=== PATIENT | male | born 1945 | race Caucasian/White ===

== ENCOUNTER 2019-10-10 17:32 | Outpatient (CLI) | payer MEDICARE, SELFPAY ==
[2019-10-10 18:23] LABS: Basophils Absolute Auto 0.1 K/mm3 (0.0-0.1); Eosinophils Absolute Auto 0.3 K/mm3 (0-0.3); Eosinophils Percent Auto 3.2 % (0-4.4); Hematocrit 22.6 % (42.0-52.0); Immature Granulocyte Absolute 0.08 K/mm3 (0.00-0.031); Immature Granulocyte Percent A 0.9 % (0-0.5); Lymphocytes Absolute Auto 1.99 K/mm3 (0.9-3.2); Lymphocytes Percent Auto 22.3 % (18.3-44.2); Mean Corpuscular Hemoglobin 28.7 pg (26-34); Mean Corpuscular Volume 92.6 fl (80-100); Mean Platelet Volume 11.2 fl (7.4-10.4); Monocytes Absolute Auto 1.1 K/mm3 (0.1-0.6); Monocytes Percent Auto 12.7 % (2.6-8.5); Neutrophils Absolute Auto 5.4 K/mm3 (1.3-6.7); Neutrophils Percent Auto 59.9 % (45.5-73.1); Platelet Count Result 339 k/mm3 (150-375); Red Blood Count 2.44 M/mm3 (4.6-6.20); Red Cell Distribution Width 15.3 % (11.5-14.5); White Blood Count 8.9 K/mm3 (4.5-10.0)
[2019-10-10 18:25] LABS: Iron 24 ug/dL (49-181)
[2019-10-10 18:34] LABS: Percent Iron Saturation 8 % (20-50)
[2019-10-10 19:20] LABS: Folic Acid 16.1 ng/mL (2.76->20)
== END 2019-10-10 17:33 | disposition home or self-care (01) ==
PROVIDERS: PCP Family Medicine; Visit Provider Family Medicine
DX: R53.1 Weakness (principal); I10 Essential (primary) hypertension; D64.9 Anemia, unspecified
CPT/HCPCS: 36415; 82607; 82728; 82746; 83540; 83550; 85025

== ENCOUNTER 2019-10-11 11:29 | Observation (INO) | payer MEDICARE, SELFPAY ==
[2019-10-11] VITALS (10 sets, daily range): BP systolic 144–180; BP diastolic 63–86; PULSE 65–84; RESP 17–26; TEMP 36.1–36.7; O2SAT 94–100; BMI 31.4
--- NOTE | ~2019-10-11 | XR_ITS ---
EXAMINATION: XR chest 1V portable DATE: 10/11/2019 15:46 INDICATION: Shortness of breath. TECHNIQUE: A single frontal view of the chest was obtained. COMPARISON: None. FINDINGS: There is mild atelectasis in left lower lung zone. No pleural effusion or pneumothorax. The heart size is normal. There is a moderate-sized hiatal hernia. IMPRESSION: 1. Mild atelectasis in left lower lung zone. 2. Moderate-sized hiatal hernia. Reviewed, dictated and finalized at location A.
--- NOTE | ~2019-10-11 | US_ITS ---
EXAMINATION: US venous doppler LE EXAM DATE: 10/12/2019 09:01 INDICATION: Bilateral leg swelling. TECHNIQUE: Multiple grayscale, color flow and Doppler images of the lower extremity deep venous syste ms bilaterally were obtained and reviewed. There is no prior study for comparison. FINDINGS: Right side: The right common femoral, femoral and profunda veins demonstrate normal color flow, respi ratory variation, augmentation and compressibility. Compressibility, color flow confirmed within the right popliteal, posterior tibial, peroneal, and greater saphenous veins. Left side: The left common femoral, femoral and profunda veins demonstrate normal color flow, respira tory variation, augmentation and compressibility. Compressibility, color flow confirmed within the l eft popliteal, posterior tibial, peroneal, and greater saphenous veins. IMPRESSION: 1. No lower extremity deep venous thrombosis bilaterally. Reviewed, dictated and finalized at location A.
--- NOTE | 2019-10-11 11:30 | ECG_ITS ---
Measurements Intervals [place] Rate: 76 P: -28 ND: 196 QRS: -27 QRSD: 93 T: -29 QT: 382 QTc: 431 Interpretive Statements SINUS OR ECTOPIC ATRIAL RHYTHM DELAYED PRECORDIAL R/S TRANSITION NONSPECIFIC T-WAVE ABNORMALITY- INFERIOR LEADS BASELINE ARTIFACT- I, II, III, AVL BORDERLINE ECG Electronically Signed On 10-11-2019 11:57:47 CDT by John Estrada D.O.
[2019-10-11 12:07] LABS: Basophils Absolute Auto 0.1 K/mm3 (0.0-0.1); Eosinophils Absolute Auto 0.2 K/mm3 (0-0.3); Eosinophils Percent Auto 2.4 % (0-4.4); Hematocrit 23.1 % (42.0-52.0); Hemoglobin 7.3 g/dL (14.0-18.0); Immature Granulocyte Absolute 0.08 K/mm3 (0.00-0.031); Immature Granulocyte Percent A 0.9 % (0-0.5); Lymphocytes Absolute Auto 1.53 K/mm3 (0.9-3.2); Lymphocytes Percent Auto 17.7 % (18.3-44.2); Mean Corpuscular HGB Conc 31.6 g/dl (32-36); Mean Corpuscular Hemoglobin 28.9 pg (26-34); Mean Corpuscular Volume 91.3 fl (80-100); Monocytes Absolute Auto 0.9 K/mm3 (0.1-0.6); Neutrophils Absolute Auto 5.9 K/mm3 (1.3-6.7); Platelet Count Result 361 k/mm3 (150-375); Red Blood Count 2.53 M/mm3 (4.6-6.20); Red Cell Distribution Width 15.4 % (11.5-14.5); White Blood Count 8.6 K/mm3 (4.5-10.0)
--- NOTE | 2019-10-11 12:10 | ED.RECABL ---
HPI - Recheck/Abnormal Lab/Rx General Chief Complaint: Recheck/Abnormal Lab/Rx Stated Complaint: low hemoglobin Time Seen by Provider: 10/11/19 11:55 Source: RN notes reviewed History of Present Illness HPI narrative: Patient presents emergency department from home secondary to abnormal labs. The patient states he was following up with his primary care physician and had a hemoglobin drawn that was 7 and was referred to the emergency department for further evaluation. The patient was admitted to [facility] last week with discharge last , 10/04/2019 as he had been admitted for bleeding gastric ulcers that is been cauterized. The patient received 3 units of blood at that time. States since then he has been feeling weak when he gets up and ambulates he denies any vomiting denies any dark stools. Denies any fevers or chills chest pain shortness of breath abdominal pain or any other symptoms Related Data Home Medications Medication Instructions Recorded Confirmed pantoprazole 40 mg tablet,delayed 40 mg PO QAM 10/10/19 10/10/19 release Allergies Allergy/AdvReac Type Severity Reaction Status Date / Time No Known Allergies Allergy Verified 10/11/19 11:35 Review of Systems Review of Systems: Narrative: Gen.: Denies fevers or chills ENT: Denies congestion Respiratory: Denies shortness of breath or cough CV: Denies chest pain or palpitations GI: Denies abdominal pain nausea, emesis or diarrhea Musculoskeletal: Denies back pain or muscle pain Neuro: Denies numbness, tingling, weakness or focal weakness Skin: Denies rash Except as documented, all other systems reviewed and negative [facility] Past Medical History Medical History BPH w/o urinary obs/LUTS CAD in [place] artery CKD (chronic kidney disease) stage 3, GFR 30-59 ml/min Dyslipidemia Essential (primary) hypertension JILLIAN (obstructive sleep apnea) Unspecified osteoarthritis, unspecified site Social History Social History Smoking status: Former smoker Second hand tobacco smoke exposure: No Smoking end date: 03/14/73 Alcohol intake: current Drinks per week: 2 Substance use: never Substance use type: does not use Gender identity (if verbalized by the patient): Male Exam Narrative: Exam Narrative: APPEARANCE: No acute distress, nontoxic, resting in bed EYES: EOMI HEENT: Normocephalic, atraumatic, OMM RESPIRATORY: No respiratory distress Clear to auscultation bilaterally with no rhonchi wheezing or rales. CARDIOVASCULAR: Regular rate and rhythm without murmurs rubs or gallops. ABDOMINAL: Soft, nontender, nondistended, no rebound or guarding Rectal: No hemorrhoids or fissures no active bleeding, small amount of light brown stool is Hemoccult negative MUSCULOSKELETAl: Moves all extremities. No clubbing, cyanosis or edema. NEURO: Awake and alert. Following commands, speech normal, no focal deficits SKIN:: Warm, dry. No rashes lesions or abrasions PSYCHIATRIC: Normal affect/mood, Course Course Emergency Course: Called and discussed with [facility]. Patient discharged with a hemoglobin of 7.7 on 10/04/2019 Discussed with PSYCHOLOGICAL OPERATIONS SPECIALIST Elidia presentation work-up agrees with plan for admission with transfusion of 1 unit PRBCs Discussed with patient and family results of workup and diagnosis. Discussed need for admission. Patient and family understand and agree to current treatment plan. Discussed plan for transfusion in agreement at this time Vital Signs Vital signs: Vital Signs Temperature 97.6 F 10/11/19 11:33 Pulse Rate 81 10/11/19 11:33 Respiratory Rate 17 10/11/19 11:33 Blood Pressure 180/84 H 10/11/19 11:33 Pulse Oximetry 100 10/11/19 11:33 Temperature 97.6 F 10/11/19 11:33 Pulse Rate 71 10/11/19 14:06 Respiratory Rate 18 10/11/19 14:06 Blood Pressure 155/81 H 10/11/19 14:06 Pulse Oximetry 94
[2019-10-11 12:14] LABS: INR 1.1; Prothrombin Time 14.2 Seconds (11.1-14.7)
[2019-10-11 12:15] LABS: Partial Thromboplastin Time 32.3 SECONDS (22.3-36.8)
[2019-10-11 12:18] LABS: Alanine Aminotransferase 25 U/L (4-50); Albumin Level 3.5 g/dL (3.5-5.1); Alkaline Phosphatase 71 U/L (38-126); Anion Gap 10.5 mmol/L (7-16); Aspartate Amino Transferase 24 U/L (17-59); Bilirubin,Total 0.2 mg/dL (0.2-1.3); Blood Urea Nitrogen 15 mg/dL (9-20); Calcium 8.5 mg/dL (8.4-10.2); Carbon Dioxide 25 mmol/L (22-30); Chloride 108 mmol/L (98-107); Estimated CRCL calculation 50 ml/min; Estimated Glomerular Filt Rate 54; Glucose 118 mg/dL (75-110); Potassium 3.5 mmol/L (3.4-5.0); Sodium 140 mmol/L (137-145)
--- NOTE | 2019-10-11 15:04 | PC.NURSE ---
This patient, Alberto Rea, was admitted to Medical Room 258-. Patient/family oriented to hospital policies and general routines including ID bracelet, bed and alarms, visiting hours, pain management, procedures, bathroom and other care routines, personal items, smoking policy, room service/diet, and visiting hours. Valuables list has been completed. Information on how to activate the Rapid Response Team has been discussed. Patient/Family are encouraged to report perceived risks to care and to ask questions if they do not understand what they are told or what they should do.
[2019-10-11] MEDS: FUROSEMIDE INJ 40 MG/4 ML VIAL 20 MG IV PUSH (19:49)
--- NOTE | 2019-10-11 19:54 | PM.IMHP ---
H&P: HPI History of Present Illness Chief complaint: Symptomatic anemia Narrative: Alberto Rea is a 73 year old male who presented to his primary care office Dr. Perea yesterday after being admitted to [facility] for a peptic ulcer bleed. Is reported that his peptic ulcer was cauterized in that he was placed on a PPI. His hemoglobin got elevated down to 7.0 on was given 3 units of packed red blood cells according to the patient. He had been on Plavix and aspirin and that has since been stopped. The patient did not noticed any dark stools or been vomiting any blood. He stated that he has been taking the medications that he has been prescribed as far as he is aware. The patient stated that he still continued to feel short of breath and very weak. His told him that he looked pale and that is color did look very good at all. He has had no nausea vomiting or diarrhea. His stool was guaiac negative in the emergency room here. The patient had some labs drawn yesterday and was notified today that he needed to come to the hospital because his hemoglobin was 7.0. We had labs drawn here his hemoglobin was 7.3. 1 unit packed red blood cells was ordered for him. He now has some color in his face. Stated he feels somewhat better. Patient stated that he is lower extremities became more edematous since he has received all this blood. So I did give him some IV Lasix because he was not sure if he took his Lasix this morning. He is not sure if he has congestive heart failure either. His chest x-ray was read as mild atelectasis in the left lower lung zone and moderate size hiatal hernia. Heart size is normal. Patient is being admitted to medical-surgical for symptomatic anemia. I spent approximately 1 hour the patient the date of service is 10/11/2019. Review of Systems Review of Systems: All systems reviewed & are unremarkable except as noted in HPI and below Constitutional: Constitutional: Reports as per HPI and Reports no additional constitutional complaints Eyes: Eyes: Reports as per HPI and Reports no additional eye complaints ENT: Reports system reviewed and no additional complaints, except as documented and Reports Normal hearing present Cardiovascular: Cardiovascular: Reports no additional cardiovascular complaints Respiratory: Respiratory: Reports no additional respiratory complaints and Reports no additional respiratory complaints Gastrointestinal: Gastrointestinal: Reports as per HPI and Reports no additional gastrointestinal complaints Musculoskeletal: Musculoskeletal: Reports no additional musculoskeletal complaints Integumentary/Breasts: Skin/Breast: Reports system reviewed and no additional complaints, except as docu and Reports as per HPI Neurologic: Reports system reviewed and no additional complaints, except as documented, Reports as per HPI and Reports Normal hearing present Psychiatric: Psychiatric: Reports no additional psychiatric complaints and Reports as per HPI Endocrine: Endocrine: Reports no additional endocrine complaints Hematologic/Lymphatic: Hematologic/Lymphatic: Reports no additional hematologic/lymphatic complaints Allergic/Immunologic: Allergic/Immunologic: Reports no additional allergic/immunologic complaints [facility] Past Medical History Medical History (Updated 10/11/19 @ 20:01 by Elidia Martinez NP) Anemia of chronic disease BPH w/o urinary obs/LUTS CAD in [place] artery CKD (chronic kidney disease) stage 3, GFR 30-59 ml/min Dyslipidemia Essential (primary) hypertension JILLIAN (obstructive sleep apnea) uses a CPAP machine Unspecified osteoarthritis, unspecified site Surgical History Surgical History (Updated 10/11/19 @ 20:01 by Elidia Martinez NP) H/O bilateral cataract extraction H/O esophagogastroduodenoscopy this past week with cauterization of peptic ulcer disease History of coronary artery stent placement (~05/05/18) x3. Drug-eluting stent to the RCA in 2 stents the
[2019-10-11 20:38] LABS: Hematocrit 25.8 % (42.0-52.0); Hemoglobin 8.5 g/dL (14.0-18.0)
[2019-10-11] MEDS: cloNIDine HCL 0.1 MG TABLET PO (21:15)
[2019-10-11] MEDS: TAMSULOSIN HCL 0.4 MG CAPSULE PO (21:15)
[2019-10-12 02:44] VITALS: PULSE 62; RESP 17; O2SAT 95
[2019-10-12 05:36] LABS: Basophils Absolute Auto 0.1 K/mm3 (0.0-0.1); Eosinophils Absolute Auto 0.2 K/mm3 (0-0.3); Eosinophils Percent Auto 2.6 % (0-4.4); Hematocrit 26.8 % (42.0-52.0); Hemoglobin 8.5 g/dL (14.0-18.0); Immature Granulocyte Absolute 0.07 K/mm3 (0.00-0.031); Immature Granulocyte Percent A 0.9 % (0-0.5); Lymphocytes Absolute Auto 1.52 K/mm3 (0.9-3.2); Lymphocytes Percent Auto 18.9 % (18.3-44.2); Mean Corpuscular HGB Conc 31.7 g/dl (32-36); Mean Corpuscular Hemoglobin 29.2 pg (26-34); Mean Corpuscular Volume 92.1 fl (80-100); Mean Platelet Volume 10.9 fl (7.4-10.4); Monocytes Percent Auto 12.5 % (2.6-8.5); Neutrophils Absolute Auto 5.2 K/mm3 (1.3-6.7); Neutrophils Percent Auto 64.1 % (45.5-73.1); Platelet Count Result 356 k/mm3 (150-375); Red Blood Count 2.91 M/mm3 (4.6-6.20); Red Cell Distribution Width 14.9 % (11.5-14.5)
[2019-10-12 05:42] VITALS: BP 152/85; PULSE 72; RESP 22; TEMP 36.5; O2SAT 98
[2019-10-12 05:51] LABS: Alanine Aminotransferase 23 U/L (4-50); Albumin Level 3.5 g/dL (3.5-5.1); Alkaline Phosphatase 69 U/L (38-126); Anion Gap 10.7 mmol/L (7-16); Aspartate Amino Transferase 26 U/L (17-59); Bilirubin,Total 0.2 mg/dL (0.2-1.3); Blood Urea Nitrogen 18 mg/dL (9-20); Calcium 8.6 mg/dL (8.4-10.2); Carbon Dioxide 25 mmol/L (22-30); Chloride 107 mmol/L (98-107); Estimated CRCL calculation 44 ml/min; Estimated Glomerular Filt Rate 49; Glucose 109 mg/dL (75-110); Potassium 3.7 mmol/L (3.4-5.0); Sodium 139 mmol/L (137-145)
[2019-10-12] MEDS: cloNIDine HCL 0.1 MG TABLET PO ×2 (06:19→13:53)
[2019-10-12] MEDS: hydrALAZINE 12.5 MG TABLET 37.5 MG PO ×2 (09:35→11:50)
[2019-10-12] MEDS: ISOSORBIDE DINITRATE 20 MG TABLET PO ×2 (09:36→13:53)
[2019-10-12] MEDS: SIMVASTATIN 20 MG TABLET PO (09:36)
[2019-10-12] MEDS: lisinopriL 20 MG TABLET 40 MG PO (09:36)
[2019-10-12] MEDS: PANTOPRAZOLE 40 MG TABLET PO (09:36)
[2019-10-12] MEDS: amLODIPine BESYLATE 5 MG TABLET 10 MG PO (09:36)
[2019-10-12] MEDS: FUROSEMIDE 40 MG TABLET PO (09:36)
[2019-10-12 12:31] LABS: Hematocrit 26.4 % (42.0-52.0); Hemoglobin 8.4 g/dL (14.0-18.0)
--- NOTE | 2019-10-12 14:10 | PM.DS ---
DS: Admitting Diagnosis Admitting Diagnosis Admitting Diagnosis: Anemia in other chronic diseases classified elsewhere DS: Discharge Diagnosis Discharge Diagnosis (1) Anemia of chronic disease: Code(s): D63.8 - Anemia in other chronic diseases classified elsewhere Status: Chronic Assessment and Plan: not sure if this is related to his chronic kidney disease or if this is related to his recent peptic ulcer disease. He did have an admission to [facility] where he had an EGD and was found to have a bleeding ulcer. It was reported that this ulcer was cauterized. The patient was placed on a PPI will continue with the PPI. Will continue to check his stools for occult blood. I was told by the ED physician that his stool was guaiac test negative. The patient was given 1 more unit of packed red blood cells. Was reported that the patient received at 3 within the last week at [facility]. I am asking for records from [place]. (2) CKD (chronic kidney disease) stage 3, GFR 30-59 ml/min: Code(s): N18.3 - Chronic kidney disease, stage 3 (moderate) Status: Acute Assessment and Plan: continue to monitor patient BUN and creatinine. (3) BPH w/o urinary obs/LUTS: Code(s): N40.0 - Benign prostatic hyperplasia without lower urinary tract symptoms Status: Acute Assessment and Plan: Continue with his tamsulosin. (4) Essential (primary) hypertension: Code(s): I10 - Essential (primary) hypertension Status: Acute Assessment and Plan: Continue with patient's lisinopril, isosorbide clonidine, Lasix, and amlodipine. (5) Dyslipidemia: Code(s): E78.5 - Hyperlipidemia, unspecified Status: Acute Assessment and Plan: Continue with simvastatin. (6) JILLIAN (obstructive sleep apnea): Code(s): G47.33 - Obstructive sleep apnea (adult) (pediatric) Status: Chronic Assessment and Plan: I did order him a BiPAP machine. (7) CAD in [place] artery: Code(s): I25.10 - Atherosclerotic heart disease of [place] coronary artery without angina pectoris Status: Acute Assessment and Plan: His aspirin and Plavix have been on hold since he was diagnosed with peptic ulcer disease. Continue with isosorbide. (8) Symptomatic anemia: Code(s): D64.9 - Anemia, unspecified Status: Acute Assessment and Plan: Transfuse when appropriate. (9) Unspecified osteoarthritis, unspecified site: Code(s): M19.90 - Unspecified osteoarthritis, unspecified site Status: Acute Assessment and Plan: Hold all NSAIDs. (10) Peptic ulcer disease: Code(s): K27.9 - Peptic ulcer, site unspecified, unspecified as acute or chronic, without hemorrhage or perforation Status: Chronic Assessment and Plan: Aspirin and Plavix are on hold at this time. DS: Summary Hospital Course Reason for hospitalization: Chief complaint: Symptomatic anemia Narrative: Alberto Rea is a 73 year old male who presented to his primary care office Dr. Perea yesterday after being admitted to [facility] for a peptic ulcer bleed. Is reported that his peptic ulcer was cauterized in that he was placed on a PPI. His hemoglobin got elevated down to 7.0 on was given 3 units of packed red blood cells according to the patient. He had been on Plavix and aspirin and that has since been stopped. The patient did not noticed any dark stools or been vomiting any blood. He stated that he has been taking the medications that he has been prescribed as far as he is aware. The patient stated that he still continued to feel short of breath and very weak. His told him that he looked pale and that is color did look very good at all. He has had no nausea vomiting or diarrhea. His stool was guaiac negative in the emergency room here. The patient had some labs drawn yesterday and was notified today that he needed
== END 2019-10-12 15:38 | disposition home or self-care (01) ==
LOC: ANHED 14:17 → ANH2MED 10-12 09:47
PROVIDERS: Nurse Practitioner; Admitting Provider Family Medicine; Emergency Provider Emergency Medicine; PCP Family Medicine; Visit Provider Family Medicine
DX: I12.9 Hypertensive chronic kidney disease with stage 1 through stage 4 chronic kidney disease, or unspecified chronic kidney disease (principal); N18.3 Chronic kidney disease, stage 3 (moderate); K27.9 Peptic ulcer, site unspecified, unspecified as acute or chronic, without hemorrhage or perforation; D63.8 Anemia in other chronic diseases classified elsewhere; N40.0 Benign prostatic hyperplasia without lower urinary tract symptoms; E78.5 Hyperlipidemia, unspecified; G47.33 Obstructive sleep apnea (adult) (pediatric); I25.10 Atherosclerotic heart disease of native coronary artery without angina pectoris; M19.90 Unspecified osteoarthritis, unspecified site; M79.89 Other specified soft tissue disorders; Z87.891 Personal history of nicotine dependence; Z79.899 Other long term (current) drug therapy
CPT/HCPCS: 36415; 36430; 71045; 80053; 85014; 85018; 85025; 85610; 85730; 86850; 86900; 86901; 86923; 93005; 93970; 96374; 97161; 97165; 99285; A9270; G0378; J1940; P9016

== ENCOUNTER → 2023-02-16 15:27 | Outpatient (CLI) | payer MEDICARE, SELFPAY ==
--- NOTE | ~2023-02-16 | XR_ITS ---
AP and lateral views of the right tibia/fibula Clinical History: Pain Findings: No acute fracture or dislocation is seen. There is moderate degenerative change at the knee . Tibiotalar joint preserved. There is nonspecific subcutaneous soft tissue edema. Impression: Moderate degenerative change of the knee. Nonspecific subcutaneous soft tissue edema. Reviewed, dictated and finalized at [facility]. AL RECRUITER Impression: Moderate degenerative change of the knee. Nonspecific subcutaneous soft tissue edema.
== END ==
PROVIDERS: PCP Family Medicine; Visit Provider Family Medicine
DX: M17.11 Unilateral primary osteoarthritis, right knee (principal); R60.9 Edema, unspecified
CPT/HCPCS: 73590

== ENCOUNTER 2023-03-30 17:54 | Inpatient (IN) | payer MEDICARE, SELFPAY ==
[2023-03-30] VITALS (17 sets, daily range): BP systolic 141–165; BP diastolic 47–100; PULSE 90–117; RESP 14–23; TEMP 36.5–36.6; O2SAT 92–98; BMI 34.7
--- NOTE | ~2023-03-30 | CT_ITS ---
EXAMINATION: CTA chest DATE: 03/30/2023 19:05 INDICATION: Generalized chest discomfort. TECHNIQUE: Computed tomographic angiography (CTA) of the chest was performed with 100 mL Omnipaque-35 0 intravenous contrast. Automated exposure control and iterative reconstruction technique were employ ed. The dose-length product was 956.96 mGy-cm. Maximum intensity projection 3D-reconstructions of the aorta and other arteries were constructed by the technologist on a separate workstation. COMPARISON: None. FINDINGS: The lungs demonstrate mild atelectasis. No pleural effusion. Cardiomegaly is noted. No lily cardial effusion. There are coronary artery calcifications. There is a moderate-sized sliding hiatal hernia. There is a 10 mm cyst in left kidney. There are widespread arterial calcifications. Aortic at herosclerosis is noted. No aneurysm or dissection. The central pulmonary arteries are enlarged, consi stent with pulmonary arterial hypertension. There is moderate stenosis of celiac axis and severe sten osis of superior mesenteric artery. There is mild thoracic spondylosis. IMPRESSION: 1. Aortic atherosclerosis. No aneurysm or dissection. 2. Moderate-sized sliding hiatal hernia. 3. 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 Reviewed, dictated and finalized at location E. HEARTH LABORER
--- NOTE | ~2023-03-30 | US_ITS ---
EXAMINATION: US retroperitoneal duplex ltd DATE: 04/01/2023 14:47 INDICATION: hypertension TECHNIQUE: Multiple grayscale, color Doppler, and pulsed Doppler images of the kidneys and renal aristeo juanito were obtained. COMPARISON: None. FINDINGS: Brisk systolic upstrokes in the aorta. The right renal artery peak systolic velocity is 157 cm/s in t he proximal segment, 61 cm/s in the mid segment, and 16 cm/s in the distal segment. The left renal ar richar peak systolic velocity is 32 cm/s in the proximal segment, 99 cm/s in the mid segment, and 50 cm /s in the distal segment. There are brisk systolic upstrokes at the left and right renal arteries. IMPRESSION: 1. No Doppler evidence of renal artery stenosis. Reviewed, dictated and finalized at location A. STICS ASSOCIATE
--- NOTE | ~2023-03-30 | XR_ITS ---
EXAMINATION: XR chest 1V portable DATE: 03/30/2023 18:35 INDICATION: Chest discomfort. TECHNIQUE: A single frontal view of the chest was obtained. COMPARISON: Chest single view 10/11/2019 FINDINGS: There is mild atelectasis in left lower lung zone. No pleural effusion or pneumothorax. The heart size is normal. There is a moderate-sized hiatal hernia. IMPRESSION: 1. Mild atelectasis in left lower lung zone. 2. Moderate-sized hiatal hernia. Reviewed, dictated and finalized at location E. TORIAL ACCOUNT MANAGER
--- NOTE | 2023-03-30 17:57 | ECG_ITS ---
Measurements Intervals [place] Rate: 122 P: [place]: 0 QRS: -34 QRSD: 91 T: 120 QT: 231 QTc: 330 Interpretive Statements ATRIAL FIBRILLATION WITH RAPID VENTRICULAR RESPONSE VENTRICULAR PREMATURE COMPLEXES LEFT AXIS DEVIATION BORDERLINE R WAVE PROGRESSION, ANTERIOR LEADS ST-T WAVE ABNORMALITY IN ANTEROLAT/HIGH LAT LEADS- CONSIDER ISCHEMIA BASELINE ARTIFACT- I, II, AVR, AVL ABNORMAL ECG COMPARED TO ECG 10/11/2019 11:49:33 ATRIAL FIBRILLATION NOW PRESENT ST-T WAVE ABNORMALITY NOW PRESENT Electronically Signed On 03-30-2023 19:04:29 LAMINATOR by John Estrada D.O.
[2023-03-30] MEDS: SODIUM CHLORIDE 0.9% IV 500 ML 999 ML IV CONT (18:10)
[2023-03-30 18:16] LABS: Basophils Absolute Auto 0.1 K/mm3 (0.0-0.1); Eosinophils Absolute Auto 0.3 K/mm3 (0-0.3); Eosinophils Percent Auto 2.5 % (0-4.4); Hematocrit 38.3 % (42.0-52.0); Hemoglobin 12.3 g/dL (14.0-18.0); Immature Granulocyte Absolute 0.04 K/mm3 (0.00-0.031); Immature Granulocyte Percent A 0.4 % (0-0.5); Lymphocytes Absolute Auto 3.54 K/mm3 (0.9-3.2); Lymphocytes Percent Auto 33.1 % (18.3-44.2); Mean Corpuscular HGB Conc 32.1 g/dl (32-36); Mean Corpuscular Hemoglobin 29.2 pg (26-34); Monocytes Absolute Auto 1.2 K/mm3 (0.1-0.6); Neutrophils Absolute Auto 5.5 K/mm3 (1.3-6.7); Platelet Count Result 292 k/mm3 (150-375); Red Blood Count 4.21 M/mm3 (4.6-6.20); Red Cell Distribution Width 13.4 % (11.5-14.5); White Blood Count 10.7 K/mm3 (4.5-10.0)
--- NOTE | 2023-03-30 18:20 | ECG_ITS ---
Measurements Intervals [place] Rate: 106 P: [place]: 0 QRS: -33 QRSD: 94 T: 72 QT: 336 QTc: 447 Interpretive Statements ATRIAL FIBRILLATION WITH RAPID VENTRICULAR RESPONSE VENTRICULAR PREMATURE COMPLEX LEFT AXIS DEVIATION CANNOT RULE OUT SEPTAL INFARCT, AGE INDETERMINATE ST-T WAVE ABNORMALITY IN ANTEROLAT/HIGH LAT LEADS- CONSIDER ISCHEMIA BASELINE ARTIFACT- I, II, III, AVR, AVL ABNORMAL ECG COMPARED TO ECG 03/30/2023 17:59:51 NO SIGNIFICANT CHANGES Electronically Signed On 03-30-2023 19:06:25 MEDICAL COLLECTIONS REPRESENTATIVE by John Estrada D.O.
[2023-03-30 18:23] LABS: INR 1.1; Prothrombin Time 14.7 Seconds (11.1-14.7)
[2023-03-30 18:24] LABS: Partial Thromboplastin Time 35.5 SECONDS (22.3-36.8)
[2023-03-30 18:30] LABS: NT Pro B Type Natriuretic Pept 599 pg/mL (19.9-100)
[2023-03-30] MEDS: dilTIAZem HCl INJ 25 MG/5 ML VIAL 10 MG IV PUSH (18:35)
--- NOTE | 2023-03-30 18:42 | ECG_ITS ---
Measurements Intervals [place] Rate: 99 P: 91 DC: 213 QRS: -34 QRSD: 99 T: 68 QT: 337 QTc: 434 Interpretive Statements SINUS RHYTHM WITH FIRST DEGREE AV BLOCK ATRIAL COUPLET AND VENTRICULAR PREMATURE COMPLEX LEFT AXIS DEVIATION BORDERLINE R WAVE PROGRESSION, ANTERIOR LEADS ST-T WAVE ABNORMALITY IN ANTEROLAT/HIGH LAT LEADS- CONSIDER ISCHEMIA ABNORMAL ECG COMPARED TO ECG 03/30/2023 18:31:00 SINUS RHYTHM NOW PRESENT FIRST DEGREE AV BLOCK NOW PRESENT Electronically Signed On 03-30-2023 19:09:03 YARD CLEANER by John Estrada D.O.
[2023-03-30 18:56] LABS: Alanine Aminotransferase 22 U/L (6-50); Albumin Level 3.9 g/dL (3.5-5.1); Alkaline Phosphatase 94 U/L (38-126); Anion Gap 9 mmol/L (8-16); Aspartate Amino Transferase 40 U/L (17-59); Bilirubin,Total 0.6 mg/dL (0.2-1.3); Blood Urea Nitrogen 25 mg/dL (9-20); Calcium 9.2 mg/dL (8.4-10.2); Carbon Dioxide 25 mmol/L (22-30); Chloride 103 mmol/L (98-107); Estimated Glomerular Filt Rate 49; Glucose 157 mg/dL (65-110); Lipase 133 U/L (23-300); Potassium 3.4 mmol/L (3.4-5.0); Sodium 137 mmol/L (137-145)
[2023-03-30 18:58] LABS: Estimated Glomerular Filt Rate 39
[2023-03-30 19:08] LABS: Troponin I 0.013 ng/mL (0.000-0.034)
--- NOTE | 2023-03-30 19:18 | ED.CHESTPAIN ---
HPI - Chest Pain General Chief Complaint: Chest Pain <Yoselin Ibarra PA-C - Last Filed: 03/30/23 22:40> Stated Complaint: chest discomfort, b/l UE tingling <Yoselin Ibarra PA-C - Last Filed: 03/30/23 22:40> History of Present Illness HPI narrative: 77-year-old male with history of CKD, CAD, s/p stent placement in 2019, dyslipidemia, hypertension, JILLIAN, CVA in 1992 (unsure if hemorrhagic or ischemic) reports for evaluation for substernal chest pain and numbness and tingling in his hands it started at 4:30 a.m. this evening. Patient states symptoms started while he was sitting in a chair, his pain was a 4/5/10 when EMS arrived and is 7/10 upon arrival. He received 325 mg aspirin and 2 sprays of nitroglycerin EN route per EMS. Upon my evaluation, the patient states that the chest pain is substernal and nonradiating. He describes the pain as dull and aching. He does report intermittent paresthesias in his bilateral hands And associated weakness and dyspnea. He denies aggravating or alleviating factors, abdominal pain, fever, cough or congestion , urinary complaints. He was found to be in AFib upon arrival and denies known history. His tray packer is at [facility] and he has not seen him in many years. <Yoselin Ibarra PA-C - Last Filed: 03/30/23 22:40> Related Data Allergies/Adverse Reactions: Allergies Allergy/AdvReac Type Severity Reaction Status Date / Time No Known Allergies Allergy Verified 03/30/23 18:04 <Yoselin Ibarra PA-C - Last Filed: 03/30/23 22:40> Review of Systems Review of Systems: CONSTITUTIONAL: Denies fever, chills, or sweats. EYES: Denies visual changes, redness, or discharge. ENT: Denies rhinorrhea, congestion, sore throat, or otalgia. CARDIOVASCULAR:See HPI RESPIRATORY: see HPI GASTROINTESTINAL: Denies abdominal pain, nausea, vomiting, or diarrhea. GENITOURINARY: Denies dysuria or hematuria. SKIN: Denies rash or itching. MUSCULOSKELETAL: Denies back pain, joint pain, or myalgia. NEUROLOGIC: Denies headache, numbness, or weakness. PSYCHIATRIC: Denies anxiety or depression. <Yoselin Ibarra PA-C - Last Filed: 03/30/23 22:40> [facility] Past Medical History Medical History: Medical History (Updated 03/31/23 @ 16:52 by Sweta Pop MD) Anemia of chronic disease BPH w/o urinary obs/LUTS CAD in [place] artery Chronic venous insufficiency of lower extremity CKD (chronic kidney disease) stage 3, GFR 30-59 ml/min Dyslipidemia Essential (primary) hypertension GERD without esophagitis History of stroke (1991) Stroke was in 1991, [facility], unclear if hemorrhagic or not but pt does not recall any intravascular intervention. Hypertension Hypothyroidism (acquired) JILLIAN (obstructive sleep apnea) uses a CPAP machine Peptic ulcer disease 09/2019-cauterization and placed on PPI Unspecified osteoarthritis, unspecified site Vitamin D deficiency <Yoselin Ibrara PA-C - Last Filed: 03/30/23 22:40> Surgical History Surgical History: Surgical History H/O bilateral cataract extraction (~2017) H/O esophagogastroduodenoscopy this past week with cauterization of peptic ulcer disease History of coronary artery stent placement (~05/05/18) x3. Drug-eluting stent to the RCA in 2 stents the LAD. <Yoselin Ibarra PA-C - Last Filed: 03/30/23 22:40> Family History Family History: Family History Father Family history of cardiovascular disease, Onset Age: 55 Hypertension, Onset Age: 55 Mother Patient's mother is , Onset Age: 65 Bladder cancer <Yoselin Ibarra PA-C - Last Filed: 03/30/23 22:40> Social History Social History: Social History Social History: the patient is and lives with his . 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
[2023-03-30 19:41] LABS: Magnesium 2.2 mg/dL (1.6-2.3)
--- NOTE | 2023-03-30 20:03 | ECG_ITS ---
Measurements Intervals [place] Rate: 100 P: 74 [place]: 240 QRS: -29 QRSD: 99 T: 50 QT: 344 QTc: 444 Interpretive Statements SINUS TACHYCARDIA WITH FIRST DEGREE AV BLOCK ATRIAL PREMATURE COMPLEXES DELAYED PRECORDIAL R/S TRANSITION BORDERLINE ST-T WAVE ABNORMALITY- HIGH LATERAL LEADS BORDERLINE ECG COMPARED TO ECG 03/30/2023 18:38:02 SINUS TACHYCARDIA NOW PRESENT Electronically Signed On 03-31-2023 6:22:21 WIRE BRUSHER by John Estrada D.O.
[2023-03-30] MEDS: NITROGLYCERIN SL 0.4 MG TABLET SUBLINGUAL (20:09)
--- NOTE | 2023-03-30 20:10 | PC.NURSE ---
Patient received first nitro tablet at 2009. Patient states CP 5/10, BP: 145/78, HR: 99 At 2014 patient's chest pain was 4/10, BP 150/95, and HR 122. Second tablet given at 2014 At 2021 patient's chest pain was 2/10, BP 121/80 and, HR 107. No other tablet given.
--- NOTE | 2023-03-30 20:43 | ECG_ITS ---
Measurements Intervals [place] Rate: 109 P: [place]: 0 QRS: -34 QRSD: 93 T: 29 QT: 317 QTc: 429 Interpretive Statements SINUS TACHYCARDIA WITH FIRST DEGREE AV BLOCK LEFT AXIS DEVIATION DELAYED PRECORDIAL R/S TRANSITION BASELINE ARTIFACT- I, II, AVR, V1, V4-V6 ABNORMAL ECG COMPARED TO ECG 03/30/2023 20:06:55 LEFT-AXIS DEVIATION NOW PRESENT Electronically Signed On 03-31-2023 6:24:25 HYDRAULIC PRESS TENDER by John Estrada D.O.
--- NOTE | 2023-03-30 20:46 | PM.IMHP ---
H&P: HPI History of Present Illness Date/Time: 03/30/23 20:46 Chief Complaint: altered mental status Narrative: This is a 77-year-old male past medical history significant for hypertension, dyslipidemia, benign prostatic hyperplasia, obesity, anemia chronic disease, coronary artery disease, chronic kidney disease, chronic venous insufficiency, GERD, obstructive sleep apnea. patient comes to the emergency room after feeling very tired and fatigued had been in his usual state of health up until today when he was feeling tired fatigued somnolent took several naps throughout the day He also noted several episodes of shortness of breath. While sitting he felt retrosternal chest pressure and burning asked his to call 911. In emergency room preliminary workup was essentially nonrevealing however troponins were elevated EKG was significant for a feeble with rapid ventricular response Patient has been admitted for further evaluation management and treatment. EXAMINATION: XR chest 1V portable DATE: 03/30/2023 18:35 INDICATION: Chest discomfort. TECHNIQUE: A single frontal view of the chest was obtained. COMPARISON: Chest single view 10/11/2019 FINDINGS: There is mild atelectasis in left lower lung zone. No pleural effusion or pneumothorax. The heart size is normal. There is a moderate-sized hiatal hernia. IMPRESSION: 1. Mild atelectasis in left lower lung zone. 2. Moderate-sized hiatal hernia. EXAMINATION: CTA chest DATE: 03/30/2023 19:05 INDICATION: Generalized chest discomfort. TECHNIQUE: Computed tomographic angiography (CTA) of the chest was performed with 100 mL Omnipaque-350 intravenous contrast. Automated exposure control and iterative reconstruction technique were employed. The dose-length product was 956.96 mGy-cm. Maximum intensity projection 3D-reconstructions of the aorta and other arteries were constructed by the technologist on a separate workstation. COMPARISON: None. FINDINGS: The lungs demonstrate mild atelectasis. No pleural effusion. Cardiomegaly is noted. No pericardial effusion. There are coronary artery calcifications. There is a moderate-sized sliding hiatal hernia. There is a 10 mm cyst in left kidney. There are widespread arterial calcifications. Aortic atherosclerosis is noted. No aneurysm or dissection. The central pulmonary arteries are enlarged, consistent with pulmonary arterial hypertension. There is moderate stenosis of celiac axis and severe stenosis of superior mesenteric artery. There is mild thoracic spondylosis. IMPRESSION: 1. Aortic atherosclerosis. No aneurysm or dissection. 2. Moderate-sized sliding hiatal hernia. 3. 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 EKG Rate 83 FL 240 QRSd 97 QT 377 QTc 445 --[place]-- P 40 QRS -25 T 19 SINUS RHYTHM WITH FIRST DEGREE AV BLOCK BORDERLINE LEFT AXIS DEVIATION [QRS AXIS < -20] MINIMAL ST DEPRESSION [0.025+ mV ST DEPRESSION] COMPARED TO ECG 03/30/2023 20:47:34 SINUS RHYTHM NOW PRESENT FIRST DEGREE AV BLOCK NOW PRESENT Review of Systems Review of Systems: fatigue, tired, somnolent, chest pain Constitutional: Constitutional: Denies chills, Reports fatigue, Denies fever(s), Reports lethargy, Denies malaise, Denies night sweats and Reports weakness Eyes: Eyes: Denies change in vision ENT: Denies dysphagia and Denies odynophagia Cardiovascular: Cardiovascular: Reports chest pain and Reports dyspnea Respiratory: Respiratory: Denies chest congestion, Denies cough and Denies excessive phlegm production Gastrointestinal: Gastrointestinal: Denies abdominal pain, Reports heartburn, Denies nausea and Denies vomiting Genitourinary: Genitourinary: Denies dysuria Musculoskeletal: Musculoskeletal: Denies myalgias Integumentary/Breasts: Skin/Breast: Denies rash Neurologic: Denies focal weakness and Denies Sensory deficit (Neuro) Psychiatric: Psychiatric: Reports no additional psychiatric complai
[2023-03-30] MEDS: SODIUM CHLORIDE 0.9% IV 1,000 ML 500 ML IV CONT (20:54)
--- NOTE | 2023-03-30 20:55 | PC.NURSE ---
Per EDP PA Yoselin hold all heparin until 3 hour troponin comes back.
[2023-03-30 21:18] LABS: Troponin I 0.508 ng/mL (0.000-0.034)
[2023-03-30] MEDS: HEPARIN SODIUM 5,000 UNITS/ML VIAL 4000 UNITS IV PUSH (21:33)
[2023-03-30] MEDS: HEPARIN SOD/D5W 100 UNITS/ML 25,000 UNITS/250 ML BAG 10 UNITS IV CONT (21:33)
[2023-03-30 22:31] LABS: Appearance Urine Clear (Clear); Bilirubin Urine Negative (Negative); Blood Urine Negative (Negative); Color Urine Yellow (Yellow); Glucose Urine UA Negative (Negative); Ketones Urine Negative (Negative); Leukocyte Esterase Ur Negative LEU/UL (Negative); Nitrate Urine Negative (Negative); Protein Urine Negative (Negative); Specific Grav Ur 1.016 (1.001-1.035); pH Urine 7.5 (5.0-9.0)
[2023-03-30 22:46] LABS: Add Urine Microscopic? NO
--- NOTE | 2023-03-30 23:20 | ADMGEN ---
This patient, Alberto Rea, was admitted to Intensive Care Unit-7. Patient/family oriented to hospital policies and general routines including ID bracelet, bed and alarms, visiting hours, pain management, procedures, bathroom and other care routines, personal items, smoking policy, room service/diet, and visiting hours. Information on how to activate the Rapid Response Team has been discussed. Patient/Family are encouraged to report perceived risks to care and to ask questions if they do not understand what they are told or what they should do.
[2023-03-31] VITALS (16 sets, daily range): BP systolic 136–183; BP diastolic 71–115; PULSE 70–106; RESP 16–24; TEMP 36.6–36.9; O2SAT 92–99
--- NOTE | 2023-03-31 00:57 | ECG_ITS ---
Measurements Intervals [place] Rate: 83 P: 40 FL: 240 QRS: -25 QRSD: 97 T: 19 QT: 377 QTc: 445 Interpretive Statements SINUS RHYTHM WITH FIRST DEGREE AV BLOCK DELAYED PRECORDIAL R/S TRANSITION INFERIOR INFARCT, AGE INDETERMINATE ABNORMAL ECG COMPARED TO ECG 03/30/2023 20:47:34 SINUS RHYTHM NOW PRESENT INFERIOR INFARCT, AGE INDETERMINATE NOW PRESENT Electronically Signed On 03-31-2023 6:31:43 SENIOR DRAFTER by John Estrada D.O.
[2023-03-31] MEDS: hydrALAZINE HCL 20 MG/ML VIAL 10 MG IV PUSH (01:08)
[2023-03-31 05:06] LABS: Partial Thromboplastin Time 55.2 SECONDS (22.3-36.8)
[2023-03-31] MEDS: HEPARIN SODIUM 5,000 UNITS/ML VIAL 3500 UNITS IV PUSH (05:22)
[2023-03-31 06:43] LABS: Free T4 Free Thyroxine Reflex 2.22 ng/dL (0.78-2.19)
--- NOTE | 2023-03-31 10:25 | PM.IMPN ---
Progress Note: A&P Assessment and Plan (1) Non-ST elevation [place] (NSTEMI): Code(s): I21.4 - Non-ST elevation (NSTEMI) myocardial infarction Status: Acute (2) Atrial fibrillation with RVR: Code(s): I48.91 - Unspecified atrial fibrillation Status: Acute (3) Hypothyroidism (acquired): Code(s): E03.9 - Hypothyroidism, unspecified Status: Acute (4) CKD (chronic kidney disease) stage 3, GFR 30-59 ml/min: Qualifiers: Chronic kidney disease stage 3 subtype: stage 3a (GFR 45-59) Qualified Code(s): N18.31 - Chronic kidney disease, stage 3a Code(s): N18.3 - Chronic kidney disease, stage 3 (moderate) Status: Acute Plan This is a 77-year-old male past medical history significant for hypertension, dyslipidemia, benign prostatic hyperplasia, obesity, anemia chronic disease, coronary artery disease, chronic kidney disease, chronic venous insufficiency, GERD, obstructive sleep apnea. patient comes to the emergency room after feeling very tired and fatigued?. He also noted several episodes of shortness of breath. While sitting he felt retrosternal chest pressure and burning? asked his to call 911.? In emergency room preliminary workup was essentially nonrevealing however troponins were elevated EKG was significant for a feeble with rapid? ventricular response? Patient has been admitted for further evaluation management and treatment. Assessment and plan (1) Non-ST elevation MT (NSTEMI): ?Code(s): I21.4 - Non-ST elevation (NSTEMI) myocardial infarction versus demand ischemia ?Status:?Acute ?Assessment and Plan: Patient has history of CAD Admit to ICU ?currently on heparin drip ?NPO ?cardiology consult Upon arrival, EKG showed AFib RVR, heart rate 122, ST depression V4 to V6, lead 2 and AVF Continue Imdur 30 mg daily p.o. Zocor 20 mg daily p.o. Plavix 75 mg daily p.o., (2) Atrial fibrillation with RVR: ?Code(s): I48.91 - Unspecified atrial fibrillation ?Status:?Acute ?Assessment and Plan: Upon arrival, EKG showed AFib RVR, ST depression V4 to V6, lead 2 and avf Repeat EKG today shows sinus rhythm, no specific ST T-wave changes (3) Chronic venous insufficiency of lower extremity: ?Code(s): I87.2 - Venous insufficiency (chronic) (peripheral) ?Status:?Acute ?Assessment and Plan: ?compression stockings (4) GERD without esophagitis: ?Code(s): K21.9 - Gastro-esophageal reflux disease without esophagitis ?Status:?Acute ?Assessment and Plan: ?PPI (5) CKD (chronic kidney disease) stage 3, GFR 30-59 ml/min: ?Qualifiers: ?Chronic kidney disease stage 3 subtype:?stage 3a (GFR 45-59)? Qualified Code(s):?N18.31 - Chronic kidney disease, stage 3a ?Code(s): N18.3 - Chronic kidney disease, stage 3 (moderate) ?Status:?Acute ?Assessment and Plan: ?BUN and creatinine at patient's baseline (6) JILLIAN (obstructive sleep apnea): ?Code(s): G47.33 - Obstructive sleep apnea (adult) (pediatric) ?Status:?Chronic ?Assessment and Plan: ?CPAP at nighttime Uncontrolled hypertension Continue home medication lisinopril 40 mg daily p.o., clonidine 0.1 mg t.i.d. p.o., amlodipine 10 mg daily p.o., hydralazine 50 mg t.i.d. p.o. adjust medications per steel chipper BPH Continue tamsulosin 0.4 mg daily p.o. Acquired hypothyroidism Continue Synthroid 150 mcg daily p.o. Follow-up TSH Subjective Date/time seen: 03/31/23 10:25 Interval history: I saw exam patient today, patient feels better today, denies palpitation, chest pain. No patient has sinus rhythm, patient is afebrile, blood pressure is not controlled Exam Narrative: GENERAL: Pleasant, in no acute distress. Well-nourished. - EYES: EOMI. Anicteric. - HENT: Moist mucous membranes. - LUNGS: Clear to auscultation bilaterally, no wheezing, rhonchi, or rales. - CARDIOVASCULAR: Regular rate and rhythm. No murmur. No JVD. Tachycar
[2023-03-31 11:52] LABS: Partial Thromboplastin Time 75.2 SECONDS (22.3-36.8)
--- NOTE | 2023-03-31 14:09 | PM.CNCAR ---
Assessment and Plan Assessment and plan (1) Atrial fibrillation with RVR: Code(s): I48.91 - Unspecified atrial fibrillation Status: Acute Assessment and Plan: New onset of AFib RVR, maintaining sinus rhythm after admission. Risk factors are age, hypertension. Discussed extensively with patient and . --I recommend anticoagulation but likely we should stop the Plavix since he is a risk of GI bleeding. --Also recommend we start treatment with metoprolol, since AFib tends to recur --escalate therapy if he has increased episodes --Echo . (2) Non-ST elevation [place] (NSTEMI): Code(s): I21.4 - Non-ST elevation (NSTEMI) myocardial infarction Status: Acute Assessment and Plan: The patient shows significant ischemia on his EKG when in a fib, but those changes resolved and he has had no further CP. He had an elevation of troponins as well. The question is: Is this an ACS event or is this noncardiac myocardial injury related to AFib RVR? I suspect it is the latter, though it is likely pt does have some underlying residual CAD which is not very symptomatic. --DC heparin --start Eliquis --at this time I would like to forego any cardiac catheterization, due to his CKD and history of peptic ulcer disease with increased risk of bleeding (would be obligated to use dual anti-platelet therapy plus anticoagulation if a stent is needed. ). If the patient has significant recurrent angina not amenable to medical we will reconsider. --ambulate, see how patient does, perhaps home late Tuesday or early Tuesday. (3) CAD in [place] artery: Code(s): I25.10 - Atherosclerotic heart disease of [place] coronary artery without angina pectoris Status: Acute Assessment and Plan: History of CAD, stents in the RCA and Left anterior descending, stable for last few years. Did have an episode of angina walking in the cold weather 2 weeks ago and was admitted with ischemic symptoms when he had AFib RVR so likely does have recurrent disease. --Recommend medical treatment for now, with the addition of metoprolol and sublingual nitrates --use Eliquis instead of Plavix to reduce risk of GI bleeding --continue simvastatin . (4) CKD (chronic kidney disease) stage 3, GFR 30-59 ml/min: Qualifiers: Chronic kidney disease stage 3 subtype: stage 3a (GFR 45-59) Qualified Code(s): N18.31 - Chronic kidney disease, stage 3a Code(s): N18.3 - Chronic kidney disease, stage 3 (moderate) Status: Acute Assessment and Plan: CKD stage IIIB -- recheck BMP tomorrow since he received IV contrast with the CT scan yesterday (5) Peptic ulcer disease: Code(s): K27.9 - Peptic ulcer, site unspecified, unspecified as acute or chronic, without hemorrhage or perforation Status: Acute Assessment and Plan: History of peptic ulcer disease in 2019 while taking aspirin and Plavix requiring transfusions. No recent bleeding --continue taking pantoprazole. (6) Hypertension: Code(s): I10 - Essential (primary) hypertension Status: Acute Assessment and Plan: On multidrug therapy. --since we are adding metoprolol, perhaps we can discontinue 1 of the other medicines, perhaps clonidine. Plan Patient has a appointment to see Dr. Escobar and early May as a new patient. He can reassess at that time. History of Present Illness History of Present Illness Consult date/time: 03/31/23 14:09 Reason For Visit: NSTEMI, A Frib with RVR Narrative: Alberto Rea is a 77-year-old male whom we were asked to see at the request of JOSUÉ Ibarra for advice and opinion regarding his AFib RVR, elevated troponins, and NSTEMI, in consultation. He has a history of CAD but no atrial fibrillation. Per Dr. Bartlett's note, pt has a history of RCA stents, and Left anterior descending ([place] [facility] The most recent intervention was in August [address] Bartlett, when he had atherectomy balloon angioplasty and
[2023-03-31] MEDS: cloNIDine HCL 0.1 MG TABLET PO (17:23)
[2023-03-31] MEDS: ISOSORBIDE DINITRATE 20 MG TABLET PO (17:23)
[2023-03-31] MEDS: TAMSULOSIN HCL 0.4 MG CAPSULE PO (17:23)
[2023-03-31] MEDS: hydrALAZINE HCL 50 MG TABLET PO (17:23)
[2023-03-31] MEDS: ACETAMINOPHEN 500 MG TABLET 1000 MG PO (20:12)
[2023-03-31] MEDS: APIXABAN 5 MG TABLET PO (20:13)
[2023-03-31] MEDS: METOPROLOL TARTRATE 25 MG TABLET PO (20:13)
[2023-03-31] MEDS: SIMVASTATIN 20 MG TABLET PO (20:13)
[2023-04-01] VITALS (17 sets, daily range): BP systolic 100–163; BP diastolic 61–95; PULSE 63–94; RESP 16–25; TEMP 36.5–37; O2SAT 93–97
[2023-04-01 04:46] LABS: Anion Gap 5 mmol/L (8-16); Blood Urea Nitrogen 18 mg/dL (9-20); Calcium 8.8 mg/dL (8.4-10.2); Carbon Dioxide 26 mmol/L (22-30); Chloride 107 mmol/L (98-107); Estimated CRCL calculation 47 ml/min; Estimated Glomerular Filt Rate 53; Glucose 104 mg/dL (65-110); Potassium 3.6 mmol/L (3.4-5.0); Sodium 138 mmol/L (137-145)
[2023-04-01] MEDS: LEVOTHYROXINE SODIUM 150 MCG TABLET PO (06:15)
[2023-04-01] MEDS: amLODIPine BESYLATE 5 MG TABLET 10 MG PO (09:18)
[2023-04-01] MEDS: METOPROLOL TARTRATE 25 MG TABLET PO ×2 (09:18→20:27)
[2023-04-01] MEDS: ISOSORBIDE DINITRATE 20 MG TABLET PO ×3 (09:18→16:34)
[2023-04-01] MEDS: PANTOPRAZOLE 40 MG TABLET PO (09:19)
[2023-04-01] MEDS: lisinopriL 20 MG TABLET 40 MG PO (09:19)
[2023-04-01] MEDS: APIXABAN 5 MG TABLET PO ×2 (09:19→20:27)
[2023-04-01] MEDS: cloNIDine HCL 0.1 MG TABLET PO (09:19)
[2023-04-01] MEDS: hydrALAZINE HCL 50 MG TABLET PO (09:22)
[2023-04-01] MEDS: FERROUS SULFATE 325 MG TABLET DR PO (09:25)
--- NOTE | 2023-04-01 09:56 | PM.PNCARD ---
Progress Note: A&P Assessment and Plan (1) Atrial fibrillation with RVR: Code(s): I48.91 - Unspecified atrial fibrillation Status: Acute Assessment and Plan: New onset of AFib RVR, maintaining sinus rhythm after admission. Risk factors are age, hypertension. Discussed extensively with patient and . -- Continue anticoagulation with apixaban 5mg b.i.d. --Also recommend we start treatment with metoprolol, since AFib tends to recur --escalate therapy if he has increased episodes --Echo pending --If echo looks good, could d/c from a cardiac perspective (2) Non-ST elevation [place] (NSTEMI): Code(s): I21.4 - Non-ST elevation (NSTEMI) myocardial infarction Status: Acute Assessment and Plan: The patient shows significant ischemia on his EKG when in a fib, but those changes resolved and he has had no further CP. He had an elevation of troponins as well. The question is: Is this an ACS event or is this noncardiac myocardial injury related to AFib RVR? I suspect it is the latter, though it is likely pt does have some underlying residual CAD which is not very symptomatic. --Continue Eliquis --No recommendation for cardiac catheterization, due to his CKD and history of peptic ulcer disease with increased risk of bleeding (would be obligated to use dual anti-platelet therapy plus anticoagulation if a stent is needed. ). If the patient has significant recurrent angina not amenable to medical we will reconsider. --ambulate, see how patient does, perhaps home late today or early tomorrow. (3) CAD in [place] artery: Code(s): I25.10 - Atherosclerotic heart disease of [place] coronary artery without angina pectoris Status: Acute Assessment and Plan: History of CAD, stents in the RCA and Left anterior descending, stable for last few years. Did have an episode of angina walking in the cold weather 2 weeks ago and was admitted with ischemic symptoms when he had AFib RVR so likely does have recurrent disease. --Recommend medical treatment for now, with the addition of metoprolol and sublingual nitrates --use Eliquis instead of Plavix to reduce risk of GI bleeding --continue simvastatin . (4) CKD (chronic kidney disease) stage 3, GFR 30-59 ml/min: Qualifiers: Chronic kidney disease stage 3 subtype: stage 3a (GFR 45-59) Qualified Code(s): N18.31 - Chronic kidney disease, stage 3a Code(s): N18.3 - Chronic kidney disease, stage 3 (moderate) Status: Acute Assessment and Plan: CKD stage IIIB -- SCr stable today (5) Peptic ulcer disease: Code(s): K27.9 - Peptic ulcer, site unspecified, unspecified as acute or chronic, without hemorrhage or perforation Status: Acute Assessment and Plan: History of peptic ulcer disease in 2019 while taking aspirin and Plavix requiring transfusions. No recent bleeding --continue taking pantoprazole. (6) Hypertension: Code(s): I10 - Essential (primary) hypertension Status: Acute Assessment and Plan: On multidrug therapy. --since we are adding metoprolol, perhaps we can discontinue 1 of the other medicines, perhaps clonidine. Plan Patient has a appointment to see Dr. Escobar and early May as a new patient. He can reassess at that time. Subjective Date/time seen: 04/01/23 09:56 Interval history: Cardiology follow up for atrial fibrillation Remains in sinus rhythm today. No chest pain, shortness of breath. Review of Systems Constitutional: Constitutional: Denies fever(s) Eyes: Eyes: Reports no additional eye complaints ENT: Reports epistaxis Cardiovascular: Cardiovascular: Reports chest pain, Denies pedal edema, Denies lightheadedness, Denies palpitations and Denies dyspnea Respiratory: Respiratory: Denies chest congestion and Denies dyspnea Gastrointestinal: Gastrointestinal: Denies abdominal pain and Denies hematochezia Genitourinary: Genitourinary: Denies hematu
--- NOTE | 2023-04-01 10:41 | PM.IMPN ---
Progress Note: A&P Assessment and Plan (1) Non-ST elevation [place] (NSTEMI): Code(s): I21.4 - Non-ST elevation (NSTEMI) myocardial infarction Status: Acute (2) Atrial fibrillation with RVR: Code(s): I48.91 - Unspecified atrial fibrillation Status: Acute (3) Hypothyroidism (acquired): Code(s): E03.9 - Hypothyroidism, unspecified Status: Acute (4) CKD (chronic kidney disease) stage 3, GFR 30-59 ml/min: Qualifiers: Chronic kidney disease stage 3 subtype: stage 3a (GFR 45-59) Qualified Code(s): N18.31 - Chronic kidney disease, stage 3a Code(s): N18.3 - Chronic kidney disease, stage 3 (moderate) Status: Acute Plan This is a 77-year-old male past medical history significant for hypertension, dyslipidemia, benign prostatic hyperplasia, obesity, anemia chronic disease, coronary artery disease, chronic kidney disease, chronic venous insufficiency, GERD, obstructive sleep apnea. patient comes to the emergency room after feeling very tired and fatigued?. He also noted several episodes of shortness of breath. While sitting he felt retrosternal chest pressure and burning? asked his to call 911.? In emergency room preliminary workup was essentially nonrevealing however troponins were elevated EKG was significant for a feeble with rapid? ventricular response? Patient has been admitted for further evaluation management and treatment. Assessment and plan (1) Non-ST elevation [place] (NSTEMI): ?Code(s): I21.4 - Non-ST elevation (NSTEMI) myocardial infarction versus demand ischemia ?Status:?Acute ?Assessment and Plan: Patient has history of CAD Admit to ICU ?currently on heparin drip ?NPO ?cardiology consult Upon arrival, EKG showed AFib RVR, heart rate 122, ST depression V4 to V6, lead 2 and AVF Continue Imdur 30 mg daily p.o. Zocor 20 mg daily p.o. Plavix 75 mg daily p.o., Patient has no chest pain, no need of intervention diagnosis per practical nurse recommendation (2) Atrial fibrillation with RVR: ?Code(s): I48.91 - Unspecified atrial fibrillation ?Status:?Acute ?Assessment and Plan: Upon arrival, EKG showed AFib RVR, ST depression V4 to V6, lead 2 and avf Repeat EKG today shows sinus rhythm, no specific ST T-wave changes (3) Chronic venous insufficiency of lower extremity: ?Code(s): I87.2 - Venous insufficiency (chronic) (peripheral) ?Status:?Acute ?Assessment and Plan: ?compression stockings (4) GERD without esophagitis: ?Code(s): K21.9 - Gastro-esophageal reflux disease without esophagitis ?Status:?Acute ?Assessment and Plan: ?PPI GUTIERREZ on CKD Elevated BUN creatinine above baseline Creatinine 1.7, baseline 1.3 Possible due to uncontrolled hypertension now Cr 1.3 04/01 (6) JILLIAN (obstructive sleep apnea): ?Code(s): G47.33 - Obstructive sleep apnea (adult) (pediatric) ?Status:?Chronic ?Assessment and Plan: ?CPAP at nighttime Uncontrolled hypertension Continue home medication lisinopril 40 mg daily p.o., clonidine 0.1 mg t.i.d. p.o., amlodipine 10 mg daily p.o., hydralazine 50 mg t.i.d. p.o. adjust medications per practical nurse BPH Continue tamsulosin 0.4 mg daily p.o. Acquired hypothyroidism Continue Synthroid 150 mcg daily p.o. Follow-up TSH Subjective Date/time seen: 04/01/23 10:41 Interval history: I saw exam patient today, patient feels better today, denies chest pain, palpitation, or shortness breath. No patient has sinus rhythm, patient is afebrile, blood pressure is not controlled Exam Narrative: GENERAL: Pleasant, in no acute distress. Well-nourished. - EYES: EOMI. Anicteric. - HENT: Moist mucous membranes. - LUNGS: Clear to auscultation bilaterally, no wheezing, rhonchi, or rales. - CARDIOVASCULAR: Regular rate and rhythm. No murmur. No JVD. Tachycardia - ABDOMEN: Soft, non-tender and non-distended. No palpable masses. - EXTREMITIES: No edema. Izabel
[2023-04-01 11:11] LABS: Basophils Absolute Auto 0.1 K/mm3 (0.0-0.1); Eosinophils Absolute Auto 0.2 K/mm3 (0-0.3); Eosinophils Percent Auto 1.7 % (0-4.4); Hematocrit 39.2 % (42.0-52.0); Hemoglobin 12.1 g/dL (14.0-18.0); Immature Granulocyte Absolute 0.04 K/mm3 (0.00-0.031); Immature Granulocyte Percent A 0.4 % (0-0.5); Lymphocytes Absolute Auto 1.81 K/mm3 (0.9-3.2); Lymphocytes Percent Auto 18.2 % (18.3-44.2); Mean Corpuscular HGB Conc 30.9 g/dl (32-36); Mean Corpuscular Hemoglobin 29.2 pg (26-34); Mean Corpuscular Volume 94.7 fl (80-100); Mean Platelet Volume 11.3 fl (7.4-10.4); Monocytes Absolute Auto 1.3 K/mm3 (0.1-0.6); Monocytes Percent Auto 13.5 % (2.6-8.5); Neutrophils Absolute Auto 6.5 K/mm3 (1.3-6.7); Neutrophils Percent Auto 65.2 % (45.5-73.1); Platelet Count Result 275 k/mm3 (150-375); Red Blood Count 4.14 M/mm3 (4.6-6.20); Red Cell Distribution Width 13.8 % (11.5-14.5); White Blood Count 9.9 K/mm3 (4.5-10.0)
[2023-04-01 11:17] LABS: Magnesium 2.3 mg/dL (1.6-2.3)
[2023-04-01] MEDS: TAMSULOSIN HCL 0.4 MG CAPSULE PO (16:35)
--- NOTE | 2023-04-01 16:51 | PC.NURSE ---
pt transferred in to room 245 via wheelchair, oriented to new room and environment, reviewed plan of care, pt resting comfortably
--- NOTE | 2023-04-01 16:52 | ECHO_ITS ---
Patient Info Name: Alberto Rea Age: 77 years : 1945 Gender: Male Ht: 67 in Wt: 220 lbs BSA: 2.21 m2 HR: 69 bpm BP: 159 / 90 mmHg Heart Rhythm: Sinus Rhythm Technical Quality: Fair Exam Date: 04/01/2023 3:46 PM Exam Location: Echo Lab Exam Room: ICU7 Patient Status: Inpatient Admit Date: 03/31/2023 Staff Ordering Physician: Sweta Pop MD Drop Shipment Clerk: Sophia Coates RDCS Attending Provider: Cely Castellon MD Referring Physician: Kiesha MUÑOZ; Exam Type: CA echo doppler color flow Study Info Indications - new afib Complete two-dimensional, color flow and Doppler transthoracic echocardiogram is performed. Summary 1. Complete two-dimensional, color flow and Doppler transthoracic echocardiogram is performed. 2. Left ventricular hypertrophy with overall normal systolic function and grade 1 diastolic noncompliance. 3. Posterior hypokinesia. 4. Modest left atrial enlargement. 5. Aortic valve sclerosis with minimal regurgitation and no stenosis. Left Ventricle Left ventricular chamber dimension is normal. Left ventricular systolic function is normal, estimated at 50-55%. There is mild concentric increased left ventricular wall thickness. The left ventricular diastolic function is grade I diastolic dysfunction. Right Ventricle Right ventricular chamber dimension is normal. Left Atria Left atrial chamber dimension is mildly enlarged. Right Atria Right atrial chamber dimension is normal. Aortic Valve The aortic valve is trileaflet. There is mild aortic valve sclerosis. There is trace aortic valve regurgitation. Pulmonic Valve The pulmonic valve is not well visualized. Mitral Valve The mitral valve has normal leaflets. There is mild mitral valve regurgitation. The mitral valve annulus is mildly calcified. Tricuspid Valve The tricuspid valve leaflets are normal. Pericardium/Pleural The pericardium appears normal. Aorta The aortic root size at the sinus of Valsalva is normal. Left Ventricular Outflow Tract Name Value Normal LVOT 2D LVOT Diameter 2.1 cm LVOT Doppler LVOT Peak Gradient 5 mmHg LVOT Mean Gradient 3 mmHg LVOT VTI 22 cm LVOT VTI/AV VTI Ratio 0.7 LVOT Stroke Volume 74 ml LVOT CO 16.6 l/min LVOT CI 7.5 l/min/m2 Pulmonic Valve Name Value Normal PV Doppler PV Peak Gradient 5 mmHg Mitral Valve Name Value Normal MV Doppler MV Decel [place] 209 cm/s2 MV PHT 83 ms
--- NOTE | 2023-04-01 17:34 | PC.NURSE ---
This patient, Alberto Rea, was transferred to [facility] on 04/01/23 at 1635. Personal belongings sent with patient. Report given to accepting RN. Appropriate documentation sent with patient.
[2023-04-01] MEDS: SIMVASTATIN 20 MG TABLET PO (20:27)
[2023-04-02 04:10] VITALS: BP 159/85; PULSE 75; RESP 20; TEMP 36.9; O2SAT 94
--- NOTE | 2023-04-02 07:54 | PM.IMPN ---
Progress Note: A&P Assessment and Plan (1) Non-ST elevation GA (NSTEMI): Code(s): I21.4 - Non-ST elevation (NSTEMI) myocardial infarction Status: Acute (2) Atrial fibrillation with RVR: Code(s): I48.91 - Unspecified atrial fibrillation Status: Acute (3) Hypothyroidism (acquired): Code(s): E03.9 - Hypothyroidism, unspecified Status: Acute (4) CKD (chronic kidney disease) stage 3, GFR 30-59 ml/min: Qualifiers: Chronic kidney disease stage 3 subtype: stage 3a (GFR 45-59) Qualified Code(s): N18.31 - Chronic kidney disease, stage 3a Code(s): N18.3 - Chronic kidney disease, stage 3 (moderate) Status: Acute Plan This is a 77-year-old male past medical history significant for hypertension, dyslipidemia, benign prostatic hyperplasia, obesity, anemia chronic disease, coronary artery disease, chronic kidney disease, chronic venous insufficiency, GERD, obstructive sleep apnea. patient comes to the emergency room after feeling very tired and fatigued?. He also noted several episodes of shortness of breath. While sitting he felt retrosternal chest pressure and burning? asked his to call 911.? In emergency room preliminary workup was essentially nonrevealing however troponins were elevated EKG was significant for a feeble with rapid? ventricular response? Patient has been admitted for further evaluation management and treatment. Assessment and plan (1) Non-ST elevation GA (NSTEMI): ?Code(s): I21.4 - Non-ST elevation (NSTEMI) myocardial infarction versus demand ischemia ?Status:?Acute ?Assessment and Plan: Patient has history of CAD Admit to ICU ?currently on heparin drip ?NPO ?cardiology consult Upon arrival, EKG showed AFib RVR, heart rate 122, ST depression V4 to V6, lead 2 and AVF Continue Imdur 30 mg daily p.o. Zocor 20 mg daily p.o. Plavix 75 mg daily p.o., Patient has no chest pain, no need of intervention diagnosis per road freight conductor recommendation Start Eliquis 5 mg b.i.d. p.o. instead of Plavix to reduce risk of GI bleeding per road freight conductor recommendation (2) Atrial fibrillation with RVR: ?Code(s): I48.91 - Unspecified atrial fibrillation ?Status:?Acute ?Assessment and Plan: Upon arrival, EKG showed AFib RVR, ST depression V4 to V6, lead 2 and avf Repeat EKG today shows sinus rhythm, no specific ST T-wave changes Continue Eliquis 5 mg b.i.d. p.o., started metoprolol 25 mg b.i.d. p.o. per road freight conductor (3) Chronic venous insufficiency of lower extremity: ?Code(s): I87.2 - Venous insufficiency (chronic) (peripheral) ?Status:?Acute ?Assessment and Plan: ?compression stockings (4) GERD without esophagitis: ?Code(s): K21.9 - Gastro-esophageal reflux disease without esophagitis ?Status:?Acute ?Assessment and Plan: ?PPI GUTIERREZ on CKD Elevated BUN creatinine above baseline Creatinine 1.7, baseline 1.3 Possible due to uncontrolled hypertension and Lasix now Cr 1.3 04/01 Hold Lasix 40 mg daily p.o., may resume medication per primary care doctor and road freight conductor based on their evaluation in office (6) JILLIAN (obstructive sleep apnea): ?Code(s): G47.33 - Obstructive sleep apnea (adult) (pediatric) ?Status:?Chronic ?Assessment and Plan: ?CPAP at nighttime Uncontrolled hypertension Continue home medication lisinopril 40 mg daily p.o., clonidine 0.1 mg t.i.d. p.o., amlodipine 10 mg daily p.o., hydralazine 50 mg t.i.d. p.o. adjust medications per road freight conductor 04/02: Blood pressure on the lower side yesterday, hold clonidine and hydralazine yesterday, continue amlodipine 10 mg daily p.o., lisinopril 40 mg daily p.o., metoprolol 25 mg b.i.d. p.o., resume hydralazine p.o., blood pressure bumps up May resume clonidine per primary care or road freight conductor is under evaluation in the office BPH Continue tamsulosin 0.4 mg daily p.o. Acquired hypothyroidism Continue Synthroid 150 mcg daily p.o. Robertao
--- NOTE | 2023-04-02 08:11 | PM.DS ---
DS: Admitting Diagnosis Discharge Date 04/02/23 Admitting Diagnosis (1) Non-ST elevation MS (NSTEMI): ?Code(s): I21.4 - Non-ST elevation (NSTEMI) myocardial infarction ?Status:?Acute (2) Atrial fibrillation with RVR: ?Code(s): I48.91 - Unspecified atrial fibrillation ?Status:?Acute (3) Hypothyroidism (acquired): ?Code(s): E03.9 - Hypothyroidism, unspecified ?Status:?Acute (4) CKD (chronic kidney disease) stage 3, GFR 30-59 ml/min: ?Qualifiers: ?Chronic kidney disease stage 3 subtype:?stage 3a (GFR 45-59)? Qualified Code(s):?N18.31 - Chronic kidney disease, stage 3a ?Code(s): N18.3 - Chronic kidney disease, stage 3 (moderate) ?Status:?Acute DS: Discharge Diagnosis Discharge Diagnosis (1) Non-ST elevation MS (NSTEMI): Code(s): I21.4 - Non-ST elevation (NSTEMI) myocardial infarction Status: Acute (2) Atrial fibrillation with RVR: Code(s): I48.91 - Unspecified atrial fibrillation Status: Acute (3) Hypothyroidism (acquired): Code(s): E03.9 - Hypothyroidism, unspecified Status: Acute (4) CKD (chronic kidney disease) stage 3, GFR 30-59 ml/min: Qualifiers: Chronic kidney disease stage 3 subtype: stage 3a (GFR 45-59) Qualified Code(s): N18.31 - Chronic kidney disease, stage 3a Code(s): N18.3 - Chronic kidney disease, stage 3 (moderate) Status: Acute DS: Summary Hospital Course Hospital Course: This is a 77-year-old male past medical history significant for hypertension, dyslipidemia, benign prostatic hyperplasia, obesity, anemia chronic disease, coronary artery disease, chronic kidney disease, chronic venous insufficiency, GERD, obstructive sleep apnea. patient comes to the emergency room after feeling very tired and fatigued?. He also noted several episodes of shortness of breath. While sitting he felt retrosternal chest pressure and burning? asked his to call 911.? In emergency room preliminary workup was essentially nonrevealing however troponins were elevated EKG was significant for a feeble with rapid? ventricular response? Patient has been admitted for further evaluation management and treatment. The following medical issues have been addressed during hospitalization (1) Non-ST elevation MS (NSTEMI): ?Code(s): I21.4 - Non-ST elevation (NSTEMI) myocardial infarction versus demand ischemia ?Status:?Acute ?Assessment and Plan: Patient has history of CAD Admit to ICU ?currently on heparin drip ?NPO ?cardiology consult Upon arrival, EKG showed AFib RVR, heart rate 122, ST depression V4 to V6, lead 2 and AVF Continue Imdur 30 mg daily p.o. Zocor 20 mg daily p.o. Plavix 75 mg daily p.o., Patient has no chest pain, no need of? intervention diagnosis per cdl b driver recommendation Start Eliquis 5 mg b.i.d. p.o. instead of Plavix to reduce risk of GI bleeding per cdl b driver recommendation (2) Atrial fibrillation with RVR: ?Code(s): I48.91 - Unspecified atrial fibrillation ?Status:?Acute ?Assessment and Plan: Upon arrival, EKG showed AFib RVR, ST depression V4 to V6, lead 2 and avf Repeat EKG today shows sinus rhythm, no specific ST T-wave changes Continue Eliquis 5 mg b.i.d. p.o., started metoprolol 25 mg b.i.d. p.o. per cdl b driver (3) Chronic venous insufficiency of lower extremity: ?Code(s): I87.2 - Venous insufficiency (chronic) (peripheral) ?Status:?Acute ?Assessment and Plan: ?compression stockings (4) GERD without esophagitis: ?Code(s): K21.9 - Gastro-esophageal reflux disease without esophagitis ?Status:?Acute ?Assessment and Plan: ?PPI GUTIERREZ on CKD Elevated BUN creatinine above baseline Creatinine 1.7, baseline 1.3 Possible due to uncontrolled hypertension and Lasix now Cr 1.3 04/01 Hold Lasix 40 mg daily p.o., may resume medication per primary care doctor and cdl b driver based on their evaluation in office (6) JILLIAN (obstruc
[2023-04-02 09:39] VITALS: PULSE 69
[2023-04-02] MEDS: FERROUS SULFATE 325 MG TABLET DR PO (09:39)
[2023-04-02] MEDS: METOPROLOL TARTRATE 25 MG TABLET PO (09:39)
[2023-04-02] MEDS: amLODIPine BESYLATE 5 MG TABLET 10 MG PO (09:39)
[2023-04-02] MEDS: lisinopriL 20 MG TABLET 40 MG PO (09:40)
[2023-04-02] MEDS: PANTOPRAZOLE 40 MG TABLET PO (09:40)
[2023-04-02] MEDS: APIXABAN 5 MG TABLET PO (09:40)
--- NOTE | 2023-04-02 13:41 | PC.NURSE ---
iv's out, d/c papers signed. taken out by wheelchair, taking home in personal vehicle. all belongings with patient.
== END 2023-04-02 13:55 | disposition home or self-care (01) | DRG 282 ==
LOC: ANHED 21:35 → ANHICU 22:13 → ANH2MED 04-02 08:07 → ANHICU 04-04 15:51
PROVIDERS: Internal Medicine Cardiovascular Disease; Admitting Provider Internal Medicine; Emergency Provider Physician Assistant; PCP Family Medicine; Visit Provider Hospitalist
DX: I21.4 Non-ST elevation (NSTEMI) myocardial infarction (principal); I48.91 Unspecified atrial fibrillation; E03.9 Hypothyroidism, unspecified; I12.9 Hypertensive chronic kidney disease with stage 1 through stage 4 chronic kidney disease, or unspecified chronic kidney disease; N18.32 Chronic kidney disease, stage 3b; I25.10 Atherosclerotic heart disease of native coronary artery without angina pectoris; E78.5 Hyperlipidemia, unspecified; I87.2 Venous insufficiency (chronic) (peripheral); E66.9 Obesity, unspecified; K21.9 Gastro-esophageal reflux disease without esophagitis; M19.90 Unspecified osteoarthritis, unspecified site; D63.8 Anemia in other chronic diseases classified elsewhere; N40.0 Benign prostatic hyperplasia without lower urinary tract symptoms; G47.33 Obstructive sleep apnea (adult) (pediatric); Z68.34 Body mass index [BMI] 34.0-34.9, adult; Z95.5 Presence of coronary angioplasty implant and graft; Z86.73 Personal history of transient ischemic attack (TIA), and cerebral infarction without residual deficits; Z87.11 Personal history of peptic ulcer disease; Z98.42 Cataract extraction status, left eye; Z98.41 Cataract extraction status, right eye
CPT/HCPCS: 36415; 71045; 71275; 80048; 80053; 81003; 83690; 83735; 83880; 84439; 84443; 84484; 85025; 85610; 85730; 93005; 93306; 93976; 96361; 96365; 96366; 96375; 97161; 97165; 97530; 99285; A9270; G0378; J0360; J1644; J7030; J7040; Q9967

== ENCOUNTER 2023-04-20 14:53 | Inpatient (IN) | payer MEDICARE, SELFPAY ==
[2023-04-20] VITALS (34 sets, daily range): BP systolic 94–168; BP diastolic 47–98; PULSE 88–119; RESP 16–99; TEMP 36.6; O2SAT 95–100; BMI 31.7
--- NOTE | ~2023-04-20 | XR_ITS ---
EXAMINATION: XR chest 1V portable INDICATION: Chest pain and hematuria TECHNIQUE: Portable AP chest at 1604 hours COMPARISON: 03/30/2023, 10/11/2019 FINDINGS: There is persistent but decreased atelectasis in the left lower lung zone. No pleural effus ion or pneumothorax. The cardiomediastinal silhouette is normal. A moderate-sized hiatal hernia is ag ain noted. IMPRESSION: 1. Persistent but decreased atelectasis of the left lower lung zone. Reviewed, dictated and finalized at location B. RUMENT MAKER
--- NOTE | ~2023-04-20 | XR_ITS ---
EXAMINATION: XR chest 1V portable INDICATION: Shortness of breath TECHNIQUE: Portable AP chest at 0759 hours COMPARISON: 04/22/2023 FINDINGS: Bilateral perihilar interstitial opacities persist with slight improvement on the right. Di ffuse interstitial opacities also demonstrate mild improvement. No pleural effusion or pneumothorax. The cardiomediastinal silhouette is normal. IMPRESSION: 1. Pulmonary edema with mild improvement. Reviewed, dictated and finalized at location F. NTORY ASSOCIATE
--- NOTE | ~2023-04-20 | XR_ITS ---
EXAMINATION: XR chest 1V portable DATE: 04/20/2023 19:10 INDICATION: Dyspnea. TECHNIQUE: A single frontal view of the chest was obtained on 2 radiographs. COMPARISON: Chest single view 4:01 PM FINDINGS: There is a diffuse interstitial pattern, consistent with mild pulmonary edema. No pleural e ffusion. The heart size is normal. There is a moderate-sized hiatal hernia. IMPRESSION: 1. New mild pulmonary edema. 2. Moderate-sized hiatal hernia. Reviewed, dictated and finalized at location E. N ATTENDANT
--- NOTE | ~2023-04-20 | CT_ITS ---
EXAMINATION: CT abdomen pelvis wo con DATE: 04/20/2023 16:26 INDICATION: Gross hematuria. TECHNIQUE: Computed tomography (CT) of the abdomen and pelvis was performed without intravenous contr ast. Automated exposure control and iterative reconstruction technique were employed. The dose-length product was 1260.23 mGy-cm. COMPARISON: Chest CT 03/30/23 FINDINGS: The visualized portions of the lung bases demonstrate mild atelectasis. There is mild bronc hiectasis bilaterally. No pleural effusion. There is left atrial and left ventricular enlargement of the heart. There are coronary artery calcifications. No pericardial effusion. There is a moderate-siz ed sliding hiatal hernia. The liver, gallbladder, spleen, pancreas, and adrenal glands are normal. Th ere is cortical thinning of the kidneys. There is calcified atherosclerosis of the aorta and many of the other arteries. There is an umbilical hernia containing fat. There is a large volume of hematoma in the bladder. There is a Payne catheter in expected position. The prostate is severely enlarged. Th ere is diverticulosis of the colon without evidence of diverticulitis. The appendix is normal. There are no dilated loops of bowel. There are no pathologically enlarged lymph nodes. There is no free int raperitoneal fluid. There is lumbar dextrocurvature has its and severe spondylosis. IMPRESSION: 1. Large volume of hematoma in the bladder. 2. Moderate-sized sliding hiatal hernia. 3. Severely enlarged prostate. 4. Umbilical hernia containing fat. Reviewed, dictated and finalized at location E. RNAL GRINDING MACHINE OPERATOR
--- NOTE | ~2023-04-20 | CT_ITS ---
EXAMINATION: CTA chest PE protocol DATE: 04/20/2023 19:26 INDICATION: Dyspnea. TECHNIQUE: Computed tomography angiography (CTA) of the chest was performed with 100 mL Omnipaque-350 intravenous contrast timed to evaluate the pulmonary arteries. Coronal maximum intensity projection 3D-reconstructions were created by the technologist. Automated exposure control and iterative reconst ruction technique were employed. The dose-length product was 709.34 mGy-cm. COMPARISON: Chest CT 03/30/23 FINDINGS: There is diffuse smooth septal thickening in the lungs. There are airspace and groundglass opacities involving all lobes with a dependent predominance. There are small pleural effusions. There is a moderate-sized sliding hiatal hernia. The heart size is normal. There are coronary artery calci fications. No pericardial effusion. There is no pulmonary embolus. There is mild thoracic spondylosis . IMPRESSION: 1. No pulmonary embolus. 2. Diffuse lung disease, likely severe pulmonary edema. Pneumonia is less likely. 3. Small pleural effusions. 4. Moderate-sized sliding hiatal hernia. Reviewed, dictated and finalized at location E. D CROP FARMER IMPRESSION: 1. No pulmonary embolus. 2. Diffuse lung disease, likely severe pulmonary edema. Pneumonia is less likel y. 3. Small pleural effusions. 4. Moderate-sized sliding hiatal hernia.
--- NOTE | ~2023-04-20 | XR_ITS ---
EXAMINATION: XR chest 1V portable INDICATION: Congestive heart failure TECHNIQUE: Portable AP chest at 1012 hours COMPARISON: 04/20/2023 FINDINGS: There are bilateral perihilar interstitial opacities. Diffuse interstitial opacities demons trate mild improvement. No pleural effusion or pneumothorax. The cardiomediastinal silhouette is norm al. IMPRESSION: 1. Pulmonary edema with mild improvement. Reviewed, dictated and finalized at location B. TIN DYNAMITE PACKING OPERATOR
--- NOTE | 2023-04-20 15:33 | ECG_ITS ---
Measurements Intervals [place] Rate: 103 P: 60 DC: 207 QRS: -26 QRSD: 95 T: 200 QT: 363 QTc: 476 Interpretive Statements SINUS TACHYCARDIA WITH FREQUENT VENTRICULAR PREMATURE COMPLEXES BORDERLINE LEFT AXIS DEVIATION [QRS AXIS < -20] MARKED ST DEPRESSION, CONSIDER SUBENDOCARDIAL INJURY [0.2+ mV ST DEPRESSION] COMPARED TO ECG 04/20/2023 15:33:50 NO SIGNIFICANT CHANGES Electronically Signed On 04-20-2023 19:03:16 RUBBER BOOTS AND SHOES REPAIRER by Sweta Pop M.D.
--- NOTE | 2023-04-20 15:44 | ECG_ITS ---
Measurements Intervals [place] Rate: 107 P: 66 SD: 203 QRS: -27 QRSD: 95 T: 50 QT: 346 QTc: 462 Interpretive Statements SINUS TACHYCARDIA WITH FREQUENT VENTRICULAR PREMATURE COMPLEXES WITH OCCASIONAL SUPRAVENTRICULAR PREMATURE COMPLEXES BORDERLINE LEFT AXIS DEVIATION [QRS AXIS < -20] MARKED ST DEPRESSION, CONSIDER SUBENDOCARDIAL INJURY [0.2+ mV ST DEPRESSION] * COMPARED TO ECG 03/31/2023 01:13:35 SINUS TACHYCARDIA NOW PRESENT Electronically Signed On 04-20-2023 19:03:05 ROD AND TUBE STRAIGHTENER by Sweta Pop M.D.
--- NOTE | 2023-04-20 15:45 | PC.NURSE ---
pt c/o CP, ekg x2 done verbalized to Dr Garvey and Dr Jeison Garvey in room to assess the pt
[2023-04-20 15:49] LABS: Basophils Absolute Auto 0.1 K/mm3 (0.0-0.1); Basophils Percent Auto 0.7 % (0.2-1.2); Eosinophils Percent Auto 0.2 % (0-4.4); Hematocrit 31.7 % (42.0-52.0); Hemoglobin 10.1 g/dL (14.0-18.0); Immature Granulocyte Absolute 0.06 K/mm3 (0.00-0.031); Immature Granulocyte Percent A 0.4 % (0-0.5); Lymphocytes Absolute Auto 1.79 K/mm3 (0.9-3.2); Lymphocytes Percent Auto 11.4 % (18.3-44.2); Mean Corpuscular HGB Conc 31.9 g/dl (32-36); Mean Corpuscular Hemoglobin 28.6 pg (26-34); Mean Corpuscular Volume 89.8 fl (80-100); Mean Platelet Volume 10.2 fl (7.4-10.4); Monocytes Absolute Auto 1.7 K/mm3 (0.1-0.6); Monocytes Percent Auto 10.7 % (2.6-8.5); Neutrophils Absolute Auto 12.1 K/mm3 (1.3-6.7); Neutrophils Percent Auto 76.6 % (45.5-73.1); Platelet Count Result 378 k/mm3 (150-375); Red Blood Count 3.53 M/mm3 (4.6-6.20); Red Cell Distribution Width 14.2 % (11.5-14.5); White Blood Count 15.7 K/mm3 (4.5-10.0)
--- NOTE | 2023-04-20 15:52 | ED.MALEGU ---
HPI - Male Genitourinary General Chief complaint: Urogenital-Male Stated complaint: retention Time Seen by Provider: 04/20/23 15:07 Source: patient and family Limitations: no limitations History of Present Illness HPI Narrative: Patient is a 77-year-old male presents to the emergency department complaining of blood in his urine and difficulty urinating. Patient states he noticed blood in his urine on Tuesday, denies any clots, denies any history of this in the past, notes that it became difficult to urinate Tuesday night and Tuesday and has had no urine output since Tuesday. Patient denies any recent injuries or recent illness, cough, fever, new or change medications, abdominal pain, nausea, vomiting, diarrhea, melena, hematochezia, history kidney stones, urinary discomfort, numbness, weakness, shortness of breath. Patient states a couple weeks ago he came to the emergency department house diagnosed with AFib of it is on blood thinners in taking them as prescribed and also was told he had a mild heart attack at that time denies any coronary intervention, does admit to history of cardiac stents in the past. Patient states at approximately 3:30 p.m. while in the emergency department he developed chest pain that is a tightness in the middle of his chest, nonradiating, feels like his history of this in the past couple weeks ago and was told he enema heart attack, denies radiation of the discomfort, discomfort is constant, has not noticed anything making it better or worse, has not tried anything for it. Patient has a history of hypertension and early heart disease in his father. Related Data Allergies Allergy/AdvReac Type Severity Reaction Status Date / Time No Known Allergies Allergy Verified 04/20/23 15:48 Review of Systems Review of Systems: A 10 system review of systems was completed on the patient and is negative except for what is stated in the HPI. Nursing and ancillary documentation was reviewed. [facility] Past Medical History Medical History (Updated 04/20/23 @ 17:07 by Dandre Garvey DO) Anemia of chronic disease BPH w/o urinary obs/LUTS CAD in [place] artery Chronic venous insufficiency of lower extremity CKD (chronic kidney disease) stage 3, GFR 30-59 ml/min Dyslipidemia Essential (primary) hypertension GERD without esophagitis Hematuria History of stroke (1991) Stroke was in 1991, [facility], unclear if hemorrhagic or not but pt does not recall any intravascular intervention. Hypertension Hypothyroidism (acquired) JILLIAN (obstructive sleep apnea) uses a CPAP machine Peptic ulcer disease 09/2019-cauterization and placed on PPI Unspecified osteoarthritis, unspecified site Vitamin D deficiency Surgical History Surgical History H/O bilateral cataract extraction (~2017) H/O esophagogastroduodenoscopy this past week with cauterization of peptic ulcer disease History of coronary artery stent placement (~05/05/18) x3. Drug-eluting stent to the RCA in 2 stents the LAD. Family History Family History Father Family history of cardiovascular disease, Onset Age: 55 Hypertension, Onset Age: 55 Mother Patient's mother is , Onset Age: 65 Bladder cancer Social History Social History Social History: the patient is and lives with his . She is the durable power compliance attorney for healthcare. The patient is a full code. He has 1 adopted son. 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 He used to smoke until E adopted his son. He occasionally has a glass of wine maybe twice a week. Depending on what they eat that week. He stated he has lost about 40 lb by trying this past year. Smoking status: Former smoker Second hand tobacco smoke exposure: No Additional smoking assessment commen
[2023-04-20 15:53] LABS: Appearance Urine Turbid (Clear); Bilirubin Urine 1+ (Negative); Blood Urine 2+ (Negative); Color Urine Red (Yellow); Glucose Urine UA Negative (Negative); Ketones Urine Negative (Negative); Leukocyte Esterase Ur 2+ LEU/UL (Negative); Nitrate Urine Positive (Negative); Protein Urine 3+ mg/dL (Negative); pH Urine 6.5 (5.0-9.0)
[2023-04-20 16:02] LABS: Alanine Aminotransferase 19 U/L (6-50); Albumin Level 3.6 g/dL (3.5-5.1); Alkaline Phosphatase 98 U/L (38-126); Anion Gap 9 mmol/L (8-16); Aspartate Amino Transferase 34 U/L (17-59); Bilirubin,Total 0.5 mg/dL (0.2-1.3); Blood Urea Nitrogen 29 mg/dL (9-20); Calcium 9.4 mg/dL (8.4-10.2); Carbon Dioxide 24 mmol/L (22-30); Chloride 107 mmol/L (98-107); Estimated CRCL calculation 50 ml/min; Estimated Glomerular Filt Rate 58; Glucose 129 mg/dL (65-110); Potassium 3.4 mmol/L (3.4-5.0); Sodium 140 mmol/L (137-145)
[2023-04-20] MEDS: MORPHINE SULFATE (*CRX) 4 MG/ML INJ IV PUSH ×2 (16:05→18:20)
[2023-04-20] MEDS: SODIUM CHLORIDE 0.9% IV 1,000 ML 999 ML IV CONT (16:05)
[2023-04-20 16:07] LABS: RBC Urine >100 /hpf (0-2)
[2023-04-20 16:08] LABS: Squamous Epithelial Cell Urine Rare /hpf (Few)
[2023-04-20 16:09] LABS: Bacteria Urine 1+ /hpf
[2023-04-20 16:10] LABS: Add Urine Microscopic? YES
[2023-04-20] MEDS: ASPIRIN 81 MG CHEWABLE TABLET 324 MG PO (16:10)
--- NOTE | 2023-04-20 16:16 | ECG_ITS ---
Measurements Intervals [place] Rate: 106 P: OR: 0 QRS: -6 QRSD: 93 T: 66 QT: 333 QTc: 444 Interpretive Statements RHYTHM INDETERMINATE, pROBABLE SINUS TACHYCARDIA OR MULTIFOCAL ATRIAL TACHYCARDIA. MARKED ST DEPRESSION, CONSIDER SUBENDOCARDIAL INJURY [0.2+ mV ST DEPRESSION] COMPARED TO ECG 04/20/2023 15:37:03 ATRIAL FIBRILLATION NOW PRESENT Electronically Signed On 04-20-2023 19:05:26 CARBIDE TOOL MAKER by Sweta Pop M.D.
[2023-04-20 16:18] LABS: INR 1.6; Prothrombin Time 19.6 Seconds (11.1-14.7)
[2023-04-20] MEDS: NITROGLYCERIN SL 0.4 MG TABLET SUBLINGUAL (16:18)
[2023-04-20] MEDS: METOPROLOL TARTRATE INJ 5 MG/5 ML VIAL IV PUSH (16:18)
[2023-04-20 16:19] LABS: Partial Thromboplastin Time 44.5 SECONDS (22.3-36.8)
[2023-04-20 16:24] LABS: Lipase 111 U/L (23-300); Magnesium 2.3 mg/dL (1.6-2.3)
--- NOTE | 2023-04-20 16:37 | ECG_ITS ---
Measurements Intervals [place] Rate: 97 P: [place]: 0 QRS: -8 QRSD: 102 T: 0 QT: 324 QTc: 412 Interpretive Statements PROBABLE SINUS RHYTHM SEPTAL MYOCARDIAL INFARCTION , PROBABLY OLD [40+ ms Q WAVE IN V1/V2] MARKED ST DEPRESSION, CONSIDER SUBENDOCARDIAL INJURY [0.2+ mV ST DEPRESSION] COMPARED TO ECG 04/20/2023 15:44:31 SUPRAVENTRICULAR RHYTHM NOW PRESENT MYOCARDIAL INFARCT FINDING NOW PRESENT Electronically Signed On 04-20-2023 19:06:20 MECHANICAL INTEGRITY ENGINEER by Sweta Pop M.D.
[2023-04-20] MEDS: LORazepam INJ (*CRX) 2 MG/ML VIAL 1 MG IV PUSH (16:38)
[2023-04-20 16:58] LABS: Lactic Acid Reflex 3.3 mmol/L (0.7-2.0)
[2023-04-20 17:22] LABS: Influenza A QL RT-PCR Negative (Negative); Influenza B QL RT-PCR Negative (Negative); RSV RNA, RT-PCR Negative (Negative); SARS-CoV-2 RNA PCR Negative (Negative)
[2023-04-20 17:30] LABS: D Dimer 1.78 ug/mL (<0.48)
--- NOTE | 2023-04-20 17:35 | PC.NURSE ---
nitro x3, no change in pain pt did have gutierrez catheter placed, this was then changed to 3 way catheter for irrigation per orders from Dr Garvey.
[2023-04-20] MEDS: dilTIAZem 100 MG/100 ML 100 MG/100 ML BAG IV CONT (18:00)
[2023-04-20] MEDS: cefTRIAXone 2 GM/NS 100 ML 2 GM/100 ML BAG IVPB (18:00)
[2023-04-20 18:07] LABS: Free T4 Free Thyroxine Reflex 1.69 ng/dL (0.78-2.19)
--- NOTE | 2023-04-20 18:48 | PC.NURSE ---
manually irrigated 3 way catheter, clots broken up. catheter draining
[2023-04-20 19:06] LABS: Total Triiodothyronine (T3) 1.05 NG/ML (0.97-1.69)
--- NOTE | 2023-04-20 19:08 | PC.NURSE ---
when getting pt ready to go to IMU, pt found to have a saturation of 65 % on RA. pt placed on NRB, Dr Garvey called to assess the pt. pt able to answer assessment questions. called IMU and informed in delay of care. EKG completed. chest xray ordered abg ordered cta chest ordered
[2023-04-20 19:17] LABS: Alveolar/Arterial O2 Gradient 472.7 mmHg; Base Excess ABG -0.8 mEq/l (+/-2.0); Carboxyhemoglobin 0.3 % THb (0-2.0); Fractional Inspired Oxygen 80 %; HCO3 ABG 23.6 mEq/l (22.0-26.0); Methemoglobin ABG 0.2 %THb (0-1.5); Oxygen Content ABG 13.7 %vol (16.0-22.0); Oxygen Saturation ABG 90.3 % (95.0-100.0); Oxyhemoglobin 88.1 % THb (90.0-100.0); PCO2 ABG 38.2 mmHg (35.0-45.0); PO2 ABG 57.6 mmHg (80.0-100.0); PO2 FiO2 Ratio Arterial Blood 0.72 %; Reduced Hemoglobin 11.4 %THb (0-5.0); pH ABG 7.409 (7.350-7.450)
[2023-04-20 19:19] LABS: Device NON-REBREATHER MASK; Modified Allen's Test Pass; Site Drawn RIGHT RADIAL
[2023-04-20 19:21] LABS: Troponin I 0.493 ng/mL (0.000-0.034)
--- NOTE | 2023-04-20 19:29 | PM.IMHP ---
H&P: HPI History of Present Illness Date/Time: 04/20/23 19:29 Chief Complaint: Urinary Problem Narrative: 77 y/o M presents here with hematuria and no urine output with PMH of new Afib (dx on XYZ) on anticoagulation, Patient presented here with worsening hematuria and urinary retention. HPI obtained through due to patient condition. Per , patient began experiencing hematuria on Tuesday (04/17). On Tuesday (04/18) patient continued to experience hematuria but also developed difficulty with urination. On Tuesday (04/19) patient no longer had nay urine output. +Fatigue. Patient did not inform or seek care until today, Tue (04/20). Denied any abdominal pain, fever, chills, recent illness, numbness/weakness, or recent injury/fall. Patient was recently admitted here from 03/30-04/02 for chest pain, intermittent SOB, and fatigue. Found to be in new AFib RVR - d/c'd home on Imdur, Zocor, Plavix, Eliquis. No interventions during admission per Cardiology recommendation due to patient's CKD and history of PUD with increased risk of bleeding. Does have history of CAD with stents in the RCA and left anterior descending. 15:30 - While in the ED patient developed acute midsternal chest pain started around 3:30 pm. Described it as tightness, non-radiating, and per , it was accompanied by some facial flushing. Currently improved, but not resolved. 19:00 - Patient was being packaged to be transported to the IMU when it was noted that patient was hypoxic with an O2 sat in the 60's. Placed on NRB with subsequent improvement in O2 saturation to 90%. Per ED provider, patient had scant inspiratory wheeze and diffusely diminished breath sounds. Stat CXR and ABG. CXR showed pulmonary edema. ABG: pH 7.409, pCO2 38.2, pO2 57.6, HCO3 23.6, O2 sat 90.3% on NRB. CTA of chest completed and showed no PE, diffuse lung disease likely severe pulmonary edema, pneumonia less likely. Small pleural effusions. Moderate-sized sliding hiatal hernia. RT administered DuoNeb and patient was placed on BiPAP. Patient tolerating BiPAP and O2 sat 99%. Initial VS at presentation: 97.8 F, HR 95, RR 16, 147/72, 98% on room air. ED workup showed Moderate leukocytosis with WBC of 15.7, hemoglobin of 10.1 (12.1 on 04/01/23), PT 19.6, PTT 44.5, creatinine 1.2, troponin 0.58, TSH 4.8 with normal T4 and T3, and UA indicative of UTI. Viral PCR negative for COVID, flu, RSV. Initial CXR showed persistent but decreased atelectasis of the left lower lung zone. CT of the abdomen pelvis showed a large volume hematoma in the bladder, moderate size sliding hiatal hernia, severely enlarged prostate, and a umbilical hernia containing fat. Repeat CXR showed new mild pulmonary edema. Chest CTA showed no PE, diffuse lung disease, small pleural effusions, moderate sized sliding hiatal hernia. Review of Systems Review of Systems: ROS unobtainable: Yes unobtainable due to medical condition PMFSH Past Medical History Medical History Anemia of chronic disease BPH w/o urinary obs/LUTS CAD in [place] artery Chronic venous insufficiency of lower extremity CKD (chronic kidney disease) stage 3, GFR 30-59 ml/min Dyslipidemia Essential (primary) hypertension GERD without esophagitis Hematuria History of stroke (1991) Stroke was in 1991, [facility], unclear if hemorrhagic or not but pt does not recall any intravascular intervention. Hypertension Hypothyroidism (acquired) JILLIAN (obstructive sleep apnea) uses a CPAP machine Peptic ulcer disease 09/2019-cauterization and placed on PPI Unspecified osteoarthritis, unspecified site Vitamin D deficiency Surgical History Surgical History H/O bilateral cataract extraction (~2017) H/O esophagogastroduodenoscopy this past week with cauterization of peptic ulcer disease History of coronary artery stent placement (~05/05/18) x3. Drug-eluting stent to the RCA i
[2023-04-20] MEDS: IPRATROPIUM 0.5 MG/ALBUTEROL SULFATE 2.5 MG AMPUL.NEB 3 ML INHALATION (19:30)
[2023-04-20] MEDS: FUROSEMIDE INJ 40 MG/4 ML VIAL IV PUSH (19:40)
[2023-04-20 19:45] LABS: Reflex Lactic Acid Yes or No Add Lactic
--- NOTE | 2023-04-20 20:20 | PC.NURSE ---
Pt CBI stopped draining. IMU nurs eand manager data warehouse Yara made aware. Yara at bedside attempting to irrigate catheter.
--- NOTE | 2023-04-20 21:46 | ADMGEN ---
This patient, lAberto Rea, was admitted to IMU Room 204-01 at 2122. Patient/family oriented to hospital policies and general routines including ID bracelet, bed and alarms, visiting hours, pain management, procedures, bathroom and other care routines, personal items, smoking policy, room service/diet, and visiting hours. Information on how to activate the Rapid Response Team has been discussed. Patient/Family are encouraged to report perceived risks to care and to ask questions if they do not understand what they are told or what they should do.
[2023-04-20 21:51] LABS: Hematocrit 32.9 % (42.0-52.0); Hemoglobin 10.4 g/dL (14.0-18.0)
[2023-04-20 21:59] LABS: Lactic Acid Reflex 2.1 mmol/L (0.7-2.0)
[2023-04-20] MEDS: SODIUM CHLORIDE 0.9% IV 1,000 ML 125 ML IV CONT (22:17)
--- NOTE | 2023-04-20 22:28 | ECG_ITS ---
Measurements Intervals [place] Rate: 102 P: 24 ME: 217 QRS: -27 QRSD: 100 T: 47 QT: 325 QTc: 424 Interpretive Statements SINUS TACHYCARDIA WITH FIRST DEGREE AV BLOCK BORDERLINE LEFT AXIS DEVIATION [QRS AXIS < -20] NONSPECIFIC ST & T-WAVE ABNORMALITY COMPARED TO ECG 04/20/2023 17:06:46 SINUS TACHYCARDIA NOW PRESENT FIRST DEGREE AV BLOCK NOW PRESENT Electronically Signed On 04-21-2023 11:09:53 SPOT WELDER BODY ASSEMBLY by Marilyn Escobar M.D.
--- NOTE | 2023-04-20 22:38 | ECG_ITS ---
Measurements Intervals [place] Rate: 82 P: 57 DC: 235 QRS: -8 QRSD: 110 T: 30 QT: 400 QTc: 468 Interpretive Statements SINUS RHYTHM WITH FIRST DEGREE AV BLOCK WITH PVC MILD ST DEPRESSION [0.05+ mV ST DEPRESSION] COMPARED TO ECG 04/20/2023 18:50:50 SINUS RHYTHM NOW PRESENT Electronically Signed On 04-21-2023 11:21:57 PROPERTY FIELD ADJUSTER by Marilyn Escobar M.D.
[2023-04-21] VITALS (21 sets, daily range): BP systolic 95–138; BP diastolic 50–79; PULSE 80–111; RESP 20–32; TEMP 36.4–36.9; O2SAT 90–94; BMI 31.7
[2023-04-21 05:55] LABS: Hematocrit 31.4 % (42.0-52.0); Mean Corpuscular HGB Conc 31.8 g/dl (32-36); Mean Corpuscular Hemoglobin 29.1 pg (26-34); Mean Corpuscular Volume 91.3 fl (80-100); Mean Platelet Volume 11.1 fl (7.4-10.4); Platelet Count Result 323 k/mm3 (150-375); Red Blood Count 3.44 M/mm3 (4.6-6.20); Red Cell Distribution Width 14.5 % (11.5-14.5)
[2023-04-21 06:07] LABS: Lactic Acid Reflex 2.7 mmol/L (0.7-2.0)
[2023-04-21 06:09] LABS: Alanine Aminotransferase 28 U/L (6-50); Albumin Level 3.1 g/dL (3.5-5.1); Alkaline Phosphatase 86 U/L (38-126); Anion Gap 8 mmol/L (8-16); Aspartate Amino Transferase 177 U/L (17-59); Bilirubin,Total 0.6 mg/dL (0.2-1.3); Blood Urea Nitrogen 28 mg/dL (9-20); Calcium 8.6 mg/dL (8.4-10.2); Carbon Dioxide 25 mmol/L (22-30); Chloride 110 mmol/L (98-107); Estimated CRCL calculation 45 ml/min; Estimated Glomerular Filt Rate 53; Glucose 125 mg/dL (65-110); Magnesium 2.3 mg/dL (1.6-2.3); Phosphorus 4.8 mg/dL (2.5-4.5); Potassium 3.6 mmol/L (3.4-5.0); Sodium 143 mmol/L (137-145)
--- NOTE | 2023-04-21 07:53 | WPDURCON ---
Assessment and Plan Assessment and plan (1) Acute urinary retention: Code(s): R33.8 - Other retention of urine Status: Acute Assessment and Plan: Etiology unclear but may be a combination of significantly enlarged prostate and clot retention. Will recommend adding finasteride to his regimen. Payne catheter will remain until is more medically stable. (2) Hematuria: Qualifiers: Hematuria type: gross Qualified Code(s): R31.0 - Gross hematuria Code(s): R31.9 - Hematuria, unspecified Status: Acute Assessment and Plan: Significant amount of clot noted on CT scan. This most likely cannot be irrigated out manually. Although his urine appears fairly clear on CBI this will be an issue for him. Have recommended cystoscopy with clot evacuation unless he becomes medically unstable for this procedure. Will have our nurse practitioner manually irrigate the Payne to see much comes out. Urology Consult Note HPI Date Seen: 04/21/23 Time Seen: 07:54 Requesting Physician: Belén Sánchez MD Primary Care Provider: Andrea Perea MD Consult Narrative Reason for consult: Hematuria and clot retention Narrative: Alberto Rea is a 77 year old male with multiple medical comorbidities who has had difficulty voiding and hematuria. He was being evaluated the emergency room when he had a hypoxic event. Use currently in IMU but doing well. During evaluation with a CT scan was found to have a significant amount of clot in the bladder. Three Payne is present and draining at this time and surprisingly has cleared. Difficult to get any significant history at this point time[place] [address]. Hemoglobin 10 with hematocrit of 31 and creatinine a of 1.3. [facility] Past Medical History Medical History Anemia of chronic disease BPH w/o urinary obs/LUTS CAD in [place] artery Chronic venous insufficiency of lower extremity CKD (chronic kidney disease) stage 3, GFR 30-59 ml/min Dyslipidemia Essential (primary) hypertension GERD without esophagitis Hematuria History of stroke (1991) Stroke was in 1991, [facility], unclear if hemorrhagic or not but pt does not recall any intravascular intervention. Hypertension Hypothyroidism (acquired) JILLIAN (obstructive sleep apnea) uses a CPAP machine Peptic ulcer disease 09/2019-cauterization and placed on PPI Unspecified osteoarthritis, unspecified site Vitamin D deficiency Surgical History Surgical History H/O bilateral cataract extraction (~2018) H/O esophagogastroduodenoscopy this past week with cauterization of peptic ulcer disease History of coronary artery stent placement (~05/05/18) x3. Drug-eluting stent to the RCA in 2 stents the LAD. Family History Family History Father Family history of cardiovascular disease, Onset Age: 55 Hypertension, Onset Age: 55 Mother Patient's mother is , Onset Age: 65 Bladder cancer Social History Social History Social History: the patient is and lives with his . She is the durable power attorney lawyer for healthcare. The patient is a full code. He has 1 adopted son. 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 He used to smoke until E adopted his son. He occasionally has a glass of wine maybe twice a week. Depending on what they eat that week. He stated he has lost about 40 lb by trying this past year. Smoking status: Former smoker Second hand tobacco smoke exposure: No Additional smoking assessment comments: SMOKED FOR ONE YEAR DURING COLLEGE Alcohol intake: current Drinks per week: 2 Alcohol use details: consumes 2 glasses of wine weekly Substance use: never Substance use type: does not use Do You Feel
[2023-04-21 08:52] LABS: Reflex Lactic Acid Yes or No Add Lactic
--- NOTE | 2023-04-21 09:25 | PM.CNCAR ---
Assessment and Plan Assessment and plan (1) Type 2 CO (myocardial infarction): Code(s): I21.A1 - Myocardial infarction type 2 Status: Acute Assessment and Plan: After admission to the emergency room the patient became anxious and developed anginal pain. He has a troponin elevation consistent with a type 2 CO. --unable to heparinize --resume metoprolol at a higher dose, 25 mg Q8hr and titrate as possible --Resume statin --ASA currently on hold due to hematuria (2) Hematuria: Code(s): R31.9 - Hematuria, unspecified Status: Acute Assessment and Plan: Patient has urinary retention and hematuria while taking Eliquis and Plavix. Getting bladder irrigation. apparently has of large thrombus in the bladder now that might require cystoscopy for removal. However patient is not in good shape for any procedure today since he is still in heart failure, a recent type 2 CO and is on BiPAP. -- Continue bladder irrigation and treatment per Dr. Lamb --Daily CBC --cancel cystoscopy today, discussed with RN (3) Elevated lactic acid level: Code(s): R79.89 - Other specified abnormal findings of blood chemistry Status: Acute Assessment and Plan: Patient has elevated lactic acid level, elevated white count, and probable UTI. No blood cultures drawn. --Treatment per hospitalist. (4) Acute diastolic CHF (congestive heart failure): Code(s): I50.31 - Acute diastolic (congestive) heart failure Status: Acute Assessment and Plan: Patient developed acute diastolic heart failure in the emergency room and is being diuresed. On BiPAP overnight (uses CPAP at home). Feeling better. --continue diuretics but increase furosemide to 40 mg IV push b.i.d. for another day or 2 --daily electrolytes --DC BIPAP and resume diet? (5) CAD in [place] artery: Code(s): I25.10 - Atherosclerotic heart disease of [place] coronary artery without angina pectoris Status: Acute Assessment and Plan: History of CAD and stents. Likely has progression of CAD and typically I would proceed with heart catheterization but in view of the patient's hematuria the cannot as he is not a candidate for dual anti-platelet therapy at this time due to his hematuria. In addition he has a history of significant GI bleed in 2019 while taking aspirin and Plavix. --continue medical therapy for CAD with beta-ryan, statin, nitrates, and hopefully we can resume aspirin. --reconsider cardiac catheterization at a later date, when the patient's hematuria has resolved. --hopefully can resume aspirin soon (6) Nonsustained ventricular tachycardia: Code(s): I47.29 - Other ventricular tachycardia Status: Acute Assessment and Plan: Patient having runs of nonsustained V-tach up to 14-16 beats, probably due to cardiac ischemia. --continue beta-ryan --check electrolytes (7) PAF (paroxysmal atrial fibrillation): Code(s): I48.0 - Paroxysmal atrial fibrillation Status: Acute Assessment and Plan: History of PAF, minimal runs seen on this admission. --Eliquis on hold due to hematuria, hopefully can resume at a later date. --continue metoprolol (8) Essential (primary) hypertension: Code(s): I10 - Essential (primary) hypertension Status: Acute Assessment and Plan: Escobar blood pressure is controlled. --continue beta-ryan, possibly resume amlodipine at a later date (9) H/O: upper GI bleed: Code(s): Z87.19 - Personal history of other diseases of the digestive system Status: Acute Assessment and Plan: H/O UGI bleed 2nd PUD 2019, required transfusion --Cont pantoprazole History of Present Illness History of Present Illness Consult date/time: 04/21/23 09:25 Reason For Visit: Urinary Retention Narrative: Alberto Rea is a 77-year-old male whom we were asked to see at the request of Dr. Emre Garvey for advice and opinion
[2023-04-21 09:26] LABS: Lactic Acid 1.3 mmol/L (0.7-2.0)
[2023-04-21] MEDS: FUROSEMIDE INJ 40 MG/4 ML VIAL 20 MG IV PUSH (09:27)
[2023-04-21] MEDS: SODIUM CHLORIDE 0.9% IV 1,000 ML 75 ML IV CONT (11:23)
[2023-04-21] MEDS: ISOSORBIDE DINITRATE 20 MG TABLET PO ×2 (13:02→17:15)
[2023-04-21] MEDS: POTASSIUM CHLORIDE 20 MEQ ER TABLET PO ×2 (13:02→17:15)
[2023-04-21] MEDS: METOPROLOL TARTRATE 25 MG TABLET PO ×2 (13:02→21:16)
--- NOTE | 2023-04-21 16:27 | PM.IMPN ---
Progress Note: A&P Assessment and Plan (1) Acute urinary retention: Code(s): R33.8 - Other retention of urine Status: Acute Assessment and Plan: -acute urinary retention, onset on 04/19 with no UOP -UA: Red, turbid, 3+ protein, 2+ blood, positive nitrates, 1+ bilirubin, 2+ leuks, greater than 100 rbc's, 10-15 wbc's, rare epithelial cells, 1+ bacteria. -urine culture pending. -three way catheter placed, CBI in progress -CT abd/pelvis: 1. Large volume of hematoma in the bladder. 2. Moderate-sized sliding hiatal hernia. 3. Severely enlarged prostate. 4. Umbilical hernia containing fat. -urology consulted -patient on blood thinner, recent new onset of AFib on 03/30. -Hgb 10.1, previously 12.1 on 04/01 -monitor CBC and UOP (2) Hematuria: Qualifiers: Hematuria type: gross Qualified Code(s): R31.0 - Gross hematuria Code(s): R31.9 - Hematuria, unspecified Status: Acute Assessment and Plan: Urology: Significant amount of clot noted on CT scan.? This most likely cannot be irrigated out manually.? Although his urine appears fairly clear on CBI this will be an issue for him.? Have recommended cystoscopy with clot evacuation unless he becomes medically unstable for this procedure.? Will have our nurse practitioner manually irrigate the Payne to see much comes out. (3) Hypoxia: Code(s): R09.02 - Hypoxemia Status: Acute Assessment and Plan: - CXR, initial: persistent but decreased atelectasis of the left lower lung zone. - given 1L of NS and then placed on maintenance fluids at 125 mL/hr - CXR, repeat: New mild pulmonary edema. Moderate-sized hiatal hernia. - on BiPAP, tolerating well. - reassess physical exam in AM for deescalation of BiPAP - suspect hypoxia secondary to pulmonary edema. Given 40 IVP of Lasix. continue as 20 IVP of Lasix daily. monitor renal function. - monitor I&Os - recent echo (04/01/2023): LV hypertrophy with overall normal systolic function and grade 1 diastolic noncompliance, posterior hypokinesia, modest left atrial enlargement, aortic valve sclerosis with minimal regurgitation and no stenosis. 04/21/23: Pulmonology consulted, Steroids, DuoNebs (4) Non-ST elevation WA (NSTEMI): Code(s): I21.4 - Non-ST elevation (NSTEMI) myocardial infarction Status: Acute Assessment and Plan: - Troponin: 0.580 -> 0.493, third ordered - EKG, initial (15:33) -sinus tachycardia with frequent PVCs with occasional supraventricular premature complexes, borderline left axis deviation, marked ST depression consider subendocardial injury. When compared to previous on 03/31/2023, sinus tachycardia now present. - EKG, repeat (15:37) - sinus tachycardia with frequent PVCs, borderline left axis deviation, marked ST depression consider subendocardial injury, when compared to EKG on 04/20/2023 there are no significant changes. - EKG, repeat (15:44) -rhythm indeterminate, probable sinus tachycardia or multifocal atrial tachycardia, marked ST depression consider sub endocardial injury, when compared to EKG done earlier today AFib now present. - given 324 of ASA, SL nitro, and 5 mg IVP of metoprolol - EKG, repeat (17:06) - probable sinus rhythm, septal WA probably old, marked ST depression consider subendocardial injury, when compared to EKG done earlier today supraventricular rhythm now present, WA finding now present. - cardiology consulted, ED provider spoke on-call soybean specialties cook to discuss case. Attributing bumped troponins to demand ischemia. Patient not currently a candidate for heparin given gross hematuria. Will consult inpatient. - currently on Cardizem drip - 5 mg/hr - tele monitoring and IMU admission Cardiology: After admission to the emergency room the patient became anxious and developed anginal pain.? He has a troponin elevation consistent with a type 2 WA. --unable to heparinize --resume metoprolol at a higher dose, 25 mg Q8hr and titrate as possible
[2023-04-21] MEDS: FUROSEMIDE INJ 40 MG/4 ML VIAL IV PUSH (17:15)
[2023-04-21 17:31] LABS: NT Pro B Type Natriuretic Pept 28300 pg/mL (19.9-100)
[2023-04-21] MEDS: IPRATROPIUM 0.5 MG/ALBUTEROL SULFATE 2.5 MG AMPUL.NEB 3 ML INHALATION (20:23)
[2023-04-21] MEDS: methylPREDNISolone SOD SUCC 40 MG VIAL IV PUSH (21:16)
[2023-04-22] VITALS (24 sets, daily range): BP systolic 109–130; BP diastolic 66–79; PULSE 84–120; RESP 21–35; TEMP 36.3–36.6; O2SAT 93–98
[2023-04-22 05:33] LABS: Hematocrit 29.1 % (42.0-52.0); Mean Corpuscular HGB Conc 30.9 g/dl (32-36); Mean Corpuscular Hemoglobin 28.8 pg (26-34); Mean Platelet Volume 10.7 fl (7.4-10.4); Platelet Count Result 350 k/mm3 (150-375); Red Blood Count 3.13 M/mm3 (4.6-6.20); Red Cell Distribution Width 14.7 % (11.5-14.5); White Blood Count 18.9 K/mm3 (4.5-10.0)
[2023-04-22 05:43] LABS: Anion Gap 5 mmol/L (8-16); Blood Urea Nitrogen 30 mg/dL (9-20); Calcium 8.4 mg/dL (8.4-10.2); Carbon Dioxide 26 mmol/L (22-30); Chloride 110 mmol/L (98-107); Estimated CRCL calculation 40 ml/min; Estimated Glomerular Filt Rate 45; Glucose 150 mg/dL (65-110); Potassium 3.8 mmol/L (3.4-5.0); Sodium 141 mmol/L (137-145)
[2023-04-22] MEDS: METOPROLOL TARTRATE 25 MG TABLET PO ×3 (05:54→21:22)
[2023-04-22] MEDS: IPRATROPIUM 0.5 MG/ALBUTEROL SULFATE 2.5 MG AMPUL.NEB 3 ML INHALATION ×4 (07:42→21:42)
[2023-04-22] MEDS: FUROSEMIDE INJ 40 MG/4 ML VIAL IV PUSH ×2 (08:13→17:39)
[2023-04-22] MEDS: methylPREDNISolone SOD SUCC 40 MG VIAL IV PUSH (08:13)
[2023-04-22] MEDS: POTASSIUM CHLORIDE 20 MEQ ER TABLET PO ×2 (08:13→17:39)
[2023-04-22] MEDS: SIMVASTATIN 20 MG TABLET PO (08:13)
[2023-04-22] MEDS: PANTOPRAZOLE 40 MG TABLET PO (08:13)
[2023-04-22] MEDS: ISOSORBIDE DINITRATE 20 MG TABLET PO ×3 (08:13→17:39)
--- NOTE | 2023-04-22 09:36 | PM.CNPUL ---
Assessment and Plan Assessment and plan (1) Acute hypoxemic respiratory failure: Code(s): J96.01 - Acute respiratory failure with hypoxia Status: Acute Assessment and Plan: This 77-year-old male is experiencing acute hypoxemic respiratory failure due to pulmonary edema and an acute myocardial infarction. The management of his treatment is overseen by both Cardiology Services and Hospitalist Services. The patient does not have any lung disease and is currently receiving BiPAP support and supplemental oxygen - a fitting course of treatment considering the severe pulmonary edema. At present, he appears to be highly reliant on BiPAP support, as his examination still indicates the presence of fluid in his lungs. No wheezing was detected during his physical examination. The reason for the patient's steroid treatment remains unclear. Generally, the use of steroids during a myocardial infarction is not advised as it may elevate the risk of heart failure, arrhythmias, and other cardiovascular complications. We will continue to monitor the patient's respiratory condition and make changes to his noninvasive ventilatory support via BiPAP. For now patient he will remain on current settings of BiPAP support. (2) Pulmonary edema: Code(s): J81.1 - Chronic pulmonary edema Status: Acute (3) Type 2 FL (myocardial infarction): Code(s): I21.A1 - Myocardial infarction type 2 Status: Acute (4) Hematuria: Qualifiers: Hematuria type: gross Qualified Code(s): R31.0 - Gross hematuria Code(s): R31.9 - Hematuria, unspecified Status: Acute History of Present Illness History of Present Illness Consult date: 04/22/23 Chief complaint: Urinary Retention Narrative: TThis consultation pertains to a case of acute hypoxemic respiratory failure. The patient, a 77-year-old male, initially arrived at the emergency room reporting hematuria and dysuria. He first observed blood in his urine, followed by urination difficulty a day later. The patient did not exhibit any respiratory symptoms at the time. During his stay in the emergency room, he experienced non-radiating chest pain, described as a tightness in his chest's center. Subsequent tests revealed an acute myocardial infarction and pulmonary edema. Notably, his initial chest X-ray did not indicate any active lung disease. However, a repeated chest X-ray three hours later detected pulmonary edema. A subsequent CT pulmonary angiography ruled out pulmonary embolism but confirmed bilateral pulmonary infiltrates, consistent with pulmonary edema. Cardiology Services evaluated the patient, diagnosing him with an acute FL. The patient has no history of lung disease, quit smoking several years ago, and was not on any respiratory medications. He has been receiving BiPAP support for hypoxemia, with arterial blood gases revealing hypoxemia but no hypercapnic respiratory failure. His current BiPAP settings include a pressure of 12/6, a respiratory rate of 16, and FiO2 at 55%. The patient reported improved breathing with BiPAP support and treatment for his pulmonary edema under Cardiology Services. His minute ventilation remains high at 20 liters per minute. His medical history includes hypertension, coronary artery disease with a previous FL, and atrial fibrillation. Review of Systems Review of Systems: All systems reviewed & are unremarkable except as noted in HPI and below (HPI and below) [facility] Past Medical History Medical History (Updated 04/22/23 @ 09:47 by Alec Pizano MD) Anemia of chronic disease BPH w/o urinary obs/LUTS CAD in [place] artery History of RCA stents, and Left anterior descending ([place] [facility] The most recent intervention was in August [address] Bartlett, when he had atherectomy balloon angioplasty and stenting of the proximal and mid Left anterior descending (at [facility]). CAD in [place] artery Chronic venous insufficiency of lower extremity CKD (c
--- NOTE | 2023-04-22 09:42 | PM.PNCARD ---
Progress Note: A&P Assessment and Plan (1) Type 2 NE (myocardial infarction): Code(s): I21.A1 - Myocardial infarction type 2 Status: Acute Assessment and Plan: After admission to the emergency room the patient became anxious and developed anginal pain. He has a troponin elevation consistent with a type 2 NE. --unable to heparinize --resume metoprolol at a higher dose, 25 mg Q8hr and titrate as possible --Resume statin --ASA currently on hold due to hematuria (2) Hematuria: Code(s): R31.9 - Hematuria, unspecified Status: Acute Assessment and Plan: Patient has urinary retention and hematuria while taking Eliquis and Plavix. Getting bladder irrigation. apparently has of large thrombus in the bladder now that might require cystoscopy for removal. Cysto cancelled yesterday since he is still in heart failure, a recent type 2 NE and is on BiPAP. --Continue bladder irrigation and treatment per Dr. Lamb --Daily CBC (3) Elevated lactic acid level: Code(s): R79.89 - Other specified abnormal findings of blood chemistry Status: Acute Assessment and Plan: Patient has elevated lactic acid level, elevated white count, and probable UTI. No blood cultures drawn. --Treatment per hospitalist. (4) Acute diastolic CHF (congestive heart failure): Code(s): I50.31 - Acute diastolic (congestive) heart failure Status: Acute Assessment and Plan: Patient developed acute diastolic heart failure in the emergency room and is being diuresed. On BiPAP overnight (uses CPAP at home). Feeling better. --continue diuretics but increase furosemide to 40 mg IV push b.i.d. for another day or 2 --daily electrolytes --DC BIPAP and resume diet? (5) CAD in [place] artery: Code(s): I25.10 - Atherosclerotic heart disease of [place] coronary artery without angina pectoris Status: Acute Assessment and Plan: History of CAD and stents. Likely has progression of CAD and typically I would proceed with heart catheterization but in view of the patient's hematuria the cannot as he is not a candidate for dual anti-platelet therapy at this time due to his hematuria. In addition he has a history of significant GI bleed in 2019 while taking aspirin and Plavix. --continue medical therapy for CAD with beta-ryan, statin, nitrates, and hopefully we can resume aspirin. --reconsider cardiac catheterization at a later date, when the patient's hematuria has resolved. --hopefully can resume aspirin soon (6) Nonsustained ventricular tachycardia: Code(s): I47.29 - Other ventricular tachycardia Status: Acute Assessment and Plan: Patient having runs of nonsustained V-tach up to 14-16 beats, probably due to cardiac ischemia. --continue beta-ryan --check electrolytes (7) PAF (paroxysmal atrial fibrillation): Code(s): I48.0 - Paroxysmal atrial fibrillation Status: Acute Assessment and Plan: History of PAF, minimal runs seen on this admission. --Eliquis on hold due to hematuria, hopefully can resume at a later date. --continue metoprolol (8) Essential (primary) hypertension: Code(s): I10 - Essential (primary) hypertension Status: Acute Assessment and Plan: Escobar blood pressure is controlled. --continue beta-ryan, possibly resume amlodipine at a later date (9) H/O: upper GI bleed: Code(s): Z87.19 - Personal history of other diseases of the digestive system Status: Acute Assessment and Plan: H/O UGI bleed 2nd PUD 2019, required transfusion --Cont pantoprazole Subjective Date/time seen: 04/22/23 09:42 Interval history: Cardiology follow up for CAD, CHF, Afib Feels better today. Shortness of breath is improving. Denies any chest pain. Slept well last night. Review of Systems Constitutional: Constitutional: Denies fever(s) Eyes: Eyes: Reports no additional eye complaints ENT:
--- NOTE | 2023-04-22 10:49 | WPDUROPN2 ---
Progress Note: A&P Assessment and Plan (1) Acute urinary retention: Code(s): R33.8 - Other retention of urine Status: Acute Assessment and Plan: Patient will need to have his Payne remain until his bladder is evaluated given the CT findings. Can proceed with cystoscopy when medically cleared (2) Hematuria: Qualifiers: Hematuria type: gross Qualified Code(s): R31.0 - Gross hematuria Code(s): R31.9 - Hematuria, unspecified Status: Acute Assessment and Plan: Surprisingly his urine is clear with minimal CBI. Will most likely trying to wean that to off. Prefer to do a cystoscopy to evaluate this large hematoma described on CT. Case canceled for Cardiology due to medical instability. When he is stable can proceed. Subjective Subjective Date/Time Seen: 04/22/23 10:49 Principal diagnosis: Hematuria with retention Interval history: Surprisingly his urine is remaining clear with minimal CBI. His cysto with clot evacuation was canceled per Cardiology due to his cardiac status. Will continue to follow at this time since it is clear. When he is medically cleared can proceed with a cystoscopy. Review of Systems Review of Systems: All systems reviewed & are unremarkable except as noted in HPI and below Exam Const: General: cooperative and comfortable Urinary Catheter: Urinary Catheter: patent and draining and urine clear Objective Data Vital Signs Vital Signs: Vital Signs - 24 hr 04/21/23 12:00 04/21/23 12:00 04/21/23 14:00 Temperature 36.6 C Pulse Rate 99 103 H 86 Respiratory Rate 23 H Blood Pressure 138/79 Pulse Oximetry 94 Oxygen Delivery Fraction of Inspired Oxygen 04/21/23 12:00 04/21/23 15:42 04/21/23 17:41 Temperature 36.7 C Pulse Rate 97 111 H Respiratory Rate 29 H 30 H Blood Pressure 95/66 L Pulse Oximetry 94 90 93 Oxygen Delivery BiPAP BiPAP Fraction of Inspired Oxygen 65 04/21/23 17:43 04/21/23 16:00 04/21/23 16:00 Temperature Pulse Rate 111 H 91 Respiratory Rate 30 H Blood Pressure Pulse Oximetry 93 93 Oxygen Delivery BiPAP BiPAP Fraction of Inspired Oxygen 65 65 04/21/23 18:00 04/21/23 19:46 04/21/23 20:23 Temperature 36.6 C Pulse Rate 99 100 101 H Respiratory Rate 26 H 26 H Blood Pressure 113/72 Pulse Oximetry 90 Oxygen Delivery Fraction of Inspired Oxygen 04/21/23 20:27 04/21/23 20:31 04/21/23 21:16 Temperature Pulse Rate 102 H 102 H 101 H Respiratory Rate 32 H 27 H Blood Pressure Pulse Oximetry 92 Oxygen Delivery BiPAP Fraction of Inspired Oxygen 04/21/23 23:56 04/21/23 20:00 04/21/23 22:00 Temperature 36.4 C Pulse Rate 99 102 H 80 Respiratory Rate 23 H Blood Pressure 111/71 Pulse Oximetry 94 Oxygen Delivery Fraction of Inspired Oxygen 04/22/23 00:00 04/22/23 02:00 04/22/23 01:00 Temperature Pulse Rate 86 84 99 Respiratory Rate 27 H Blood Pressure Pulse Oximetry 96 Oxygen Delivery BiPAP Fraction of Inspired Oxygen 04/22/23 04:00 04/21/23 20:00 04/22/23 00:00 Temperature 36.4 C Pulse Rate 86 Respiratory Rate 22 H Blood Pressure 118/70 Pulse Oximetry 97 94 95 Oxygen Delivery BiPAP BiPAP Fraction of Inspired Oxygen 65 65 04/22/23 04:00 04/22/23 04:00 04/22/23 05:54 Temperature Pulse Rate 98 120 H Respiratory Rate Blood Pressure Pulse Oximetry 98 Oxygen Delivery BiPAP Fraction of Inspired Oxygen 65 04/22/23 06:00 04/22/23 07:43 04/22/23 07:43 Temperature Pulse Rate 116 H 96 96 Respiratory Rate 24 H 24 H Blood Pressure Pulse Oximetry 94 Oxygen Delivery BiPAP Fraction of Inspired Oxygen 04/22/23 08:08 Temperature 36.6 C Pulse Rate 98 Respiratory Rate 35 H Blood Pressure 122/75 Pulse Oximetry 95 Oxygen Delivery Fraction of Inspired Oxygen Intake/Output Intake/Output: Intake & Output 04/19/23 04/20/23 04/21/23 04/22/23 23:5
--- NOTE | 2023-04-22 17:16 | PM.IMPN ---
Progress Note: A&P Assessment and Plan (1) Acute urinary retention: Code(s): R33.8 - Other retention of urine Status: Acute Assessment and Plan: -acute urinary retention, onset on 04/19 with no UOP -UA: Red, turbid, 3+ protein, 2+ blood, positive nitrates, 1+ bilirubin, 2+ leuks, greater than 100 rbc's, 10-15 wbc's, rare epithelial cells, 1+ bacteria. -urine culture pending. -three way catheter placed, CBI in progress -CT abd/pelvis: 1. Large volume of hematoma in the bladder. 2. Moderate-sized sliding hiatal hernia. 3. Severely enlarged prostate. 4. Umbilical hernia containing fat. -urology consulted -patient on blood thinner, recent new onset of AFib on 03/30. -Hgb 10.1, previously 12.1 on 04/01 -monitor CBC and UOP (2) Hematuria: Qualifiers: Hematuria type: gross Qualified Code(s): R31.0 - Gross hematuria Code(s): R31.9 - Hematuria, unspecified Status: Acute Assessment and Plan: Urology: Significant amount of clot noted on CT scan.? This most likely cannot be irrigated out manually.? Although his urine appears fairly clear on CBI this will be an issue for him.? Have recommended cystoscopy with clot evacuation unless he becomes medically unstable for this procedure.? Will have our nurse practitioner manually irrigate the Payne to see much comes out. (3) Hypoxia: Code(s): R09.02 - Hypoxemia Status: Acute Assessment and Plan: - CXR, initial: persistent but decreased atelectasis of the left lower lung zone. - given 1L of NS and then placed on maintenance fluids at 125 mL/hr - CXR, repeat: New mild pulmonary edema. Moderate-sized hiatal hernia. - on BiPAP, tolerating well. - reassess physical exam in AM for deescalation of BiPAP - suspect hypoxia secondary to pulmonary edema. Given 40 IVP of Lasix. continue as 20 IVP of Lasix daily. monitor renal function. - monitor I&Os - recent echo (04/01/2023): LV hypertrophy with overall normal systolic function and grade 1 diastolic noncompliance, posterior hypokinesia, modest left atrial enlargement, aortic valve sclerosis with minimal regurgitation and no stenosis. 04/21/23: Pulmonology consulted, Steroids, Kerri 04/22/23: Pulmonology: At present, he appears to be highly reliant on BiPAP support, as his examination still indicates the presence of fluid in his lungs. No wheezing was detected during his physical examination. The reason for the patient's steroid treatment remains unclear. Generally, the use of steroids during a myocardial infarction is not advised as it may elevate the risk of heart failure, arrhythmias, and other cardiovascular complications. We will continue to monitor the patient's respiratory condition and make changes to his noninvasive ventilatory support via BiPAP.? For now patient he will remain on current settings of BiPAP support. (4) Non-ST elevation OR (NSTEMI): Code(s): I21.4 - Non-ST elevation (NSTEMI) myocardial infarction Status: Acute Assessment and Plan: - Troponin: 0.580 -> 0.493, third ordered - EKG, initial (15:33) -sinus tachycardia with frequent PVCs with occasional supraventricular premature complexes, borderline left axis deviation, marked ST depression consider subendocardial injury. When compared to previous on 03/31/2023, sinus tachycardia now present. - EKG, repeat (15:37) - sinus tachycardia with frequent PVCs, borderline left axis deviation, marked ST depression consider subendocardial injury, when compared to EKG on 04/20/2023 there are no significant changes. - EKG, repeat (15:44) -rhythm indeterminate, probable sinus tachycardia or multifocal atrial tachycardia, marked ST depression consider sub endocardial injury, when compared to EKG done earlier today AFib now present. - given 324 of ASA, SL nitro, and 5 mg IVP of metoprolol - EKG, repeat (17:06) - probable sinus rhythm, septal OR probably old, marked ST depression consider subendocardial injury, when compar
[2023-04-22] MEDS: SODIUM CHLORIDE 0.9% IV 1,000 ML 30 ML IV CONT (21:21)
[2023-04-22] MEDS: NITROGLYCERIN SL 0.4 MG TABLET SUBLINGUAL (21:29)
[2023-04-23] VITALS (27 sets, daily range): BP systolic 113–131; BP diastolic 63–84; PULSE 88–123; RESP 20–30; TEMP 36.1–37.2; O2SAT 91–100
--- NOTE | 2023-04-23 | ECHO_ITS ---
Patient Info Name: Alberto Rea Age: 77 years : 1945 Gender: Male Ht: 67 in Wt: 209 lbs BSA: 2.15 m2 HR: 104 bpm BP: 113 / 75 mmHg Heart Rhythm: Tachycardia Technical Quality: Fair Exam Date: 04/23/2023 9:07 AM Exam Location: Echo Lab Exam Room: [facility] Patient Status: Inpatient Admit Date: 04/20/2023 Staff Ordering Physician: Binh Dalton MD Clinical Specialist Vascular: Sophia Coates RDCS Attending Provider: Belén Sánchez MD Referring Physician: Sha WING; Exam Type: CA echo doppler color flow Study Info Indications - short of breath cad stents afib Complete two-dimensional, color flow and Doppler transthoracic echocardiogram is performed. Strain analysis performed. Summary 1. Complete two-dimensional, color flow and Doppler transthoracic echocardiogram is performed. 2. Left ventricular chamber dimension is mildly enlarged. 3. Left ventricular systolic function is severely reduced, estimated at 20-25%. 4. There is no increased left ventricular wall thickness. 5. The left ventricular diastolic function is abnormal. 6. Global longitudinal strain is abnormal at -5 %. 7. The apical septum, apical cap, mid anteroseptal, basal inferolateral wall, and mid inferolateral wall are akinetic. 8. The inferior wall, anterior wall, anterolateral wall, basal inferoseptal, mid inferoseptal, and basal anteroseptal are hypokinetic. 9. Left atrial chamber dimension is mildly enlarged. 10. There is moderate to severe mitral valve regurgitation. 11. There is mild aortic valve regurgitation. 12. There is mild tricuspid valve regurgitation. 13. Severe pulmonary hypertension, estimated pulmonary arterial systolic pressure is 62 mmHg. 14. Strain analysis performed. Left Ventricle Left ventricular chamber dimension is mildly enlarged. Left ventricular systolic function is severely reduced, estimated at 20-25%. There is no increased left ventricular wall thickness. The left ventricular diastolic function is abnormal. Global longitudinal strain is abnormal at -5 %. The apical septum, apical cap, mid anteroseptal, basal inferolateral wall, and mid inferolateral wall are akinetic. The inferior wall, anterior wall, anterolateral wall, basal inferoseptal, mid inferoseptal, and basal anteroseptal are hypokinetic. Right Ventricle Right ventricular chamber dimension is normal. Right ventricular systolic function is normal. Left Atria Left atrial chamber dimension is mildly enlarged. Atrial Septum Intact interatrial septum visualized by color flow imaging. Aortic Valve The aortic valve is trileaflet. There is mild aortic valve sclerosis. There is no aortic valve stenosis. There is mild aortic valve regurgitation. Pulmonic Valve The pulmonic valve is normal. There is no pulmonic valve stenosis. There is trace pulmonic regurgitation. Mitral Valve The mitral valve has calcified annulus. There is no mitral valve stenosis. There is moderate to severe mitral valve regurgitation. Tricuspid Valve The tricuspid valve leaflets are normal. There is no significant tricuspid valve stenosis. There is mild tricuspid valve regurgitation. Severe pulmonary hypertension, estimated pulmonary arterial systolic pressure is 62 mmHg. Pericardium/Pleural The pericardium appears normal. There is no pericardial effusion. Inferior Vena Cava Dilated inferior vena cava with <50% collapse upon inspiration consistent with elevated right atrial pressure, 15 mmHg. Aorta The aortic root size at the sinus of Valsalva is normal. Left Ventricular Outflow Tract
[2023-04-23] MEDS: LORazepam INJ (*CRX) 2 MG/ML VIAL 1 MG IV PUSH ×2 (01:12→08:39)
[2023-04-23] MEDS: MORPHINE SULFATE (*CRX) 2 MG/ML INJ 1 MG IV PUSH (01:13)
[2023-04-23] MEDS: METOPROLOL TARTRATE 25 MG TABLET PO ×2 (05:49→12:59)
[2023-04-23] MEDS: IPRATROPIUM 0.5 MG/ALBUTEROL SULFATE 2.5 MG AMPUL.NEB 3 ML INHALATION ×4 (08:05→19:41)
--- NOTE | 2023-04-23 08:11 | PM.PNPUL ---
Progress Note: A&P Assessment and Plan (1) Acute hypoxemic respiratory failure: Code(s): J96.01 - Acute respiratory failure with hypoxia Status: Acute (2) Pulmonary edema: Code(s): J81.1 - Chronic pulmonary edema Status: Acute Assessment and Plan: A 77-year-old male patient is suffering from severe hypoxemic respiratory failure, which is a result of pulmonary edema and a recent myocardial infarction. His treatment is being managed by both the Cardiology and Hospitalist Services. Despite not having any lung disease, the patient requires BiPAP support and additional oxygen due to the intensity of the pulmonary edema. His dependence on BiPAP support is significant, as any temporary discontinuation leads to substantial desaturation. His minute ventilation remains high in excess of 20 liters/minute. Recently, the patient has been displaying increasing anxiety, which has led to tachypnea, tachycardia, elevated blood pressure, and a rise in minute ventilation to over 30 liters per minute. He had a similar episode last night according to his RN. However, no significant changes were observed in his physical examination and recent chest x-ray. The patient may need to stay on a tranquilizer like Ativan to manage his anxiety, which is contributing to tachycardia, hypertension, and the worsening of his pulmonary edema. Ativan 1 mg IV ordered today for increasing anxiety. Also the beta agonist will be discontinued. The patient's situation was thoroughly discussed with his hospitalist. From a respiratory perspective, the patient must maintain his BiPAP support and current FiO2. If his respiratory condition does not show improvement in the coming hours, he may need to be transferred to the intensive care unit. The decision to enhance the treatment for pulmonary edema with vasodilators will be made by the Cardiology Service. His respiratory status will continue to be closely monitored. (3) Type 2 NV (myocardial infarction): Code(s): I21.A1 - Myocardial infarction type 2 Status: Acute (4) Acute diastolic CHF (congestive heart failure): Code(s): I50.31 - Acute diastolic (congestive) heart failure Status: Acute (5) Non-ST elevation NV (NSTEMI): Code(s): I21.4 - Non-ST elevation (NSTEMI) myocardial infarction Status: Acute (6) Acute urinary retention: Code(s): R33.8 - Other retention of urine Status: Acute (7) Hematuria: Qualifiers: Hematuria type: gross Qualified Code(s): R31.0 - Gross hematuria Code(s): R31.9 - Hematuria, unspecified Status: Acute Subjective Date/time seen: 04/23/23 08:11 Interval history: Patient reports no improvement. Reportedly he desaturates when BiPAP support is temporarily off. He has no other respiratory symptoms such as fever chills hemoptysis. He remains on same settings of BiPAP support as yesterday. Review of Systems Review of Systems: All systems reviewed & are unremarkable except as noted in HPI and below (HPI and below) Exam Narrative: GENERAL APPEARANCE: Well developed, well nourished, alert and cooperative, appears in mild respiratory distress while on BiPAP support and supplemental oxygen. SKIN: Inspection of the skin reveals no rashes, ulcerations or petechiae. HEENT: Sclerae anicteric and conjunctivae pink and moist. Extraocular movements were intact and pupils were equal, round. NECK: Supple. JVD present LUNGS: Crackles at bases, also usp up the posterior chest. No wheezing CARDIAC: There was a regular rate and rhythm without any murmurs. ABDOMEN: Soft and nontender with normal bowel sounds. There was no organomegaly. LYMPH NODES: No lymphadenopathy was appreciated in the neck. EXTREMITIES: No cyanosis, clubbing or edema. NEUROLOGIC: Alert and oriented x 3. Normal affect. Objective Data Vital Signs Vital Signs: Vital Signs - 24 hr 04/22/23 11:00 04/22/23 10:00 04/22/23 11:54
[2023-04-23] MEDS: NITROGLYCERIN SL 0.4 MG TABLET SUBLINGUAL ×2 (08:24→08:28)
[2023-04-23] MEDS: FUROSEMIDE INJ 40 MG/4 ML VIAL IV PUSH ×2 (08:39→17:36)
--- NOTE | 2023-04-23 09:12 | PM.PNCARD ---
Progress Note: A&P Assessment and Plan (1) Type 2 ND (myocardial infarction): Code(s): I21.A1 - Myocardial infarction type 2 Status: Acute Assessment and Plan: After admission to the emergency room the patient became anxious and developed anginal pain. He has a troponin elevation consistent with a type 2 ND. --unable to heparinize --resume metoprolol at a higher dose, 25 mg Q8hr and titrate as possible --Resume statin --will resume his aspirin today 81 mg daily given recurrent pain. Check a stat EKG as well as troponins. Echocardiogram is pending. (2) Hematuria: Code(s): R31.9 - Hematuria, unspecified Status: Acute Assessment and Plan: Patient has urinary retention and hematuria while taking Eliquis and Plavix. Getting bladder irrigation. apparently has of large thrombus in the bladder now that might require cystoscopy for removal. Cysto cancelled yesterday since he is still in heart failure, a recent type 2 ND and is on BiPAP. --Continue bladder irrigation and treatment per Dr. Lamb --Daily CBC (3) Elevated lactic acid level: Code(s): R79.89 - Other specified abnormal findings of blood chemistry Status: Acute Assessment and Plan: Patient has elevated lactic acid level, elevated white count, and probable UTI. No blood cultures drawn. --Treatment per hospitalist. (4) Acute diastolic CHF (congestive heart failure): Code(s): I50.31 - Acute diastolic (congestive) heart failure Status: Acute Assessment and Plan: Patient developed acute diastolic heart failure in the emergency room and is being diuresed. On BiPAP overnight (uses CPAP at home). Feeling better. --continue diuretics but continue IV furosemide --daily electrolytes --DC BIPAP and resume diet? (5) CAD in [place] artery: Code(s): I25.10 - Atherosclerotic heart disease of [place] coronary artery without angina pectoris Status: Acute Assessment and Plan: History of CAD and stents. Likely has progression of CAD and typically I would proceed with heart catheterization but in view of the patient's hematuria cannot as he is not a candidate for dual anti-platelet therapy at this time due to his hematuria. In addition he has a history of significant GI bleed in 2019 while taking aspirin and Plavix. --continue medical therapy for CAD with beta-ryan, statin, nitrates, and hopefully we can resume aspirin. --reconsider cardiac catheterization at a later date, when the patient's hematuria has resolved. --hopefully can resume aspirin soon (6) Nonsustained ventricular tachycardia: Code(s): I47.29 - Other ventricular tachycardia Status: Acute Assessment and Plan: Patient having runs of nonsustained V-tach up to 14-16 beats, probably due to cardiac ischemia. --continue beta-ryan --check electrolytes (7) PAF (paroxysmal atrial fibrillation): Code(s): I48.0 - Paroxysmal atrial fibrillation Status: Acute Assessment and Plan: History of PAF, minimal runs seen on this admission. --Eliquis on hold due to hematuria, hopefully can resume at a later date. --continue metoprolol (8) Essential (primary) hypertension: Code(s): I10 - Essential (primary) hypertension Status: Acute Assessment and Plan: [place] blood pressure is controlled. --continue beta-ryan, possibly resume amlodipine at a later date (9) H/O: upper GI bleed: Code(s): Z87.19 - Personal history of other diseases of the digestive system Status: Acute Assessment and Plan: H/O UGI bleed 2nd PUD 2019, required transfusion --Cont pantoprazole Subjective Date/time seen: 04/23/23 09:12 Interval history: Cardiology follow up for CAD, CHF, Afib Date of service 04/23/2023: Had some chest discomfort today which is improved with nitro. Feels anxious. Also feels short of breath. Review of Systems Constitutional: Constitution
--- NOTE | 2023-04-23 09:15 | ECG_ITS ---
Measurements Intervals [place] Rate: 116 P: 18 MO: 170 QRS: -29 QRSD: 122 T: 69 QT: 318 QTc: 443 Interpretive Statements SINUS TACHYCARDIA POSSIBLE ANTERIOR MYOCARDIAL INFARCTION , PROBABLY OLD [30 ms Q WAVE IN V3/V4, OR R < 0.2 mV IN V4] ST DEPRESSION, CONSIDER SUBENDOCARDIAL INJURY [0.1+ mV ST DEPRESSION] ABNORMAL ECG COMPARED TO ECG 04/20/2023 22:40:38 SINUS TACHYCARDIA NOW PRESENT ST SEGMENT DEPRESSIONS ARE MORE PROMINENT Electronically Signed On 04-23-2023 10:20:37 LEGAL ADMINISTRATOR by Dion Crater M.D.
--- NOTE | 2023-04-23 09:21 | WPDUROPN2 ---
Progress Note: A&P Assessment and Plan (1) Acute urinary retention: Code(s): R33.8 - Other retention of urine Status: Acute Assessment and Plan: Patient will need to have his Payne remain until his bladder is evaluated given the CT findings. Can proceed with cystoscopy when medically cleared- currently having worsening SOB and some chest pain. Will defer to cardiology and pulmonology regarding timing of cystoscopy once he is medically optimized. (2) Hematuria: Qualifiers: Hematuria type: gross Qualified Code(s): R31.0 - Gross hematuria Code(s): R31.9 - Hematuria, unspecified Status: Acute Assessment and Plan: Surprisingly his urine is clear with minimal CBI. Continue to wean Prefer to do a cystoscopy to evaluate this large hematoma described on CT. Case canceled for Cardiology due to medical instability. When he is stable can proceed. Subjective Subjective Date/Time Seen: 04/23/23 09:21 Interval history: Patient is still having issues with shortness of breath and had episode of chest pain this AM. No issues with catheter draining and is on minimal CBI Review of Systems Review of Systems: All systems reviewed & are unremarkable except as noted in HPI and below Exam Const: General: cooperative and in distress (mild respiratory distress) Urinary Catheter: Urinary Catheter: patent and draining and urine clear (Urine clear on minimal CBI) Objective Data Vital Signs Vital Signs: Vital Signs - 24 hr 04/22/23 11:00 04/22/23 10:00 04/22/23 11:54 Temperature 36.6 C Pulse Rate 90 95 Respiratory Rate 22 H Blood Pressure 118/79 Pulse Oximetry 94 Oxygen Delivery BiPAP Fraction of Inspired Oxygen 40 04/22/23 11:54 04/22/23 11:54 04/22/23 12:00 Temperature Pulse Rate 94 94 Respiratory Rate 25 H 25 H Blood Pressure Pulse Oximetry 93 93 Oxygen Delivery BiPAP BiPAP Fraction of Inspired Oxygen 40 04/22/23 12:00 04/22/23 14:00 04/22/23 15:45 Temperature 36.5 C Pulse Rate 94 105 H 96 Respiratory Rate 24 H Blood Pressure 109/66 Pulse Oximetry 97 Oxygen Delivery Fraction of Inspired Oxygen 04/22/23 17:03 04/22/23 17:08 04/22/23 16:00 Temperature Pulse Rate 95 Respiratory Rate 21 H 21 H Blood Pressure Pulse Oximetry 93 93 Oxygen Delivery BiPAP BiPAP Fraction of Inspired Oxygen 40 04/22/23 16:00 04/22/23 18:00 04/22/23 20:00 Temperature 36.3 C L Pulse Rate 102 H 102 H 107 H Respiratory Rate 27 H Blood Pressure 130/73 Pulse Oximetry 94 Oxygen Delivery Fraction of Inspired Oxygen 04/22/23 21:22 04/22/23 21:42 04/22/23 21:46 Temperature Pulse Rate 110 H 100 100 Respiratory Rate 28 H 25 H Blood Pressure Pulse Oximetry 94 Oxygen Delivery BiPAP Fraction of Inspired Oxygen 04/22/23 21:56 04/23/23 00:00 04/23/23 00:47 Temperature 36.2 C L Pulse Rate 98 101 H 101 H Respiratory Rate 25 H 26 H Blood Pressure 115/75 125/83 Pulse Oximetry 97 Oxygen Delivery Fraction of Inspired Oxygen 04/22/23 20:00 04/22/23 20:00 04/23/23 00:35 Temperature Pulse Rate 98 Respiratory Rate Blood Pressure Pulse Oximetry 95 93 Oxygen Delivery BiPAP BiPAP Fraction of Inspired Oxygen 40 60 04/23/23 00:00 04/23/23 03:13 04/23/23 04:00 Temperature Pulse Rate 96 88 91 Respiratory Rate Blood Pressure Pulse Oximetry Oxygen Delivery Fraction of Inspired Oxygen 04/22/23 22:00 04/23/23 02:00 04/23/23 04:00 Temperature 36.2 C L Pulse Rate 101 H 98 91 Respiratory Rate 20 Blood Pressure 113/75 Pulse Oximetry 94 Oxygen Delivery Fraction of Inspired Oxygen 04/23/23 01:45 04/23/23 05:49 04/23/23 07:19 Temperature 36.8 C Pulse Rate 96 103 H 98 Respiratory Rate 28 H 24 H Blood Pressure 131/84 Pulse Oximetry 96 93 Oxygen Delivery BiPAP Fraction of Inspired Oxygen 04/23/23 08:09 04/23/23
[2023-04-23 09:52] LABS: Hematocrit 30.3 % (42.0-52.0); Hemoglobin 9.3 g/dL (14.0-18.0); Mean Corpuscular HGB Conc 30.7 g/dl (32-36); Mean Corpuscular Hemoglobin 28.3 pg (26-34); Mean Corpuscular Volume 92.1 fl (80-100); Mean Platelet Volume 10.5 fl (7.4-10.4); Platelet Count Result 404 k/mm3 (150-375); Red Blood Count 3.29 M/mm3 (4.6-6.20); Red Cell Distribution Width 14.6 % (11.5-14.5); White Blood Count 21.7 K/mm3 (4.5-10.0)
[2023-04-23 10:04] LABS: Anion Gap 8 mmol/L (8-16); Blood Urea Nitrogen 49 mg/dL (9-20); Calcium 8.9 mg/dL (8.4-10.2); Carbon Dioxide 24 mmol/L (22-30); Chloride 110 mmol/L (98-107); Estimated CRCL calculation 37 ml/min; Estimated Glomerular Filt Rate 42; Glucose 141 mg/dL (65-110); Potassium 3.9 mmol/L (3.4-5.0); Sodium 142 mmol/L (137-145)
[2023-04-23] MEDS: ASPIRIN 81 MG ENTERIC TABLET PO (10:11)
[2023-04-23] MEDS: ISOSORBIDE DINITRATE 20 MG TABLET PO ×3 (10:11→17:36)
[2023-04-23] MEDS: POTASSIUM CHLORIDE 20 MEQ ER TABLET PO ×2 (10:11→17:37)
[2023-04-23] MEDS: PANTOPRAZOLE 40 MG TABLET PO (10:12)
[2023-04-23] MEDS: SIMVASTATIN 20 MG TABLET PO (10:12)
--- NOTE | 2023-04-23 16:38 | PM.DS ---
DS: Admitting Diagnosis Discharge Date 04/23/23 Admitting Diagnosis 1. Hematuria; Hematoma in bladder 2. CHFrEF, Diastolic 3. Acute hypoxic respiratory failure 4. CAD. NSTEMi; likley type 2 5. Acute urinary retention; BPH 6. A-fib with RVR 7. Obesity, BMI 32 8. Hypertension 9. MEL 10. Hypothyroidism 11. GERD 12. Dyslipidemia DS: Discharge Diagnosis Discharge Diagnosis (1) Acute urinary retention: Code(s): R33.8 - Other retention of urine Status: Acute Assessment and Plan: -acute urinary retention, onset on 04/19 with no UOP -UA: Red, turbid, 3+ protein, 2+ blood, positive nitrates, 1+ bilirubin, 2+ leuks, greater than 100 rbc's, 10-15 wbc's, rare epithelial cells, 1+ bacteria. -urine culture pending. -three way catheter placed, CBI in progress -CT abd/pelvis: 1. Large volume of hematoma in the bladder. 2. Moderate-sized sliding hiatal hernia. 3. Severely enlarged prostate. 4. Umbilical hernia containing fat. -urology consulted -patient on blood thinner, recent new onset of AFib on 03/30. -Hgb 10.1, previously 12.1 on 04/01 -monitor CBC and UOP (2) Hematuria: Qualifiers: Hematuria type: gross Qualified Code(s): R31.0 - Gross hematuria Code(s): R31.9 - Hematuria, unspecified Status: Acute Assessment and Plan: Urology: Significant amount of clot noted on CT scan.? This most likely cannot be irrigated out manually.? Although his urine appears fairly clear on CBI this will be an issue for him.? Have recommended cystoscopy with clot evacuation unless he becomes medically unstable for this procedure.? Will have our nurse practitioner manually irrigate the Payne to see much comes out. (3) Hypoxia: Code(s): R09.02 - Hypoxemia Status: Acute Assessment and Plan: - CXR, initial: persistent but decreased atelectasis of the left lower lung zone. - given 1L of NS and then placed on maintenance fluids at 125 mL/hr - CXR, repeat: New mild pulmonary edema. Moderate-sized hiatal hernia. - on BiPAP, tolerating well. - reassess physical exam in AM for deescalation of BiPAP - suspect hypoxia secondary to pulmonary edema. Given 40 IVP of Lasix. continue as 20 IVP of Lasix daily. monitor renal function. - monitor I&Os - recent echo (04/01/2023): LV hypertrophy with overall normal systolic function and grade 1 diastolic noncompliance, posterior hypokinesia, modest left atrial enlargement, aortic valve sclerosis with minimal regurgitation and no stenosis. 04/21/23: Pulmonology consulted, Steroids, DuoNebs 04/22/23: Pulmonology: At present, he appears to be highly reliant on BiPAP support, as his examination still indicates the presence of fluid in his lungs. No wheezing was detected during his physical examination. The reason for the patient's steroid treatment remains unclear. Generally, the use of steroids during a myocardial infarction is not advised as it may elevate the risk of heart failure, arrhythmias, and other cardiovascular complications. We will continue to monitor the patient's respiratory condition and make changes to his noninvasive ventilatory support via BiPAP.? For now patient he will remain on current settings of BiPAP support. 04/23/23: on BIPAP (4) Non-ST elevation IN (NSTEMI): Code(s): I21.4 - Non-ST elevation (NSTEMI) myocardial infarction Status: Acute Assessment and Plan: - Troponin: 0.580 -> 0.493, third ordered - EKG, initial (15:33) -sinus tachycardia with frequent PVCs with occasional supraventricular premature complexes, borderline left axis deviation, marked ST depression consider subendocardial injury. When compared to previous on 03/31/2023, sinus tachycardia now present. - EKG, repeat (15:37) - sinus tachycardia with frequent PVCs, borderline left axis deviation, marked ST depression consider subendocardial injury, when compared to EKG on 04/20/2023 there are no significant changes. - EKG, repeat (15:44) -rhythm indeterminate,
--- NOTE | 2023-04-23 20:12 | PC.NURSE ---
On 04/23/23, the student, SN Joshua, provided care and completed [facility] documentation on this patient.? I have reviewed the student's documentation and?agree?with the findings.
== END 2023-04-23 20:28 | disposition home or self-care (01) | DRG 698 ==
LOC: ANHED 17:07 → ANHIMU 18:40
PROVIDERS: Internal Medicine Cardiovascular Disease; Student in an Organized Health Care Education/Training Program; Urology; Admitting Provider Internal Medicine; Emergency Provider Student in an Organized Health Care Education/Training Program; PCP Family Medicine; Visit Provider Internal Medicine
DX: N32.89 Other specified disorders of bladder (principal); I21.A1 Myocardial infarction type 2; I50.31 Acute diastolic (congestive) heart failure; J96.01 Acute respiratory failure with hypoxia; I13.0 Hypertensive heart and chronic kidney disease with heart failure and stage 1 through stage 4 chronic kidney disease, or unspecified chronic kidney disease; N39.0 Urinary tract infection, site not specified; I47.29 Other ventricular tachycardia; N40.1 Benign prostatic hyperplasia with lower urinary tract symptoms; R33.8 Other retention of urine; D63.8 Anemia in other chronic diseases classified elsewhere; R31.0 Gross hematuria; I25.10 Atherosclerotic heart disease of native coronary artery without angina pectoris; K21.9 Gastro-esophageal reflux disease without esophagitis; E03.9 Hypothyroidism, unspecified; M19.90 Unspecified osteoarthritis, unspecified site; E78.5 Hyperlipidemia, unspecified; N18.30 Chronic kidney disease, stage 3 unspecified; I44.0 Atrioventricular block, first degree; G47.33 Obstructive sleep apnea (adult) (pediatric); I48.0 Paroxysmal atrial fibrillation; K42.9 Umbilical hernia without obstruction or gangrene; K44.9 Diaphragmatic hernia without obstruction or gangrene; Z20.822 Contact with and (suspected) exposure to COVID-19; E66.9 Obesity, unspecified; Z68.32 Body mass index [BMI] 32.0-32.9, adult; Z86.73 Personal history of transient ischemic attack (TIA), and cerebral infarction without residual deficits; Z87.11 Personal history of peptic ulcer disease; Z95.5 Presence of coronary angioplasty implant and graft; Z87.891 Personal history of nicotine dependence; Z98.42 Cataract extraction status, left eye; Z98.41 Cataract extraction status, right eye; Z79.01 Long term (current) use of anticoagulants
CPT/HCPCS: 36415; 36600; 71045; 71275; 74176; 80048; 80053; 81001; 82375; 82805; 83050; 83605; 83690; 83735; 83880; 84100; 84439; 84443; 84480; 84484; 85014; 85018; 85025; 85027; 85380; 85610; 85730; 87086; 87637; 93005; 93306; 94002; 94003; 94640; 94660; 96374; 96375; 99285; A9270; J0696; J1940; J2060; J2270; J2920; J7030; Q9967

== ENCOUNTER 2023-06-02 09:53 | Outpatient (CLI) | payer MEDICARE, SELFPAY ==
--- NOTE | ~2023-06-02 | US_ITS ---
EXAMINATION: US scrotum doppler DATE: 06/02/2023 10:53 INDICATION: Right epididymitis TECHNIQUE: Testicular sonogram utilizing grayscale and Doppler COMPARISON: None. FINDINGS: The right testis measures 3.8 x 2.5 x 2.8 cm. The left testis measures 3.6 x 2.8 x 2.8 cm. There is normal vascular flow to both testes. The right epididymis is normal with normal vascular mj w. The left epididymis is normal with normal vascular flow. There are small right and moderate to lar ge left hydroceles. IMPRESSION: 1. Bilateral hydroceles, small on the right and moderate to large on the left. Reviewed, dictated and finalized at location F.
== END 2023-06-02 09:54 | disposition home or self-care (01) ==
PROVIDERS: PCP Family Medicine; Visit Provider Urology
DX: N45.1 Epididymitis (principal); N43.3 Hydrocele, unspecified
CPT/HCPCS: 76870; 93976

== ENCOUNTER 2023-06-18 09:18 | Emergency (ER) | payer MEDICARE, SELFPAY ==
[2023-06-18 09:24] VITALS: BP 147/94; PULSE 104; RESP 18; TEMP 36.4; O2SAT 96
--- NOTE | 2023-06-18 09:37 | PC.NURSE ---
Pt & state gutierrez cath changed 06/06/[address] Lamb office. Pt has gutierrez cath drapped over underwear with gutierrez kinked off. Educated on proper placement of gutierrez, voices understanding. Bladder scanner performed with result of 24 ml
--- NOTE | 2023-06-18 09:49 | ED.GENADULT ---
HPI - General Adult General Chief complaint: Urogenital-Male Stated complaint: blocked catheter Time Seen by Provider: 06/18/23 09:20 History of Present Illness HPI narrative: 77-year-old male with history of urinary retention that followed up with Dr. Lamb presenting to the emergency department for evaluation of decreased output from his Payne catheter. Related Data Allergies Allergy/AdvReac Type Severity Reaction Status Date / Time No Known Allergies Allergy Verified 04/20/23 15:48 Review of Systems Review of Systems: All systems reviewed & are unremarkable except as noted in HPI and below [facility] Past Medical History Medical History (Updated 06/18/23 @ 11:27 by Devon Khan MD) Anemia of chronic disease BPH w/o urinary obs/LUTS CAD in [place] artery History of RCA stents, and Left anterior descending (at [place]?). The most recent intervention was in August [address] Bartlett, when he had atherectomy balloon angioplasty and stenting of the proximal and mid Left anterior descending (at [facility] [place]). CAD in [place] artery Chronic venous insufficiency of lower extremity CKD (chronic kidney disease) stage 3, GFR 30-59 ml/min Dyslipidemia Essential (primary) hypertension GERD without esophagitis H/O: upper GI bleed Hematuria History of stroke (1991) Stroke was in 1991, [facility], unclear if hemorrhagic or not but pt does not recall any intravascular intervention. Hypertension Hypothyroidism (acquired) Nonsustained ventricular tachycardia JILLIAN (obstructive sleep apnea) uses a CPAP machine PAF (paroxysmal atrial fibrillation) Peptic ulcer disease 09/2019-cauterization and placed on PPI Type 2 [place] (myocardial infarction) Unspecified osteoarthritis, unspecified site Vitamin D deficiency Surgical History Surgical History H/O bilateral cataract extraction (~2017) H/O esophagogastroduodenoscopy this past week with cauterization of peptic ulcer disease History of coronary artery stent placement (~05/05/18) x3. Drug-eluting stent to the RCA in 2 stents the LAD. Family History Family History Father Family history of cardiovascular disease, Onset Age: 55 Hypertension, Onset Age: 55 Mother Patient's mother is , Onset Age: 65 Bladder cancer Social History Social History Social History: the patient is and lives with his . She is the durable power disability attorney for healthcare. The patient is a full code. He has 1 adopted son. 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 He used to smoke until E adopted his son. He occasionally has a glass of wine maybe twice a week. Depending on what they eat that week. He stated he has lost about 40 lb by trying this past year. Smoking status: Former smoker Second hand tobacco smoke exposure: No Additional smoking assessment comments: SMOKED FOR ONE YEAR DURING COLLEGE Alcohol intake: current Drinks per week: 2 Alcohol use details: consumes 2 glasses of wine weekly Substance use: never Substance use type: does not use Do You Feel Safe in your Home?: Yes Lack of Transportation: No Lack of Food: Never True Current Housing: I Have Housing Concerned About Future Housing: No Difficulty Paying Gas/Electric Bills: No Difficulty Paying for Meds: No Currently Unemployed: No Education: Trade/Vocational Certificate Difficulty w/ Childcare or Family Care: No Gender identity (if verbalized by the patient): Male Sexual Orientation (if Verbalized by the Patient): Straight or Heterosexual Spiritual care concerns: No Exam Narrative: APPEARANCE: Well appearing, no pain, no distress, well-nourished. HEAD: normocephalic, atraumatic. EYES: PERRLA/EOMI, conjunctivae clear. NOSE: Normal no drainage EARS:TMS clear with good light r
[2023-06-18] MEDS: LIDOCAINE HCL 2% GEL UROJET 10 ML PKG MUCOUS MEM (10:00)
[2023-06-18 10:34] VITALS: BP 142/94; PULSE 90; RESP 18; TEMP 36.7; O2SAT 98
[2023-06-18 11:03] LABS: Appearance Urine Turbid (Clear); Bacteria Urine 1+ /hpf; Bilirubin Urine Negative (Negative); Blood Urine 3+ (Negative); Budding Yeast Urine Present /hpf; Color Urine Yellow (Yellow); Glucose Urine UA 1+ mg/dL (Negative); Ketones Urine Negative (Negative); Leukocyte Esterase Ur 3+ LEU/UL (Negative); Need Manual Microscopic Reviewed; Nitrate Urine Negative (Negative); Non Pathogenic Casts >20; Protein Urine Trace mg/dL (Negative); RBC Urine >100 /hpf (0-2); Specific Grav Ur 1.011 (1.001-1.035); Squamous Epithelial Cell Urine Moderate /hpf (Few); Urobilinogen Urine 0.2 mg/dL (<2.0); WBC Urine >100 /hpf (0-3); pH Urine 5.5 (5.0-9.0)
[2023-06-18 11:05] LABS: Add Urine Microscopic? YES
[2023-06-18] MEDS: CEPHALEXIN 500 MG CAPSULE PO (11:47)
[2023-06-18 12:02] VITALS: BP 122/87; PULSE 92; RESP 16; TEMP 36.8; O2SAT 97
--- NOTE | 2023-06-18 12:02 | PC.NURSE ---
Pt reports feeling much better. Small amount of blood noted at urinary meatus. Payne patent & draining cloudy kayla urine.
== END 2023-06-18 12:05 | disposition home or self-care (01) ==
PROVIDERS: Emergency Provider Emergency Medicine; PCP Family Medicine
DX: T83.098A Other mechanical complication of other urinary catheter, initial encounter (principal); N39.0 Urinary tract infection, site not specified; I25.10 Atherosclerotic heart disease of native coronary artery without angina pectoris; I12.9 Hypertensive chronic kidney disease with stage 1 through stage 4 chronic kidney disease, or unspecified chronic kidney disease; N18.30 Chronic kidney disease, stage 3 unspecified; I87.2 Venous insufficiency (chronic) (peripheral); I25.2 Old myocardial infarction; I48.0 Paroxysmal atrial fibrillation; D63.8 Anemia in other chronic diseases classified elsewhere; E78.5 Hyperlipidemia, unspecified; E03.9 Hypothyroidism, unspecified; E55.9 Vitamin D deficiency, unspecified; K21.9 Gastro-esophageal reflux disease without esophagitis; G47.33 Obstructive sleep apnea (adult) (pediatric); Z95.5 Presence of coronary angioplasty implant and graft; Z86.73 Personal history of transient ischemic attack (TIA), and cerebral infarction without residual deficits; Z87.11 Personal history of peptic ulcer disease; Z87.891 Personal history of nicotine dependence; Z98.42 Cataract extraction status, left eye; Z98.41 Cataract extraction status, right eye; Y84.6 Urinary catheterization as the cause of abnormal reaction of the patient, or of later complication, without mention of misadventure at the time of the procedure; Z79.01 Long term (current) use of anticoagulants
CPT/HCPCS: 51702; 81001; 87086; 99283; A9270

== ENCOUNTER 2023-06-25 20:55 | Emergency (ER) | payer MEDICARE, SELFPAY ==
[2023-06-25 20:57] VITALS: BP 150/107; PULSE 96; RESP 16; TEMP 36.5; O2SAT 98
--- NOTE | 2023-06-25 21:18 | ED.MALEGU ---
HPI - Male Genitourinary General Chief complaint: Urogenital-Male Stated complaint: catheter problem Time Seen by Provider: 06/25/23 21:03 Source: patient Mode of arrival: ambulatory History of Present Illness HPI Narrative: 77-year-old male with chronic Payne catheter presenting because he thinks his catheter is clogged. Has not put out much urine at all today. He did have a changed about a week ago. Denies any pain. No fevers. He is feeling well. Related Data Allergies Allergy/AdvReac Type Severity Reaction Status Date / Time No Known Allergies Allergy Verified 04/20/23 15:48 Review of Systems Review of Systems: All systems reviewed & are unremarkable except as noted in HPI and below PMFSH Past Medical History Medical History Anemia of chronic disease BPH w/o urinary obs/LUTS CAD in [place] artery History of RCA stents, and Left anterior descending (at [place] The most recent intervention was in August [address] Bartlett, when he had atherectomy balloon angioplasty and stenting of the proximal and mid Left anterior descending (at [facility]). CAD in [place] artery Chronic venous insufficiency of lower extremity CKD (chronic kidney disease) stage 3, GFR 30-59 ml/min Dyslipidemia Essential (primary) hypertension GERD without esophagitis H/O: upper GI bleed Hematuria History of stroke (1991) Stroke was in 1991, [facility], unclear if hemorrhagic or not but pt does not recall any intravascular intervention. Hypertension Hypothyroidism (acquired) Nonsustained ventricular tachycardia JILLIAN (obstructive sleep apnea) uses a CPAP machine PAF (paroxysmal atrial fibrillation) Peptic ulcer disease 09/2019-cauterization and placed on PPI Type 2 [place] (myocardial infarction) Unspecified osteoarthritis, unspecified site Vitamin D deficiency Surgical History Surgical History H/O bilateral cataract extraction (~2017) H/O esophagogastroduodenoscopy this past week with cauterization of peptic ulcer disease History of coronary artery stent placement (~05/05/18) x3. Drug-eluting stent to the RCA in 2 stents the LAD. Family History Family History Father Family history of cardiovascular disease, Onset Age: 55 Hypertension, Onset Age: 55 Mother Patient's mother is , Onset Age: 65 Bladder cancer Social History Social History Social History: the patient is and lives with his . She is the durable power real estate associate attorney for healthcare. The patient is a full code. He has 1 adopted son. 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 He used to smoke until E adopted his son. He occasionally has a glass of wine maybe twice a week. Depending on what they eat that week. He stated he has lost about 40 lb by trying this past year. Smoking status: Former smoker Second hand tobacco smoke exposure: No Additional smoking assessment comments: SMOKED FOR ONE YEAR DURING COLLEGE Alcohol intake: current Drinks per week: 2 Alcohol use details: consumes 2 glasses of wine weekly Substance use: never Substance use type: does not use Do You Feel Safe in your Home?: Yes Lack of Transportation: No Lack of Food: Never True Current Housing: I Have Housing Concerned About Future Housing: No Difficulty Paying Gas/Electric Bills: No Difficulty Paying for Meds: No Currently Unemployed: No Education: Trade/Vocational Certificate Difficulty w/ Childcare or Family Care: No Gender identity (if verbalized by the patient): Male Sexual Orientation (if Verbalized by the Patient): Straight or Heterosexual Spiritual care concerns: No Exam Narrative: Constitutional: Generally well appearing, no acute distress Head: Atraumatic, no deformities. Eye
--- NOTE | 2023-06-25 21:20 | PC.NURSE ---
gutierrez exchanged on arrival MD ohara notified of exchange and catheter now draining to gravity.
[2023-06-25 21:48] VITALS: BP 148/84; PULSE 88; RESP 15; O2SAT 100
== END 2023-06-25 21:48 | disposition home or self-care (01) ==
LOC: ANHED 21:27
PROVIDERS: Emergency Provider Emergency Medicine; PCP Family Medicine
DX: T83.091A Other mechanical complication of indwelling urethral catheter, initial encounter (principal); I12.9 Hypertensive chronic kidney disease with stage 1 through stage 4 chronic kidney disease, or unspecified chronic kidney disease; N18.30 Chronic kidney disease, stage 3 unspecified; I87.2 Venous insufficiency (chronic) (peripheral); I25.10 Atherosclerotic heart disease of native coronary artery without angina pectoris; I48.0 Paroxysmal atrial fibrillation; I25.2 Old myocardial infarction; N40.0 Benign prostatic hyperplasia without lower urinary tract symptoms; E78.5 Hyperlipidemia, unspecified; E03.9 Hypothyroidism, unspecified; E55.9 Vitamin D deficiency, unspecified; G47.33 Obstructive sleep apnea (adult) (pediatric); M19.90 Unspecified osteoarthritis, unspecified site; K21.9 Gastro-esophageal reflux disease without esophagitis; Z95.5 Presence of coronary angioplasty implant and graft; Z98.42 Cataract extraction status, left eye; Z86.73 Personal history of transient ischemic attack (TIA), and cerebral infarction without residual deficits; Z98.41 Cataract extraction status, right eye; Y84.6 Urinary catheterization as the cause of abnormal reaction of the patient, or of later complication, without mention of misadventure at the time of the procedure
CPT/HCPCS: 51702; 99283

== ENCOUNTER 2023-08-02 04:26 | Inpatient (IN) | payer MEDICARE, SELFPAY ==
[2023-08-02] VITALS (17 sets, daily range): BP systolic 93–131; BP diastolic 50–97; PULSE 89–109; RESP 16–22; TEMP 35.7–36.8; O2SAT 90–100; BMI 31.4
--- NOTE | ~2023-08-02 | CT_ITS ---
Non-contrast CT scan of the Abdomen and Pelvis Clinical indication: Flank pain Technique: 2.5 mm axial scans were obtained through the abdomen and pelvis without intravenous or or al contrast. Dose reduction technique was used on this scan by utilizing automated exposure control a nd iterative reconstruction technique. The dose-length product (DLP) was 1035.32 mGy-cm. COMPARISON: 04/20/2023 Findings: Images through the lung bases reveal no abnormalities. Extensive coronary artery calcifica tions are noted. Moderate hiatal hernia noted. There are probable renal vascular calcifications rather than renal stones. No hydronephrosis or hydro ureter. The liver, spleen, pancreas, gallbladder, and adrenals appear normal. There is no aortic aneurysm. There is no evidence of bowel obstruction. Moderate fat-containing umbilical hernia noted. Sigmoid di verticulosis noted. Images through the pelvis were performed. There is no evidence of ascites or lymphadenopathy. There i s a large hyperdense masslike lesion in the urinary bladder, most compatible large blood clot, measur ing 8.2 x 7.6 cm in size. Underlying mass is difficult to exclude. Prostate gland is also significant ly enlarged. There is advanced degenerative spondylosis of the lumbar spine. Impression: Large blood clot/hematoma within the urinary bladder, as detailed above. Underlying mass lesion is di fficult to completely excluded. Consider cystoscopy as indicated. Significantly enlarged prostate gland, unchanged. Moderate fat-containing umbilical hernia. Moderate hiatal hernia. Reviewed, dictated and finalized at [facility]. Impression: Large blood clot/hematoma within the urinary bladder, as detailed above. Underl barbara mass lesion is difficult to completely excluded. Consider cystoscopy as in dicated. Significantly enlarged prostate gland, unchanged. Moderate fat-containing umbilical hernia. Moderate hiatal hernia.
--- NOTE | ~2023-08-02 | XR_ITS ---
Portable chest x-ray Comparison: 04/23/2023 Clinical History: Weakness Findings: Lungs are clear, without focal consolidation or pleural effusion. Cardiomediastinal silho uette is stable. Bones and soft tissues are unremarkable. Impression: Clear lungs. Reviewed, dictated and finalized at location . Impression: Clear lungs.
--- NOTE | ~2023-08-02 | US_ITS ---
EXAMINATION: US renal BI DATE: 08/04/2023 08:31 INDICATION: Acute kidney injury. TECHNIQUE: Multiple ultrasound grayscale images of the kidneys were obtained. COMPARISON: CT abdomen and pelvis 08/02/2023 FINDINGS: The right kidney measures 12.3 x 6.2 x 5.4 cm. The left kidney measures 11.1 x 5.0 x 4.8 cm. The kidn eys demonstrate normal parenchymal echogenicity. There is no hydronephrosis. The bladder is decompres sed by a Payne catheter. IMPRESSION: 1. Normal kidney sizes. No hydronephrosis. Reviewed, dictated and finalized at location A.
--- NOTE | 2023-08-02 04:38 | ECG_ITS ---
SEE SCANNED COPY FOR CONFIRMED REPORT MTDD
[2023-08-02 04:58] LABS: Basophils Absolute Auto 0.1 K/mm3 (0.0-0.1); Basophils Percent Auto 1.3 % (0.2-1.2); Eosinophils Absolute Auto 0.3 K/mm3 (0-0.3); Eosinophils Percent Auto 3.1 % (0-4.4); Hematocrit 35.4 % (42.0-52.0); Hemoglobin 10.8 g/dL (14.0-18.0); Immature Granulocyte Absolute 0.12 K/mm3 (0.00-0.031); Immature Granulocyte Percent A 1.3 % (0-0.5); Lymphocytes Absolute Auto 2.57 K/mm3 (0.9-3.2); Lymphocytes Percent Auto 28.6 % (18.3-44.2); Mean Corpuscular HGB Conc 30.5 g/dl (32-36); Mean Corpuscular Hemoglobin 25.5 pg (26-34); Mean Corpuscular Volume 83.5 fl (80-100); Mean Platelet Volume 9.9 fl (7.4-10.4); Monocytes Percent Auto 10.6 % (2.6-8.5); Neutrophils Absolute Auto 4.9 K/mm3 (1.3-6.7); Neutrophils Percent Auto 55.1 % (45.5-73.1); Platelet Count Result 405 k/mm3 (150-375); Red Blood Count 4.24 M/mm3 (4.6-6.20); Red Cell Distribution Width 17.2 % (11.5-14.5)
[2023-08-02 05:08] LABS: Alanine Aminotransferase 29 U/L (6-50); Alkaline Phosphatase 80 U/L (38-126); Anion Gap 10 mmol/L (4-12); Aspartate Amino Transferase 26 U/L (17-59); Bilirubin,Total 0.7 mg/dL (0.2-1.3); Blood Urea Nitrogen 95 mg/dL (9-20); Calcium 9.3 mg/dL (8.4-10.2); Carbon Dioxide 20 mmol/L (22-30); Chloride 107 mmol/L (98-107); Estimated CRCL calculation 20 ml/min; Estimated Glomerular Filt Rate 20; Glucose 133 mg/dL (65-110); Potassium 5.2 mmol/L (3.4-5.0); Sodium 137 mmol/L (137-145)
[2023-08-02] MEDS: SODIUM CHLORIDE 0.9% IV 1,000 ML 999 ML IV CONT (05:14)
--- NOTE | 2023-08-02 05:33 | ED.GENADULT ---
HPI - General Adult General Chief complaint: Urogenital-Male Stated complaint: hematuria, weakness Time Seen by Provider: 08/02/23 04:37 History of Present Illness HPI narrative: Patient is a 77-year-old male who presents to the emergency department this morning complaining of hematuria. Patient states that a few days ago his urine was bustos in color and has progressively gotten darker until yesterday he passed a few clots and today this morning he noticed that his urine is completely bloody. Patient admits that this has happened before a few months ago and at that time he did have some urinary retention. Patient did have a Payne catheter placed for approximately 6 weeks. He follows up with Dr. Lamb. He denies any dysuria, complains of mild flank pain but states that he always has lower back pain and that this is not much worse than his baseline. Patient admits to generalized weakness and states that he recently returned from a trip to [place] and ever since he has been back is been generally weak and lightheaded. Denies any room spinning sensation. He denies any additional symptoms at this time including any abdominal pain, nausea or vomiting, fevers or chills. Related Data Allergies Allergy/AdvReac Type Severity Reaction Status Date / Time No Known Allergies Allergy Verified 04/20/23 15:48 Review of Systems Review of Systems: All systems are reviewed and are negative unless stated otherwise in the HPI. [facility] Past Medical History Medical History Anemia of chronic disease BPH w/o urinary obs/LUTS CAD in [place] artery History of RCA stents, and [place] anterior descending ([place] The most recent intervention was in August [address] Bartlett, when he had atherectomy balloon angioplasty and stenting of the proximal and mid Left anterior descending (at [facility]). CAD in [place] artery Chronic venous insufficiency of lower extremity CKD (chronic kidney disease) stage 3, GFR 30-59 ml/min Dyslipidemia Essential (primary) hypertension GERD without esophagitis H/O: upper GI bleed Hematuria History of stroke (1991) Stroke was in 1991, [facility], unclear if hemorrhagic or not but pt does not recall any intravascular intervention. Hypertension Hypothyroidism (acquired) Nonsustained ventricular tachycardia JILLIAN (obstructive sleep apnea) uses a CPAP machine PAF (paroxysmal atrial fibrillation) Peptic ulcer disease 09/2019-cauterization and placed on PPI Type 2 [place] (myocardial infarction) Unspecified osteoarthritis, unspecified site Vitamin D deficiency Surgical History Surgical History H/O bilateral cataract extraction (~2017) H/O esophagogastroduodenoscopy this past week with cauterization of peptic ulcer disease History of coronary artery stent placement (~05/05/18) x3. Drug-eluting stent to the RCA in 2 stents the LAD. Family History Family History Father Family history of cardiovascular disease, Onset Age: 55 Hypertension, Onset Age: 55 Mother Patient's mother is , Onset Age: 65 Bladder cancer Social History Social History Social History: the patient is and lives with his . She is the durable power rolls mill operator for healthcare. The patient is a full code. He has 1 adopted son. 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 He used to smoke until E adopted his son. He occasionally has a glass of wine maybe twice a week. Depending on what they eat that week. He stated he has lost about 40 lb by trying this past year. Smoking status: Former smoker Second hand tobacco smoke exposure: No Additional smoking assessment comments: SMOKED FOR ONE YEAR DURING COLLEGE Alcohol intake: current Drinks per week: 2 Alcohol use details: consumes
[2023-08-02 05:55] LABS: Appearance Urine Cloudy (Clear); Bacteria Urine 1+ /hpf; Bilirubin Urine Negative (Negative); Blood Urine 3+ (Negative); Color Urine Yellow (Yellow); Glucose Urine UA Trace mg/dL (Negative); Ketones Urine Negative (Negative); Leukocyte Esterase Ur Trace LEU/UL (Negative); Need Manual Microscopic Reviewed; Nitrate Urine Negative (Negative); Protein Urine 4+ mg/dL (Negative); Specific Grav Ur 1.026 (1.001-1.035); Urobilinogen Urine 0.2 mg/dL (<2.0); WBC Urine >100 /hpf (0-3)
[2023-08-02 05:59] LABS: RBC Urine >75 /hpf (0-2); Squamous Epithelial Cell Urine Few /hpf (Few)
[2023-08-02 06:00] LABS: Non Pathogenic Casts Present
[2023-08-02 06:13] LABS: Add Urine Microscopic? YES
--- NOTE | 2023-08-02 07:40 | ADMGEN ---
This patient, Alberto Rea, was admitted to [facility] Surg Room 315-02. Patient/family oriented to hospital policies and general routines including ID bracelet, bed and alarms, visiting hours, pain management, procedures, bathroom and other care routines, personal items, smoking policy, room service/diet, and visiting hours. Information on how to activate the Rapid Response Team has been discussed. Patient/Family are encouraged to report perceived risks to care and to ask questions if they do not understand what they are told or what they should do.
[2023-08-02] MEDS: WATER FOR IRRIGATION, STERILE 1,000 ML BOTTLE 1000 ML (09:15)
--- NOTE | 2023-08-02 09:47 | WPDURCON ---
Assessment and Plan Assessment and plan (1) Hematuria: Code(s): R31.9 - Hematuria, unspecified Status: Acute Assessment and Plan: Large amount of clot in bladder noted on CT. Catheter irrigated at bedside today with return of clots but persistent hematuria. Will plan for cystoscopy and clot evacuation in the OR this afternoon with Dr. Lamb. Continue NPO diet. Of note, patient on Eliquis and Plavix. Had recent CABG 04/2023 Hemoglobin and hematocrit stable. (2) BPH with urinary obstruction: Code(s): N40.1 - Benign prostatic hyperplasia with lower urinary tract symptoms; N13.8 - Other obstructive and reflux uropathy Status: Acute Assessment and Plan: Cysto 05/2023 with enlarged vascular prostate. CT on admission shows significantly enlarged prostate. Continue tamsulosin. Further recommendations pending cystoscopy. (3) Acute kidney injury: Code(s): N17.9 - Acute kidney failure, unspecified Status: Acute Assessment and Plan: Creatinine 3.1 on admission. Baseline around 1.5. Continue with gutierrez catheter for bladder decompression. Monitor creatinine levels. Urology Consult Note HPI Date Seen: 08/02/23 Requesting Physician: Binh Dalton MD Primary Care Provider: Andrea Perea MD Consult Narrative Narrative: Alberto Rea is a 77 year old male with history of BPH and gross hematuria. He was initially seen in April 2023 for this problem and a cystoscopy was recommended but unable to be completed as he was transferred to [facility] and underwent CABG. During this admission, he had some retention issues and was discharged with a gutierrez catheter. Following his rehab, he saw Dr. Lamb in 05/2023 and underwent cystoscopy which showed an enlarged vascular prostate. He had a successful void trial 06/22/2023 and states he has been voiding well up until about 3 days ago. He was on a trip in [place] when he noticed his urine became dark. He then noticed some small blood clots but urine was mostly clear. Yesterday, he developed suprapubic pressure and pelvic pain and his urine became very dark with more clots of blood. Early this morning, he became very dizzy and lightheaded, thus presented to the ER. On arrival, he was afebrile and his vital signs were stable, WBC 9.0, Hgb 10.8, creatinine 3.1, UA with trace leukocytes, >75 RBC, >100 WBC. Urine culture is pending. A CT of his abdomen/pelvis showed significantly enlarged prostate with large hematoma in urinary bladder. At the time of my evaluation, he is feeling improved. His urine is bright red on moderate CBI. I irrigated his catheter with about 500 cc sterile water at the bedside with return of moderate amount of clots. CBI was restarted and urine was light pink. Given clot burden noted on CT, will plan for cystoscopy and clot evacuation in the OR this afternoon. Review of Systems Review of Systems: All systems reviewed & are unremarkable except as noted in HPI and below PMFSH Past Medical History Medical History Anemia of chronic disease BPH w/o urinary obs/LUTS CAD in [place] artery History of RCA stents, and Left anterior descending ([place] The most recent intervention was in August [address] Bartlett, when he had atherectomy balloon angioplasty and stenting of the proximal and mid Left anterior descending (at [facility]). CAD in [place] artery Chronic venous insufficiency of lower extremity CKD (chronic kidney disease) stage 3, GFR 30-59 ml/min Dyslipidemia Essential (primary) hypertension GERD without esophagitis H/O: upper GI bleed Hematuria History of stroke (1991) Stroke was in 1991, [facility], unclear if hemorrhagic or not but pt does not recall any intravascular intervention. Hypertension Hypothyroidism (acquired) Nonsustained ventricular tachycardia JILLIAN (obstructive sleep apnea) uses a CPAP machine PAF (paroxysmal atrial fibrillation
--- NOTE | 2023-08-02 10:02 | WPDHPUPDATE1 ---
History and Physical Update Update Date/Time: 08/02/23 10:02 History and Physical has been reviewed, including an updated exam of the patient. There are NO changes in the patient's condition. Risks, benefits, and alternatives have been discussed and questions answered. Patient agrees to proceed with procedure. Proceed with cystoscopy with clot evacuation
[2023-08-02 12:07] LABS: Basophils Absolute Auto 0.1 K/mm3 (0.0-0.1); Basophils Percent Auto 1.3 % (0.2-1.2); Eosinophils Absolute Auto 0.2 K/mm3 (0-0.3); Eosinophils Percent Auto 2.4 % (0-4.4); Hematocrit 31.9 % (42.0-52.0); Hemoglobin 9.9 g/dL (14.0-18.0); Immature Granulocyte Percent A 1.1 % (0-0.5); Lymphocytes Percent Auto 26.2 % (18.3-44.2); Mean Corpuscular Hemoglobin 26.1 pg (26-34); Mean Corpuscular Volume 83.9 fl (80-100); Mean Platelet Volume 9.8 fl (7.4-10.4); Monocytes Absolute Auto 0.9 K/mm3 (0.1-0.6); Monocytes Percent Auto 10.4 % (2.6-8.5); Neutrophils Absolute Auto 5.2 K/mm3 (1.3-6.7); Neutrophils Percent Auto 58.6 % (45.5-73.1); Platelet Count Result 346 k/mm3 (150-375); Red Cell Distribution Width 17.2 % (11.5-14.5); White Blood Count 8.8 K/mm3 (4.5-10.0)
[2023-08-02 12:31] LABS: Anion Gap 8 mmol/L (4-12); Blood Urea Nitrogen 82 mg/dL (9-20); Calcium 8.9 mg/dL (8.4-10.2); Carbon Dioxide 22 mmol/L (22-30); Chloride 110 mmol/L (98-107); Estimated CRCL calculation 22 ml/min; Estimated Glomerular Filt Rate 22; Glucose 106 mg/dL (65-110); Magnesium 2.8 mg/dL (1.6-2.3); Potassium 4.9 mmol/L (3.4-5.0); Sodium 140 mmol/L (137-145)
--- NOTE | 2023-08-02 13:43 | WPDANESEPPF ---
Anes - Initial Pre Proc Eval Procedure: Operation Date: 08/02/23 14:00 Proposed Procedures p Cystoscopy, Clot Evacuation - Quoc Lamb MD Date/Time: 08/02/23 13:43 Surgeon: Binh Dalton MD Pre Op Diagnosis: Acute Kidney Injury, Hematuria Patient Data Age: 77 Gender: M Height: 1.7 m Weight: 91.2 kg Last Vital Signs Temp 97.0 F L 08/02/23 08:10 Pulse 104 H 08/02/23 08:10 Resp 16 08/02/23 08:10 BP 108/74 08/02/23 08:10 Pulse Ox 97 08/02/23 08:10 O2 Del Method Room Air 08/02/23 04:28 Allergies Allergy/AdvReac Type Severity Reaction Status Date / Time No Known Allergies Allergy Verified 04/20/23 15:48 Home Medications Medication Instructions Recorded Confirmed Type simvastatin 20 mg tablet 20 mg PO QHS #90 tabs 06/28/22 04/20/23 Rx ferrous sulfate 325 mg (65 mg 325 mg PO DAILY #90 tabs 02/14/23 04/20/23 Rx iron) tablet,delayed release apixaban 5 mg tablet (Eliquis) 5 mg PO Q12HR #60 tabs 04/02/23 04/20/23 Rx metoprolol tartrate 25 mg tablet 25 mg PO Q12HR #60 tabs 04/02/23 04/20/23 Rx levothyroxine 150 mcg tablet 150 mcg PO QAM #100 tabs 04/18/23 04/20/23 Rx ergocalciferol (vitamin D2) 1,250 1,250 mcg PO WEEKLY #15 caps 04/25/23 Rx mcg (50,000 unit) capsule clopidogrel 75 mg tablet 75 mg PO DAILY #90 tabs 05/03/23 Rx tamsulosin 0.4 mg capsule 0.4 mg PO QPM #90 caps 05/03/23 Rx pantoprazole 40 mg tablet,delayed 40 mg PO DAILY #100 tabs 05/05/23 Rx release lisinopril 40 mg tablet 40 mg PO DAILY #100 tabs 05/16/23 Rx cephalexin 500 mg capsule 500 mg PO Q8H 7 days #21 caps 06/18/23 Rx amlodipine 10 mg tablet 10 mg PO DAILY #100 tabs 06/20/23 Rx isosorbide dinitrate 20 mg tablet 20 mg PO TID #270 tabs 07/07/23 Rx hydralazine 50 mg tablet 50 mg PO TID #180 tabs 08/01/23 Rx Laboratory Tests 08/02/23 08/02/23 08/02/23 04:46 05:16 12:00 WBC 9.0 K/mm3 8.8 K/mm3 (4.5-10.0) (4.5-10.0) RBC 4.24 L M/mm3 3.80 L M/mm3 (4.6-6.20) (4.6-6.20) Hgb 10.8 L g/dL 9.9 L g/dL (14.0-18.0) (14.0-18.0) Hct 35.4 L % 31.9 L % (42.0-52.0) (42.0-52.0) MCV 83.5 fl 83.9 fl (80-100) (80-100) MCH 25.5 L pg 26.1 pg (26-34) (26-34) MCHC 30.5 L g/dl 31.0 L g/dl (32-36) (32-36) RDW 17.2 H % 17.2 H % (11.5-14.5) (11.5-14.5) Plt Count 405 H k/mm3 346 k/mm3 (150-375) (150-375) MPV 9.9 fl 9.8 fl (7.4-10.4) (7.4-10.4) Immature Gran % (Auto) 1.3 H % 1.1 H % (0-0.5) (0-0.5) Neut % (Auto) 55.1 % 58.6 % (45.5-73.1) (45.5-73.1) Lymph % (Auto) 28.6 % 26.2 % (18.3-44.2) (18.3-44.2) [place] % (Auto) 10.6 H % 10.4 H % (2.6-8.5) (2.6-8.5) Eos % (Auto) 3.1 % 2.4 % (0-4.4) (0-4.4) Baso % (Auto) 1.3 H % 1.3 H % (0.2-1.2) (0.2-1.2) Lymph # (Auto) 2.57 K/mm3 2.30 K/mm3 (0.9-3.2) (0.9-3.2) [place] # (Auto) 1.0 H K/mm3 0.9 H K/mm3 (0.1-0.6) (0.1-0.6) Eos # (Auto) 0.3 K/mm3 0.2 K/mm3 (0-0.3) (0-0.3) Baso # (Auto) 0.1 K/mm3 0.1 K/mm3 (0.0-0.1) (0.0-0.1) Abs Immat Gran (auto) 0.12 H K/mm3 0.10 H K/mm3 (0.00-0.031) (0.00-0.031) Absolute Neuts (auto) 4.9 K/mm3 5.2 K/mm3 (1.3-6.7) (1.3-6.7) Absolute Nucleated RBC 0.000 K/mm3 0.000 K/mm3 (0.0-0.012) (0.0-0.012) Nucleated RBC % 0.0 % 0.0 % (0.0-0.2) (0.0-0.2) Sodium 137 mmol/L 140 mmol/L (137-145) (137-145) Potassium 5.2 H mmol/L 4.9 mmol/L (3.4-5.0) (3.4-5.0) Chloride 107 mmol/L 110 H mmol/L (98-107) (98-107) Carbon Dioxide 20 L mmol/L 22 mmol/L (22-30) (22-30) Anion Gap 10 mmol/L 8 mmol/L (4-12) (4-12) BUN 95 H D mg/dL 82 H D mg/dL (9-20) (9-20) Creatinine 3.10 H mg/dL 2.80 H mg/dL (0.7-1.3) (0.7-1.3) Estim Creat Clear Calc 20 ml/min 22 ml/min Estimated GFR 20 L 22 L (59 - ) (59 - ) Glucose
--- NOTE | 2023-08-02 15:44 | P.OP_ITS ---
Procedure Note - Detailed Date of Procedure 08/02/23 Pre-op Diagnosis Hematuria with clots Post-op Diagnosis Same Procedure Performed Cystoscopy with clot evacuation and fulguration, complex Payne catheter placement Surgeon Quoc Lamb MD Anesthesia General Description of Procedure Patient was taken to the operative suite correctly identified. Once anesthesia was obtained was placed in dorsal lithotomy position and prepped and draped usual sterile fashion. Twenty-two Montserratian scope was inserted the bladder. Approximately to 300 cc of clot was evacuated. Reinspection revealed no bladder mass. He does have an enlarged obstructing prostate with a vascular bladder neck median lobe. I fulgurated the median lobe from the 5 to 7 o'clock position. There appeared to be good hemostasis. 2% viscous lidocaine was inserted into the urethra. Twenty [place] was placed and connected to CBI. 15 cc were placed in the balloon. Patient is taken recovery stable condition. This completes dictation. Please send a copy of op note to my office. Estimated Blood Loss 0 Drains Yes Packing No Pathology None sent Complications No immediate complications Condition Stable Disposition PACU
[2023-08-02] MEDS: LACTATED RINGERS 1,000 ML 30 ML IV CONT (15:53)
--- NOTE | 2023-08-02 17:57 | PM.IMHP ---
H&P: HPI History of Present Illness Date/Time: 08/02/23 17:57 Chief Complaint: Gross hematuria Narrative: Mr. Rea is a pleasant 77-year-old male with a history of BPH and gross hematuria, atrial fibrillation on Eliquis, hypothyroidism, hypertension, hyperlipidemia, ischemic cardiomyopathy, CAD status post stent to the RCA, NSTEMI s/p CABG x3 and left atrial cryomaze and left atrial appendage excision on 04/29/23 at [facility]. Patient had a Payne catheter for retention with successful removal and void trial on 06/22/2023. He was doing well until about 3 days prior to admission when he was on a trip in [place] and he noticed his urine to become dark. He then noticed small blood clots but the urine was clear otherwise. One day prior to admission he developed suprapubic pressure and pelvic pain in his urine became very dark with more clots of blood. Then today on 08/01 became lightheaded and dizzy. He presented to [place] [facility] and a CT of abdomen pelvis showed significantly enlarged prostate with large hematoma in the urinary bladder. CBI was initiated. Subsequently admitted. Review of Systems Review of Systems: All systems reviewed & are unremarkable except as noted in HPI and below (Subjective) [facility] Past Medical History Medical History Anemia of chronic disease BPH w/o urinary obs/LUTS CAD in grindstone artery History of RCA stents, and Left anterior descending ([place] The most recent intervention was in August [address] Bartlett, when he had atherectomy balloon angioplasty and stenting of the proximal and mid Left anterior descending (at [facility]). CAD in grindstone artery Chronic venous insufficiency of lower extremity CKD (chronic kidney disease) stage 3, GFR 30-59 ml/min Dyslipidemia Essential (primary) hypertension GERD without esophagitis H/O: upper GI bleed Hematuria History of stroke (1991) Stroke was in 1991, [facility], unclear if hemorrhagic or not but pt does not recall any intravascular intervention. Hypertension Hypothyroidism (acquired) Nonsustained ventricular tachycardia JILLIAN (obstructive sleep apnea) uses a CPAP machine PAF (paroxysmal atrial fibrillation) Peptic ulcer disease 09/2019-cauterization and placed on PPI Type 2 [place] (myocardial infarction) Unspecified osteoarthritis, unspecified site Vitamin D deficiency Surgical History Surgical History H/O bilateral cataract extraction (~2018) H/O esophagogastroduodenoscopy this past week with cauterization of peptic ulcer disease History of coronary artery stent placement (~05/05/18) x3. Drug-eluting stent to the RCA in 2 stents the LAD. Family History Family History Father Family history of cardiovascular disease, Onset Age: 55 Hypertension, Onset Age: 55 Mother Patient's mother is , Onset Age: 65 Bladder cancer Social History Social History Social History: the patient is and lives with his . She is the [employer] call [employer] recruiter for healthcare. The patient is a full code. He has 1 adopted son. 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 He used to smoke until E adopted his son. He occasionally has a glass of wine maybe twice a week. Depending on what they eat that week. He stated he has lost about 40 lb by trying this past year. Smoking status: Never smoker Second hand tobacco smoke exposure: No Additional smoking assessment comments: SMOKED FOR ONE YEAR DURING COLLEGE Alcohol intake: never Drinks per week: 2 Alcohol use details: consumes 2 glasses of wine weekly Substance use: never Substance use type: does not use Do You Feel Safe in your Home?: Yes Lack of Transportation: No Lack of Food: Never True Current Housing: I Have Housing Concerne
[2023-08-03] VITALS (10 sets, daily range): BP systolic 112–119; BP diastolic 62–75; PULSE 86–111; RESP 16–18; TEMP 35.6–36.7; O2SAT 93–100
[2023-08-03 06:04] LABS: Basophils Absolute Auto 0.1 K/mm3 (0.0-0.1); Basophils Percent Auto 0.9 % (0.2-1.2); Eosinophils Absolute Auto 0.3 K/mm3 (0-0.3); Eosinophils Percent Auto 3.3 % (0-4.4); Hemoglobin 8.6 g/dL (14.0-18.0); Immature Granulocyte Absolute 0.07 K/mm3 (0.00-0.031); Immature Granulocyte Percent A 0.7 % (0-0.5); Lymphocytes Absolute Auto 2.13 K/mm3 (0.9-3.2); Mean Corpuscular HGB Conc 29.7 g/dl (32-36); Mean Corpuscular Hemoglobin 25.3 pg (26-34); Mean Corpuscular Volume 85.3 fl (80-100); Mean Platelet Volume 9.9 fl (7.4-10.4); Monocytes Absolute Auto 1.1 K/mm3 (0.1-0.6); Monocytes Percent Auto 11.7 % (2.6-8.5); Neutrophils Percent Auto 61.4 % (45.5-73.1); Platelet Count Result 325 k/mm3 (150-375); Red Cell Distribution Width 17.3 % (11.5-14.5); White Blood Count 9.7 K/mm3 (4.5-10.0)
[2023-08-03] MEDS: LEVOTHYROXINE SODIUM 150 MCG TABLET PO (06:32)
[2023-08-03 06:35] LABS: Anion Gap 4 mmol/L (4-12); Blood Urea Nitrogen 67 mg/dL (9-20); Calcium 8.7 mg/dL (8.4-10.2); Carbon Dioxide 22 mmol/L (22-30); Chloride 112 mmol/L (98-107); Estimated CRCL calculation 25 ml/min; Estimated Glomerular Filt Rate 26; Glucose 110 mg/dL (65-110); Magnesium 2.8 mg/dL (1.6-2.3); Potassium 5.2 mmol/L (3.4-5.0); Sodium 138 mmol/L (137-145)
[2023-08-03 06:56] LABS: Procalcitonin 0.1 ng/mL
[2023-08-03] MEDS: PANTOPRAZOLE 40 MG TABLET PO (08:08)
--- NOTE | 2023-08-03 08:53 | WPDANESPN ---
Anes - Prog Note Post-Op Date/Time: 08/03/23 08:53 Vital Signs: Last Vital Signs Temp 35.8 C L 08/03/23 08:00 Pulse 93 08/03/23 08:00 Resp 16 08/03/23 08:00 BP 118/68 08/03/23 08:00 Pulse Ox 93 08/03/23 08:00 O2 Del Method Autopap 08/03/23 01:12 O2 Flow Rate 10 08/02/23 15:55 Pain Score (VAS): 0 I/O: Intake & Output 08/02/23 08/03/23 08/03/23 23:59 07:59 15:59 Intake Total 300 550 Output Total 1900 2000 Balance -1600 -1450 Laboratory Tests 08/03/23 05:52 08/03/23 05:52 08/02/23 08/03/23 12:00 05:52 WBC 8.8 9.7 RBC 3.80 L 3.40 L Hgb 9.9 L 8.6 L Hct 31.9 L 29.0 L MCV 83.9 85.3 MCH 26.1 25.3 L MCHC 31.0 L 29.7 L RDW 17.2 H 17.3 H Plt Count 346 325 MPV 9.8 9.9 Immature Gran % (Auto) 1.1 H 0.7 H Neut % (Auto) 58.6 61.4 Lymph % (Auto) 26.2 22.0 [place] % (Auto) 10.4 H 11.7 H Eos % (Auto) 2.4 3.3 Baso % (Auto) 1.3 H 0.9 Lymph # (Auto) 2.30 2.13 [place] # (Auto) 0.9 H 1.1 H Eos # (Auto) 0.2 0.3 Baso # (Auto) 0.1 0.1 Abs Immat Gran (auto) 0.10 H 0.07 H Absolute Neuts (auto) 5.2 6.0 Absolute Nucleated RBC 0.000 0.000 Nucleated RBC % 0.0 0.0 Sodium 140 138 Potassium 4.9 5.2 H Chloride 110 H 112 H Carbon Dioxide 22 22 Anion Gap 8 4 BUN 82 H D 67 H D Creatinine 2.80 H 2.40 H Estim Creat Clear Calc 22 25 Estimated GFR 22 L 26 L Glucose 106 110 Calcium 8.9 8.7 Magnesium 2.8 H 2.8 H Procalcitonin 0.1 Post-procedural complaints: none Patient Feedback: Patient satisfied with anesthetic care. pt sitting up in chair eating breakfast, comfortable, no complaints about anesthesia.
--- NOTE | 2023-08-03 09:18 | WPDUROPN2 ---
Progress Note: A&P Assessment and Plan (1) Hematuria: Code(s): R31.9 - Hematuria, unspecified Status: Acute Assessment and Plan: Underwent cystoscopy with clot evacuation and fulguration on 08/02/2023. Urine is now clear on moderate CBI and was decreased to slow drip. Titrate to keep urine clear. Monitor hemoglobin and hematocrit. Urine culture pending. (2) BPH with urinary obstruction: Code(s): N40.1 - Benign prostatic hyperplasia with lower urinary tract symptoms; N13.8 - Other obstructive and reflux uropathy Status: Acute Assessment and Plan: Cysto 05/2023 with enlarged vascular prostate. CT on admission shows significantly enlarged prostate. Had fulguration of median lobe as above. Continue tamsulosin. (3) Acute kidney injury: Code(s): N17.9 - Acute kidney failure, unspecified Status: Acute Assessment and Plan: Creatinine 3.1 on admission. Baseline around 1.5. Continue with gutierrez catheter for bladder decompression. Creatinine improved to 2.4 today Subjective Subjective Date/Time Seen: 08/03/23 09:18 Interval history: Alberto is doing well today. He tolerated procedure well yesterday. He denies abdominal pain, suprapubic pain, flank pain. No nausea, vomiting, fever, chills. Reports no issues with Gutierrez catheter which is draining clear urine on moderate CBI. Review of Systems Review of Systems: All systems reviewed & are unremarkable except as noted in HPI and below Exam Narrative: General: Awake, alert, comfortable, no acute distress HEENT: Normocephalic, atraumatic, sclerae anicteric Respiratory: Normal respiratory effort, no accessory muscle use Abdomen: Nondistended, soft, nontender : 3 way catheter draining clear urine on moderate CBI Skin: Normal coloration, warm and dry Neurologic: No focal neuro deficits noted Psychiatric: Appropriate mood and affect, judgment and insight intact Objective Data Vital Signs Vital Signs: Vital Signs - 24 hr 08/02/23 15:53 08/02/23 15:55 08/02/23 16:05 Temperature 98.3 F Pulse Rate 96 89 Respiratory Rate 16 17 Blood Pressure 93/65 L 101/62 Pulse Oximetry 96 96 100 Oxygen Delivery Simple Face Mask Simple Face Mask Room Air Oxygen Flow Rate 10 10 08/02/23 16:20 08/02/23 16:35 08/02/23 16:50 Temperature Pulse Rate 102 H 102 H 96 Respiratory Rate 19 17 20 Blood Pressure 107/54 L 119/73 117/73 Pulse Oximetry 98 98 99 Oxygen Delivery Room Air Room Air Room Air Oxygen Flow Rate 08/02/23 17:15 08/02/23 17:30 08/02/23 17:59 Temperature 97.0 F L 96.3 F L 96.6 F L Pulse Rate 106 H 105 H 107 H Respiratory Rate 18 16 18 Blood Pressure 112/71 116/69 109/68 Pulse Oximetry 100 97 98 Oxygen Delivery Oxygen Flow Rate 08/02/23 18:56 08/02/23 21:10 08/02/23 20:00 Temperature 96.2 F L 97.0 F L Pulse Rate 106 H 107 H Respiratory Rate 18 22 H Blood Pressure 102/50 L 96/61 L Pulse Oximetry 97 90 Oxygen Delivery Room Air Oxygen Flow Rate 08/02/23 23:51 08/02/23 22:00 08/03/23 01:12 Temperature 96.8 F L Pulse Rate 103 H Respiratory Rate 20 Blood Pressure 104/60 Pulse Oximetry 96 98 98 Oxygen Delivery Autopap Autopap Oxygen Flow Rate 08/02/23 20:00 08/03/23 00:00 08/03/23 04:00 Temperature Pulse Rate 106 H 100 86 Respiratory Rate Blood Pressure Pulse Oximetry Oxygen Delivery Oxygen Flow Rate 08/03/23 08:00 08/03/23 08:08 Temperature 96.5 F L Pulse Rate 93 90 Respiratory Rate 16 Blood Pressure 118/68 Pulse Oximetry 93 98 Oxygen Delivery Room Air Oxygen Flow Rate Intake/Output Intake/Output: Intake & Output 07/31/23 08/01/23 08/02/23 08/03/23 23:59 23:59 23:59 23:59 Intake Total 1300 550 Output Total 0586 2000 [facility] -[id number] Meds/Results Medications: Active Medications Generic Name Dose Route Start Last Admin Trade Name Freq PRN Reason Stop Dose Admin Fentanyl
[2023-08-03] MEDS: SODIUM ZIRCONIUM CYCLOSILICATE 10 GM POWD.PACK PO ×2 (10:03→18:16)
[2023-08-03 13:10] LABS: Potassium 5.4 mmol/L (3.4-5.0)
--- NOTE | 2023-08-03 14:05 | PM.IMPN ---
Progress Note: A&P Assessment and Plan (1) BPH with urinary obstruction: Code(s): N40.1 - Benign prostatic hyperplasia with lower urinary tract symptoms; N13.8 - Other obstructive and reflux uropathy Status: Acute (2) Hematuria: Code(s): R31.9 - Hematuria, unspecified Status: Acute (3) Acute kidney injury: Code(s): N17.9 - Acute kidney failure, unspecified Status: Acute (4) Essential (primary) hypertension: Code(s): I10 - Essential (primary) hypertension Status: Acute (5) Atrial fibrillation: Code(s): I48.91 - Unspecified atrial fibrillation Status: Acute (6) CAD (coronary artery disease): Code(s): I25.10 - Atherosclerotic heart disease of [place] coronary artery without angina pectoris Status: Acute Plan Mr. Rea is a pleasant 77-year-old male with a history of BPH and gross hematuria, atrial fibrillation on Eliquis, hypothyroidism, hypertension, hyperlipidemia, ischemic cardiomyopathy, CAD status post stent to the RCA, NSTEMI s/p CABG x3 and left atrial cryomaze and left atrial appendage excision on 04/29/23 at [facility]. Patient had a Payne catheter for retention with successful removal and void trial on 06/22/2023. He was doing well until about 3 days prior to admission when he was on a trip in [place] and he noticed his urine to become dark. He then noticed small blood clots but the urine was clear otherwise. One day prior to admission he developed suprapubic pressure and pelvic pain in his urine became very dark with more clots of blood. Then today on 08/01 became lightheaded and dizzy. He presented to [place] ER and a CT of abdomen pelvis showed significantly enlarged prostate with large hematoma in the urinary bladder. CBI was initiated. Subsequently admitted. Hematuria -currently on CBI. Urology was consulted and had cystoscopy 08/01 -Cysto: with clot evacuation, enlarged obstructing prostate with a vascular bladder neck s/p fulguration -hemoglobin continues to drop; 10.8 -> 9.9 -> 8.6. Continue to monitor. -Wean off CBI as tolerated Hyperkalemia - Potassium 5.2 felt related to GUTIERREZ - Start Lokelma. Add low potassium diet -Follow on tele Anemia -Hgb has dropped to 8.6 related to above. -Monitor. Resume iron BPH with urinary obstruction -per urology -Resume tamsulosin per urology input Acute kidney injury -presented with a serum creatinine 3.10 and 2.8 after CBI was initiated. Likely post renal obstruction. -Cr down to 2.4 now. UCx pending. Follow-up urine culture. Trend renal function. CAD status post CABG -this was recent in April 2023. Restart Plavix as soon as possible. AFib on Eliquis -EKG shpwing ectopic atrial tachycardia. -Holding antihypertensives due to lower blood pressure and hematuria. Restart as appropriate. -holding Eliquis. Of note, consult note reports he had a left atrial appendage excision on 04/29/2023 at [facility]. History of hypertension -holding antihypertensives. History of hypothyroidism -levothyroxine restarted Of note, the patient and do not know what medications he take and cannot verify his list. Nurse Grossman attempted to verify our med list with his filled prescriptions at pharmacy. Medication reconciliation has been completed with the following questionable discrepancies. 1. Ferrous sulfate does not show up on the pharmacy prescriptions 2. Vitamin D2 unsure what day of the week this is given 3. Hydralazine t.i.d. or b.i.d.? 4. Isosorbide t.i.d. or b.i.d.? FEN: Saline lock IV. Regular diet after cystoscopy GI prophylaxis: Not indicated if the patient eats DVT prophylaxis: SCDs only. He has hematuria Lines: Peripheral IV, 3 way Payne placed on 08/01 Code Status: Full code. Dispo: Stable on medical floor. Telemetry has been ordered. The reason telemetry has been ordered is because the patient has atrial fibrillation and we are holding his beta blockade. He a
[2023-08-03] MEDS: TAMSULOSIN HCL 0.4 MG CAPSULE PO (18:16)
[2023-08-03 22:10] LABS: Potassium 4.5 mmol/L (3.4-5.0)
[2023-08-04] VITALS (11 sets, daily range): BP systolic 103–123; BP diastolic 54–70; PULSE 80–111; RESP 11–20; TEMP 36.1–36.4; O2SAT 96–100
[2023-08-04] MEDS: LEVOTHYROXINE SODIUM 150 MCG TABLET PO (06:10)
[2023-08-04 06:17] LABS: Basophils Absolute Auto 0.1 K/mm3 (0.0-0.1); Basophils Percent Auto 1.2 % (0.2-1.2); Eosinophils Absolute Auto 0.5 K/mm3 (0-0.3); Eosinophils Percent Auto 5.5 % (0-4.4); Hematocrit 28.6 % (42.0-52.0); Hemoglobin 8.6 g/dL (14.0-18.0); Immature Granulocyte Absolute 0.11 K/mm3 (0.00-0.031); Immature Granulocyte Percent A 1.2 % (0-0.5); Lymphocytes Absolute Auto 2.22 K/mm3 (0.9-3.2); Lymphocytes Percent Auto 24.6 % (18.3-44.2); Mean Corpuscular HGB Conc 30.1 g/dl (32-36); Mean Corpuscular Hemoglobin 25.8 pg (26-34); Mean Corpuscular Volume 85.9 fl (80-100); Mean Platelet Volume 9.9 fl (7.4-10.4); Monocytes Absolute Auto 1.1 K/mm3 (0.1-0.6); Monocytes Percent Auto 12.4 % (2.6-8.5); Neutrophils Percent Auto 55.1 % (45.5-73.1); Platelet Count Result 309 k/mm3 (150-375); Red Blood Count 3.33 M/mm3 (4.6-6.20); Red Cell Distribution Width 17.4 % (11.5-14.5)
[2023-08-04 06:24] LABS: Albumin Level 3.1 g/dL (3.5-5.1); Anion Gap 3 mmol/L (4-12); Blood Urea Nitrogen 52 mg/dL (9-20); Calcium 8.9 mg/dL (8.4-10.2); Carbon Dioxide 26 mmol/L (22-30); Chloride 112 mmol/L (98-107); Estimated CRCL calculation 26 ml/min; Estimated Glomerular Filt Rate 28; Glucose 109 mg/dL (65-110); Magnesium 2.8 mg/dL (1.6-2.3); Phosphorus 4.5 mg/dL (2.5-4.5); Potassium 4.8 mmol/L (3.4-5.0); Sodium 141 mmol/L (137-145)
[2023-08-04] MEDS: PANTOPRAZOLE 40 MG TABLET PO (08:44)
[2023-08-04] MEDS: FERROUS SULFATE 325 MG TABLET DR PO (08:44)
--- NOTE | 2023-08-04 13:59 | PM.IMPN ---
Progress Note: A&P Assessment and Plan (1) BPH with urinary obstruction: Code(s): N40.1 - Benign prostatic hyperplasia with lower urinary tract symptoms; N13.8 - Other obstructive and reflux uropathy Status: Acute (2) Hematuria: Code(s): R31.9 - Hematuria, unspecified Status: Acute (3) Acute kidney injury: Code(s): N17.9 - Acute kidney failure, unspecified Status: Acute (4) Essential (primary) hypertension: Code(s): I10 - Essential (primary) hypertension Status: Acute (5) Atrial fibrillation: Code(s): I48.91 - Unspecified atrial fibrillation Status: Acute (6) CAD (coronary artery disease): Code(s): I25.10 - Atherosclerotic heart disease of [place] coronary artery without angina pectoris Status: Acute Plan Mr. Rea is a pleasant 77-year-old male with a history of BPH and gross hematuria, atrial fibrillation on Eliquis, hypothyroidism, hypertension, hyperlipidemia, ischemic cardiomyopathy, CAD status post stent to the RCA, NSTEMI s/p CABG x3 and left atrial cryomaze and left atrial appendage excision on 04/29/23 at [facility]. Patient had a Payne catheter for retention with successful removal and void trial on 06/22/2023. He was doing well until about 3 days prior to admission when he was on a trip in [place] and he noticed his urine to become dark. He then noticed small blood clots but the urine was clear otherwise. One day prior to admission he developed suprapubic pressure and pelvic pain in his urine became very dark with more clots of blood. Then today on 08/01 became lightheaded and dizzy. He presented to [facility] and a CT of abdomen pelvis showed significantly enlarged prostate with large hematoma in the urinary bladder. CBI was initiated. Subsequently admitted. Hematuria -currently on CBI. Urology was consulted and had cystoscopy 08/01 -Cysto: with clot evacuation, enlarged obstructing prostate with a vascular bladder neck s/p fulguration -hemoglobin continues to drop; 10.8 -> 8.6 but now stable. Continue to monitor. -Wean off CBI as tolerated Hyperkalemia - Potassium 5.2 felt related to GUTIERREZ - Started on Lokelma. Low potassium diet - Potassium normal now and Cr better. Stop Lokelma -Follow on tele Anemia -Hgb has dropped to 8.6 related to above but stable now -Monitor. Resume iron BPH with urinary obstruction -per urology -Resumed tamsulosin per urology input Acute kidney injury -presented with a serum creatinine 3.10 and 2.8 after CBI was initiated. Likely post renal obstruction. Baseline Cr 1.3-1.7 range -Cr down to 2.3 now. UCx negative Monitor UOP. Trend renal function. CAD status post CABG -this was recent in April 2023. Restart Plavix as soon as possible. AFib on Eliquis -EKG showing ectopic atrial tachycardia. -Holding antihypertensives due to lower blood pressure and hematuria. Restart as appropriate. -holding Eliquis. Of note, consult note reports he had a left atrial appendage excision on 04/29/2023 at [facility]. Minimal tachycardia noted. Resume low dose metoprolol History of hypertension -holding antihypertensives. Resume low dose metoprolol History of hypothyroidism -levothyroxine restarted DVT prophylaxis: SCDs only. He has hematuria Code Status: Full code. Subjective Date/time seen: 08/04/23 13:59 Interval history: 77yo male with AFib, CAD s/p CABG in April and BPH here for hematuria. Slept well. Was out of bed to the chair yesterday. Up to the side of the bed today. Tolerated CPAP last night. No CP or SOB. No headache or focal weakness. Exam Narrative: AF 97.5 105/56 107 12 97% ra Gen - NARD Chest - CTA bilaterally, nml RR CV - RRR S1/S2. Tele showing PVCs Abd - Soft, NT/ND, Positive BS - Payne secured and CBI running. Urine is clear yellow Ext - No pedal edema Psych - Nml mood and affect Skin - Warm and dry Objective Data Vital Signs Vital
--- NOTE | 2023-08-04 15:27 | WPDUROPN2 ---
Progress Note: A&P Assessment and Plan (1) Hematuria: Code(s): R31.9 - Hematuria, unspecified Status: Acute Assessment and Plan: Underwent cystoscopy with clot evacuation and fulguration on 08/02/2023. Urine is now clear off CBI. Monitor hemoglobin and hematocrit. Urine culture negative. (2) BPH with urinary obstruction: Code(s): N40.1 - Benign prostatic hyperplasia with lower urinary tract symptoms; N13.8 - Other obstructive and reflux uropathy Status: Acute Assessment and Plan: Cysto 05/2023 with enlarged vascular prostate. CT on admission shows significantly enlarged prostate. Had fulguration of median lobe as above. Continue tamsulosin. Will refer for outpatient prostate artery embolization. Plan for discharge with gutierrez catheter. (3) Acute kidney injury: Code(s): N17.9 - Acute kidney failure, unspecified Status: Acute Assessment and Plan: Creatinine 3.1 on admission. Baseline around 1.5. Continue with gutierrez catheter for bladder decompression. Creatinine improved to 2.3 today Subjective Subjective Date/Time Seen: 08/04/23 15:27 Interval history: Alberto is feeling much better today. His urine is clear with CBI off. He denies suprapubic pain or flank pain. No nausea, vomiting, fever, chills. Tolerating diet. Review of Systems Review of Systems: All systems reviewed & are unremarkable except as noted in HPI and below Exam Narrative: General: Awake, alert, comfortable, no acute distress HEENT: Normocephalic, atraumatic, sclerae anicteric Respiratory: Normal respiratory effort, no accessory muscle use Abdomen: Nondistended, soft, nontender : 3 way catheter draining clear urine off CBI Skin: Normal coloration, warm and dry Neurologic: No focal neuro deficits noted Psychiatric: Appropriate mood and affect, judgment and insight intact Objective Data Vital Signs Vital Signs: Vital Signs - 24 hr 08/03/23 16:00 08/03/23 16:00 08/03/23 20:00 Temperature 97.1 F L 97.7 F Pulse Rate 108 H 109 H 106 H Respiratory Rate 16 18 Blood Pressure 119/71 112/75 Pulse Oximetry 100 100 Oxygen Delivery Fraction of Inspired Oxygen 08/03/23 20:00 08/03/23 23:48 08/04/23 02:00 Temperature 98.0 F Pulse Rate 98 Respiratory Rate 18 11 L Blood Pressure 116/71 Pulse Oximetry 95 97 Oxygen Delivery Room Air Autopap Fraction of Inspired Oxygen 08/04/23 05:01 08/04/23 04:00 08/03/23 20:00 Temperature 97.5 F L Pulse Rate 105 H 110 H Respiratory Rate 12 20 Blood Pressure 105/56 L Pulse Oximetry 98 Oxygen Delivery Autopap Fraction of Inspired Oxygen 08/04/23 00:00 08/04/23 04:00 08/04/23 07:51 Temperature Pulse Rate 110 H 93 Respiratory Rate Blood Pressure Pulse Oximetry 97 Oxygen Delivery Room Air Fraction of Inspired Oxygen 21 08/04/23 08:00 08/04/23 08:00 Temperature Pulse Rate 107 H Respiratory Rate Blood Pressure Pulse Oximetry Oxygen Delivery Room Air Fraction of Inspired Oxygen Intake/Output Intake/Output: Intake & Output 08/01/23 08/02/23 08/03/23 08/04/23 23:59 23:59 23:59 23:59 Intake Total 1300 1770 877 Output Total 7233 6412 [id number] [facility] -[phone] Meds/Results Medications: Active Medications Generic Name Dose Route Start Last Admin Trade Name Freq PRN Reason Stop Dose Admin Fentanyl Citrate 25 mcg 08/02/23 13:44 Fentanyl Citrate Inj (*Crx) 100 Mcg/2 Ml Vial IV PUSH Q2M PRN Pain Ferrous Sulfate 325 mg 08/04/23 09:00 08/04/23 08:44 Ferrous Sulfate [address] PO 325 mg DAILY SIL Administration Levothyroxine Sodium 150 mcg 08/03/23 06:30 08/04/23 06:10 Levothyroxine Sodium 150 Mcg Tablet PO 150 mcg DAILY@0630 SIL Administration Ondansetron HCl 4 mg 08/02/23 13:44 Ondansetron Inj 4 Mg/2 Ml Vial IV PUSH ONCE PRN Nausea Pantoprazole Sodium 40 mg 08/03/23 09:00
[2023-08-04] MEDS: TAMSULOSIN HCL 0.4 MG CAPSULE PO (17:07)
[2023-08-04] MEDS: METOPROLOL TARTRATE 12.5 MG TABLET PO (20:44)
[2023-08-05 02:17] VITALS: RESP 13
[2023-08-05 06:00] VITALS: BP 107/80; PULSE 107; RESP 18; TEMP 36.2; O2SAT 98
[2023-08-05] MEDS: LEVOTHYROXINE SODIUM 150 MCG TABLET PO (06:16)
[2023-08-05 06:32] LABS: Hematocrit 27.7 % (42.0-52.0); Hemoglobin 8.3 g/dL (14.0-18.0); Mean Corpuscular Hemoglobin 25.9 pg (26-34); Mean Corpuscular Volume 86.3 fl (80-100); Mean Platelet Volume 10.2 fl (7.4-10.4); Platelet Count Result 268 k/mm3 (150-375); Red Blood Count 3.21 M/mm3 (4.6-6.20); Red Cell Distribution Width 17.7 % (11.5-14.5); White Blood Count 10.4 K/mm3 (4.5-10.0)
[2023-08-05 06:40] LABS: Anion Gap 4 mmol/L (4-12); Blood Urea Nitrogen 39 mg/dL (9-20); Calcium 8.6 mg/dL (8.4-10.2); Carbon Dioxide 23 mmol/L (22-30); Chloride 111 mmol/L (98-107); Estimated CRCL calculation 31 ml/min; Estimated Glomerular Filt Rate 34; Glucose 109 mg/dL (65-110); Phosphorus 3.1 mg/dL (2.5-4.5); Potassium 4.8 mmol/L (3.4-5.0); Sodium 138 mmol/L (137-145)
[2023-08-05 08:32] VITALS: PULSE 109
[2023-08-05] MEDS: METOPROLOL TARTRATE 12.5 MG TABLET PO (08:32)
[2023-08-05] MEDS: PANTOPRAZOLE 40 MG TABLET PO (08:32)
[2023-08-05] MEDS: FERROUS SULFATE 325 MG TABLET DR PO (08:32)
--- NOTE | 2023-08-05 09:53 | WPDUROPN2 ---
Progress Note: A&P Assessment and Plan (1) Hematuria: Code(s): R31.9 - Hematuria, unspecified Status: Acute Assessment and Plan: Underwent cystoscopy with clot evacuation and fulguration on 08/02/2023. Urine is now clear off CBI. Monitor hemoglobin and hematocrit. Urine culture negative. Monitor urine closely upon restarting anticoagulation/antiplatelets. (2) BPH with urinary obstruction: Code(s): N40.1 - Benign prostatic hyperplasia with lower urinary tract symptoms; N13.8 - Other obstructive and reflux uropathy Status: Acute Assessment and Plan: Cysto 05/2023 with enlarged vascular prostate. CT on admission shows significantly enlarged prostate. Continue tamsulosin. Has been referred for outpatient prostate artery embolization. Plan for discharge with gutierrez catheter. (3) Acute kidney injury: Code(s): N17.9 - Acute kidney failure, unspecified Status: Acute Assessment and Plan: Creatinine 3.1 on admission. Baseline around 1.5. Continue with gutierrez catheter for bladder decompression. Creatinine improved to 1.9 today Plan Okay for discharge from Urology standpoint with Gutierrez catheter as long as urine remains clear Subjective Subjective Date/Time Seen: 08/05/23 09:53 Interval history: Feeling well today. No acute events overnight. CBI off. Urine continues to be clear yellow. He denies suprapubic pain or discomfort. No nausea, vomiting, fever, chills. Review of Systems Review of Systems: All systems reviewed & are unremarkable except as noted in HPI and below Exam Narrative: General: Awake, alert, comfortable, no acute distress HEENT: Normocephalic, atraumatic, sclerae anicteric Respiratory: Normal respiratory effort, no accessory muscle use Abdomen: Nondistended, soft, nontender : 3 way catheter draining clear yellow urine off CBI Skin: Normal coloration, warm and dry Neurologic: No focal neuro deficits noted Psychiatric: Appropriate mood and affect, judgment and insight intact Objective Data Vital Signs Vital Signs: Vital Signs - 24 hr 08/04/23 16:00 08/04/23 12:00 08/04/23 16:00 Temperature 97 F L Pulse Rate 103 H 109 H 111 H Respiratory Rate 12 Blood Pressure 103/54 L Pulse Oximetry 96 Oxygen Delivery 08/04/23 20:44 08/04/23 22:00 08/04/23 20:00 Temperature 97.5 F L Pulse Rate 80 111 H 100 Respiratory Rate 16 Blood Pressure 123/70 Pulse Oximetry 100 Oxygen Delivery 08/04/23 22:00 08/05/23 02:17 08/05/23 06:00 Temperature 97.2 F L Pulse Rate 107 H Respiratory Rate 14 13 18 Blood Pressure 107/80 Pulse Oximetry 98 98 Oxygen Delivery Autopap Autopap 08/05/23 08:32 Temperature Pulse Rate 109 H Respiratory Rate Blood Pressure Pulse Oximetry Oxygen Delivery Intake/Output Intake/Output: Intake & Output 08/02/23 08/03/23 08/04/23 08/05/23 23:59 23:59 23:59 23:59 Intake Total 0009 8162 4028 716 Output Total 9423 [phone] [facility] -[phone] Meds/Results Medications: Active Medications Generic Name Dose Route Start Last Admin Trade Name Freq PRN Reason Stop Dose Admin Fentanyl Citrate 25 mcg 08/02/23 13:44 Fentanyl Citrate Inj (*Crx) 100 Mcg/2 Ml Vial IV PUSH Q2M PRN Pain Ferrous Sulfate 325 mg 08/04/23 09:00 08/05/23 08:32 Ferrous Sulfate [address] PO 325 mg DAILY SIL Administration Levothyroxine Sodium 150 mcg 08/03/23 06:30 08/05/23 06:16 Levothyroxine Sodium 150 Mcg Tablet PO 150 mcg DAILY@0630 SIL Administration Metoprolol Tartrate 12.5 mg 08/04/23 21:00 08/05/23 08:32 Metoprolol Tartrate 12.5 Mg Tablet PO 12.5 mg Q12HR SIL Administration Ondansetron HCl 4 mg 08/02/23 13:44 Ondansetron Inj 4 Mg/2 Ml Vial IV PUSH ONCE PRN Nausea Pantoprazole Sodium 40 mg 08/03/23 09:00 08/05/23 08:32 Pantoprazole 40 Mg Tablet PO 40 mg DAILY SIL Administration T
[2023-08-05 12:00] VITALS: PULSE 110
--- NOTE | 2023-08-05 12:39 | PM.DS ---
DS: Admitting Diagnosis Discharge Date 08/05/23 Admitting Diagnosis Gross hematuria DS: Discharge Diagnosis Discharge Diagnosis (1) Hematuria: Code(s): R31.9 - Hematuria, unspecified Status: Acute (2) Hyperkalemia: Code(s): E87.5 - Hyperkalemia Status: Acute (3) Anemia: Code(s): D64.9 - Anemia, unspecified Status: Acute (4) Acute kidney injury: Code(s): N17.9 - Acute kidney failure, unspecified Status: Acute (5) BPH with urinary obstruction: Code(s): N40.1 - Benign prostatic hyperplasia with lower urinary tract symptoms; N13.8 - Other obstructive and reflux uropathy Status: Acute (6) Essential (primary) hypertension: Code(s): I10 - Essential (primary) hypertension Status: Acute (7) Atrial fibrillation: Code(s): I48.91 - Unspecified atrial fibrillation Status: Acute (8) CAD (coronary artery disease): Code(s): I25.10 - Atherosclerotic heart disease of [place] coronary artery without angina pectoris Status: Acute (9) Hypothyroidism (acquired): Code(s): E03.9 - Hypothyroidism, unspecified Status: Acute DS: Summary Hospital Course Reason for hospitalization: 77yo male with AFib, CAD s/p CABG in April and BPH here for hematuria. Please see H&P for details Hospital Course: Mr. Rea is a pleasant 77-year-old male with a history of BPH and gross hematuria, atrial fibrillation on Eliquis, hypothyroidism, hypertension, hyperlipidemia, ischemic cardiomyopathy, CAD status post stent to the RCA, NSTEMI s/p CABG x3 and left atrial cryomaze and left atrial appendage excision on 04/29/23 at [facility]. Patient had a Payne catheter for retention with successful removal and void trial on 06/22/2023. He was doing well until about 3 days prior to admission when he was on a trip in [place] and he noticed his urine to become dark. He then noticed small blood clots but the urine was clear otherwise. One day prior to admission he developed suprapubic pressure and pelvic pain in his urine became very dark with more clots of blood. Then today on 08/01 became lightheaded and dizzy. He presented to [place] [facility] and a CT of abdomen pelvis showed significantly enlarged prostate with large hematoma in the urinary bladder. CBI was initiated. Subsequently admitted. Urology was consulted and had cystoscopy 08/01 with clot evacuation, enlarged obstructing prostate with a vascular bladder neck s/p fulguration. Hemoglobin dropped from 10.8 -> 8.6 but now stable. Urine cleared and able to wean off CBI. Potassium 5.2 felt related to GUTIERREZ. Started on Lokelma and low potassium diet. Potassium normal now and Lokelma stopped. he was monitored on tele. Patient with GUTIERREZ who presented with a serum creatinine 3.10 and 2.8 after CBI was initiated. Likely post renal obstruction. Baseline Cr 1.3-1.7 range. Cr improved to 1.9. UCx negative. EKG showing ectopic atrial tachycardia. We held his antihypertensives due to lower blood pressure and hematuria. Able to resume Lopressor. He overall did well and was able to be discharged on 08/05/23. I spoke with the Wastewater Treatment Operator (Dr Bartlett) by phone. He was familiar with the patient. He agreed to continue to hold the Eliquis since the patient had left atrial CryoMaze and left atrial appendage excision. It appears patient is on ASA at the last office visit and he recommended continuing ASA and stop Plavix. Also the patient's current medication list does not match the medication list from the Cardiologists note. We are holding a majority of his anti-HTN medications due to soft blood pressures. He is supposed to be on Coreg (not metoprolol) so will change this to Coreg 3.125mg Q12hr. Discussed with patient in detail. All questions answered. Status at Discharge Cognitive/behavioral status at discharge: stable Time Spent with Patient Time attestation: Total time spent providing and/or coordinating discharge servic
[2023-08-05 14:00] VITALS: BP 108/77; PULSE 100; RESP 20; TEMP 36.4; O2SAT 100
== END 2023-08-05 16:30 | disposition home health service (06) | DRG 669 ==
LOC: ANHED 06:47 → ANH3MEDSUR 07:05
PROVIDERS: General Practice; Urology; Admitting Provider Internal Medicine; Emergency Provider Emergency Medicine; PCP Family Medicine; Visit Provider Internal Medicine
PROC: 0TCB8ZZ Extirpation of Matter from Bladder, Via Natural or Artificial Opening Endoscopic (ICD-10-PCS; CPT 52001; principal; 2023-08-02 14:00)
DX: N13.8 Other obstructive and reflux uropathy (principal); N17.9 Acute kidney failure, unspecified; N40.1 Benign prostatic hyperplasia with lower urinary tract symptoms; R31.9 Hematuria, unspecified; R33.8 Other retention of urine; D63.1 Anemia in chronic kidney disease; E87.5 Hyperkalemia; E03.9 Hypothyroidism, unspecified; E78.5 Hyperlipidemia, unspecified; E55.9 Vitamin D deficiency, unspecified; G47.33 Obstructive sleep apnea (adult) (pediatric); I48.0 Paroxysmal atrial fibrillation; I25.5 Ischemic cardiomyopathy; I25.2 Old myocardial infarction; I25.10 Atherosclerotic heart disease of native coronary artery without angina pectoris; I12.9 Hypertensive chronic kidney disease with stage 1 through stage 4 chronic kidney disease, or unspecified chronic kidney disease; K21.9 Gastro-esophageal reflux disease without esophagitis; N18.30 Chronic kidney disease, stage 3 unspecified; Z95.1 Presence of aortocoronary bypass graft; Z79.01 Long term (current) use of anticoagulants; Z86.73 Personal history of transient ischemic attack (TIA), and cerebral infarction without residual deficits; Z98.41 Cataract extraction status, right eye; Z98.42 Cataract extraction status, left eye; Z87.891 Personal history of nicotine dependence
CPT/HCPCS: 36415; 71045; 74176; 76775; 80048; 80053; 80069; 81001; 83735; 84132; 84145; 85025; 85027; 87086; 93005; 96360; 99285; A9270; J0690; J2405; J2704; J3010; J7030; J7120

== ENCOUNTER 2024-02-21 10:19 | Outpatient (CLI) | payer MEDICARE, SELFPAY ==
[2024-02-21 15:46] LABS: Basophils Absolute Auto 0.1 K/mm3 (0.0-0.1); Basophils Percent Auto 1.1 % (0.2-1.2); Eosinophils Absolute Auto 0.5 K/mm3 (0-0.3); Eosinophils Percent Auto 5.5 % (0-4.4); Hematocrit 40.3 % (42.0-52.0); Hemoglobin 12.5 g/dL (14.0-18.0); Immature Granulocyte Absolute 0.07 K/mm3 (0.00-0.031); Immature Granulocyte Percent A 0.7 % (0-0.5); Lymphocytes Absolute Auto 2.09 K/mm3 (0.9-3.2); Lymphocytes Percent Auto 22.1 % (18.3-44.2); Mean Corpuscular Volume 96.9 fl (80-100); Mean Platelet Volume 11.8 fl (7.4-10.4); Monocytes Absolute Auto 0.9 K/mm3 (0.1-0.6); Monocytes Percent Auto 9.2 % (2.6-8.5); Neutrophils Absolute Auto 5.8 K/mm3 (1.3-6.7); Neutrophils Percent Auto 61.4 % (45.5-73.1); Platelet Count Result 186 k/mm3 (150-375); Red Blood Count 4.16 M/mm3 (4.6-6.20); Red Cell Distribution Width 15.6 % (11.5-14.5); White Blood Count 9.4 K/mm3 (4.5-10.0)
[2024-02-21 16:03] LABS: Alanine Aminotransferase 24 U/L (6-50); Alkaline Phosphatase 75 U/L (38-126); Anion Gap 11 mmol/L (4-12); Aspartate Amino Transferase 64 U/L (17-59); Bilirubin,Total 0.6 mg/dL (0.2-1.3); Blood Urea Nitrogen 77 mg/dL (9-20); Calcium 9.2 mg/dL (8.4-10.2); Carbon Dioxide 19 mmol/L (22-30); Chloride 111 mmol/L (98-107); Cholesterol 176 mg/dL (0-200); Estimated Glomerular Filt Rate 21; Glucose 75 mg/dL (65-110); HDL Direct 25 mg/dL; Potassium 5.5 mmol/L (3.4-5.0); Sodium 141 mmol/L (137-145); Triglycerides 164 mg/dL (<150)
[2024-02-21 16:14] LABS: LDL Cholesterol Direct 94 mg/dL
[2024-02-21 16:26] LABS: Free T4 Free Thyroxine 1.25 ng/dL (0.78-2.19); Vitamin D 25 Hydroxy 38.5 ng/mL
[2024-02-21 16:34] LABS: Prostate Specific Antigen 6.3 ng/mL (< OR = 4.0)
== END 2024-02-21 10:20 | disposition home or self-care (01) ==
LOC: ANHGOSHLAB 10:20
PROVIDERS: PCP Family Medicine; Visit Provider Nurse Practitioner Family
DX: E53.8 Deficiency of other specified B group vitamins (principal); I10 Essential (primary) hypertension; E03.9 Hypothyroidism, unspecified; E78.5 Hyperlipidemia, unspecified; E55.9 Vitamin D deficiency, unspecified; Z12.5 Encounter for screening for malignant neoplasm of prostate
CPT/HCPCS: 36415; 80053; 80061; 82306; 82607; 84153; 84439; 84443; 85025; G0103

== ENCOUNTER 2024-04-09 10:06 | Inpatient (IN) | payer MEDICARE, SELFPAY ==
[2024-04-09] VITALS (10 sets, daily range): BP systolic 113–158; BP diastolic 52–85; PULSE 74–123; RESP 16–20; TEMP 36.3–36.7; O2SAT 92–100; BMI 31.4
--- NOTE | ~2024-04-09 | CT_ITS ---
EXAMINATION: CT abdomen pelvis wo con DATE: 04/09/2024 13:36 INDICATION: Abdominal pain, nausea, vomiting and diarrhea. TECHNIQUE: Computed tomography (CT) of the abdomen and pelvis was performed without intravenous contr ast. Automated exposure control and iterative reconstruction technique were employed. The dose-length product was 914.17 mGy-cm. COMPARISON: 08/02/23 FINDINGS: Mild bronchiectasis in the bilateral lung bases. Heart size normal. Atherosclerotic coronary artery c alcifications. Aortic valve calcification. No pericardial or pleural effusion. Median sternotomy wire s which could be related to prior coronary artery bypass grafting. Moderate to large sliding-type hia cristine hernia. Couple tiny hepatic calcifications consistent with old granulomatous disease. Gallbladder , spleen and bilateral adrenal glands are normal. Multiple dystrophic calcifications in the pancreas consistent with sequela of chronic pancreatitis. There is calcified atherosclerosis of the aorta and many of the other arteries. This includes likely minimally significant stenosis at the origin of the celiac axis and superior mesenteric artery. Mild bilateral likely age-related renal atrophy calcifica tions at the bilateral renal jane which appear more likely atherosclerotic in nonobstructing nephroli thiasis. There is prominent descending and sigmoid colon predominant diverticulosis without adjacent inflammatory change to suggest diverticulitis. Small bowel and appendix are normal. Moderate-sized fa t-containing umbilical hernia. Payne catheter within the decompressed bladder. There is some bladder wall thickening likely due to the decompressed state. Prostatomegaly measuring 6.1 x 5.7 cm. No free intraperitoneal gas or fluid. No pathologically enlarged abdominal or pelvic lymphadenopathy. Mild omar mbar dextroscoliosis with severe spondylosis. L5 spondylolysis with bilateral pars interarticularis d efects and 5 mm anterolisthesis on S1. IMPRESSION: 1. Moderate to large sliding-type hiatal hernia. 2. Stenosis scattered atherosclerotic disease with likely minimally significant stenosis at the origi n of the celiac axis and superior mesenteric artery. 3. Stigmata of chronic pancreatitis. 4. Diverticulosis. 5. Diffuse bladder wall thickening which could be due to the partially decompressed state, chronic ou tlet obstruction from the prominently enlarged prostate or cystitis a Payne catheter in the bladder. Correlate with urinalysis. 6. Moderate-sized fat-containing umbilical hernia. Reviewed, dictated and finalized at location B. [facility] IMPRESSION: 1. Moderate to large sliding-type hiatal hernia. 2. Stenosis scattered atherosclerotic disease with likely minimally significant stenosis at the origin of the celiac axis and superior mesenteric artery. 3. Stigmata of chronic pancreatitis. 4. Diverticulosis. 5. Diffuse bladder wall thickening which could be due to the partially decompre ssed state, chronic outlet obstruction from the prominently enlarged prostate o r cystitis a Payne catheter in the bladder. Correlate with urinalysis. 6. Moderate-sized fat-containing umbilical hernia.
--- OUTSIDE RECORDS SUMMARY | 2024-04-09 10:59 | XMS_ITS | Data Portability ---
Author Organization [place] [facility] [place], Main Office Address [address] [place] [address] Assessment No assessment recorded. Plan of Treatment Reminders Order Date Submit Date Provider Last Modified By Organization Details Last Modified Time Details Appointments None record ed. Lab None record ed. Referral None record ed. Procedures None record ed. Surgeries None record ed. Imaging None record ed. Medication Orders None record ed. Patient TargetsNo targets recorded. Patient InstructionsNo instructions recorded. Reason for Referral None Reported. Results Created Date Observation Date Name Description Value Unit Range Abnormal Flag Note LastModifiedBy Organization Detail LastModifiedTime 07/10/1906/14/2021 CPAP compl iance * No observ ation record ed. [id number] [facility] [address], [place], [address], 05/12/2022 03:05:03 Result Notes None recorded. Problems Name Problem SNOMED Code Status Onset Date Resolution Date Notes Provider Name and Address Organization Details Recorded Time Daytime hypersomni a 6732829308262 2 Active 2018 Not Available [facility] 3 02:52:47 Hypertensi ve disorder 60765349 Active 2018 Not Available [facility] 3 02:52:47 Hypoxia 251423156 Active 2018 Not Available [facility] 3 02:52:47 Body mass index 40+ - severely obese 834781813 Active 2018 Not Available [facility] 3 02:52:47 Obesity 625408705 Active 2021 Not Available [facility] 3 02:52:47 Nasal congestion 87194224 Active 2021 Not Available [facility] 3 02:52:47 Obstructiv e sleep apnea syndrome 90275698 Active 2018 Not Available [facility] 3 02:52:47 Problem Notes None recorded. Procedures Surgical History None recorded. Imaging Results Imaging Date Name Status LastModified by Organiz ation Details LastModified Time 06/14/2021 CPAP compliance * completed [id number] [facility] [address], [place], [address], 05/12/2022 03:05:03 Procedure Notes None recorded. Medical Equipment None Reported. Allergies No known drug allergies Medications Name Sig Start Date Stop Date Status Note LastModified by Organization Details LastModified Time furosemide 40 mg tablet TAKE ONE TABLET DAILY active Not Available Not Available No t Available clonidine HCl 0.1 mg tablet active Not Available Not Available Not Available lisinopril 20 mg tablet 09/15 completed Not Available Not Available Not Available hydralazine 25 mg tablet TAKE 1 AND 1/2 TABLETS 3 TIMES DAILY active Not Available Not Available No t Available clopidogrel 75 mg tablet TAKE ONE TABLET DAILY active Not Available Not Available No t Available amlodipine 5 mg tablet 09/15 completed Not Available Not Available Not Available carvedilol 3.125 mg tablet 09/15 completed Not Available Not Available Not Available tamsulosin 0.4 mg capsule active Not Available Not Available Not Available amlodipine 10 mg tablet Take 1 tablet every day by oral route. active Not Available Not Available No t Available pantoprazol e 40 mg tablet,yuri yed release TK 1 T PO QD active Not Available Not Available No t Available simvastatin 20 mg tablet TAKE 1 TABLET DAILY active Not Available Not Available No t Available isosorbide dinitrate 20 mg tablet active Not Available Not Available Not Available irbesartan 300 mg-hydrochl orothiazide 12.5 mg tablet 09/15 completed Not Available Not Available Not Available lisinopril 40 mg tablet TAKE ONE TABLET DAILY active Not Available Not Available No t Available Aspir-81 1xday 11/22 completed Not Available Not Available Not Available Bystolic 20 mg tablet 05/23 completed Not Available Not Available Not Available Fluzone High-Dose 2019-20 (PF) 180 mcg/0.5 mL intramuscul ar syringe ADMINISTE R 0.5ML IN THE MUSCLE DIRECTED 05/23 completed Not Available Not Available Not Available Vitals Date Recorded Body height Body mass index (BMI) Body weight Body temperature Heart rate Oxygen saturation Oxygen saturation in Arterial blood by Pulse oximetry Systolic blood pressure Diastolic blood pressure Provider Name and Address Organization Details Last Updated DateTime 3 170.18 cm 35.2 kg/m2 831519. 28 g 97.2 [degF] 56 /min 97 % 97 % 134 mm[Hg] 80 mm[Hg] Erika Duarte [place] [email or web address] [facility] 3 10:34:35 Date Recorded Body mass index (BMI) Body height Oxygen saturation Oxygen saturation in Arterial blood by Pulse oximetry Heart rate Body temperature Body weight Systolic blood pressure Diastolic blood pressure Provider Name and Address Organization Details Last Updated DateTime 1 35.8 kg/m2 170.18 cm 94 % 94 % 51 /min 97.2 [degF] 319401. 93 g 120 mm[Hg] 80 mm[Hg] Not Available [facility] 3 02:51:07 Date Recorded Body mass index (BMI) Body height Oxygen saturation Oxygen saturation in Arterial blood by Pulse oximetry Heart rate Body temperature Body weight Systolic blood pressure Diastolic blood pressure Provider Name and Address Organization Details Last Updated DateTime 2 36.2 kg/m2 170.18 cm 95 % 95 % 75 /min 97.4 [degF] 843923. 27 g 150 mm[Hg] 72 mm[Hg] Not Available [facility] 3 02:51:08 Date Recorded Body mass index (BMI) Body height Oxygen saturation Oxygen saturation in Arterial blood by Pulse oximetry Heart rate Body temperature Body weight Systolic blood pressure Diastolic blood pressure Provider Name and Address Organization Details Last Updated DateTime 3 35.4 kg/m2 170.18 cm 96 % 96 % 78 /min 97.7 [degF] 169517. 88 g 130 mm[Hg] 80 mm[Hg] Not Available [facility] 3 02:51:08 Date Recorded Body height Oxygen saturation Oxygen saturation in Arterial blood by Pulse oximetry Heart rate Body temperature Systolic blood pressure Diastolic blood pressure Provider Name and Address Organization Details Last Updated DateTime 2 170.18 cm 97 % 97 % 76 /min 97.4 [degF] 142 mm[Hg] 90 mm[Hg] Not Available [facility] 02:51:08 Social History Question Answer Notes LastModified by Organizat ion Details LastModified Time Tobacco Smoking Status Former Smoker couple years in high school Not Available [facility] 05/12/2022 02:43:04 What Is Your Level Of Alcohol Consumption? Occasional Wine [id number] Information not available 05/12/2022 What Is Your Level Of Caffeine Consumption? Moderate Coffee Every Am [id number] Information not available 05/12/2022 How Much Tobacco Do You Chew? None [id number] Information not available 05/12/2022 In The 14 Days Before Symptom Onset, Have You Had Close Contact With A Laboratory-confir med COVID-19 While That Case Was Ill? No [id number] Information not available 05/12/2022 In The 14 Days Before Symptom Onset, Have You Had Close Contact With A Person Who Is Under Investigation For COVID-19 While That Person Was Ill? No [id number] Information not available 05/12/2022 Which Illicit Or Recreational Drugs Have You Used? None [id number] Information not available 05/12/2022 Do You Or Have You Ever Used E-cigarettes Or Vape? Never Used Electronic Cigarettes [id number] Information not available 05/12/2022 When Did You Quit Smoking? 16+yearssincel astcigarette 60 Years Or More [id number] Information not available 05/12/2022 What Was The Date Of Your Most Recent Tobacco Screening? 05/23/2020 [id number] Information not available 05/12/2022 Do You Have Any Pets? Yes [id number] Information not available 05/12/2022 At What Age Did You Start Smoking Tobacco? 13 [id number] Information not available 05/12/2022 Do You Use Any Illicit Or Recreational Drugs? No [id number] Information not available 05/12/2022 Sex: Unknown Functional Status None recorded. Mental Status None recorded. Family History Nothing Reported. Medical History No medical history recorded. Immunizations Vaccine Type Date Status Note Provider Nam e and Address Organization Details Recorded Time COVID-19, mRNA, LNP-S, PF, 100 mcg/0.5mL dose or 50 mcg/0.25mL dose 05/12/2020 completed Not Available [facility] 3 03:04:08 COVID-19, mRNA, LNP-S, PF, 100 mcg/0.5mL dose or 50 mcg/0.25mL dose 04/14/2020 completed Not Available [facility] 3 03:04:08 Past Encounters Encounter ID Performer Location Encounter Start Date Encounter Closed Date Diagnosis/Indication Diagnosis SNOMED-CT Code Diagnosis ICD10 Code Diagnosis Note [id number] [facility] [place] [address] [address] 05/23/2020 00:00:00 05/23/2020 10:42:13 [id number] [facility] [place] [address] [place] [address] 12/15/2020 00:00:00 12/15/2020 10:39:52 [id number] [facility] [place] [address] [place] [address] 06/15/2021 00:00:00 06/15/2021 10:39:49 [id number] [facility] [place] [address] [place] [address] 12/15/2021 00:00:00 12/15/2021 12:30:57 [id number] [facility] [place] [address] [place] [address] 03/17/2022 00:00:00 03/17/2022 10:16:28 [id number] Milli Markham, BLOOD BANK ATTENDANT-BC [facility] [place] [address] [place] [address] 09/20/2022 10:26:05 09/20/2022 11:16:22 Obstructive sleep apnea syndrome 75117009 G47.33 In lab study with AHI 50.4 and severe desaturati onsTitrati on done on 07/23/18.P LMS with arousal 0.7/hourMa chine set up 08/16/2018 Remains on APAP 14-20.Medi an pressure 15.3, max pressure 18.6Downlo ad with 97% total use, 67% greater than 4 hours.AHI 13.6He is reluctant to return to the lab for titrationC entral apneas per downloadWi ll switch to set pressure of 17 cm H2O today.Disc ussed the risks of uncorrecte d JILLIAN< including deathOSA is well correctedE ncouraged 100% compliance with all sleepFollo w with PCM for labsAdvise d good sleep habits and patterns:- Set a goal for at least 7 to 8 hours of sleep time per day.-Use the bed mainly for sleep and to go to bed only when tired. If unable to fall asleep after 30 minutes, patient should get out of bed but should not engage in any activity that requires sustained mental alertness. -Maintain a regular bedtime and wake-up time even on weekends-A void excessive naps during the daytime. If a nap is necessary, limit it to no more than 30 minutes.-M inimize environmen critsine noise, bright lights, and extremes in bedroom temperatur e.-Avoid alcohol, caffeinate d beverages, and nicotine products for at least 6 hours prior to bedtime.-A void strenuous exercise and large meals for at least 4 hours prior to bedtime.RT C in 6-8 weeks Daytime hypersomnia 3177 075869 0029 G47.19 Multifacto ralImprove d with PAP Health Concerns Section Related Observation LastModified by Organization Detai ls LastModified Time None Recorded Concern Status LastModified by Organization Details LastModified Time None Recorded Advance Directives Directive None Recorded Payers Encounter Date Sequence Insurance Name Policy Number Policy Jeffers Covered Member ID Jeffers Member ID Guarantor Name 09/20/2022 1 [facility] [id number] Alberto Rea [id number] Alberto Rea Notes Date Note Type Note Provider Name and Address Organization Details Recorded Time 09/20/2022 text/html Mr Rea present s to follow up on JILLIAN and new maskHe continues to feel like he has a significant leak around the bridge of his nose and wakes with his eyes feeling irritated.Sleep is mostly restfulHe is not falling asleep during the day, not falling asleep on car ridesFollows his AHI and can tell when it is less than 10 - he feels better during the dayContinues to have unchanged nocturiaBedtime is around 2200. Falls asleep easilyDenies morning headaches and sinus congestionGERD is diet dependent.Denies xerostomia and aerophagia.Nocturia is unchanged Milli Markham, BLOOD BANK ATTENDANT-BC [address] [facility] [address], [place], [address], [place] [facility] 09/20/2022 12:33:12
--- OUTSIDE RECORDS SUMMARY | 2024-04-09 10:59 | XMS_ITS | CONTINUITY OF CARE DOCUMENT ---
Author Name grace nicolesonia Address Unknown Organization [facility] Address [address] [place] [address] Phone [phone] Care Team Providers Care Polishing Pad Mounter Name Role Phone German Bartlett MD Unavailable [phone] Andrea Perea MD Unavailable Andrea Perea MD Unavailable PROBLEMS Condition Status Date Provider Notes Shortness of breath active German Bartlett MD Lightheadedness active German Bartlett MD Preoperative cardiovascular examination active German Bartlett MD CHF active German Bartlett MD Ischemic cardiomyopathy active Sammie Tobar NP Leg edema, bilateral active Sammie Tobar NP CAD, multiple vessel active Sammie Tobar NP CABG x3 Fibrillation, atrial active Sammie Tobar NP Abnormal kidney function study active German Bartlett MD Hyperlipidemia active German Bartlett MD HTN active German Bartlett MD Vertigo active German Bartlett MD CAD s/p stent RCA active German Bartlett MD ENCOUNTERS Date Type Provider Location Encounter Diag nosis - In-person encounter Office Visit German Bartlett MD [facility] - In-person encounter Office Visit German Bartlett MD [facility] Preoperative cardiovascular examination - In-person encounter Office Visit German Bartlett MD [facility] CHF - In-person encounter Office Visit German Bartlett MD [facility] - In-person encounter Office Visit German Bartlett MD [facility] Fibrillation, atrialCAD, multiple vesselLeg edema, bilateralIschemic cardiomyopathy - In-person encounter Office Visit German Bartlett MD [facility] - In-person encounter Office Visit Geramn Bartlett MD [facility] HTNHyperlipidemiaAbnormal kidney function study - In-person encounter Office Visit German Bartlett MD [facility] Shortness of breathCAD s/p stent RCALightheadednessVertigo VITAL SIGNS Date Observation Value Provider Body Mass Index (Ratio) 34.45 kg/m2 Naomi Bartlett MD blood pressure, diastolic 67 mm[Hg] Carina miller [facility] blood pressure, systolic 122 mm[Hg] [facility] oxygen saturation, oximetry 96 % [facility] respiratory rate E&M 16 /min [facility] pulse rate 68 /min [facility] weight E&M 220 [lb_av] [facility] blood pressure, cuff size regular Carina miller [facility] height E&M 67 [in_i] [facility] Body Mass Index (Ratio) 32.89 kg/m2 Naomi Bartlett MD blood pressure, cuff size regular Stewart Mondragon blood pressure, diastolic 86 mm[Hg] Stewart Mondragon blood pressure, systolic 142 mm[Hg] Tab ventura Mondragon oxygen saturation, oximetry 96 % Priyanka [place] pulse rate 64 /min Priyanka Mondragon respiratory rate E&M 12 /min Priyanka [place] weight E&M 210 [lb_av] Priyanka Mondragon height E&M 67 [in_i] Priyanka [place] Body Mass Index (Ratio) 33.20 kg/m2 Naomi Bartlett MD blood pressure, cuff size regular Stewart mota [place] blood pressure, diastolic 80 mm[Hg] Stewart mota [place] blood pressure, systolic 132 mm[Hg] Walt whitehead [place] pulse rate 74 /min Priyanka [place] oxygen saturation, oximetry 94 % Priyanka [place] weight E&M 212 [lb_av] Priyanka [place] respiratory rate E&M 12 /min Priyanka [place] height E&M 67 [in_i] Priyanka [place] Body Mass Index (Ratio) 32.42 kg/m2 Naomi Bartlett MD blood pressure, cuff size regular [facility] blood pressure, diastolic 77 mm[Hg] [facility] blood pressure, systolic 104 mm[Hg] Jar luc pulse rate 97 /min Manuelito [facility] oxygen saturation, oximetry 98 % Manuelito respiratory rate E&M 14 /min Manuelito weight E&M 207 [lb_av] [place] height E&M 67 [in_i] [facility] Body [facility] (Ratio) 34.77 kg/m2 Naomi Bartlett MD blood pressure, cuff size regular [facility] blood pressure, diastolic 69 mm[Hg] [facility] blood pressure, systolic 106 mm[Hg] Mark joseph [place] pulse rate 75 /min Charo [place] oxygen saturation, oximetry 96 % [facility] respiratory rate E&M 12 /min Charo [place] weight E&M 222 [lb_av] [facility] height E&M 67 [in_i] [facility] Body Mass Index (Ratio) 35.55 kg/m2 Naomi Bartlett MD blood pressure, diastolic 70 mm[Hg] Colton mohan Mehrdad blood pressure, systolic 170 mm[Hg] Laura patel Mehrdad oxygen saturation, oximetry 97 % Sweta Mehrdad pulse rate 74 /min Sweta David [place] weight E&M 227 [lb_av] Sweta David [place] height E&M 67 [in_i] Sweta David [place] Body Mass Index (Ratio) 38.06 kg/m2 Naomi Bartlett MD blood pressure, diastolic 100 mm[Hg] Chele Willett RN blood pressure, systolic 180 mm[Hg] Joseph Willett RN oxygen saturation, oximetry 97 % Joseph Willett RN respiratory rate E&M 20 /min Joseph johnson RN pulse rate 83 /min Joseph Willett RN weight E&M 243 [lb_av] Joseph Willett RN height E&M 67 [in_i] Joseph Willett RN Body Mass Index (Ratio) 39.46 kg/m2 Naomi Bartlett MD blood pressure, diastolic 70 mm[Hg] Della rsha [facility] blood pressure, systolic 140 mm[Hg] Aleshia wang [place] blood pressure, resting Yes Standish rhoades [facility] oxygen saturation, oximetry 98 % Radha [place] respiratory rate E&M 18 /min Radha Tobar pulse rate 81 /min Radha Tobar weight E&M 252 [lb_av] Radha Tobar height E&M 67 [in_i] Radha Tobar ALLERGIES Allergy Name Onset Date Reaction Criticality Status BEE STINGS Low Criticality active RESULTS Date Observation Value Provider Reference Range Interpretation Location 3 calcium, serum 9.2 mg/dL [facility] 8.6-10.2 3 carbon dioxide, venous blood 24 mmol/L [facility] - 3 chloride, serum 105 mmol/L [facility] 96-106 3 potassium, serum 3.4 mmol/L [facility] 3.5-5.2 Low 3 sodium, serum 147 mmol/L [facility] 134-144 High 3 urea nitrogen/creatinin e ratio, serum 19 [facility] 10-24 3 eGFR if 42 mL/min/{1. 73_m2} [facility] >59 Low 3 eGFR if not 37 mL/min/{1. 73_m2} [facility] >59 Low 3 creatinine, serum 1.79 mg/dL [facility] 0.76-1.27 High 3 urea nitrogen, blood 34 mg/dL [facility] 8-27 High 3 blood glucose, random 126 mg/dL [facility] 65-99 High 7 prothrombin time (patient) 11.5 s [facility] 9.1-12.0 7 international normalized ratio (INR) 1.1 [facility] 0.8-1.2 7 calcium, serum 9.5 mg/dL [facility] 8.6-10.2 7 carbon dioxide, venous blood 20 mmol/L [facility] - 7 chloride, serum 104 mmol/L [facility] 96-106 7 potassium, serum 4.1 mmol/L [facility] 3.5-5.2 7 sodium, serum 143 mmol/L [facility] 632-718 9415/06/0 7 urea nitrogen/creatinin e ratio, serum 25 [facility] 10-24 High 7 eGFR if 39 mL/min/{1. 73_m2} [facility] >59 Low 7 eGFR if not 34 mL/min/{1. 73_m2} [facility] >59 Low 7 creatinine, serum 1.90 mg/dL [facility] 0.76-1.27 High 7 urea nitrogen, blood 48 mg/dL [facility] 8-27 High 7 blood glucose, random 119 mg/dL [facility] 65-99 High 7 basophil count, absolute 0.1 x10E3/uL [facility] 0.0-0.2 7 Eosinophil Absolute Count 0.4 X10E3/UL [facility] 0.0-0.4 7 monocyte count, blood, automated 1.1 X10E3/UL [facility] 0.1-0.9 High 7 lymphocyte count, blood, automated 2.8 X10E3/UL [facility] 0.7-3.1 7 Absolute Neutrophils 5.5 X10E3/UL [facility] 1.4-7.0 7 basophils as percent of blood leukocytes 1 % [facility] Not Estab. 7 eosinophils as percent of blood leukocytes 4 % [facility] Not Estab. 7 monocytes as percent of blood leukocytes 11 % [facility] Not Estab. 7 lymphocytes as percent of blood leukocytes 28 % [facility] Not Estab. 7 neutrophils as percent of blood leukocytes 56 % [facility] Not Estab. 7 platelet count 290 X10E3/UL [facility] 798-103 3278/06/0 7 red blood cell distribution width 14.2 % [facility] 12.3-15.4 7 mean corpuscular hemoglobin concentration, RBC 33.0 G/DL [facility] 31.5-35.7 7 mean corpuscular hemoglobin, RBC 28.9 pg [facility] 26.6-33.0 7 mean corpuscular volume, RBC 88 fL [facility] 79-97 7 hematocrit, blood 37.0 % [facility] 37.5-51.0 Low 7 hemoglobin, blood 12.2 g/dL [facility] 13.0-17.7 Low 7 erythrocyte (RBC) count 4.22 X10E6/UL [facility] 4.14-5.80 7 leukocyte count, blood 9.9 X10E3/UL [facility] 3.4-10.8 3 prothrombin time (patient) 11.6 s [facility] 9.1-12.0 3 international normalized ratio (INR) 1.1 [facility] 0.8-1.2 3 lipoprotein, beta, serum, point, quantitative, calculated 58 mg/dL [facility] 0-99 3 very low density lipoproteins 30 mg/dL [facility] 5-40 3 HDL cholesterol, serum 37 mg/dL [facility] >39 Low 3 triglyceride, serum, random 149 mg/dL [facility] 0-149 3 cholesterol, serum 125 mg/dL [facility] 900-676 5181/04/1 3 calcium, serum 9.6 mg/dL [facility] 8.6-10.2 3 carbon dioxide, venous blood 22 mmol/L [facility] 20-29 3 chloride, serum 102 mmol/L [facility] 96-106 3 potassium, serum 3.9 mmol/L [facility] 3.5-5.2 3 sodium, serum 140 mmol/L [facility] 380-582 9807/04/1 3 urea nitrogen/creatinin e ratio, serum 23 [facility] 10-24 3 eGFR if 46 mL/min/{1. 73_m2} [facility] >59 Low 3 eGFR if not 40 mL/min/{1. 73_m2} [facility] >59 Low 3 creatinine, serum 1.66 mg/dL [facility] 0.76-1.27 High 3 urea nitrogen, blood 38 mg/dL [facility] 8-27 High 3 blood glucose, random 90 mg/dL [facility] 65-99 3 basophil count, absolute 0.1 x10E3/uL [facility] 0.0-0.2 3 Eosinophil Absolute Count 0.2 X10E3/UL [facility] 0.0-0.4 3 monocyte count, blood, automated 1.1 X10E3/UL [facility] 0.1-0.9 High 3 lymphocyte count, blood, automated 2.1 X10E3/UL [facility] 0.7-3.1 3 Absolute Neutrophils 4.9 X10E3/UL [facility] 1.4-7.0 3 basophils as percent of blood leukocytes 1 % [facility] Not Estab. 3 eosinophils as percent of blood leukocytes 2 % [facility] Not Estab. 3 monocytes as percent of blood leukocytes 13 % [facility] Not Estab. 3 lymphocytes as percent of blood leukocytes 25 % [facility] Not Estab. 3 neutrophils as percent of blood leukocytes 59 % [facility] Not Estab. 3 platelet count 245 X10E3/UL [facility] 918-907 7000/04/1 3 red blood cell distribution width 13.9 % [facility] 12.3-15.4 3 mean corpuscular hemoglobin concentration, RBC 32.9 G/DL [facility] 31.5-35.7 3 mean corpuscular hemoglobin, RBC 29.4 pg [facility] 26.6-33.0 3 mean corpuscular volume, RBC 89 fL [facility] 79-97 3 hematocrit, blood 38.9 % [facility] 37.5-51.0 3 hemoglobin, blood 12.8 g/dL [facility] 13.0-17.7 Low 3 erythrocyte (RBC) count 4.35 X10E6/UL [facility] 4.14-5.80 3 leukocyte count, blood 8.3 X10E3/UL [facility] 3.4-10.8 HISTORY OF MEDICATION USE Medication Status Instructions Dates Provider Indications Com ments Jardiance 10 mg tablet active TAKE 1 TABLET(10 MG) BY MOUTH DAILY [facility] 25 mg tablet active Take 1 tablet by mouth twice a day Germna Bartlett MD atorvastatin 40 mg tablet completed - Priyanka Mondragon levothyroxine 150 mcg tablet active TAKE 1 TABLET BY MOUTH DAILY [facility] spironolactone 25 mg tablet active Take 1 tablet by mouth once a day Sammie Tobar NP Eliquis 5 mg tablet active Take 1 tablet by mouth twice a day [facility] [place] Lipitor 40 mg tablet active Take 1 tablet by mouth Sammie Tobar NP Jardiance 10 mg tablet completed Take 1 tablet by mouth once a day - [place] ergocalciferol (vitamin D2) 1,250 mcg (50,000 unit) capsule active TAKE 1 CAPSULE BY MOUTH ONCE A WEEK Sammie Tobar NP ferrous sulfate 325 mg (65 mg iron) tablet active TAKE 1 TABLET BY MOUTH EVERY DAY Sammie Tobar NP levothyroxine 150 mcg tablet completed Take 1 tablet by mouth once a day - [place] omeprazole 20 mg capsule,delayed release(DR/EC) active TAKE 1 CAPSULE DAILY Sammie Tobar NP trazodone unspecified unspecified completed - Sammie Tobar NP trazodone 50 mg tablet completed Take 1/2 tablet by mouth once a day - Priyanka Mondragon carvedilol 12.5 mg tablet active TAKE ONE TABLET BY MOUTH TWICE A DAY German Bartlett MD torsemide 20 mg tablet active Take 1 tablet by mouth twice a day German Bartlett MD potassium chloride 10 mEq capsule, extended release completed Take 1 capsule by mouth once a day - Sammie Tobar NP amiodarone 200 mg tablet completed TAKE 1 TABLET BY MOUTH EVERY DAY - German Bartlett MD amlodipine 10 mg tablet completed 1 tablet by mouth once a day - Sammie Tobar [employer] aspirin 81 mg tablet,delayed release (DR/EC) active 1 tablet by mouth once a day Sammie Tobar [employer] simvastatin 20 mg tablet completed 1 tablet by mouth once a day - Sammie Tobar [employer] #90, 90 days supply, Filled 05/19/2018 tamsulosin 0.4 mg capsule active 1 tablet by mouth once a day Sammie Tobar [employer] #30, 30 days supply, Filled 06/12/2018 isosorbide dinitrate 20 mg tablet completed 1 tablet by mouth three times a day - Sammie Tobar [employer] #90, 30 days supply, Filled 06/12/2018 hydralazine 25 mg tablet completed 1 tablet by mouth three times a day - Sammie Tobar [employer] #135, 30 days supply, Filled 06/12/2018 furosemide 40 mg tablet completed 1 tablet by mouth once a day - Sammie Tobar [employer] #30, 30 days supply, Filled 06/12/2018 clopidogrel 75 mg tablet completed 1 tablet by mouth once a day - Sammie Tobar [employer] #30, 30 days supply, Filled 06/12/2018 lisinopril 40 mg tablet completed 1 tablet by mouth once a day - Sammie Tobar [employer] #30, 30 days supply, Filled 06/12/2018 clonidine HCl 0.1 mg tablet completed 1 tablet by mouth three times a day - Sammie Tobar [employer] #90, 30 days supply, Filled 06/12/2018 CARVEDILOL 3.125 MG ORAL TABLET completed one tab twice daily - Joseph Willett RN #60, 30 days supply, Filled 06/12/2018 SOCIAL HISTORY Date Observation Value Provider cigarette use yes German Taylor smoking status Former smoker German Bartlett MD cigarette use yes German Taylor smoking status Former smoker German Bartlett MD cigarette use yes German Taylor smoking status Former smoker German Bartlett MD cigarette use yes German Taylor smoking status Former smoker German Bartlett MD social history E&M S moking History: Carlos tucker is a former smoker. German Bartlett MD cigarette use yes Sweta Al smoking status Former smoker Sweta Haines social history reviewed E&M revi ewed - no changes required Sweta Cronin number of grandchildren German Bartlett MD social history E&M Smoking Histo ry: Carlos tucker is a former smoker. German Bartlett MD social history reviewed E&M revi ewed - no changes required German Bartlett MD social history E&M S moking History: Carlos tucker is a former smoker. German Bartlett MD social history reviewed E&M revi ewed - no changes required German Bartlett MD cigarette use yes Radha Tobar smoking status Former smoker Radha faith FUNCTIONAL STATUS Date Observation Value Provider HRA, CV Assess/Plan, Angina (inactive) Management Plan continue current therapy German Bartlett MD HRA, CV Assess/Plan, Angina (inactive) Management Plan continue current therapy German Bartlett MD HRA, CV Assess/Plan, Angina (inactive) Management Plan continue current therapy German Bartlett MD HRA, CV Assess/Plan, Angina (inactive) Management Plan continue current therapy Sammie Tobar NP FAMILY HISTORY Family Member Condition Father Family History of Co ronary Artery Disease: Mother Family History of Co nuria Cancer: INSURANCE PROVIDERS Payer name Policy type / Coverage type Ramo red green party ID [employer]AGE [address] 0 003 (HMO POS) Medicare [id number] ADVANCE DIRECTIVES Name Date POWER OF THIRD COOK TREATMENT PLAN Date Name Performer Cardiology:Schedule echo to assess LV systolic function German Bartlett MD Cardiology: S table. Continue medical therapy. c ontinue eliquis and statin German Bartlett MD Cardiology:Having co st related limitations to eliquis, will provide samples. D/w him starting warfarin, patient not interested at this time due to difficulty coming in for his PT/INR checks. He is in wheelchair and does not drive. N eeds to reduce eliquis dose to 2.5 mg BID c hronic T he patient is on OAC for CVA prophylaxis German Bartlett MD Cardiology:This visi t has been a part of the consistent, comprehensive, and ongoing management of the chronic medical condition(s) listed above for the patient. German Bartlett MD Cardiology:appears t o be compensated, he is on apporpriate medications with GDMT German Bartlett MD Cardiology German Bartlett MD Cardiology:This visi t has been a part of the consistent, comprehensive, and ongoing management of the chronic medical condition(s) listed above for the patient. German Bartlett MD Cardiology: H is updated medication list for this problem includes: Torsemide 20 Mg Tablet (Torsemide) ..... Take 1 tablet by mouth twice a day Losartan 25 Mg Tablet (Losartan) ..... Take 1 tablet by mouth twice a day Carvedilol 12.5 Mg Tablet (Carvedilol) ..... Take one tablet by mouth twice a day Spironolactone 25 Mg Tablet (Spironolactone) ..... Take 1 tablet by mouth once a day Aspirin 81 Mg Tablet,delayed Release (dr/ec) (Aspirin) ..... 1 tablet by mouth once a day BP today: 142/86 P rior BP: 132/80 (08/26/2023) Labs Reviewed: C reat: 1.79 (10/03/2018) C hol: 125 (06/24/2018) HDL: 37 (06/24/2018) LDL: 58 (06/24/2018) T (06/24/2018) German Bartlett MD Cardiology:Stable. C ontinue medical therapy. c ontinue eliquis and statin German Bartlett MD Cardiology:appears c linically compensated H is updated medication list for this problem includes: Torsemide 20 Mg Tablet (Torsemide) ..... Take 1 tablet by mouth twice a day Losartan 25 Mg Tablet (Losartan) ..... Take 1 tablet by mouth twice a day Carvedilol 12.5 Mg Tablet (Carvedilol) ..... Take one tablet by mouth twice a day Spironolactone 25 Mg Tablet (Spironolactone) ..... Take 1 tablet by mouth once a day Aspirin 81 Mg Tablet,delayed Release (dr/ec) (Aspirin) ..... 1 tablet by mouth once a day German Bartlett MD Cardiology:okay to h old eliquis and asa as indicated by urology and IR team German Bartlett MD Cardiology German Bartlett MD Cardiology:The patie nt is on a statin for pimary prevention and management of cardiovascular disease. H is updated medication list for this problem includes: Atorvastatin 40 Mg Tablet (Atorvastatin) German Bartlett MD Cardiology: H is updated medication list for this problem includes: Torsemide 20 Mg Tablet (Torsemide) ..... Take 1 tablet by mouth twice a day Losartan 25 Mg Tablet (Losartan) ..... Take 1 tablet by mouth twice a day Carvedilol 12.5 Mg Tablet (Carvedilol) ..... Take one tablet by mouth twice a day Spironolactone 25 Mg Tablet (Spironolactone) ..... Take 1 tablet by mouth once a day Aspirin 81 Mg Tablet,delayed Release (dr/ec) (Aspirin) ..... 1 tablet by mouth once a day BP today: 132/80 P rior BP: 104/77 (06/17/2023) Labs Reviewed: C reat: 1.79 (10/03/2018) C hol: 125 (06/24/2018) HDL: 37 (06/24/2018) LDL: 58 (06/24/2018) T (06/24/2018) German Bartlett MD Cardiology: S table. Continue medical therapy. c ontinue asa and statin German Bartlett MD Cardiology:LVEF 25-3 0% while inpatient in 04/2023 N STEMI 04/2023: CABG x 3 and left atrial CryoMaze, and left atrial appendage excision German Bartlett MD Cardiology:Appears t o have compensated A dd ARB His updated medication list for this problem includes: Losartan 25 Mg Tablet (Losartan) ..... Take 1 tablet by mouth twice a day Carvedilol 12.5 Mg Tablet (Carvedilol) ..... Take one tablet by mouth twice a day Spironolactone 25 Mg Tablet (Spironolactone) ..... Take 1 tablet by mouth once a day Aspirin 81 Mg Tablet,delayed Release (dr/ec) (Aspirin) ..... 1 tablet by mouth once a day Torsemide 20 Mg Tablet (Torsemide) ..... Take 1 tablet by mouth twice a day German Bartlett MD Cardiology:check LVE F in 2 months L VEF 25-30% while inpatient in 04/2023 N STEMI 04/2023: CABG x 3 and left atrial CryoMaze, and left atrial appendage excision German Bartlett MD Cardiology: H is updated medication list for this problem includes: Lipitor 40 Mg Tablet (Atorvastatin) ..... Take 1 tablet by mouth German Bartlett MD Cardiology: H is updated medication list for this problem includes: Spironolactone 25 Mg Tablet (Spironolactone) ..... Take 1 tablet by mouth once a day Aspirin 81 Mg Tablet,delayed Release (dr/ec) (Aspirin) ..... 1 tablet by mouth once a day Carvedilol 12.5 Mg Tablet (Carvedilol) ..... Take one tablet by mouth twice a day Torsemide 20 Mg Tablet (Torsemide) ..... Take 1 tablet by mouth twice a day BP today: 104/77 P rior BP: 106/69 (06/03/2023) Labs Reviewed: C reat: 1.79 (10/03/2018) C hol: 125 (06/24/2018) HDL: 37 (06/24/2018) LDL: 58 (06/24/2018) T (06/24/2018) German Bartlett MD Cardiology:2+ BLE German Taylor Cardiology:chronic T he patient is on OAC for CVA prophylaxis German Bartlett MD Cardiology:Stable. C ontinue medical therapy. c ontinue asa and statin T he patient is on OAC for CVA prophylaxis German Bartlett MD Cardiology: L VEF 25-30% while inpatient in 04/2023 N STEMI 04/2023: CABG x 3 and left atrial CryoMaze, and left atrial appendage excision Sammie Tobar NP Cardiology: : CABG x3 and left atrial CryoMaze, and left atrial appendage excision p revious RCA stent consider introduction of sara/arb once GUTIERREZ resolves completely C r peaked 2.24 while inpatient and his usual baseline was around 1.6. H e also just started Jardiance W ill add spironolactone Sammie Tobar NP Cardiology: A lso on apixaban 5 mg BID c urrently in atrial fibrillation on EK His updated medication list for this problem includes: Aspirin 81 Mg Tablet,delayed Release (dr/ec) (Aspirin) ..... 1 tablet by mouth once a day Carvedilol 12.5 Mg Tablet (Carvedilol) ..... Take one tablet by mouth twice a day Amiodarone 200 Mg Tablet (Amiodarone) ..... Take 1 tablet by mouth every day Sammie Tobar NP Cardiology: B P today: 106/69 P rior BP: 170/70 (02/02/2019) Labs Reviewed: C reat: 1.79 (10/03/2018) C hol: 125 (06/24/2018) HDL: 37 (06/24/2018) LDL: 58 (06/24/2018) T (06/24/2018) The following medications were removed from the medication list: Clonidine Hcl 0.1 Mg Tablet (Clonidine hcl) ..... 1 tablet by mouth three times a day Amlodipine 10 Mg Tablet (Amlodipine) ..... 1 tablet by mouth once a day Lisinopril 40 Mg Tablet (Lisinopril) ..... 1 tablet by mouth once a day Hydralazine 25 Mg Tablet (Hydralazine) ..... 1 tablet by mouth three times a day Furosemide 40 Mg Tablet (Furosemide) ..... 1 tablet by mouth once a day His updated medication list for this problem includes: Aspirin 81 Mg Tablet,delayed Release (dr/ec) (Aspirin) ..... 1 tablet by mouth once a day Carvedilol 12.5 Mg Tablet (Carvedilol) ..... Take one tablet by mouth twice a day Torsemide 20 Mg Tablet (Torsemide) ..... Take 1 tablet by mouth twice a day Sammie Tobar NP Cardiology:Will upda te labs CHOL: 125 (06/24/2018) LDL: 58 (06/24/2018) HDL: 37 (06/24/2018) T (06/24/2018) The following medications were removed from the medication list: Simvastatin 20 Mg Tablet (Simvastatin) ..... 1 tablet by mouth once a day His updated medication list for this problem includes: Lipitor 40 Mg Tablet (Atorvastatin) ..... Take 1 tablet by mouth Sammie Tobar NP Cardiology: p robnp on 05/05/23: 10,756 + 3 BLE I mproving since toresmide increased yesterday - pt denies dizziness w ill add spironolactone and stop KCl Sammie Tobar NP Cardiology: H is updated medication list for this problem includes: Simvastatin 20 Mg Oral Tablet (Simvastatin) ..... One tab once daily German Bartlett MD Cardiology:States th at his pressures are better at home. Keeps a log. BP today: 170/70 P rior BP: 180/100 (10/02/2018) Labs Reviewed: C reat: 1.79 (10/03/2018) C hol: 125 (06/24/2018) HDL: 37 (06/24/2018) German Bartlett MD Cardiology:Appears stable. Skip nue medical therapy. German Bartlett MD Cardiology:Will repe at [facility]. Will try to get in touch with Dr. Perea regarding a referral to nephrology, German Bartlett MD Cardiology:s/p stents to LAD. Do ing well. German Bartlett MD Cardiology: H is updated medication list for this problem includes: Simvastatin 20 Mg Oral Tablet (Simvastatin) ..... One tab once daily German Bartlett MD Cardiology:States th at blood pressure is normally better at home. B P today: 180/100 P rior BP: 140/70 (06/13/2018) Labs Reviewed: C reat: 1.90 (08/18/2018) C hol: 125 (06/24/2018) HDL: 37 (06/24/2018) German Bartlett MD Cardiology German Bartlett MD Cardiology:will stop his Amlodip ine German Bartlett MD Cardiology:Needs ass essment. Plan to proceed with cardiac catheterization at [facility]. German Bartlett MD Date Name Complete Echo BASIC METABOLIC PANE L W/EGFR Complete Echo PROBNP, N TERMINAL BASIC METABOLIC PANE L W/EGFR Lipoprotein (a) LIPID PANEL Complete Echo BASIC METABOLIC PANE L W/EGFR PROTHROMBIN TIME WIT H INR CBC (INCLUDES DIFF/P LT) BASIC METABOLIC PANE L W/EGFR PROTHROMBIN TIME WIT H INR LIPID PANEL CBC (INCLUDES DIFF/P LT) BASIC METABOLIC PANE L W/EGFR PROTHROMBIN TIME WIT H INR CBC (INCLUDES DIFF/P LT) LIPID PANEL BASIC METABOLIC PANE L W/EGFR Cardiac Cath - Left - CNE HISTORY OF PROCEDURES Procedure Date Procedure Name Provider Procedure Notes S tatus Complex e/m visit add on German Bartlett MD completed Complex e/m visit add on German Bartlett MD completed Holter, 24 or 48 Heri Jarrett MD co mpleted EKG German Bartlett MD completed
--- NOTE | 2024-04-09 12:22 | ECG_ITS ---
Test Date: 2024-04-09 12:47:23 Measurements Intervals [place] Rate: 78 P: 76 MS: 237 QRS: -11 QRSD: 97 T: 96 QT: 351 QTc: 401 Interpretive Statements SINUS RHYTHM WITH FIRST DEGREE AV BLOCK LOW QRS VOLTAGE IN EXTREMITY LEADS [QRS DEFLECTION < 0.5 mV IN LIMB LEADS] poor R-wave progression MINIMAL ST DEPRESSION [0.025+ mV ST DEPRESSION] ABNORMAL QRS-T ANGLE [QRS-T AXIS DIFFERENCE > 60] No previous ECG available for comparison Electronically Signed On 04-09-2024 13:38:09 CHIEF EXECUTIVE by Susanne Lazar M.D.
[2024-04-09] MEDS: SODIUM CHLORIDE 0.9% IV 2,000 ML 999 ML IV CONT (13:06)
[2024-04-09] MEDS: ONDANSETRON INJ 4 MG/2 ML VIAL IV PUSH (13:07)
[2024-04-09 13:20] LABS: Basophils Absolute Auto 0.1 K/mm3 (0.0-0.1); Basophils Percent Auto 0.6 % (0.2-1.2); Eosinophils Percent Auto 0.4 % (0-4.4); Hematocrit 41.3 % (42.0-52.0); Hemoglobin 13.3 g/dL (14.0-18.0); Immature Granulocyte Absolute 0.05 K/mm3 (0.00-0.031); Immature Granulocyte Percent A 0.5 % (0-0.5); Lymphocytes Absolute Auto 0.99 K/mm3 (0.9-3.2); Mean Corpuscular HGB Conc 32.2 g/dl (32-36); Mean Corpuscular Hemoglobin 30.6 pg (26-34); Mean Corpuscular Volume 95.2 fl (80-100); Mean Platelet Volume 12.2 fl (7.4-10.4); Monocytes Absolute Auto 0.6 K/mm3 (0.1-0.6); Monocytes Percent Auto 5.9 % (2.6-8.5); Neutrophils Absolute Auto 8.2 K/mm3 (1.3-6.7); Neutrophils Percent Auto 82.6 % (45.5-73.1); Platelet Count Result 165 k/mm3 (150-375); Red Blood Count 4.34 M/mm3 (4.6-6.20); Red Cell Distribution Width 13.1 % (11.5-14.5); White Blood Count 9.9 K/mm3 (4.5-10.0)
[2024-04-09 13:31] LABS: Estimated CRCL calculation 13 ml/min; Estimated Glomerular Filt Rate 12
[2024-04-09 13:34] LABS: Alanine Aminotransferase 22 U/L (6-50); Albumin Level 4.1 g/dL (3.5-5.1); Alkaline Phosphatase 83 U/L (38-126); Anion Gap 17 mmol/L (4-12); Aspartate Amino Transferase 24 U/L (17-59); Bilirubin,Total 0.7 mg/dL (0.2-1.3); Blood Urea Nitrogen 106 mg/dL (9-20); Calcium 9.4 mg/dL (8.4-10.2); Carbon Dioxide 13 mmol/L (22-30); Chloride 107 mmol/L (98-107); Estimated CRCL calculation 15 ml/min; Estimated Glomerular Filt Rate 15; Glucose 108 mg/dL (65-110); Lipase 262 U/L (23-300); Potassium 7.6 mmol/L (3.4-5.0); Sodium 137 mmol/L (137-145)
--- OUTSIDE RECORDS SUMMARY | 2024-04-09 13:42 | XMS_ITS | CONTINUITY OF CARE DOCUMENT ---
Author Name grace nicolesonia Address Unknown Organization [facility] Address [address] [place] [address] Phone [phone] Care Team Providers Care Emr Implementation Specialist Name Role Phone German Bartlett MD Unavailable [phone] Andrea Perea MD Unavailable Andrea Perea MD Unavailable PROBLEMS Condition Status Date Provider Notes Preoperative cardiovascular examination active German Bartlett MD CHF active German Bartlett MD Ischemic cardiomyopathy active Sammie Tobar NP Leg edema, bilateral active Sammie Tobar NP CAD, multiple vessel active Sammie Tobar NP CABG x3 Fibrillation, atrial active Sammie Tobar NP Abnormal kidney function study active German Bartlett MD Hyperlipidemia active German Bartlett MD HTN active German Bartlett MD Vertigo active German Bartlett MD Lightheadedness active German Bartlett MD CAD s/p stent RCA active German Bartlett MD Shortness of breath active German Bartlett MD ENCOUNTERS Date Type Provider Location Encounter Diag nosis - In-person encounter Office Visit German Bartlett MD [facility] - In-person encounter Office Visit German Bartlett MD [facility] Preoperative cardiovascular examination - In-person encounter Office Visit German Bartlett MD [facility] CHF - In-person encounter Office Visit German Bartlett MD [facility] - In-person encounter Office Visit German Bartlett MD [facility] Fibrillation, atrialCAD, multiple vesselLeg edema, bilateralIschemic cardiomyopathy - In-person encounter Office Visit German Bartlett MD [facility] - In-person encounter Office Visit German Bartlett MD [facility] HTNHyperlipidemiaAbnormal kidney function study - In-person encounter Office Visit German Bartlett MD [facility] Shortness of breathCAD s/p stent RCALightheadednessVertigo VITAL SIGNS Date Observation Value Provider Body Mass Index (Ratio) 34.45 kg/m2 Naomi Bartlett MD blood pressure, diastolic 67 mm[Hg] Carina miller [facility] blood pressure, systolic 122 mm[Hg] [facility] oxygen saturation, oximetry 96 % [facility] respiratory rate E&M 16 /min [facility] pulse rate 68 /min [facility] weight E&M 220 [lb_av] [facility] blood pressure, cuff size regular Carina miller [facility] height E&M 67 [in_i] [facility] Body Mass Index (Ratio) 32.89 kg/m2 Naomi Bartlett MD blood pressure, cuff size regular Stewart Mondragon blood pressure, diastolic 86 mm[Hg] Stewart Mondragon blood pressure, systolic 142 mm[Hg] Tab ventura Mondragon oxygen saturation, oximetry 96 % Priyanka [facility] pulse rate 64 /min Priyanka Mondragon respiratory rate E&M 12 /min Priyanka [place] weight E&M 210 [lb_av] Priyanka Mondragon height E&M 67 [in_i] Priyanka [place] Body Mass Index (Ratio) 33.20 kg/m2 Naomi Bartlett MD blood pressure, cuff size regular Stewart mota [facility] blood pressure, diastolic 80 mm[Hg] Stewart mota [place] blood pressure, systolic 132 mm[Hg] Walt whitehead [place] pulse rate 74 /min Priyanka [facility] oxygen saturation, oximetry 94 % Priyanka [place] weight E&M 212 [lb_av] Priyanka [place] respiratory rate E&M 12 /min Priyanka [place] height E&M 67 [in_i] Priyanka [place] Body Mass Index (Ratio) 32.42 kg/m2 Naomi Bartlett MD blood pressure, cuff size regular [facility] blood pressure, diastolic 77 mm[Hg] [facility] blood pressure, systolic 104 mm[Hg] Jar luc pulse rate 97 /min [facility] oxygen saturation, oximetry 98 % Manuelito respiratory rate E&M 14 /min Manuelito weight E&M 207 [lb_av] Manuelito height E&M 67 [in_i] [facility] Body Mass Index (Ratio) 34.77 kg/m2 Naomi Bartlett MD blood pressure, cuff size regular [facility] blood pressure, diastolic 69 mm[Hg] [facility] blood pressure, systolic 106 mm[Hg] Mark joseph [place] pulse rate 75 /min Charo [place] oxygen saturation, oximetry 96 % [facility] respiratory rate E&M 12 /min Charo [place] weight E&M 222 [lb_av] [facility] height E&M 67 [in_i] [facility] Body Mass Index (Ratio) 35.55 kg/m2 Naomi [...] Aleshia wang [facility] blood pressure, resting Yes Hernshaw rhoades [facility] oxygen saturation, oximetry 98 % [...] 3.5-5.2 7 sodium, serum 143 mmol/L [employer] 909-950 2862/06/0 7 urea nitrogen/creatinin e ratio, serum 25 [...] Estab. 7 platelet count 290 X10E3/UL [employer] 116-149 8609/06/0 7 red blood cell distribution width 14.2 [...] 0-149 3 cholesterol, serum 125 mg/dL [employer] 099-222 2910/04/1 3 calcium, serum 9.6 mg/dL [employer] 8.6-10.2 3 carbon dioxide, venous blood 22 mmol/L [employer] 20-29 3 chloride, serum 102 mmol/L [employer] 96-106 3 potassium, serum 3.9 mmol/L [employer] 3.5-5.2 3 sodium, serum 140 mmol/L [employer] 164-006 5042/04/1 3 urea nitrogen/creatinin e ratio, serum 23 [...] Estab. 3 platelet count 245 X10E3/UL [employer] 488-674 6770/04/1 3 red blood cell distribution width 13.9 [...] TAKE 1 TABLET(10 MG) BY MOUTH DAILY [facility] 25 mg tablet active Take 1 tablet by mouth twice a day German Bartlett MD atorvastatin 40 mg tablet completed - Priyanka Mondragon levothyroxine 150 mcg tablet active TAKE 1 TABLET BY MOUTH DAILY [facility] spironolactone 25 mg tablet active Take 1 tablet by mouth once a day Sammie Tobar NP Eliquis 5 mg tablet active Take 1 tablet by mouth twice a day [facility] [place] Lipitor 40 mg tablet active Take 1 tablet by mouth Sammie Tobar NP Jardiance 10 mg tablet completed Take 1 tablet by mouth once a day - [facility] ergocalciferol (vitamin D2) 1,250 mcg (50,000 unit) [...] mouth once a day - Sammie Tobar PREVENTION SPECIALIST aspirin 81 mg tablet,delayed release (DR/EC) active 1 tablet by mouth once a day Sammie Tobar PREVENTION SPECIALIST simvastatin 20 mg tablet completed 1 tablet by mouth once a day - Sammie Tobar PREVENTION SPECIALIST #90, 90 days supply, Filled 05/19/2018 tamsulosin 0.4 mg capsule active 1 tablet by mouth once a day Sammie Tobar PREVENTION SPECIALIST #30, 30 days supply, Filled 06/12/2018 isosorbide dinitrate 20 mg tablet completed 1 tablet by mouth three times a day - Sammie Tobar PREVENTION SPECIALIST #90, 30 days supply, Filled 06/12/2018 hydralazine 25 mg tablet completed 1 tablet by mouth three times a day - Sammie Tobar PREVENTION SPECIALIST #135, 30 days supply, Filled 06/12/2018 furosemide 40 mg tablet completed 1 tablet by mouth once a day - Sammie Tobar PREVENTION SPECIALIST #30, 30 days supply, Filled 06/12/2018 clopidogrel 75 mg tablet completed 1 tablet by mouth once a day - Sammie Tobar PREVENTION SPECIALIST #30, 30 days supply, Filled 06/12/2018 lisinopril 40 mg tablet completed 1 tablet by mouth once a day - Sammie Tobar PREVENTION SPECIALIST #30, 30 days supply, Filled 06/12/2018 clonidine HCl 0.1 mg tablet completed 1 tablet by mouth three times a day - Sammie Tobar PREVENTION SPECIALIST #90, 30 days supply, Filled 06/12/2018 CARVEDILOL [...] Policy type / Coverage type Ramo red alliance party ID [employer] MEDICARE ADVANTAGE ST 0 003 (HMO POS) Medicare [id number] ADVANCE DIRECTIVES Name Date POWER OF SUPERANNUATION FUNDS MANAGER TREATMENT PLAN Date Name Performer Cardiology:Schedule echo [...] therapy. German Bartlett MD Cardiology:Will repe at [facility]. Will try to get in touch with [...] Plan to proceed with cardiac catheterization at [facility]. German Bartlett MD Date Name Complete Echo [...]
[2024-04-09 13:57] LABS: Influenza A QL RT-PCR Negative (Negative); Influenza B QL RT-PCR Negative (Negative); RSV RNA, RT-PCR Negative (Negative); SARS-CoV-2 RNA PCR Negative (Negative)
--- NOTE | 2024-04-09 14:12 | ECG_ITS ---
Test Date: 2024-04-09 14:09:11 Measurements Intervals [place] Rate: 80 P: 65 [place]: 235 QRS: -26 QRSD: 106 T: 114 QT: 368 QTc: 424 Interpretive Statements SINUS RHYTHM WITH FIRST DEGREE AV BLOCK LOW QRS VOLTAGE IN EXTREMITY LEADS [QRS DEFLECTION < 0.5 mV IN LIMB LEADS] PATTERN CONSISTENT WITH PULMONARY DISEASE Poor R wave progression MINIMAL ST DEPRESSION [0.025+ mV ST DEPRESSION] ABNORMAL QRS-T ANGLE [QRS-T AXIS DIFFERENCE > 60] Compared to ECG 04/09/2024 12:47:23 ST (T wave) deviation still present Electronically Signed On 04-09-2024 21:13:13 FORESTRY AID by Susanne Lazar M.D.
[2024-04-09] MEDS: SODIUM BICARBONATE 8.4% 50 MEQ/50 ML SYRINGE IV PUSH (14:22)
[2024-04-09] MEDS: DEXTROSE 50% 25 GM/50 ML SYRINGE IV PUSH ×2 (14:23→21:49)
[2024-04-09] MEDS: CALCIUM GLUC 1,000 MG/NS 50 ML 1,000 MG/50 ML BAG 100 MG IVPB (14:24)
[2024-04-09] MEDS: INSULIN HUMAN REGULAR (*BKC) 100 UNITS/ML 10 UNITS IV PUSH ×2 (14:24→21:49)
[2024-04-09] MEDS: SODIUM ZIRCONIUM CYCLOSILICATE 10 GM POWD.PACK PO ×2 (14:24→21:48)
--- NOTE | 2024-04-09 14:26 | ED_ITS ---
HPI - General Adult General Chief complaint: Abdominal Pain Stated complaint: abd pain, Time Seen by Provider: 04/09/24 12:21 History of Present Illness HPI narrative: This is in 78-year-old male presenting ED with 5 days of nausea vomiting diarrhea. Associated symptoms include loss of taste, weakness and diffuse abdominal pain that comes and goes. No sick contacts at home. Denies fevers chills chest pain difficulty breathing. Related Data Home Medications ?Medication ?Instructions ?Recorded ?Confirmed ?Last Taken ?Type empagliflozin 10 mg tablet mg PO DAILY 08/26/23 02/21/24 Unknown History (Jardiance) torsemide 20 mg tablet mg PO BID 02/22/24 02/22/24 Unknown History Allergies Allergy/AdvReac Type Severity Reaction Status Date / Time No Known Allergies Allergy Verified 04/09/24 10:09 [facility] Past Medical History Medical History Nonsustained ventricular tachycardia H/O: upper GI bleed Type 2 CO (myocardial infarction) PAF (paroxysmal atrial fibrillation) CAD in [place] artery Non-ST elevation CO (NSTEMI) Hypothyroidism (acquired) Vitamin D deficiency Chronic venous insufficiency of lower extremity History of stroke (1991) Stroke was in 1991, [facility], unclear if hemorrhagic or not but pt does not recall any intravascular intervention. GERD without esophagitis Peptic ulcer disease 09/2019-cauterization and placed on PPI Anemia of chronic disease CKD (chronic kidney disease) stage 3, GFR 30-59 ml/min Unspecified osteoarthritis, unspecified site BPH w/o urinary obs/LUTS CAD in [place] artery History of RCA stents, and Left anterior descending ([place] The most recent intervention was in August [address] Bartlett, when he had atherectomy balloon angioplasty and stenting of the proximal and mid Left anterior descending (at [facility]). Dyslipidemia Essential (primary) hypertension JILLIAN (obstructive sleep apnea) uses a CPAP machine Surgical History Surgical History H/O esophagogastroduodenoscopy this past week with cauterization of peptic ulcer disease H/O bilateral cataract extraction (~2017) History of coronary artery stent placement (~05/05/18) x3. Drug-eluting stent to the RCA in 2 stents the LAD. Family History Family History Father Family history of cardiovascular disease, Onset Age: 55 Hypertension, Onset Age: 55 Mother Patient's mother is , Onset Age: 65 Bladder cancer Social History Social History Social History: the patient is and lives with his . She is the durable power corporate strategy intern for healthcare. The patient is a full code. He has 1 adopted son. 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 He used to smoke until E adopted his son. He occasionally has a glass of wine maybe twice a week. Depending on what they eat that week. He stated he has lost about 40 lb by trying this past year. Smoking status: Never smoker Second hand tobacco smoke exposure: No Additional smoking assessment comments: SMOKED FOR ONE YEAR DURING COLLEGE Alcohol intake: never Drinks per week: 2 Alcohol use details: consumes 2 glasses of wine weekly Substance use: never Substance use type: does not use Do You Feel Safe in your Home?: Yes Lack of Transportation: No Lack of Food: Never True Current Housing: I Have Housing Concerned About Future Housing: No Difficulty Paying Gas/Electric Bills: No Difficulty Paying for Meds: No Currently Unemployed: No Education: Decline to Answer Difficulty w/ Childcare or Family Care: No Gender identity (if verbalized by the patient): Male Sexual Orientation (if Verbalized by the Patient): Straight or Heterosexual Spiritual care concerns: No Exam 2 Narrative: APPEARANCE: No apparent distress. Head: atraumatic. EYES: EOMI, NOSE: Atraumatic NECK: Trachea midline RESPIRATORY: No increased rate of breathing clear to auscultation CARDIOVASCULAR: RRR, no peripheral edema ABDOMINAL: Non-distended soft nontender MUSCULOSKELETAl: No obvious deformities NEURO: Alert. Moving 4/4 extremities SKIN:: Warm, dry. Normal color PSYCHIATRIC: Normal affect Course Vital Signs Vital signs: Vital Signs Temperature 97.3 F L 04/09/24 10:43 Pulse Rate 78 04/09/24 10:43 Respiratory Rate 16 04/09/24 10:43 Blood Pressure 128/59 L 04/09/24 10:43 Pulse Oximetry 100 04/09/24 10:43 Oxygen Delivery Room Air 04/09/24 10:43 Temperature 97.3 F L 04/09/24 10:43 Pulse Rate 74 04/09/24 13:10 Respiratory Rate 19 04/09/24 13:10 Blood Pressure 113/60 04/09/24 13:10 Pulse Oximetry 99 04/09/24 13:10 Oxygen Delivery Room Air 04/09/24 10:43 Medical Decision Making MDM Narrative Medical decision making narrative: -Course: 78-year-old male presenting GI symptoms for 4-5 days. Workup significant for acute kidney failure with potassium of 7.6. No EKG changes of hyperkalemia. Patient treated for hyperkalemia. Given 2L fluid resuscitation. Patient has a history CKD with a baseline creatinine around 2-2.3. Today it is 4.6 with BUN of 106. Patient will be admitted the hospital management his kidney failure. Urinalysis is pending at time of admission. Patient has an indwelling Payne due to enlarged prostate. Evidently is was very difficult place so we will not remove it at this time. Cultures will be sent. Patient does not have a white count, fevers suprapubic pain or CVA pain. We can feel we can wait on antibiotics for culture results. -DDX includes but is not limited to: Gastroenteritis, viral syndrome, UTI sepsis -Independent interpretation of studies: Labs and imaging reviewed -Discussion of Management/Consultants: Erika, -Shared decision making / Disposition:Admitted. Vital Signs Vital Signs: Vital Signs Temperature 97.3 F L 04/09/24 10:43 Pulse Rate 78 04/09/24 10:43 Respiratory Rate 16 04/09/24 10:43 Blood Pressure 128/59 L 04/09/24 10:43 Pulse Oximetry 100 04/09/24 10:43 Oxygen Delivery Room Air 04/09/24 10:43 Temperature 97.3 F L 04/09/24 10:43 Pulse Rate 74 04/09/24 13:10 Respiratory Rate 19 04/09/24 13:10 Blood Pressure 113/60 04/09/24 13:10 Pulse Oximetry 99 04/09/24 13:10 Oxygen Delivery Room Air 04/09/24 10:43 Lab Data 04/09/24 13:02 04/09/24 13:29 Labs: Lab Results 04/09/24 04/09/24 04/09/24 Range/Units 13:02 13:03 13:29 WBC 9.9 (4.5-10.0) K/mm3 RBC 4.34 L (4.6-6.20) M/mm3 Hgb 13.3 L (14.0-18.0) g/dL Hct 41.3 L (42.0-52.0) % MCV 95.2 (80-100) fl MCH 30.6 (26-34) pg MCHC 32.2 (32-36) g/dl RDW 13.1 (11.5-14.5) % Plt Count 165 (150-375) k/mm3 MPV 12.2 H (7.4-10.4) fl Immature Gran % (Auto) 0.5 (0-0.5) % Neut % (Auto) 82.6 H (45.5-73.1) % Lymph % (Auto) 10.0 L (18.3-44.2) % Kimball % (Auto) 5.9 (2.6-8.5) % Eos % (Auto) 0.4 (0-4.4) % Baso % (Auto) 0.6 (0.2-1.2) % Lymph # (Auto) 0.99 (0.9-3.2) K/mm3 Kimball # (Auto) 0.6 (0.1-0.6) K/mm3 Eos # (Auto) 0.0 (0-0.3) K/mm3 Baso # (Auto) 0.1 (0.0-0.1) K/mm3 Abs Immat Gran (auto) 0.05 H (0.00-0.031) K/mm3 Absolute Neuts (auto) 8.2 H (1.3-6.7) K/mm3 Absolute Nucleated RBC 0.000 (0.0-0.012) K/mm3 Nucleated RBC % 0.0 (0.0-0.2) % Sodium 137 (137-145) mmol/L Potassium 7.6 H* (3.4-5.0) mmol/L Chloride 107 (98-107) mmol/L Carbon Dioxide 13 L (22-30) mmol/L Anion Gap 17 H (4-12) mmol/L BUN 106 H D (9-20) mg/dL Creatinine 3.99 H 4.70 H (0.7-1.3) mg/dL Estim Creat Clear Calc 15 13 ml/min Estimated GFR 15 L 12 L (59 - ) Glucose 108 (65-110) mg/dL Lactic Acid Pending Calcium 9.4 (8.4-10.2) mg/dL Total Bilirubin 0.7 (0.2-1.3) mg/dL AST 24 (17-59) U/L ALT 22 (6-50) U/L Alkaline Phosphatase 83 (38-126) U/L Total Protein 8.0 (6.3-8.2) g/dL Albumin 4.1 (3.5-5.1) g/dL Lipase 262 (23-300) U/L Influenza A (RT-PCR) Negative (Negative) Influenza B (RT-PCR) Negative (Negative) RSV (RT-PCR) Negative (Negative) SARS-CoV-2 RNA (RT-PCR) Negative (Negative) Critical Care Time Critical Care Time Critical Care Time: Yes Total Critical Care Time: 35 Discharge Plan Discharge Clinical Impression: Gastroenteritis, Acute kidney injury, Acute hyperkalemia Patient Disposition: Still a Patient Condition: Guarded Prognosis Patient Language: Syrian Prescriptions: No Action spironolactone 25 mg tablet 25 mg PO DAILY Qty: 90 0RF Eliquis 5 mg tablet 5 mg PO BID Qty: 60 3RF carvedilol 12.5 mg tablet 12.5 mg PO Q12H Qty: 180 1RF Rx Instructions: must administer with a meal/food torsemide 20 mg tablet PO BID Jardiance 10 mg tablet PO DAILY aspirin 81 mg capsule 81 mg PO DAILY Qty: 30 0RF atorvastatin [Lipitor] 40 mg tablet 40 mg PO DAILY Qty: 30 0RF ferrous sulfate 325 mg (65 mg iron) tablet,delayed release (DR/EC) 325 mg PO DAILY Qty: 90 1RF tamsulosin 0.4 mg capsule 0.4 mg PO QPM Qty: 100 1RF levothyroxine 150 mcg tablet 150 mcg PO QAM Qty: 100 1RF cholecalciferol (vitamin D3) 50 mcg (2,000 unit) tablet 50 mcg PO DAILY Qty: 90 2RF tramadol 50 mg tablet 50 mg PO DAILY PRN (Reason: pain) Qty: 30 0RF Follow-up/Referrals: Yi Perea MD [Primary Care Provider] -
[2024-04-09 14:37] LABS: Glucose Point of Care 84 mg/dl (65-105)
--- NOTE | 2024-04-09 14:39 | P.HP_ITS ---
H&P: HPI History of Present Illness Date/Time: 04/09/24 14:39 Chief Complaint: Nausea vomiting diarrhea Narrative: 78-year-old male CKD, BPH with chronic Payne, NSTEMI, hypothyroidism, hypertension, and atrial fibrillation presents the hospital with nausea vomiting and diarrhea. Patient states that he has had nausea vomiting diarrhea for about 5 days he complains of a weird taste in his mouth for the last week. Patient is a chronic Payne due to prostate issues. Patient denies fever or chills. Potassium of 7.6, BUN of 106, creatinine of 4.7, GFR 12, influenza A/B, RSV, COVID negative. CT abdomen pelvis with chronic findings. EKG was sinus rhythm first-degree AV block. In the ED the patient was given a L bolus, Linda is IV insulin, dextrose, calcium gluconate, sodium bicarb, and Lokelma. Patient does take spironolactone and torsemide. Patient has a difficult to place chronic Payne due to his prostate, UA from this Payne will wait for cultures before starting antibiotics. Med list is incomplete because and patient are not sure of his blood pressure, med will bring in list tomorrow Review of Systems Review of Systems: 12 systems were reviewed and are negativ e except for as per HPI. [facility] Past Medical History Medical History Nonsustained ventricular tachycardia H/O: upper GI bleed Type 2 MS (myocardial infarction) PAF (paroxysmal atrial fibrillation) CAD in [place] artery Non-ST elevation MS (NSTEMI) Hypothyroidism (acquired) Vitamin D deficiency Chronic venous insufficiency of lower extremity History of stroke (1991) Stroke was in 1991, [facility], unclear if hemorrhagic or not but pt does not recall any intravascular intervention. GERD without esophagitis Peptic ulcer disease 09/2019-cauterization and placed on PPI Anemia of chronic disease CKD (chronic kidney disease) stage 3, GFR 30-59 ml/min Unspecified osteoarthritis, unspecified site BPH w/o urinary obs/LUTS CAD in [place] artery History of RCA stents, and Left anterior descending (at [facility] The most recent intervention was in August [address] Bartlett, when he had atherectomy balloon angioplasty and stenting of the proximal and mid Left anterior descending (at [facility]). Dyslipidemia Essential (primary) hypertension JILLIAN (obstructive sleep apnea) uses a CPAP machine Surgical History Surgical History H/O esophagogastroduodenoscopy this past week with cauterization of peptic ulcer disease H/O bilateral cataract extraction (~2018) History of coronary artery stent placement (~05/05/18) x3. Drug-eluting stent to the RCA in 2 stents the LAD. Family History Family History Father Family history of cardiovascular disease, Onset Age: 55 Hypertension, Onset Age: 55 Mother Patient's mother is , Onset Age: 65 Bladder cancer Social History Social History Social History: the patient is and lives with his . She is the durable power disability attorney for healthcare. The patient is a full code. He has 1 adopted son. 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 He used to smoke until E adopted his son. He occasionally has a glass of wine maybe twice a week. Depending on what they eat that week. He stated he has lost about 40 lb by trying this past year. Smoking status: Never smoker Second hand tobacco smoke exposure: No Additional smoking assessment comments: SMOKED FOR ONE YEAR DURING COLLEGE Alcohol intake: current Drinks per week: 3 Alcohol use details: consumes 2 glasses of wine weekly Substance use: never Substance use type: does not use Do You Feel Safe in your Home?: Yes Lack of Transportation: No Lack of Food: Never True Current Housing: I Have Housing Concerned About Future Housing: No Difficulty Paying Gas/Electric Bills: No Difficulty Paying for Meds: No Currently Unemployed: No Education: Decline to Answer Difficulty w/ Childcare or Family Care: No Gender identity (if verbalized by the patient): Male Sexual Orientation (if Verbalized by the Patient): Straight or Heterosexual Spiritual care concerns: No Meds Home Medications and Allergies Home Medications ?Medication ?Instructions ?Recorded ?Confirmed ?Type ferrous sulfate 325 mg (65 mg 325 mg PO DAILY #90 tabs 02/14/23 04/09/24 Rx iron) tablet,delayed release aspirin 81 mg capsule 81 mg PO DAILY #30 caps 05/24/24 01/27/25 Rx atorvastatin 40 mg tablet (Lipitor) 40 mg PO DAILY #30 tabs 08/05/23 04/09/24 Rx empagliflozin 10 mg tablet 10 mg PO DAILY 08/26/23 04/09/24 History (Jardiance) tamsulosin 0.4 mg capsule 0.4 mg PO QPM #100 caps 10/21/23 04/09/24 Rx cholecalciferol (vitamin D3) 50 50 mcg PO DAILY #90 tabs 02/02/24 04/09/24 Rx mcg (2,000 unit) tablet levothyroxine 150 mcg tablet 150 mcg PO QAM #100 tabs 02/02/24 04/09/24 Rx apixaban 5 mg tablet (Eliquis) 5 mg PO BID #60 tabs 02/22/24 04/09/24 Rx carvedilol 12.5 mg tablet 12.5 mg PO Q12H #180 tabs 02/22/24 04/09/24 Rx spironolactone 25 mg tablet 25 mg PO DAILY #90 tabs 02/22/24 04/09/24 Rx torsemide 20 mg tablet 20 mg PO BID 02/22/24 04/09/24 History tramadol 50 mg tablet 50 mg PO DAILY PRN pain #30 tabs 02/22/24 04/09/24 Rx clopidogrel 75 mg tablet 75 mg PO DAILY 04/09/24 04/09/24 History isosorbide mononitrate 20 mg tablet 20 mg PO ONCE 04/09/24 04/09/24 History pantoprazole 40 mg tablet,delayed 40 mg PO QAM 04/09/24 04/09/24 History release Allergies Allergy/AdvReac Type Severity Reaction Status Date / Time No Known Allergies Allergy Verified 04/09/24 10:09 Vital Signs Vital Signs - 24 hr 04/09/24 10:43 04/09/24 13:10 04/09/24 14:29 Temperature 97.3 F L Pulse Rate 78 74 90 Respiratory Rate 16 19 20 Blood Pressure 128/59 L 113/60 136/85 Pulse Oximetry 100 99 97 Oxygen Delivery Room Air Exam Narrative: General: well appearing, appears stated age. HEENT: normocephalic, atraumatic. Mucous membranes moist. EOMI, PERRLA, bilateral sclera anicteric, no conjunctival injection. Neck supple without JVD, lymphadenopathy, or bruit. Respiratory: clear to ascultation bilaterally. No rales/rhonic/wheezes. Cardiovascular: Regular rate and rhythm, normal S1-S2 upon ascultation. No murmurs, rubs, or clicks. PMI is nondisplaced, capillary refill less than 3 second. Abdomen: Soft, round, no pulsatile masses, nondistended and nontender. No rebound, no guarding. No CVA tenderness, no hepatosplenomegaly. Bowel sounds present to all four quadrants. No high pitch or tinkling sounds, resonant to percussion. Extremities: No cyanosis, clubbing, or edema present. Pulses are palpable 2/2. Active ROM to all four extremities. Neuro: Alert and orientated x 4. PERRLA. Cranial nerves 2-12 intact without focal deficit. Skin: Warm, dry, and intact, without rash, erythema, or lesion. Psych: pleasant, cooperative, normal speech, normal affect, no hallucinations, no dysarthia Chronic Payne with leg bag H&P: Results Labs Labs: Short CBC 04/09/24 Range/Units 13:02 WBC 9.9 (4.5-10.0) K/mm3 Hgb 13.3 L (14.0-18.0) g/dL Hct 41.3 L (42.0-52.0) % Plt Count 165 (150-375) k/mm3 BMP 04/09/24 04/09/24 13:02 13:29 Sodium 137 Potassium 7.6 H* Chloride 107 Carbon Dioxide 13 L BUN 106 H D Creatinine 3.99 H 4.70 H Glucose 108 Calcium 9.4 Liver Function 04/09/24 Range/Units 13:02 Total Bilirubin 0.7 (0.2-1.3) mg/dL AST 24 (17-59) U/L ALT 22 (6-50) U/L Alkaline Phosphatase 83 (38-126) U/L Albumin 4.1 (3.5-5.1) g/dL Assessment and Plan Assessment and plan (1) Hyperkalemia: Code(s): E87.5 - Hyperkalemia Status: Acute Assessment and Plan: Unsure of cause could be medication related Potassium q.4 hours Treat per protocol for potassium higher than 5.5 Renal diet Lasix not given per protocol due to severe GUTIERREZ (2) Acute renal failure: Code(s): N17.9 - Acute kidney failure, unspecified Status: Acute Assessment and Plan: Nephrology consult A.m. labs Hold nephro toxic medications (3) Nausea vomiting and diarrhea: Code(s): R11.2 - Nausea with vomiting, unspecified; R19.7 - Diarrhea, unspecified Status: Acute Assessment and Plan: IV hydration Zofran Stool sample C diff (4) CAD (coronary artery disease): Code(s): I25.10 - Atherosclerotic heart disease of [place] coronary artery without angina pectoris Status: Acute Assessment and Plan: History of CABG and stents Continue Elimanuelito, Vidhya, Jardiance and Plavix (5) Hypothyroidism (acquired): Code(s): E03.9 - Hypothyroidism, unspecified Status: Acute Assessment and Plan: Continue home medication (6) BPH w/o urinary obs/LUTS: Code(s): N40.0 - Benign prostatic hyperplasia without lower urinary tract symptoms Status: Acute Assessment and Plan: Payne not replaced due to history of difficulty placement Will wait for urine cultures and sensitivities to return before starting antibiotics Quality VTE Prophylaxis VTE prophylaxis: mechanical ordered and pharmacologic ordered Hospitalist MIPS Advance Care Plan I have confirmed that the patient's Advanced Care Plan is present, code status is documented, or surrogate decision maker is listed in patient medical record.: Yes Medication Reconciliation I have utilized all available resources to obtain, update and review the patients current medications (includes all prescriptions, OTC, herbals, cannabis, and nutritional supplements).: Yes
[2024-04-09 14:51] LABS: Lactic Acid Reflex 1.2 mmol/L (0.7-2.0)
[2024-04-09 14:57] LABS: Add Urine Microscopic? YES; Appearance Urine Cloudy (Clear); Bacteria Urine 4+ /hpf; Bilirubin Urine Negative (Negative); Blood Urine Negative (Negative); Color Urine Yellow (Yellow); Glucose Urine UA Trace mg/dL (Negative); Ketones Urine Negative (Negative); Leukocyte Esterase Ur 3+ LEU/UL (Negative); Need Manual Microscopic Reviewed; Nitrate Urine Negative (Negative); Protein Urine Trace mg/dL (Negative); RBC Urine 0-2 /hpf (0-2); Specific Grav Ur 1.012 (1.001-1.035); Squamous Epithelial Cell Urine Moderate /hpf (Few); Urobilinogen Urine 0.2 mg/dL (<2.0); WBC Urine 51-100 /hpf (0-3); pH Urine 7.5 (5.0-9.0)
--- NOTE | 2024-04-09 14:59 | PC.NURSE ---
Pt requesting something to eat/drink. made aware. EDP Dr. Marcus gave permission for pt to eat/drink. Pt provided with turkey sandwich and water.
--- NOTE | 2024-04-09 17:38 | PC.NURSE ---
Dinner tray ordered
--- NOTE | 2024-04-09 19:06 | ADMGEN ---
This patient, Alberto Rea, was admitted to IMU Room 213-01 at 1858. Patient/family oriented to hospital policies and general routines including ID bracelet, bed and alarms, visiting hours, pain management, procedures, bathroom and other care routines, personal items, smoking policy, room service/diet, and visiting hours. Information on how to activate the Rapid Response Team has been discussed. Patient/Family are encouraged to report perceived risks to care and to ask questions if they do not understand what they are told or what they should do.
[2024-04-09] MEDS: SODIUM CHLORIDE 0.9% IV 1,000 ML 125 ML IV CONT (20:06)
[2024-04-09 20:07] LABS: Potassium 6.3 mmol/L (3.4-5.0)
--- NOTE | 2024-04-09 21:23 | PC.NURSE ---
Spoke with pt's . Medication list updated per home list. Pt's to bring in medication bottles tomorrow, as most medications did not have a dose and pt and spouse unsure if list is accurate.
[2024-04-09] MEDS: ALBUTEROL SULFATE NEB 2.5 MG/3 ML INH 10 MG INHALATION (21:40)
[2024-04-09] MEDS: APIXABAN 5 MG TABLET PO (21:49)
[2024-04-09] MEDS: carvediloL 12.5 MG TABLET PO (22:32)
[2024-04-10] VITALS (21 sets, daily range): BP systolic 100–147; BP diastolic 49–78; PULSE 58–90; RESP 20; TEMP 36.5–37.1; O2SAT 96–100
[2024-04-10 00:35] LABS: Potassium 4.9 mmol/L (3.4-5.0)
[2024-04-10 04:41] LABS: Basophils Absolute Auto 0.1 K/mm3 (0.0-0.1); Basophils Percent Auto 1.1 % (0.2-1.2); Eosinophils Absolute Auto 0.2 K/mm3 (0-0.3); Eosinophils Percent Auto 2.5 % (0-4.4); Hematocrit 33.4 % (42.0-52.0); Hemoglobin 10.5 g/dL (14.0-18.0); Immature Granulocyte Absolute 0.04 K/mm3 (0.00-0.031); Immature Granulocyte Percent A 0.5 % (0-0.5); Lymphocytes Absolute Auto 1.25 K/mm3 (0.9-3.2); Lymphocytes Percent Auto 16.6 % (18.3-44.2); Mean Corpuscular HGB Conc 31.4 g/dl (32-36); Mean Corpuscular Hemoglobin 30.2 pg (26-34); Mean Platelet Volume 11.7 fl (7.4-10.4); Monocytes Absolute Auto 0.8 K/mm3 (0.1-0.6); Monocytes Percent Auto 10.6 % (2.6-8.5); Neutrophils Absolute Auto 5.2 K/mm3 (1.3-6.7); Neutrophils Percent Auto 68.7 % (45.5-73.1); Platelet Count Result 200 k/mm3 (150-375); Red Blood Count 3.48 M/mm3 (4.6-6.20); Red Cell Distribution Width 13.1 % (11.5-14.5); White Blood Count 7.5 K/mm3 (4.5-10.0)
[2024-04-10 04:43] LABS: Alanine Aminotransferase 16 U/L (6-50); Albumin Level 2.9 g/dL (3.5-5.1); Alkaline Phosphatase 59 U/L (38-126); Anion Gap 9 mmol/L (4-12); Aspartate Amino Transferase 18 U/L (17-59); Bilirubin,Total 0.4 mg/dL (0.2-1.3); Blood Urea Nitrogen 88 mg/dL (9-20); Calcium 8.4 mg/dL (8.4-10.2); Carbon Dioxide 16 mmol/L (22-30); Chloride 115 mmol/L (98-107); Estimated CRCL calculation 17 ml/min; Estimated Glomerular Filt Rate 16; Glucose 116 mg/dL (65-110); Magnesium 1.9 mg/dL (1.6-2.3); Potassium 5.8 mmol/L (3.4-5.0); Sodium 140 mmol/L (137-145)
[2024-04-10] MEDS: SODIUM CHLORIDE 0.9% IV 1,000 ML 125 ML IV CONT ×3 (05:51→17:40)
[2024-04-10] MEDS: LEVOTHYROXINE SODIUM 150 MCG TABLET PO (05:56)
--- NOTE | 2024-04-10 07:47 | P.PNIM_ITS ---
Progress Note: A&P Assessment and Plan (1) Metabolic acidosis: Code(s): E87.20 - Acidosis, unspecified Status: Acute Assessment and Plan: CMP with Bicarb 13 on admission. - Bicarb 16 on am labs - VBG: pH 7.267, pCO2 34, pO2 39.1, HCO3 15.2 - Continue Sodium bicarb 650 mg BID - Nephrology following (2) Hyperkalemia: Code(s): E87.5 - Hyperkalemia Status: Acute Assessment and Plan: K 7.6 on admission, given 10 units insulin x2, lokelma 10 mg x2. Potassium 5.8 on am labs, repeat 5.3. Lokelma 10 gm BID Potassium q.8 hours Renal diet Lasix not given per protocol due to severe GUTIERREZ Nephrology consulted, appreciate recommendations (3) Acute renal failure: Code(s): N17.9 - Acute kidney failure, unspecified Status: Acute Assessment and Plan: BUN/Cr 106/4.7 with GFR 12 on admission. History of CKD stage 3 BUN/Cr 88/3.62 with GFR 16 Given 1L bolus in the ED, now on IV NS 75 ml/hr CT abdomen/pelvis Mild bilateral likely age-related renal atrophy calcifications at the bilateral renal jane which appear more likely atherosclerotic in nonobstructing nephrolithiasis Diffuse bladder wall thickening which could be due to the partially decompressed state, chronic outlet obstruction from the prominently enlarged prostate or cystitis a Gutierrez catheter in the bladder. Correlate with urinalysis. Nephrology consult (4) Abnormal urinalysis: Code(s): R82.90 - Unspecified abnormal findings in urine Status: Acute Assessment and Plan: Chronic gutierrez catheter since October. Per patient he has a lot of difficulties with catheter placement in the past, always requiring urology to place it. Spoke with Urologist and if RN is unable to exchange catheter they could attempt replacement tomorrow. - UA: cloudy appearance with trace glucose, negative nitrates, 3+ leukocytes, 51-100 WBC, 4+ bacteria, mod squamous. Possible contamination. - UC obtained on 04/10 - previous micro reviewed 06/18/23: allyn albicans 04/20/23: Aerococcus urinae - started on Rocephin on 04/10 (5) Essential (primary) hypertension: Code(s): I10 - Essential (primary) hypertension Status: Acute Assessment and Plan: Chronic - Continue carvedilol 12.5 mg BID - Holding losartan 25 mg BID and lisinopril 40 mg daily due to ongoing ARF, resume as appropriate - Blood pressures remain stable, continue to monitor (6) CAD (coronary artery disease): Code(s): I25.10 - Atherosclerotic heart disease of [place] coronary artery without angina pectoris Status: Acute Assessment and Plan: History of CABG and stents Continue Eliquis, Coreg, Jardiance and Plavix (7) Hypothyroidism (acquired): Code(s): E03.9 - Hypothyroidism, unspecified Status: Acute Assessment and Plan: Continue home medication, synthroid 150 mcg daily (8) BPH w/o urinary obs/LUTS: Code(s): N40.0 - Benign prostatic hyperplasia without lower urinary tract symptoms Status: Acute Assessment and Plan: Chronic gutierrez catheter since October. Per patient he has a lot of difficulties with catheter placement in the past, always requiring urology to place it. Spoke with Urologist and if RN is unable to exchange catheter they could attempt replacement tomorrow. (9) Nausea vomiting and diarrhea: Code(s): R11.2 - Nausea with vomiting, unspecified; R19.7 - Diarrhea, unspecified Status: Acute Assessment and Plan: IV hydration Zofran Stool sample C diff Resolved. Time Spent With Patient Time with patient: 25 - 35 minutes Subjective Date/time seen: 04/10/24 07:47 Interval history: 78 year old male with history of atrial fibrillation, hypertension, dyslipidemia, coronary artery disease, chronic venous insufficiency in legs, CKD 3, BPH, elevated PSA (2022), sleep apnea, hypothyroid, and hx of NSTEMI s/p CABG x 3 (04/2023) presents to the hospital with nausea vomiting and diarrhea. Patient is pleasant sitting on the side of the bed. He has no complaints at this time denying chest pain, shortness a breath, palpitations, nausea / vomiting, and abdominal pain. Patient has a chronic gutierrez catheter since October. Per patient he has a lot of difficulties with catheter placement in the past, always requiring urology to place it. Spoke with Urologist and if RN is unable to exchange catheter they could attempt replacement tomorrow. Patient is extremely nervous about having his catheter exchanged given the difficulties in prior cases. Discussed with him that given the length of time the catheter has been present and the concern for infection replacement is beneficial. Review of Systems Review of Systems: All systems reviewed & are unremarkable except as noted in HPI and below Exam Narrative: AF HR 58 RR 20 SPO2 99 BP 103/60 General: male in no acute respiratory distress who is nontoxic appearing,sitting on the side of bed. HEENT: Normocephalic. Atraumatic. Extraocular movement intact. Sclera clear and anicteric. No facial asymmetry. Chest: Lungs are clear to auscultation bilaterally. No wheezes or crackles. CV: Heart was regular rate and rhythm. S1/S2. No murmurs, gallops, or rubs. Abd: Abdomen was soft. Nontender. Nondistended. Positive bowel sounds. No organomegaly or masses. Ext: No clubbing, cyanosis, or edema. 2+ DP pulses bilaterally. Neuro: Patient is alert and oriented x4. Speech is clear. Objective Data Vital Signs Vital Signs: Vital Signs - 24 hr 04/09/24 10:43 04/09/24 13:10 04/09/24 14:29 Temperature 97.3 F L Pulse Rate 78 74 90 Respiratory Rate 16 19 20 Blood Pressure 128/59 L 113/60 136/85 Pulse Oximetry 100 99 97 Oxygen Delivery Room Air 04/09/24 19:27 04/09/24 20:00 04/09/24 20:00 Temperature 97.7 F Pulse Rate 92 81 Respiratory Rate 20 Blood Pressure 158/85 H Pulse Oximetry 92 Oxygen Delivery Room Air 04/09/24 20:15 04/09/24 21:44 04/09/24 22:00 Temperature 98.1 F Pulse Rate 79 76 123 H Respiratory Rate 20 18 Blood Pressure 131/52 L Pulse Oximetry 97 Oxygen Delivery 04/09/24 22:32 04/09/24 23:30 04/10/24 00:00 Temperature Pulse Rate 103 H 74 Respiratory Rate Blood Pressure Pulse Oximetry 97 Oxygen Delivery CPAP Room Air 04/10/24 00:00 04/10/24 00:27 04/10/24 02:00 Temperature 98.0 F Pulse Rate 86 90 80 Respiratory Rate 20 Blood Pressure 100/61 Pulse Oximetry 98 Oxygen Delivery 04/10/24 03:32 04/10/24 04:00 04/10/24 04:00 Temperature 98.8 F Pulse Rate 67 65 Respiratory Rate 20 Blood Pressure 110/54 L Pulse Oximetry 97 Oxygen Delivery Room Air 04/10/24 06:00 Temperature Pulse Rate 71 Respiratory Rate Blood Pressure Pulse Oximetry Oxygen Delivery Intake/Output Intake/Output: Intake & Output 04/07/24 04/08/24 04/09/24 04/10/24 23:59 23:59 23:59 23:59 Intake Total 2290 1550 Output Total 750 Balance 2290 800 Meds/Results Medications: Active Medications Generic Name Dose Route Start Last Admin Trade Name Freq PRN Reason Stop Dose Admin Apixaban 5 mg 04/09/24 21:00 04/09/24 21:49 Apixaban 5 Mg Tablet PO 5 mg Q12HR SIL Administration Aspirin 81 mg 04/10/24 09:00 Aspirin 81 Mg Chewable Tablet PO DAILY [facility] Atorvastatin Calcium 40 mg 04/10/24 09:00 Atorvastatin 40 Mg Tablet PO DAILY [facility] Carvedilol 12.5 mg 04/09/24 21:50 04/09/24 22:32 Carvedilol 12.5 Mg Tablet PO 12.5 mg Q12HR SIL Administration Clopidogrel Bisulfate 75 mg 04/10/24 09:00 Clopidogrel Bisulfate 75 Mg Tablet PO DAILY SIL Dextrose 12.5 gm 04/09/24 20:31 Dextrose 50% 25 Gm/50 Ml Syringe IV PUSH PRN PRN Hypoglycemia Protocol Empagliflozin 10 mg 04/10/24 09:00 Empagliflozin 10 Mg Tablet PO DAILY SIL Glucagon 1 mg 04/09/24 20:31 Glucagon For Inj 1 Mg Vial IM PRN PRN Hypoglycemia Protocol Glucose 15 gm 04/09/24 20:31 Glucose Oral Gel 15 Gm Of Glucse In 37.5 Gm Tube PO PRN PRN Hypoglycemia Protocol Sodium Chloride 1,000 mls @ 125 mls/hr 04/09/24 14:45 04/10/24 05:51 Normal Saline Iv IV CONT 125 mls/hr .Q8H SIL Administration Dextrose 1,000 mls @ 100 mls/hr 04/09/24 20:31 Dextrose 5% 1,000 Ml IVPB PRN PRN Hypoglycemia Protocol Levothyroxine Sodium 150 mcg 04/10/24 06:30 04/10/24 05:56 Levothyroxine Sodium 150 Mcg Tablet PO 150 mcg DAILY@0630 SIL Administration Pantoprazole Sodium 40 mg 04/10/24 09:00 Pantoprazole 40 Mg Tablet PO QAM [facility] Sodium Bicarbonate 650 mg 04/10/24 09:00 Sodium Bicarbonate Tab 650 Mg Tablet PO BID [facility] Sodium Zirconium Cyclosilicate 10 gm 04/10/24 10:00 Sodium Zirconium Cyclosilicate 10 Gm Powd.Pack PO BID@1000,1800 [facility] Tamsulosin HCl 0.4 mg 04/10/24 18:00 Tamsulosin Hcl 0.4 Mg Capsule PO QPM [facility] Radiology Results: ITS Impressions Abdomen/Pelvis CT 04/09/24 13:38 IMPRESSION: 1. Moderate to large sliding-type hiatal hernia. 2. Stenosis scattered atherosclerotic disease with likely minimally significant stenosis at the origin of the celiac axis and superior mesenteric artery. 3. Stigmata of chronic pancreatitis. 4. Diverticulosis. 5. Diffuse bladder wall thickening which could be due to the partially d ecompressed state, chronic outlet obstruction from the prominently enlarged prostate or cystitis a Gutierrez catheter in the bladder. Correlate with urinalysis. 6. Moderate-sized fat-containing umbilical hernia. Labs Labs: Laboratory Results - last 24 hr 04/09/24 04/09/24 04/09/24 13:02 13:29 14:22 WBC 9.9 RBC 4.34 L Hgb 13.3 L Hct 41.3 L MCV 95.2 MCH 30.6 MCHC 32.2 RDW 13.1 Plt Count 165 MPV 12.2 H Immature Gran % (Auto) 0.5 Neut % (Auto) 82.6 H Lymph % (Auto) 10.0 L [place] % (Auto) 5.9 Eos % (Auto) 0.4 Baso % (Auto) 0.6 Lymph # (Auto) 0.99 [place] # (Auto) 0.6 Eos # (Auto) 0.0 Baso # (Auto) 0.1 Abs Immat Gran (auto) 0.05 H Absolute Neuts (auto) 8.2 H Absolute Nucleated RBC 0.000 Nucleated RBC % 0.0 Sodium 137 Potassium 7.6 H* Chloride 107 Carbon Dioxide 13 L Anion Gap 17 H BUN 106 H D Creatinine 3.99 H 4.70 H Estim Creat Clear Calc 15 13 Estimated GFR 15 L 12 L Glucose 108 POC Capillary Glucose 84 Lactic Acid Calcium 9.4 Phosphorus Magnesium Total Bilirubin 0.7 AST 24 ALT 22 Alkaline Phosphatase 83 Total Protein 8.0 Albumin 4.1 Lipase 262 Urine Color Urine Appearance Urine pH Ur Specific [place] Urine Protein Urine Glucose (UA) Urine Ketones Ur Blood (Man) Urine Nitrate Urine Bilirubin Urine Urobilinogen Add Ur Microanalysis Leukocyte Esterase Rfl Urine RBC Urine WBC Ur Squamous Epith Cells Urine Bacteria Urine Casts Influenza A (RT-PCR) Negative Influenza B (RT-PCR) Negative RSV (RT-PCR) Negative SARS-CoV-2 RNA (RT-PCR) Negative 04/09/24 04/09/24 04/09/24 14:30 14:41 19:46 WBC RBC Hgb Hct MCV MCH MCHC RDW Plt Count MPV Immature Gran % (Auto) Neut % (Auto) Lymph % (Auto) [place] % (Auto) Eos % (Auto) Baso % (Auto) Lymph # (Auto) [place] # (Auto) Eos # (Auto) Baso # (Auto) Abs Immat Gran (auto) Absolute Neuts (auto) Absolute Nucleated RBC Nucleated RBC % Sodium Potassium 6.3 H* Chloride Carbon Dioxide Anion Gap BUN Creatinine Estim Creat Clear Calc Estimated GFR Glucose POC Capillary Glucose Lactic Acid 1.2 Calcium Phosphorus Magnesium Total Bilirubin AST ALT Alkaline Phosphatase Total Protein Albumin Lipase Urine Color Yellow Urine Appearance Cloudy H Urine pH 7.5 Ur Specific [place] 1.012 Urine Protein Trace Urine Glucose (UA) Trace H Urine Ketones Negative Ur Blood (Man) Negative Urine Nitrate Negative Urine Bilirubin Negative Urine Urobilinogen 0.2 Add Ur Microanalysis Reviewed Leukocyte Esterase Rfl 3+ H Urine RBC 0-2 Urine WBC 51-100 H Ur Squamous Epith Cells Moderate Urine Bacteria 4+ H Urine Casts 11-20 Influenza A (RT-PCR) Influenza B (RT-PCR) RSV (RT-PCR) SARS-CoV-2 RNA (RT-PCR) 04/10/24 04/10/24 00:25 04:10 WBC 7.5 RBC 3.48 L Hgb 10.5 L Hct 33.4 L MCV 96.0 MCH 30.2 MCHC 31.4 L RDW 13.1 Plt Count 200 MPV 11.7 H Immature Gran % (Auto) 0.5 Neut % (Auto) 68.7 Lymph % (Auto) 16.6 L [place] % (Auto) 10.6 H Eos % (Auto) 2.5 Baso % (Auto) 1.1 Lymph # (Auto) 1.25 [place] # (Auto) 0.8 H Eos # (Auto) 0.2 Baso # (Auto) 0.1 Abs Immat Gran (auto) 0.04 H Absolute Neuts (auto) 5.2 Absolute Nucleated RBC 0.000 Nucleated RBC % 0.0 Sodium 140 Potassium 4.9 5.8 H Chloride 115 H Carbon Dioxide 16 L Anion Gap 9 BUN 88 H D Creatinine 3.62 H Estim Creat Clear Calc 17 Estimated GFR 16 L Glucose 116 H POC Capillary Glucose Lactic Acid Calcium 8.4 Phosphorus 4.0 Magnesium 1.9 Total Bilirubin 0.4 AST 18 ALT 16 Alkaline Phosphatase 59 Total Protein 6.0 L Albumin 2.9 L Lipase Urine Color Urine Appearance Urine pH Ur Specific [place] Urine Protein Urine Glucose (UA) Urine Ketones Ur Blood (Man) Urine Nitrate Urine Bilirubin Urine Urobilinogen Add Ur Microanalysis Leukocyte Esterase Rfl Urine RBC Urine WBC Ur Squamous Epith Cells Urine Bacteria Urine Casts Influenza A (RT-PCR) Influenza B (RT-PCR) RSV (RT-PCR) SARS-CoV-2 RNA (RT-PCR) Quality VTE Prophylaxis VTE prophylaxis: mechanical ordered and pharmacologic ordered
[2024-04-10 08:43] LABS: Fractional Inspired Oxygen 21 %; HCO3 VBG 15.2 mEq/l (24.0-30.0); PO2 VBG 39.1 mmHg (35.0-45.0); pH VBG 7.267 (7.300-7.400)
[2024-04-10] MEDS: SODIUM ZIRCONIUM CYCLOSILICATE 10 GM POWD.PACK PO ×2 (08:56→17:40)
[2024-04-10] MEDS: CLOPIDOGREL BISULFATE 75 MG TABLET PO (08:56)
[2024-04-10] MEDS: SODIUM BICARBONATE TAB 650 MG TABLET PO ×2 (08:57→17:39)
[2024-04-10] MEDS: APIXABAN 5 MG TABLET PO ×2 (08:57→20:13)
[2024-04-10] MEDS: ASPIRIN 81 MG CHEWABLE TABLET PO (08:57)
[2024-04-10] MEDS: EMPAGLIFLOZIN 10 MG TABLET PO (08:57)
[2024-04-10] MEDS: ATORVASTATIN 40 MG TABLET PO (08:58)
[2024-04-10] MEDS: PANTOPRAZOLE 40 MG TABLET PO (08:58)
[2024-04-10] MEDS: carvediloL 12.5 MG TABLET PO ×2 (08:58→20:13)
--- NOTE | 2024-04-10 10:16 | PM.CNNEP ---
Assessment and Plan Assessment and plan (1) Acute kidney injury: Code(s): N17.9 - Acute kidney failure, unspecified Status: Acute (2) Stage 3b chronic kidney disease: Code(s): N18.32 - Chronic kidney disease, stage 3b Status: Chronic Assessment and Plan: baseline creatinine runs ~ 1.4 - 1.9mg/dl however, it was as high as 2.9mg/dl in February 2024 presumably due to hypertension, vascular disease (CAD, CHF, CVA, hyperlipidemia), JILLIAN, BPH (with need for chronic gutierrez catheter) and age-related change History of Present Illness Reason for Consult Consult date: 04/13/24 Reason for consult: acute renal failure (on chronic kidney disease) Chief Complaint Chief complaint: arf [facility] Past Medical History Medical History Nonsustained ventricular tachycardia H/O: upper GI bleed Type 2 IN (myocardial infarction) PAF (paroxysmal atrial fibrillation) CAD in [place] artery Non-ST elevation IN (NSTEMI) Hypothyroidism (acquired) Vitamin D deficiency Chronic venous insufficiency of lower extremity History of stroke (1991) Stroke was in 1991, [facility], unclear if hemorrhagic or not but pt does not recall any intravascular intervention. GERD without esophagitis Peptic ulcer disease 09/2019-cauterization and placed on PPI Anemia of chronic disease CKD (chronic kidney disease) stage 3, GFR 30-59 ml/min Unspecified osteoarthritis, unspecified site BPH w/o urinary obs/LUTS CAD in [place] artery History of RCA stents, and Left anterior descending (at [place] The most recent intervention was in August [address] Bartlett, when he had atherectomy balloon angioplasty and stenting of the proximal and mid Left anterior descending (at [facility], [place]). Dyslipidemia Essential (primary) hypertension JILLIAN (obstructive sleep apnea) uses a CPAP machine Surgical History Surgical History H/O esophagogastroduodenoscopy this past week with cauterization of peptic ulcer disease H/O bilateral cataract extraction (~2017) History of coronary artery stent placement (~05/05/18) x3. Drug-eluting stent to the RCA in 2 stents the LAD. Family History Family History Father Family history of cardiovascular disease, Onset Age: 55 Hypertension, Onset Age: 55 Mother Patient's mother is , Onset Age: 65 Bladder cancer Social History Social History Social History: the patient is and lives with his . She is the durable power research attorney for healthcare. The patient is a full code. He has 1 adopted son. 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 He used to smoke until E adopted his son. He occasionally has a glass of wine maybe twice a week. Depending on what they eat that week. He stated he has lost about 40 lb by trying this past year. Smoking status: Never smoker Second hand tobacco smoke exposure: No Additional smoking assessment comments: SMOKED FOR ONE YEAR DURING COLLEGE Alcohol intake: current Drinks per week: 3 Alcohol use details: consumes 2 glasses of wine weekly Substance use: never Substance use type: does not use Do You Feel Safe in your Home?: Yes Lack of Transportation: No Lack of Food: Never True Current Housing: I Have Housing Concerned About Future Housing: No Difficulty Paying Gas/Electric Bills: No Difficulty Paying for Meds: No Currently Unemployed: No Education: Decline to Answer Difficulty w/ Childcare or Family Care: No Gender identity (if verbalized by the patient): Male Sexual Orientation (if Verbalized by the Patient): Straight or Heterosexual Spiritual care concerns: No Meds Home Medications and Allergies Home Medications ?Medication ?Instructions ?Recorded ?Confirmed ?Type ferrous sulfate 325 mg (65 mg 325 mg PO DAILY #90 tabs 02/14/23 04/10/24 Rx iron) tablet,delayed release empagliflozin 10 mg tablet 10 mg PO DAILY 08/26/23 04/09/24 History (Jardiance) tamsulosin 0.4 mg capsule 0.4 mg PO QPM #100 caps 10/21/23 04/09/24 Rx cholecalciferol (vitamin D3) 50 50 mcg PO DAILY #90 tabs 02/02/24 04/10/24 Rx mcg (2,000 unit) tablet carvedilol 12.5 mg tablet 12.5 mg PO Q12H #180 tabs 02/22/24 04/09/24 Rx tramadol 50 mg tablet 50 mg PO DAILY PRN pain #30 tabs 02/22/24 04/09/24 Rx pantoprazole 40 mg tablet,delayed 40 mg PO QAM 04/09/24 04/10/24 History release aspirin 81 mg capsule 81 mg PO DAILY 04/10/24 04/10/24 History apixaban 2.5 mg tablet (Eliquis) 2.5 mg BYMOUTH Q12HR #60 tabs 04/13/24 Rx atorvastatin 40 mg tablet 40 mg PO HS #30 tabs 04/13/24 Rx cefdinir 300 mg capsule 300 mg PO DAILY #3 caps 04/13/24 Rx levothyroxine 150 mcg tablet 150 mcg PO DAILY@0630 #30 tabs 04/13/24 Rx (Synthroid) torsemide 20 mg tablet 20 mg PO DAILY #30 tabs 04/13/24 04/09/24 Rx Allergies Allergy/AdvReac Type Severity Reaction Status Date / Time No Known Allergies Allergy Verified 04/09/24 10:09 Vital Signs Vital Signs Temp Pulse Resp BP Pulse Ox O2 Del Method 04/10/24 08:58 73 04/10/24 08:11 98.1 F 80 20 147/78 H 98 04/10/24 06:00 71 04/10/24 04:00 65 04/10/24 04:00 Room Air 04/10/24 03:32 98.8 F 67 20 110/54 L 97 04/10/24 02:00 80 04/10/24 00:27 98.0 F 90 20 100/61 98 04/10/24 00:00 86 04/10/24 00:00 Room Air 04/09/24 23:30 74 97 CPAP 04/09/24 22:32 103 H 04/09/24 22:00 123 H 04/09/24 21:44 76 18 04/09/24 20:15 98.1 F 79 20 131/52 L 97 04/09/24 20:00 Room Air 04/09/24 20:00 81 04/09/24 19:27 97.7 F 92 20 158/85 H 92 04/09/24 14:29 90 20 136/85 97 04/09/24 13:10 74 19 113/60 99 Results Lab Results 04/13/24 05:46 04/13/24 05:46 Lab results: Most recent lab results Calcium 8.4 mg/dL (8.4-10.2) 04/10/24 04:10 Phosphorus 4.0 mg/dL (2.5-4.5) 04/10/24 04:10 Magnesium 1.9 mg/dL (1.6-2.3) 04/10/24 04:10
[2024-04-10 16:30] LABS: Potassium 5.3 mmol/L (3.4-5.0)
[2024-04-10] MEDS: TAMSULOSIN HCL 0.4 MG CAPSULE PO (17:39)
[2024-04-11] VITALS (21 sets, daily range): BP systolic 96–151; BP diastolic 57–73; PULSE 55–76; RESP 14–22; TEMP 36.4–36.8; O2SAT 94–98
[2024-04-11] MEDS: SODIUM CHLORIDE 0.9% IV 1,000 ML 75 ML IV CONT ×2 (00:45→15:06)
[2024-04-11 05:14] LABS: Basophils Absolute Auto 0.1 K/mm3 (0.0-0.1); Basophils Percent Auto 0.9 % (0.2-1.2); Eosinophils Absolute Auto 0.4 K/mm3 (0-0.3); Eosinophils Percent Auto 5.1 % (0-4.4); Hematocrit 32.9 % (42.0-52.0); Hemoglobin 10.3 g/dL (14.0-18.0); Immature Granulocyte Absolute 0.03 K/mm3 (0.00-0.031); Immature Granulocyte Percent A 0.4 % (0-0.5); Lymphocytes Absolute Auto 1.86 K/mm3 (0.9-3.2); Lymphocytes Percent Auto 24.8 % (18.3-44.2); Mean Corpuscular HGB Conc 31.3 g/dl (32-36); Mean Corpuscular Hemoglobin 30.2 pg (26-34); Mean Corpuscular Volume 96.5 fl (80-100); Mean Platelet Volume 11.4 fl (7.4-10.4); Monocytes Absolute Auto 0.8 K/mm3 (0.1-0.6); Monocytes Percent Auto 10.5 % (2.6-8.5); Neutrophils Absolute Auto 4.4 K/mm3 (1.3-6.7); Neutrophils Percent Auto 58.3 % (45.5-73.1); Platelet Count Result 176 k/mm3 (150-375); Red Blood Count 3.41 M/mm3 (4.6-6.20); Red Cell Distribution Width 13.3 % (11.5-14.5); White Blood Count 7.5 K/mm3 (4.5-10.0)
[2024-04-11 05:25] LABS: Alanine Aminotransferase 16 U/L (6-50); Albumin Level 2.7 g/dL (3.5-5.1); Alkaline Phosphatase 57 U/L (38-126); Anion Gap 7 mmol/L (4-12); Aspartate Amino Transferase 19 U/L (17-59); Bilirubin,Total 0.4 mg/dL (0.2-1.3); Blood Urea Nitrogen 68 mg/dL (9-20); Carbon Dioxide 15 mmol/L (22-30); Chloride 120 mmol/L (98-107); Estimated CRCL calculation 21 ml/min; Estimated Glomerular Filt Rate 21; Glucose 83 mg/dL (65-110); Potassium 5.3 mmol/L (3.4-5.0); Sodium 142 mmol/L (137-145)
[2024-04-11] MEDS: LEVOTHYROXINE SODIUM 150 MCG TABLET PO (05:42)
[2024-04-11] MEDS: PANTOPRAZOLE 40 MG TABLET PO (09:11)
[2024-04-11] MEDS: SODIUM ZIRCONIUM CYCLOSILICATE 10 GM POWD.PACK PO ×2 (09:11→18:16)
[2024-04-11] MEDS: ATORVASTATIN 40 MG TABLET PO (09:11)
[2024-04-11] MEDS: SODIUM BICARBONATE TAB 650 MG TABLET 1300 MG PO ×2 (09:11→18:16)
[2024-04-11] MEDS: CLOPIDOGREL BISULFATE 75 MG TABLET PO (09:11)
[2024-04-11] MEDS: ASPIRIN 81 MG CHEWABLE TABLET PO (09:11)
[2024-04-11] MEDS: APIXABAN 5 MG TABLET PO ×2 (09:11→20:25)
[2024-04-11] MEDS: carvediloL 12.5 MG TABLET PO ×2 (09:11→20:25)
[2024-04-11] MEDS: EMPAGLIFLOZIN 10 MG TABLET PO (09:11)
--- NOTE | 2024-04-11 09:43 | P.PNIM_ITS ---
Progress Note: A&P Assessment and Plan (1) Metabolic acidosis: Code(s): E87.20 - Acidosis, unspecified Status: Acute Assessment and Plan: CMP with Bicarb 13 on admission. - Bicarb 16 on am labs - VBG: pH 7.267, pCO2 34, pO2 39.1, HCO3 15.2 - Continue Sodium bicarb 650 mg BID - Nephrology following 04/11 * bicarb level 15 today * nephrology following * currently on sodium bicarb tablets b.i.d., consider bicarb drip-- will leave decision up to nephrology (2) Hyperkalemia: Code(s): E87.5 - Hyperkalemia Status: Acute Assessment and Plan: K 7.6 on admission, given 10 units insulin x2, lokelma 10 mg x2. Potassium 5.8 on am labs, repeat 5.3. Lokelma 10 gm BID Potassium q.8 hours Renal diet Lasix not given per protocol due to severe GUTIERREZ Nephrology consulted, appreciate recommendations 04/11 * potassium 5.3 * continue Lokelma 10 mg b.i.d. * continue renal diet * continue to hold Lasix due to severe GUTIERREZ * nephrology following * will transfer out of IMU today to [facility] floor * continue cardiac monitoring for the hyperkalemia (3) Acute renal failure: Code(s): N17.9 - Acute kidney failure, unspecified Status: Acute Assessment and Plan: BUN/Cr 106/4.7 with GFR 12 on admission. History of CKD stage 3 BUN/Cr 88/3.62 with GFR 16 Given 1L bolus in the ED, now on IV NS 75 ml/hr CT abdomen/pelvis Mild bilateral likely age-related renal atrophy calcifications at the bilateral renal jane which appear more likely atherosclerotic in nonobstructing nephrolithiasis Diffuse bladder wall thickening which could be due to the partially decompressed state, chronic outlet obstruction from the prominently enlarged prostate or cystitis a Gutierrez catheter in the bladder. Correlate with urinalysis. Nephrology consult 04/11 * creatinine 2.90, improving * nephrology following (4) Abnormal urinalysis: Code(s): R82.90 - Unspecified abnormal findings in urine Status: Acute Assessment and Plan: Chronic gutierrez catheter since October. Per patient he has a lot of difficulties with catheter placement in the past, always requiring urology to place it. Spoke with Urologist and if RN is unable to exchange catheter they could attempt replacement tomorrow. - UA: cloudy appearance with trace glucose, negative nitrates, 3+ leukocytes, 51-100 WBC, 4+ bacteria, mod squamous. Possible contamination. - UC obtained on 04/10 - previous micro reviewed 06/18/23: allyn albicans 04/20/23: Aerococcus urinae - started on Rocephin on 04/10 04/11 * continue Rocephin * urine culture still pending * will consult urology to replace Gutierrez catheter today considering the issues he had in the past. (5) Essential (primary) hypertension: Code(s): I10 - Essential (primary) hypertension Status: Acute Assessment and Plan: Chronic - Continue carvedilol 12.5 mg BID - Holding losartan 25 mg BID and lisinopril 40 mg daily due to ongoing ARF, resume as appropriate - Blood pressures remain stable, continue to monitor 04/11 * continue to hold losartan and lisinopril due to severe GUTIERREZ * blood pressures remained stable (6) CAD (coronary artery disease): Code(s): I25.10 - Atherosclerotic heart disease of [place] coronary artery without angina pectoris Status: Acute Assessment and Plan: History of CABG and stents Continue Eliquis, Coreg, Jardiance and Plavix 04/11 * no change to current treatment plan (7) Hypothyroidism (acquired): Code(s): E03.9 - Hypothyroidism, unspecified Status: Acute Assessment and Plan: Continue home medication, synthroid 150 mcg daily 04/11 * no change to current treatment plan (8) BPH w/o urinary obs/LUTS: Code(s): N40.0 - Benign prostatic hyperplasia without lower urinary tract symptoms Status: Acute Assessment and Plan: Chronic gutierrez catheter since October. Per patient he has a lot of difficulties with catheter placement in the past, always requiring urology to place it. Spoke with Urologist and if RN is unable to exchange catheter they could attempt replacement tomorrow. 04/11 * will consult urology today to replace his Gutierrez catheter considering the issues he has had in the past (9) Nausea vomiting and diarrhea: Code(s): R11.2 - Nausea with vomiting, unspecified; R19.7 - Diarrhea, unspecified Status: Acute Assessment and Plan: IV hydration Zofran Stool sample C diff Resolved. Time Spent With Patient Time with patient: 25 - 35 minutes Subjective Date/time seen: 04/11/24 09:43 Interval history: interval history: 78 year old male with history of atrial fibrillation, hypertension, dyslipidemia, coronary artery disease, chronic venous insufficiency in legs, CKD 3, BPH with chronic Gutierrez catheter, elevated PSA (2022), sleep apnea, hypothyroid, and hx of NSTEMI s/p CABG x 3 (04/2023) presents to the hospital with nausea vomiting and diarrhea. Work up in the hospital included an abdomen/pelvis CT which shown Moderate to large sliding type hiatal hernia, stating matter of chronic pancreatitis, diverticulosis, diffuse bladder wall thickening which could be due to partially decompensated state or enlarged prostate, moderate size fat containing umbilical hernia, mild stenosis at the origin the celiac axis and superior mesenteric artery. initial labs showed a normal white blood cell count of 9.9, hemoglobin 13.3 potassium 7.6, bicarb 13, anion gap 17, creatinine 4.70, EGFR 12, lactic acid was normal at 1.2, lipase was normal at 262. A UA was obtained which showed cloudy urine appearance, trace glucose, 3+ leukocyte, 51-100 urine WBC, 4+ urine bacteria. Respiratory panel was negative. Patient was given Lokelma, sodium bicarb for the hypokalemia and potassium level decreased to 4.9 on 04/10/2024. Nephrology was consulted. subjective: Patient denies any new complaints today. Labs and imaging reviewed. Review of Systems Review of Systems: 12 systems were reviewed and are negativ e except for as per HPI. All systems reviewed & are unremarkable except as noted in HPI and below Exam Narrative: General: In no acute distress, well nourished Cardiac: Normal S1 and S2. No murmur, gallops or friction rubs, peripheral pulses intact. Respiratory: Lungs clear to auscultation, no adventitious lung sounds, currently on room air Gastrointestinal: soft, obese, non-tender, normoactive bowel sounds. : Gutierrez catheter draining clear yellow urine Neuro: Alert and oriented x4 Objective Data Vital Signs Vital Signs: Vital Signs - 24 hr 04/10/24 10:00 04/10/24 11:50 04/10/24 12:00 Temperature 97.7 F Pulse Rate 63 58 L 59 L Respiratory Rate 20 Blood Pressure 103/60 Pulse Oximetry 99 Oxygen Delivery 04/10/24 14:00 04/10/24 15:20 04/10/24 16:00 Temperature 97.7 F Pulse Rate 67 58 L 62 Respiratory Rate 20 Blood Pressure 115/62 Pulse Oximetry 99 Oxygen Delivery 04/10/24 17:56 04/10/24 20:00 04/10/24 20:00 Temperature Pulse Rate 67 62 62 Respiratory Rate 20 Blood Pressure Pulse Oximetry 96 Oxygen Delivery CPAP 04/10/24 20:01 04/10/24 20:13 04/10/24 21:00 Temperature 97.9 F Pulse Rate 62 72 64 Respiratory Rate 20 Blood Pressure 108/49 L Pulse Oximetry 100 96 Oxygen Delivery CPAP 04/10/24 22:00 04/11/24 00:00 04/11/24 00:00 Temperature Pulse Rate 62 60 60 Respiratory Rate 20 Blood Pressure Pulse Oximetry 95 Oxygen Delivery CPAP 04/11/24 00:34 04/11/24 01:27 04/11/24 02:10 Temperature 98.2 F Pulse Rate 61 61 67 Respiratory Rate 20 Blood Pressure 110/59 L Pulse Oximetry 95 96 Oxygen Delivery CPAP 04/11/24 04:00 04/11/24 04:00 04/11/24 04:55 Temperature 98.3 F Pulse Rate 66 66 55 L Respiratory Rate 20 20 Blood Pressure 96/72 L Pulse Oximetry 96 97 Oxygen Delivery CPAP 04/11/24 06:00 04/11/24 07:38 Temperature 97.8 F Pulse Rate 66 63 Respiratory Rate 16 Blood Pressure 151/70 H Pulse Oximetry 98 Oxygen Delivery Intake/Output Intake/Output: Intake & Output 04/08/24 04/09/24 04/10/24 04/11/24 23:59 23:59 23:59 23:59 Intake Total 2290 3963.8 2105.4 Output Total 1600 1000 Balance 2290 2363.8 1105.4 Meds/Results Medications: Active Medications Generic Name Dose Route Start Last Admin Trade Name Freq PRN Reason Stop Dose Admin Apixaban 5 mg 04/09/24 21:00 04/11/24 09:11 Apixaban 5 Mg Tablet PO 5 mg Q12HR SIL Administration Aspirin 81 mg 04/10/24 09:00 04/11/24 09:11 Aspirin 81 Mg Chewable Tablet PO 81 mg DAILY SIL Administration Atorvastatin Calcium 40 mg 04/10/24 09:00 04/11/24 09:11 Atorvastatin 40 Mg Tablet PO 40 mg DAILY SIL Administration Carvedilol 12.5 mg 04/09/24 21:50 04/11/24 09:11 Carvedilol 12.5 Mg Tablet PO 12.5 mg Q12HR SIL Administration Clopidogrel Bisulfate 75 mg 04/10/24 09:00 04/11/24 09:11 Clopidogrel Bisulfate 75 Mg Tablet PO 75 mg DAILY SIL Administration Dextrose 12.5 gm 04/09/24 20:31 Dextrose 50% 25 Gm/50 Ml Syringe IV PUSH PRN PRN Hypoglycemia Protocol Empagliflozin 10 mg 04/10/24 09:00 04/11/24 09:11 Empagliflozin 10 Mg Tablet PO 10 mg DAILY SIL Administration Glucagon 1 mg 04/09/24 20:31 Glucagon For Inj 1 Mg Vial IM PRN PRN Hypoglycemia Protocol Glucose 15 gm 04/09/24 20:31 Glucose Oral Gel 15 Gm Of Glucse In 37.5 Gm Tube PO PRN PRN Hypoglycemia Protocol Sodium Chloride 1,000 mls @ 75 mls/hr 04/09/24 14:45 04/11/24 00:45 Normal Saline Iv IV CONT 75 mls/hr .[id number] SIL Administration Dextrose 1,000 mls @ 100 mls/hr 04/09/24 20:31 Dextrose 5% 1,000 Ml IVPB PRN PRN Hypoglycemia Protocol Ceftriaxone Sodium 1 gm in 50 mls @ 100 mls/hr 04/10/24 09:40 04/11/24 09:11 Rocephin 1 Gm/Ns 50 Ml IVPB 100 mls/hr DAILY SIL Administration Levothyroxine Sodium 150 mcg 04/10/24 06:30 04/11/24 05:42 Levothyroxine Sodium 150 Mcg Tablet PO 150 mcg DAILY@0630 SIL Administration Pantoprazole Sodium 40 mg 04/10/24 09:00 04/11/24 09:11 Pantoprazole 40 Mg Tablet PO 40 mg QAM SIL Administration Sodium Bicarbonate 1,300 mg 04/11/24 09:00 04/11/24 09:11 Sodium Bicarbonate Tab 650 Mg Tablet PO 1,300 mg BID SIL Administration Sodium Zirconium Cyclosilicate 10 gm 04/10/24 10:00 04/11/24 09:11 Sodium Zirconium Cyclosilicate 10 Gm Powd.Pack PO 10 gm BID@1000,1800 SIL Administration Tamsulosin HCl 0.4 mg 04/10/24 18:00 04/10/24 17:39 Tamsulosin Hcl 0.4 Mg Capsule PO 0.4 mg QPM SIL Administration Radiology Results: ITS Impressions Abdomen/Pelvis CT 04/09/24 13:38 IMPRESSION: 1. Moderate to large sliding-type hiatal hernia. 2. Stenosis scattered atherosclerotic disease with likely minimally significant stenosis at the origin of the celiac axis and superior mesenteric artery. 3. Stigmata of chronic pancreatitis. 4. Diverticulosis. 5. Diffuse bladder wall thickening which could be due to the partially decompressed state, chronic outlet obstruction from the prominently enlarged prostate or cystitis a Gutierrez catheter in the bladder. Correlate with urinalysis. 6. Moderate-sized fat-containing umbilical hernia. Labs Labs: Laboratory Results - last 24 hr 04/10/24 04/11/24 16:03 04:51 WBC 7.5 RBC 3.41 L Hgb 10.3 L Hct 32.9 L MCV 96.5 MCH 30.2 MCHC 31.3 L RDW 13.3 Plt Count 176 MPV 11.4 H Immature Gran % (Auto) 0.4 Neut % (Auto) 58.3 Lymph % (Auto) 24.8 [place] % (Auto) 10.5 H Eos % (Auto) 5.1 H Baso % (Auto) 0.9 Lymph # (Auto) 1.86 [place] # (Auto) 0.8 H Eos # (Auto) 0.4 H Baso # (Auto) 0.1 Abs Immat Gran (auto) 0.03 Absolute Neuts (auto) 4.4 Absolute Nucleated RBC 0.000 Nucleated RBC % 0.0 Sodium 142 Potassium 5.3 H 5.3 H Chloride 120 H Carbon Dioxide 15 L Anion Gap 7 BUN 68 H D Creatinine 2.90 H Estim Creat Clear Calc 21 Estimated GFR 21 L Glucose 83 Calcium 8.0 L Total Bilirubin 0.4 AST 19 ALT 16 Alkaline Phosphatase 57 Total Protein 6.0 L Albumin 2.7 L Quality VTE Prophylaxis VTE prophylaxis: mechanical ordered and pharmacologic ordered
[2024-04-11 12:36] LABS: Potassium 5.1 mmol/L (3.4-5.0)
--- NOTE | 2024-04-11 13:02 | PM.PNNEP ---
Subjective Date/time seen: 04/11/24 13:02 Interval history: Follow-up for acute kidney injury/acute renal failure on chronic kidney disease. Renal function/creatinine continue to improve with current therapy; potassium remains on the slightly higher side of normal by AM labs; Objective Data Vital Signs Vital Signs: Vital Signs Temp Pulse Resp BP Pulse Ox O2 Del Method 04/11/24 11:43 98.1 F 61 22 H 137/66 98 04/11/24 10:00 63 04/11/24 08:00 64 04/11/24 08:00 98 Room Air 04/11/24 07:38 97.8 F 63 16 151/70 H 98 04/11/24 06:00 66 04/11/24 04:55 98.3 F 55 L 20 96/72 L 97 04/11/24 04:00 66 04/11/24 04:00 66 20 96 CPAP 04/11/24 02:10 67 96 CPAP 04/11/24 01:27 61 04/11/24 00:34 98.2 F 61 20 110/59 L 95 04/11/24 00:00 60 04/11/24 00:00 60 20 95 CPAP 04/10/24 22:00 62 04/10/24 21:00 64 96 CPAP 04/10/24 20:13 72 04/10/24 20:01 97.9 F 62 20 108/49 L 100 04/10/24 20:00 62 04/10/24 20:00 62 20 96 CPAP 04/10/24 17:56 67 Intake/Output Intake/Output: Intake & Output 04/08/24 04/09/24 04/10/24 04/11/24 23:59 23:59 23:59 23:59 Intake Total 2290 3963.8 4732.4 Output Total 1600 1000 Balance 2290 2363.8 3732.4 Meds/Results Medications: Active Medications Generic Name Dose Route Start Last Admin Trade Name Freq PRN Reason Stop Dose Admin Apixaban 5 mg 04/09/24 21:00 04/11/24 09:11 Apixaban 5 Mg Tablet PO 5 mg Q12HR SIL Administration Aspirin 81 mg 04/10/24 09:00 04/11/24 09:11 Aspirin 81 Mg Chewable Tablet PO 81 mg DAILY SIL Administration Atorvastatin Calcium 40 mg 04/10/24 09:00 04/11/24 09:11 Atorvastatin 40 Mg Tablet PO 40 mg DAILY SIL Administration Carvedilol 12.5 mg 04/09/24 21:50 04/11/24 09:11 Carvedilol 12.5 Mg Tablet PO 12.5 mg Q12HR SIL Administration Clopidogrel Bisulfate 75 mg 04/10/24 09:00 04/11/24 09:11 Clopidogrel Bisulfate 75 Mg Tablet PO 75 mg DAILY SIL Administration Dextrose 12.5 gm 04/09/24 20:31 Dextrose 50% 25 Gm/50 Ml Syringe IV PUSH PRN PRN Hypoglycemia Protocol Empagliflozin 10 mg 04/10/24 09:00 04/11/24 09:11 Empagliflozin 10 Mg Tablet PO 10 mg DAILY SIL Administration Ferrous Sulfate 325 mg 04/12/24 09:00 Ferrous Sulfate [address] PO DAILY SIL Glucagon 1 mg 04/09/24 20:31 Glucagon For Inj 1 Mg Vial IM PRN PRN Hypoglycemia Protocol Glucose 15 gm 04/09/24 20:31 Glucose Oral Gel 15 Gm Of Glucse In 37.5 Gm Tube PO PRN PRN Hypoglycemia Protocol Sodium Chloride 1,000 mls @ 75 mls/hr 04/09/24 14:45 04/11/24 15:06 Normal Saline Iv IV CONT 75 mls/hr .[id number] SIL Administration Dextrose 1,000 mls @ 100 mls/hr 04/09/24 20:31 Dextrose 5% 1,000 Ml IVPB PRN PRN Hypoglycemia Protocol Ceftriaxone Sodium 1 gm in 50 mls @ 100 mls/hr 04/10/24 09:40 04/11/24 09:11 Rocephin 1 Gm/Ns 50 Ml IVPB 100 mls/hr DAILY SIL Administration Levothyroxine Sodium 150 mcg 04/10/24 06:30 04/11/24 05:42 Levothyroxine Sodium 150 Mcg Tablet PO 150 mcg DAILY@0630 SIL Administration Pantoprazole Sodium 40 mg 04/10/24 09:00 04/11/24 09:11 Pantoprazole 40 Mg Tablet PO 40 mg QAM SIL Administration Sodium Bicarbonate 1,300 mg 04/11/24 09:00 04/11/24 09:11 Sodium Bicarbonate Tab 650 Mg Tablet PO 1,300 mg BID SIL Administration Sodium Zirconium Cyclosilicate 10 gm 04/10/24 10:00 04/11/24 09:11 Sodium Zirconium Cyclosilicate 10 Gm Powd.Pack PO 10 gm BID@1000,1800 SIL Administration Tamsulosin HCl 0.4 mg 04/10/24 18:00 04/10/24 17:39 Tamsulosin Hcl 0.4 Mg Capsule PO 0.4 mg QPM SIL Administration Radiology Results: ITS Impressions Abdomen/Pelvis CT 04/09/24 13:38 IMPRESSION: 1. Moderate to large sliding-type hiatal hernia. 2. Stenosis scattered atherosclerotic disease with likely minimally significant stenosis at the origin of the celiac axis and superior mesenteric artery. 3. Stigmata of chronic pancreatitis. 4. Diverticulosis. 5. Diffuse bladder wall thickening which could be due to the partially decompressed state, chronic outlet obstruction from the prominently enlarged prostate or cystitis a Payne catheter in the bladder. Correlate with urinalysis. 6. Moderate-sized fat-containing umbilical hernia. Labs Labs: Laboratory Tests 04/11/24 04:51 04/11/24 12:12 04/11/24 04:51 Sodium 142 Potassium 5.3 H Chloride 120 H Carbon Dioxide 15 L Anion Gap 7 BUN 68 H D Creatinine 2.90 H Estim Creat Clear Calc 21 Estimated GFR 21 L Glucose 83 Calcium 8.0 L Total Bilirubin 0.4 AST 19 ALT 16 Alkaline Phosphatase 57 Total Protein 6.0 L Albumin 2.7 L
--- NOTE | 2024-04-11 13:21 | P.CONUR_ITS ---
Assessment and Plan Assessment and plan (1) BPH with urinary obstruction: Code(s): N40.1 - Benign prostatic hyperplasia with lower urinary tract symptoms; N13.8 - Other obstructive and reflux uropathy Status: Acute Assessment and Plan: - Currently managed with chronic indwelling Payne - 3-way 20Fr indwelling catheter placed 07/2023 removed without difficulty on 04/11/2024 - Payne easily exchanged at bedside using sterile technique, 18Fr coude with Urojet (2) Abnormal urinalysis: Code(s): R82.90 - Unspecified abnormal findings in urine Status: Acute Assessment and Plan: - Asymptomatic bacteruria - Repeat UA / Culture following indwelling Payne catheter exchange (3) CKD (chronic kidney disease) stage 3, GFR 30-59 ml/min: Qualifiers: Chronic kidney disease stage 3 subtype: stage 3a (GFR 45-59) Qualified Code(s): N18.31 - Chronic kidney disease, stage 3a Code(s): N18.3 - Chronic kidney disease, stage 3 (moderate) Status: Acute Assessment and Plan: - Nephrology following Plan - Payne exchanged today (18Fr Coude, 10mL balloon) - Discussed importance of Payne catheter exchange every 3-4 weeks in office or by home health nurses - Continue home tamsulosin - Patient interested in pursuing and following through with outpatient PAE - No plan for inpatient urologic surgical intervention. Signing off. Please call with questions. - Follow-up with Dr. Lamb in clinic 3-4 weeks Urology Consult Note HPI Date Seen: 04/11/24 Requesting Physician: Luna Schultz APRN Primary Care Provider: Andrea Perea MD Consult Narrative Reason for consult: Payne catheter exchange, BPH Narrative: Alberto Rea is a pleasant 78 year old male admitted 04/09/24 with nausea, vomiting, diarrhea, GUTIERREZ on CKD, severe hyperkalemia. Medical history significant for obstructive BPH managed with chronic indwelling Payne catheter on daily tamsulosin, AFIB on Eliquis, CAD s/p CABG on DAPT, CKD, diabetes. He required cystoscopy with clot evacuation 07/2023 for gross hematuria. Urology consulted today for Payne catheter evaluation. Per patient, current catheter was placed 07/2023. UA suspicious for UTI, though sample was collected on old indwelling Payne. Urine culture is pending on IV ceftriaxone. Nephrology is following for GUTIERREZ on CKD. Patient was scheduled for prostate artery embolization 10/[address] Camilo. This procedure was canceled as patient did not complete pre-op imaging -- lost to follow-up. Last office visit 06/2023 for a void trial which he failed. On exam, patient is alert and oriented to person, place, time, situation. He is ambulatory with cane. Indwelling Payne draining yellow urine. He states he has not followed up with urology due to 'appointments falling through the cracks' and 'anxiety about this whole situation'. He is agreeable to Payne catheter exchange today. PERTINENT IMAGIN04/09/24 CT AP WO CON - Mild bilateral likely age-related renal atrophy calcifications at the bilateral renal jane which appear more likely atherosclerotic in nonobstructing nephrolithiasis. Payne catheter within the decompressed bladder. There is some bladder wall thickening likely due to the decompressed state. Prostatomegaly measuring 6.1 x 5.7 cm. PERTINENT LABS: 04/11/24 - WBC 7.5, HGB 10.3, PLT 176, Cr 2.9, GFR 21 04/09/24 - Urinalysis 3+ LE, 50-100 WBC, 4+ bacteria. Urine culture pending. Review of Systems 2 Constitutional: Constitutional: Reports lethargy Eyes: Eyes: Reports no additional eye complaints ENT: Reports Normal hearing present Cardiovascular: Cardiovascular: Denies chest pain Respiratory: Respiratory: Reports no additional respiratory complaints Gastrointestinal: Gastrointestinal: Denies abdominal pain, Denies nausea and Denies vomiting Genitourinary: Genitourinary: Denies hematuria and Denies dysuria Musculoskeletal: Musculoskeletal: Reports no additional musculoskeletal complaints Neurologic: Reports system reviewed and no additional complaints, except as documented Psychiatric: Psychiatric: Reports no additional psychiatric complaints [facility] Past Medical History Medical History Nonsustained ventricular tachycardia H/O: upper GI bleed Type 2 ME (myocardial infarction) PAF (paroxysmal atrial fibrillation) CAD in [place] artery Non-ST elevation ME (NSTEMI) Hypothyroidism (acquired) Vitamin D deficiency Chronic venous insufficiency of lower extremity History of stroke (1991) Stroke was in 1991, [facility], unclear if hemorrhagic or not but pt does not recall any intravascular intervention. GERD without esophagitis Peptic ulcer disease 09/2019-cauterization and placed on PPI Anemia of chronic disease CKD (chronic kidney disease) stage 3, GFR 30-59 ml/min Unspecified osteoarthritis, unspecified site BPH w/o urinary obs/LUTS CAD in [place] artery History of RCA stents, and Left anterior descending (at [facility] The most recent intervention was in August [address] Bartlett, when he had atherectomy balloon angioplasty and stenting of the proximal and mid Left anterior descending (at [facility]). Dyslipidemia Essential (primary) hypertension JILLIAN (obstructive sleep apnea) uses a CPAP machine Surgical History Surgical History H/O esophagogastroduodenoscopy this past week with cauterization of peptic ulcer disease H/O bilateral cataract extraction (~2017) History of coronary artery stent placement (~05/05/18) x3. Drug-eluting stent to the RCA in 2 stents the LAD. Family History Family History Father Family history of cardiovascular disease, Onset Age: 55 Hypertension, Onset Age: 55 Mother Patient's mother is , Onset Age: 65 Bladder cancer Social History Social History Social History: the patient is and lives with his . She is the durable power health care attorney for healthcare. The patient is a full code. He has 1 adopted son. 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 He used to smoke until E adopted his son. He occasionally has a glass of wine maybe twice a week. Depending on what they eat that week. He stated he has lost about 40 lb by trying this past year. Smoking status: Never smoker Second hand tobacco smoke exposure: No Additional smoking assessment comments: SMOKED FOR ONE YEAR DURING COLLEGE Alcohol intake: current Drinks per week: 3 Alcohol use details: consumes 2 glasses of wine weekly Substance use: never Substance use type: does not use Do You Feel Safe in your Home?: Yes Lack of Transportation: No Lack of Food: Never True Current Housing: I Have Housing Concerned About Future Housing: No Difficulty Paying Gas/Electric Bills: No Difficulty Paying for Meds: No Currently Unemployed: No Education: Decline to Answer Difficulty w/ Childcare or Family Care: No Gender identity (if verbalized by the patient): Male Sexual Orientation (if Verbalized by the Patient): Straight or Heterosexual Spiritual care concerns: No Meds Home Medications and Allergies Home Medications ?Medication ?Instructions ?Recorded ?Confirmed ?Type ferrous sulfate 325 mg (65 mg 325 mg PO DAILY #90 tabs 02/14/23 04/10/24 Rx iron) tablet,delayed release empagliflozin 10 mg tablet 10 mg PO DAILY 08/26/23 04/09/24 History (Jardiance) tamsulosin 0.4 mg capsule 0.4 mg PO QPM #100 caps 10/21/23 04/09/24 Rx cholecalciferol (vitamin D3) 50 50 mcg PO DAILY #90 tabs 02/02/24 04/10/24 Rx mcg (2,000 unit) tablet carvedilol 12.5 mg tablet 12.5 mg PO Q12H #180 tabs 02/22/24 04/09/24 Rx spironolactone 25 mg tablet 25 mg PO DAILY #90 tabs 02/22/24 04/09/24 Rx torsemide 20 mg tablet 20 mg PO BID 02/22/24 04/09/24 History tramadol 50 mg tablet 50 mg PO DAILY PRN pain #30 tabs 02/22/24 04/09/24 Rx pantoprazole 40 mg tablet,delayed 40 mg PO QAM 04/09/24 04/10/24 History release apixaban 5 mg tablet (Eliquis) 5 mg PO Q12H 04/10/24 04/10/24 History aspirin 81 mg capsule 81 mg PO DAILY 04/10/24 04/10/24 History lisinopril 40 mg tablet 40 mg PO DAILY htn 04/10/24 04/10/24 History losartan 25 mg tablet 25 mg PO BID 04/10/24 04/10/24 History Allergies Allergy/AdvReac Type Severity Reaction Status Date / Time No Known Allergies Allergy Verified 04/09/24 10:09 Vital Signs Vital Signs - 24 hr 04/10/24 14:00 04/10/24 15:20 04/10/24 16:00 Temperature 97.7 F Pulse Rate 67 58 L 62 Respiratory Rate 20 Blood Pressure 115/62 Pulse Oximetry 99 Oxygen Delivery 04/10/24 17:56 04/10/24 20:00 04/10/24 20:00 Temperature Pulse Rate 67 62 62 Respiratory Rate 20 Blood Pressure Pulse Oximetry 96 Oxygen Delivery CPAP 04/10/24 20:01 04/10/24 20:13 04/10/24 21:00 Temperature 97.9 F Pulse Rate 62 72 64 Respiratory Rate 20 Blood Pressure 108/49 L Pulse Oximetry 100 96 Oxygen Delivery CPAP 04/10/24 22:00 04/11/24 00:00 04/11/24 00:00 Temperature Pulse Rate 62 60 60 Respiratory Rate 20 Blood Pressure Pulse Oximetry 95 Oxygen Delivery CPAP 04/11/24 00:34 04/11/24 01:27 04/11/24 02:10 Temperature 98.2 F Pulse Rate 61 61 67 Respiratory Rate 20 Blood Pressure 110/59 L Pulse Oximetry 95 96 Oxygen Delivery CPAP 04/11/24 04:00 04/11/24 04:00 04/11/24 04:55 Temperature 98.3 F Pulse Rate 66 66 55 L Respiratory Rate 20 20 Blood Pressure 96/72 L Pulse Oximetry 96 97 Oxygen Delivery CPAP 04/11/24 06:00 04/11/24 07:38 04/11/24 08:00 Temperature 97.8 F Pulse Rate 66 63 Respiratory Rate 16 Blood Pressure 151/70 H Pulse Oximetry 98 98 Oxygen Delivery Room Air 04/11/24 08:00 04/11/24 10:00 04/11/24 11:43 Temperature 98.1 F Pulse Rate 64 63 61 Respiratory Rate 22 H Blood Pressure 137/66 Pulse Oximetry 98 Oxygen Delivery Exam 2 Const: General: comfortable and no acute distress HENMT: Face/Nose/Sinus: Normal nares present Eyes: General: appearance normal, both eyes and all related structures Resp: Effort & Inspection: normal respiratory effort : Male General Exam: Yes normal external exam Urinary Catheter: Urinary Catheter: patent and draining Skin: General skin exam: normal color Neuro: Speech: normal speech Psych: Speech and movement: Normal speech and movement present Affect: n ormal affect Results Labs 04/11/24 04:51 04/11/24 12:12 Labs: Short CBC 04/11/24 Range/Units 04:51 WBC 7.5 (4.5-10.0) K/mm3 Hgb 10.3 L (14.0-18.0) g/dL Hct 32.9 L (42.0-52.0) % Plt Count 176 (150-375) k/mm3 BMP 04/10/24 04/11/24 04/11/24 16:03 04:51 12:12 Sodium 142 Potassium 5.3 H 5.3 H 5.1 H Chloride 120 H Carbon Dioxide 15 L BUN 68 H D Creatinine 2.90 H Glucose 83 Calcium 8.0 L Liver Function 04/11/24 Range/Units 04:51 Total Bilirubin 0.4 (0.2-1.3) mg/dL AST 19 (17-59) U/L ALT 16 (6-50) U/L Alkaline Phosphatase 57 (38-126) U/L Albumin 2.7 L (3.5-5.1) g/dL
[2024-04-11] MEDS: LIDOCAINE 2% GEL UROJET 10 ML PKG MUCOUS MEM (15:05)
[2024-04-11] MEDS: TAMSULOSIN HCL 0.4 MG CAPSULE PO (18:16)
[2024-04-11 18:58] LABS: Add Urine Microscopic? YES; Appearance Urine Clear (Clear); Bilirubin Urine Negative (Negative); Blood Urine 3+ (Negative); Color Urine Yellow (Yellow); Glucose Urine UA 2+ mg/dL (Negative); Ketones Urine Negative (Negative); Leukocyte Esterase Ur 2+ LEU/UL (Negative); Need Manual Microscopic Reviewed; Nitrate Urine Negative (Negative); Protein Urine 1+ mg/dL (Negative); RBC Urine >100 /hpf (0-2); Specific Grav Ur 1.016 (1.001-1.035); Squamous Epithelial Cell Urine Occasional /hpf (Few); Urobilinogen Urine 0.2 mg/dL (<2.0); WBC Urine 21-50 /hpf (0-3)
[2024-04-11 19:18] LABS: Bacteria Urine Trace /hpf
[2024-04-11 21:51] LABS: Potassium 4.3 mmol/L (3.4-5.0)
[2024-04-12] VITALS (14 sets, daily range): BP systolic 115–144; BP diastolic 58–90; PULSE 51–72; RESP 20–22; TEMP 36.4–37.2; O2SAT 93–99
[2024-04-12 05:26] LABS: Basophils Absolute Auto 0.1 K/mm3 (0.0-0.1); Basophils Percent Auto 0.6 % (0.2-1.2); Eosinophils Absolute Auto 0.4 K/mm3 (0-0.3); Eosinophils Percent Auto 5.7 % (0-4.4); Hematocrit 32.4 % (42.0-52.0); Hemoglobin 10.1 g/dL (14.0-18.0); Immature Granulocyte Absolute 0.04 K/mm3 (0.00-0.031); Immature Granulocyte Percent A 0.5 % (0-0.5); Lymphocytes Absolute Auto 2.04 K/mm3 (0.9-3.2); Lymphocytes Percent Auto 26.4 % (18.3-44.2); Mean Corpuscular HGB Conc 31.2 g/dl (32-36); Mean Corpuscular Hemoglobin 30.2 pg (26-34); Monocytes Absolute Auto 0.8 K/mm3 (0.1-0.6); Monocytes Percent Auto 10.8 % (2.6-8.5); Neutrophils Absolute Auto 4.3 K/mm3 (1.3-6.7); Platelet Count Result 163 k/mm3 (150-375); Red Blood Count 3.34 M/mm3 (4.6-6.20); Red Cell Distribution Width 13.2 % (11.5-14.5); White Blood Count 7.7 K/mm3 (4.5-10.0)
[2024-04-12] MEDS: LEVOTHYROXINE SODIUM 150 MCG TABLET PO (05:37)
[2024-04-12 05:40] LABS: Alanine Aminotransferase 17 U/L (6-50); Albumin Level 2.7 g/dL (3.5-5.1); Alkaline Phosphatase 60 U/L (38-126); Anion Gap 9 mmol/L (4-12); Aspartate Amino Transferase 19 U/L (17-59); Bilirubin,Total 0.4 mg/dL (0.2-1.3); Blood Urea Nitrogen 47 mg/dL (9-20); Calcium 8.3 mg/dL (8.4-10.2); Carbon Dioxide 16 mmol/L (22-30); Chloride 117 mmol/L (98-107); Estimated CRCL calculation 27 ml/min; Estimated Glomerular Filt Rate 29; Glucose 88 mg/dL (65-110); Potassium 4.2 mmol/L (3.4-5.0); Sodium 142 mmol/L (137-145)
[2024-04-12] MEDS: SODIUM CHLORIDE 0.9% IV 1,000 ML 75 ML IV CONT (05:43)
[2024-04-12] MEDS: FERROUS SULFATE 325 MG TABLET DR PO (09:31)
[2024-04-12] MEDS: APIXABAN 5 MG TABLET PO (09:31)
[2024-04-12] MEDS: ATORVASTATIN 40 MG TABLET PO (09:31)
[2024-04-12] MEDS: SODIUM BICARBONATE TAB 650 MG TABLET 1300 MG PO ×2 (09:31→17:17)
[2024-04-12] MEDS: PANTOPRAZOLE 40 MG TABLET PO (09:32)
[2024-04-12] MEDS: EMPAGLIFLOZIN 10 MG TABLET PO (09:32)
[2024-04-12] MEDS: carvediloL 12.5 MG TABLET PO ×2 (09:32→21:11)
[2024-04-12] MEDS: CLOPIDOGREL BISULFATE 75 MG TABLET PO (09:32)
[2024-04-12] MEDS: ASPIRIN 81 MG CHEWABLE TABLET PO (09:32)
--- NOTE | 2024-04-12 12:03 | P.PNIM_ITS ---
Progress Note: A&P Assessment and Plan (1) Essential (primary) hypertension: Code(s): I10 - Essential (primary) hypertension Status: Acute (2) Acute diastolic CHF (congestive heart failure): Code(s): I50.31 - Acute diastolic (congestive) heart failure Status: Acute (3) Type 2 UT (myocardial infarction): Code(s): I21.A1 - Myocardial infarction type 2 Status: Acute (4) CAD in [place] artery: Code(s): I25.10 - Atherosclerotic heart disease of [place] coronary artery without angina pectoris Status: Acute (5) Atrial fibrillation: Qualifiers: Atrial fibrillation type: paroxysmal Qualified Code(s): I48.0 - Paroxysmal atrial fibrillation Code(s): I48.91 - Unspecified atrial fibrillation Status: Acute (6) CKD (chronic kidney disease) stage 3, GFR 30-59 ml/min: Qualifiers: Chronic kidney disease stage 3 subtype: stage 3a (GFR 45-59) Qualified Code(s): N18.31 - Chronic kidney disease, stage 3a Code(s): N18.3 - Chronic kidney disease, stage 3 (moderate) Status: Acute (7) Acute renal failure: Code(s): N17.9 - Acute kidney failure, unspecified Status: Acute (8) Acute hyperkalemia: Code(s): E87.5 - Hyperkalemia Status: Acute (9) BPH w/o urinary obs/LUTS: Code(s): N40.0 - Benign prostatic hyperplasia without lower urinary tract symptoms Status: Acute Plan 78-year-old male CKD, BPH with chronic Pyane, NSTEMI, hypothyroidism, hypertension, and atrial fibrillation presents the hospital with nausea vomiting and diarrhea. was found to have a potassium of 7.6.CT abdomen pelvis with chronic findings. EKG was sinus rhythm first-degree AV block. In the ED the patient was given a L bolus, IV insulin, dextrose, calcium gluconate, sodium bicarb, and Lokelma.Patient does take spironolactone and torsemide. 1. Christophe with pre-existing CKD+ hyperkalemia Hyperkalemia has resolved We will discontinue Lokelma Nephrology following Kidney function back to baseline Will stop IV fluids Avoid any further nephrotoxins Recheck BMP in a.m. Nutrition consult to help with information with low-potassium diet Losartan, lisinopril 2. History of BPH with urinary obstruction: Patient has chronic Payne 3-way 20Fr indwelling catheter placed 07/2023 removed without difficulty on 04/11/2024 Payne easily exchanged at bedside using sterile technique, 18Fr coude with Urojet on 04/11/2024 Urine culture from previous Payne was negative for infection Urine culture after Payne exchange is still pending Will continue with ceftriaxone until we have the urine culture report Continue with [employer] health needed to help change Payne at least every 3-4 weeks Follow-up with Dr. Lamb in clinic 3-4 weeks 3. History of coronary artery disease/CABG: Continue with aspirin, Plavix, statin Dose of Eliquis has been decreased based on renal function ? Patient is on triple therapy with aspirin Plavix and Eliquis Need for all 3 ?(does have off and on microscopic hematuria) Will defer to Cardiology as an outpatient Continue with Clement Kee 4. History of hypothyroidism: Continue with levothyroxine 5. PT/OT 6. Code status: Full 7. DVT prophylaxis: On Eliquis 8. Disposition: Anticipate discharge within next 24 hours if urine culture is back. Can be moved out of IMU Time Spent With Patient Time: Complexity: Moderate Time spent 41 minutes Subjective Date/time seen: 04/12/24 12:03 Interval history: No acute events overnight Review of Systems Review of Systems: All systems reviewed & are unremarkable except as noted in HPI and below Exam Narrative: General: In no acute distress, well nourished Cardiac: Normal S1 and S2. No murmur, gallops or friction rubs, peripheral pulses intact. Respiratory: Lungs clear to auscultation, no adventitious lung sounds, currently on room air Gastrointestinal: soft, obese, non-tender, normoactive bowel sounds. : Payne catheter draining clear yellow urine Neuro: Alert and oriented x4 Objective Data Vital Signs Vital Signs: Vital Signs - 24 hr 04/11/24 14:00 04/11/24 16:00 04/11/24 16:32 Temperature 97.5 F L Pulse Rate 62 67 71 Respiratory Rate 14 Blood Pressure 124/73 Pulse Oximetry 97 Oxygen Delivery 04/11/24 18:00 04/11/24 20:00 04/11/24 20:00 Temperature Pulse Rate 65 76 76 Respiratory Rate 20 Blood Pressure Pulse Oximetry 94 Oxygen Delivery Room Air 04/11/24 20:25 04/11/24 20:40 04/11/24 21:45 Temperature 97.8 F Pulse Rate 68 66 74 Respiratory Rate 20 Blood Pressure 134/57 L Pulse Oximetry 94 Oxygen Delivery 04/11/24 22:09 04/12/24 00:00 04/12/24 00:00 Temperature 98.9 F Pulse Rate 61 57 L 60 Respiratory Rate 20 Blood Pressure 117/90 Pulse Oximetry 96 97 Oxygen Delivery CPAP 04/12/24 02:00 04/12/24 02:01 04/12/24 04:00 Temperature Pulse Rate 63 63 51 L Respiratory Rate Blood Pressure Pulse Oximetry 97 Oxygen Delivery CPAP 04/12/24 05:37 04/12/24 05:55 04/12/24 07:26 Temperature 98.7 F 97.9 F Pulse Rate 58 L 71 66 Respiratory Rate 20 20 Blood Pressure 115/58 L 141/75 H Pulse Oximetry 97 99 Oxygen Delivery 04/12/24 08:00 04/12/24 08:00 04/12/24 10:00 Temperature Pulse Rate 72 59 L Respiratory Rate Blood Pressure Pulse Oximetry Oxygen Delivery Room Air 04/12/24 11:32 Temperature 97.6 F Pulse Rate 61 Respiratory Rate 20 Blood Pressure 130/70 Pulse Oximetry 98 Oxygen Delivery Intake/Output Intake/Output: Intake & Output 04/09/24 04/10/24 04/11/24 04/12/24 23:59 23:59 23:59 23:59 Intake Total 2290 3963.8 4782.4 2277 Output Total 1600 1000 1300 Balance 2290 2363.8 3782.4 977 Meds/Results Medications: Active Medications Generic Name Dose Route Start Last Admin Trade Name Freq PRN Reason Stop Dose Admin Apixaban 5 mg 04/09/24 21:00 04/12/24 09:31 Apixaban 5 Mg Tablet PO 5 mg Q12HR SIL Administration Aspirin 81 mg 04/10/24 09:00 04/12/24 09:32 Aspirin 81 Mg Chewable Tablet PO 81 mg DAILY SIL Administration Atorvastatin Calcium 40 mg 04/10/24 09:00 04/12/24 09:31 Atorvastatin 40 Mg Tablet PO 40 mg DAILY SIL Administration Carvedilol 12.5 mg 04/09/24 21:50 04/12/24 09:32 Carvedilol 12.5 Mg Tablet PO 12.5 mg Q12HR SIL Administration Clopidogrel Bisulfate 75 mg 04/10/24 09:00 04/12/24 09:32 Clopidogrel Bisulfate 75 Mg Tablet PO 75 mg DAILY SIL Administration Dextrose 12.5 gm 04/09/24 20:31 Dextrose 50% 25 Gm/50 Ml Syringe IV PUSH PRN PRN Hypoglycemia Protocol Empagliflozin 10 mg 04/10/24 09:00 04/12/24 09:32 Empagliflozin 10 Mg Tablet PO 10 mg DAILY SIL Administration Ferrous Sulfate 325 mg 04/12/24 09:00 04/12/24 09:31 Ferrous Sulfate [address] PO 325 mg DAILY SIL Administration Glucagon 1 mg 04/09/24 20:31 Glucagon For Inj 1 Mg Vial IM PRN PRN Hypoglycemia Protocol Glucose 15 gm 04/09/24 20:31 Glucose Oral Gel 15 Gm Of Glucse In 37.5 Gm Tube PO PRN PRN Hypoglycemia Protocol Dextrose 1,000 mls @ 100 mls/hr 04/09/24 20:31 Dextrose 5% 1,000 Ml IVPB PRN PRN Hypoglycemia Protocol Ceftriaxone Sodium 1 gm in 50 mls @ 100 mls/hr 04/13/24 09:00 Rocephin 1 Gm/Ns 50 Ml IVPB Q24H SIL Levothyroxine Sodium 150 mcg 04/10/24 06:30 04/12/24 05:37 Levothyroxine Sodium 150 Mcg Tablet PO 150 mcg DAILY@0630 SIL Administration Pantoprazole Sodium 40 mg 04/10/24 09:00 04/12/24 09:32 Pantoprazole 40 Mg Tablet PO 40 mg QAM SIL Administration Sodium Bicarbonate 1,300 mg 04/11/24 09:00 04/12/24 09:31 Sodium Bicarbonate Tab 650 Mg Tablet PO 1,300 mg BID SIL Administration Tamsulosin HCl 0.4 mg 04/10/24 18:00 04/11/24 18:16 Tamsulosin Hcl 0.4 Mg Capsule PO 0.4 mg QPM SIL Administration Radiology Results: ITS Impressions Abdomen/Pelvis CT 04/09/24 13:38 IMPRESSION: 1. Moderate to large sliding-type hiatal hernia. 2. Stenosis scattered atherosclerotic disease with likely minimally significant stenosis at the origin of the celiac axis and superior mesenteric artery. 3. Stigmata of chronic pancreatitis. 4. Diverticulosis. 5. Diffuse bladder wall thickening which could be due to the partially decompressed state, chronic outlet obstruction from the prominently enlarged prostate or cystitis a Payne catheter in the bladder. Correlate with urinalysis. 6. Moderate-sized fat-containing umbilical hernia. Labs Labs: Laboratory Results - last 24 hr 04/11/24 04/11/24 04/11/24 12:12 18:21 21:40 WBC RBC Hgb Hct MCV MCH MCHC RDW Plt Count MPV Immature Gran % (Auto) Neut % (Auto) Lymph % (Auto) [place] % (Auto) Eos % (Auto) Baso % (Auto) Lymph # (Auto) [place] # (Auto) Eos # (Auto) Baso # (Auto) Abs Immat Gran (auto) Absolute Neuts (auto) Absolute Nucleated RBC Nucleated RBC % Sodium Potassium 5.1 H 4.3 Chloride Carbon Dioxide Anion Gap BUN Creatinine Estim Creat Clear Calc Estimated GFR Glucose Calcium Total Bilirubin AST ALT Alkaline Phosphatase Total Protein Albumin Urine Color Yellow Urine Appearance Clear Urine pH 5.0 Ur Specific [place] 1.016 Urine Protein 1+ H Urine Glucose (UA) 2+ H Urine Ketones Negative Ur Blood (Man) 3+ H Urine Nitrate Negative Urine Bilirubin Negative Urine Urobilinogen 0.2 Ur Leukocyte Esterase 2+ H Add Ur Microanalysis Reviewed Urine RBC >100 H Urine WBC 21-50 H Ur Squamous Epith Cells Occasional Urine Bacteria Trace Urine Casts 3-5 04/12/24 05:04 WBC 7.7 RBC 3.34 L Hgb 10.1 L Hct 32.4 L MCV 97.0 MCH 30.2 MCHC 31.2 L RDW 13.2 Plt Count 163 MPV 11.0 H Immature Gran % (Auto) 0.5 Neut % (Auto) 56.0 Lymph % (Auto) 26.4 [place] % (Auto) 10.8 H Eos % (Auto) 5.7 H Baso % (Auto) 0.6 Lymph # (Auto) 2.04 [place] # (Auto) 0.8 H Eos # (Auto) 0.4 H Baso # (Auto) 0.1 Abs Immat Gran (auto) 0.04 H Absolute Neuts (auto) 4.3 Absolute Nucleated RBC 0.000 Nucleated RBC % 0.0 Sodium 142 Potassium 4.2 Chloride 117 H Carbon Dioxide 16 L Anion Gap 9 BUN 47 H D Creatinine 2.21 H Estim Creat Clear Calc 27 Estimated GFR 29 L Glucose 88 Calcium 8.3 L Total Bilirubin 0.4 AST 19 ALT 17 Alkaline Phosphatase 60 Total Protein 6.0 L Albumin 2.7 L Urine Color Urine Appearance Urine pH Ur Specific [place] Urine Protein Urine Glucose (UA) Urine Ketones Ur Blood (Man) Urine Nitrate Urine Bilirubin Urine Urobilinogen Ur Leukocyte Esterase Add Ur Microanalysis Urine RBC Urine WBC Ur Squamous Epith Cells Urine Bacteria Urine Casts
--- NOTE | 2024-04-12 12:52 | P.PNNP_ITS ---
Subjective Date/time seen: 04/12/24 12:52 Interval history: Follow-up for acute kidney injury/acute renal failure on chronic kidney disease. Renal function/creatinine as well as potassium level appears to be slowly improving/stabilizing; Objective Data Vital Signs Vital Signs: Vital Signs Temp Pulse Resp BP Pulse Ox O2 Del Method 04/12/24 11:32 97.6 F 61 20 130/70 98 04/12/24 10:00 59 L 04/12/24 08:00 72 04/12/24 08:00 Room Air 04/12/24 07:26 97.9 F 66 20 141/75 H 99 04/12/24 05:55 71 04/12/24 05:37 98.7 F 58 L 20 115/58 L 97 04/12/24 04:00 51 L 04/12/24 02:01 63 97 CPAP 04/12/24 02:00 63 04/12/24 00:00 60 04/12/24 00:00 98.9 F 57 L 20 117/90 97 04/11/24 22:09 61 96 CPAP 04/11/24 21:45 74 04/11/24 20:40 97.8 F 66 20 134/57 L 94 04/11/24 20:25 68 04/11/24 20:00 76 04/11/24 20:00 76 20 94 Room Air 04/11/24 18:00 65 04/11/24 16:32 97.5 F L 71 14 124/73 97 Intake/Output Intake/Output: Intake & Output 04/09/24 04/10/24 04/11/24 04/12/24 23:59 23:59 23:59 23:59 Intake Total 2290 3963.8 4782.4 2333 Output Total 1600 1000 2200 Balance 2290 2363.8 3782.4 133 Meds/Results Medications: Active Medications Generic Name Dose Route Start Last Admin Trade Name Freq PRN Reason Stop Dose Admin Apixaban 2.5 mg 04/12/24 21:00 Apixaban 2.5 Mg Tablet BY MOUTH Q12HR SIL Aspirin 81 mg 04/10/24 09:00 04/12/24 09:32 Aspirin 81 Mg Chewable Tablet PO 81 mg DAILY SIL Administration Atorvastatin Calcium 40 mg 04/10/24 09:00 04/12/24 09:31 Atorvastatin 40 Mg Tablet PO 40 mg DAILY SIL Administration Carvedilol 12.5 mg 04/09/24 21:50 04/12/24 09:32 Carvedilol 12.5 Mg Tablet PO 12.5 mg Q12HR SIL Administration Clopidogrel Bisulfate 75 mg 04/10/24 09:00 04/12/24 09:32 Clopidogrel Bisulfate 75 Mg Tablet PO 75 mg DAILY SIL Administration Dextrose 12.5 gm 04/09/24 20:31 Dextrose 50% 25 Gm/50 Ml Syringe IV PUSH PRN PRN Hypoglycemia Protocol Empagliflozin 10 mg 04/10/24 09:00 04/12/24 09:32 Empagliflozin 10 Mg Tablet PO 10 mg DAILY SIL Administration Ferrous Sulfate 325 mg 04/12/24 09:00 04/12/24 09:31 Ferrous Sulfate [address] PO 325 mg DAILY SIL Administration Glucagon 1 mg 04/09/24 20:31 Glucagon For Inj 1 Mg Vial IM PRN PRN Hypoglycemia Protocol Glucose 15 gm 04/09/24 20:31 Glucose Oral Gel 15 Gm Of Glucse In 37.5 Gm Tube PO PRN PRN Hypoglycemia Protocol Dextrose 1,000 mls @ 100 mls/hr 04/09/24 20:31 Dextrose 5% 1,000 Ml IVPB PRN PRN Hypoglycemia Protocol Ceftriaxone Sodium 1 gm in 50 mls @ 100 mls/hr 04/13/24 09:00 Rocephin 1 Gm/Ns 50 Ml IVPB Q24H [facility] Levothyroxine Sodium 150 mcg 04/10/24 06:30 04/12/24 05:37 Levothyroxine Sodium 150 Mcg Tablet PO 150 mcg DAILY@0630 SIL Administration Pantoprazole Sodium 40 mg 04/10/24 09:00 04/12/24 09:32 Pantoprazole 40 Mg Tablet PO 40 mg QAM SIL Administration Sodium Bicarbonate 1,300 mg 04/11/24 09:00 04/12/24 09:31 Sodium Bicarbonate Tab 650 Mg Tablet PO 1,300 mg BID SIL Administration Tamsulosin HCl 0.4 mg 04/10/24 18:00 04/11/24 18:16 Tamsulosin Hcl 0.4 Mg Capsule PO 0.4 mg QPM SIL Administration Radiology Results: ITS Impressions Abdomen/Pelvis CT 04/09/24 13:38 IMPRESSION: 1. Moderate to large sliding-type hiatal hernia. 2. Stenosis scattered atherosclerotic disease with likely minimally significant stenosis at the origin of the celiac axis and superior mesenteric artery. 3. Stigmata of chronic pancreatitis. 4. Diverticulosis. 5. Diffuse bladder wall thickening which could be due to the partially decompressed state, chronic outlet obstruction from the prominently enlarged prostate or cystitis a Gutierrez catheter in the bladder. Correlate with urinalysis. 6. Moderate-sized fat-containing umbilical hernia. Labs Labs: Laboratory Tests 04/12/24 05:04 04/12/24 05:04 Calcium 8.3 L Total Bilirubin 0.4 AST 19 ALT 17 Alkaline Phosphatase 60 Total Protein 6.0 L Albumin 2.7 L Microbiology 04/10/24 13:14 Urine - Urine gutierrez port Urine Culture - Final
[2024-04-12] MEDS: TAMSULOSIN HCL 0.4 MG CAPSULE PO (17:17)
--- NOTE | 2024-04-12 20:07 | PC.NURSE ---
This patient, Alberto Rea, was transferred to [[id number] ] on 04/12/24 at 2006. Personal belongings sent with patient. Report given to [ Fior carlos]. Appropriate documentation sent with patient.
[2024-04-12] MEDS: APIXABAN 2.5 MG TABLET BY MOUTH (21:11)
--- NOTE | 2024-04-12 21:51 | PC.NURSE ---
This patient, Alberto Rea, was received from [[id number] ] on 04/12/24 at 2030. Patient/family oriented to unit policies and routines
[2024-04-13] VITALS (7 sets, daily range): BP systolic 102–153; BP diastolic 66–82; PULSE 58–68; RESP 16–18; TEMP 36.1–36.8; O2SAT 96–99
[2024-04-13] MEDS: LEVOTHYROXINE SODIUM 150 MCG TABLET PO (05:47)
[2024-04-13 06:30] LABS: Basophils Absolute Auto 0.1 K/mm3 (0.0-0.1); Basophils Percent Auto 0.9 % (0.2-1.2); Eosinophils Absolute Auto 0.4 K/mm3 (0-0.3); Eosinophils Percent Auto 4.9 % (0-4.4); Hematocrit 34.7 % (42.0-52.0); Hemoglobin 10.7 g/dL (14.0-18.0); Immature Granulocyte Absolute 0.06 K/mm3 (0.00-0.031); Immature Granulocyte Percent A 0.8 % (0-0.5); Lymphocytes Absolute Auto 1.85 K/mm3 (0.9-3.2); Lymphocytes Percent Auto 23.7 % (18.3-44.2); Mean Corpuscular HGB Conc 30.8 g/dl (32-36); Mean Corpuscular Hemoglobin 29.8 pg (26-34); Mean Corpuscular Volume 96.7 fl (80-100); Mean Platelet Volume 11.6 fl (7.4-10.4); Monocytes Absolute Auto 0.7 K/mm3 (0.1-0.6); Monocytes Percent Auto 9.4 % (2.6-8.5); Neutrophils Absolute Auto 4.7 K/mm3 (1.3-6.7); Neutrophils Percent Auto 60.3 % (45.5-73.1); Platelet Count Result 195 k/mm3 (150-375); Red Blood Count 3.59 M/mm3 (4.6-6.20); White Blood Count 7.8 K/mm3 (4.5-10.0)
[2024-04-13 06:59] LABS: Alanine Aminotransferase 17 U/L (6-50); Albumin Level 2.9 g/dL (3.5-5.1); Alkaline Phosphatase 70 U/L (38-126); Anion Gap 9 mmol/L (4-12); Aspartate Amino Transferase 19 U/L (17-59); Bilirubin,Total 0.6 mg/dL (0.2-1.3); Blood Urea Nitrogen 35 mg/dL (9-20); Calcium 8.7 mg/dL (8.4-10.2); Carbon Dioxide 18 mmol/L (22-30); Chloride 116 mmol/L (98-107); Estimated CRCL calculation 29 ml/min; Estimated Glomerular Filt Rate 31; Glucose 100 mg/dL (65-110); Potassium 3.9 mmol/L (3.4-5.0); Sodium 143 mmol/L (137-145)
[2024-04-13] MEDS: ASPIRIN 81 MG CHEWABLE TABLET PO (08:38)
[2024-04-13] MEDS: PANTOPRAZOLE 40 MG TABLET PO (08:38)
[2024-04-13] MEDS: APIXABAN 2.5 MG TABLET BY MOUTH (08:38)
[2024-04-13] MEDS: ATORVASTATIN 40 MG TABLET PO (08:38)
[2024-04-13] MEDS: FERROUS SULFATE 325 MG TABLET DR PO (08:39)
[2024-04-13] MEDS: CLOPIDOGREL BISULFATE 75 MG TABLET PO (08:39)
[2024-04-13] MEDS: SODIUM BICARBONATE TAB 650 MG TABLET 1300 MG PO (08:39)
[2024-04-13] MEDS: EMPAGLIFLOZIN 10 MG TABLET PO (08:39)
[2024-04-13] MEDS: carvediloL 12.5 MG TABLET PO (08:40)
--- NOTE | 2024-04-13 11:41 | PM.IMPN ---
Progress Note: A&P Assessment and Plan (1) Essential (primary) hypertension: Code(s): I10 - Essential (primary) hypertension Status: Acute (2) Acute diastolic CHF (congestive heart failure): Code(s): I50.31 - Acute diastolic (congestive) heart failure Status: Acute (3) Type 2 NV (myocardial infarction): Code(s): I21.A1 - Myocardial infarction type 2 Status: Acute (4) CAD in [place] artery: Code(s): I25.10 - Atherosclerotic heart disease of [place] coronary artery without angina pectoris Status: Acute (5) Atrial fibrillation: Qualifiers: Atrial fibrillation type: paroxysmal Qualified Code(s): I48.0 - Paroxysmal atrial fibrillation Code(s): I48.91 - Unspecified atrial fibrillation Status: Acute (6) CKD (chronic kidney disease) stage 3, GFR 30-59 ml/min: Qualifiers: Chronic kidney disease stage 3 subtype: stage 3a (GFR 45-59) Qualified Code(s): N18.31 - Chronic kidney disease, stage 3a Code(s): N18.3 - Chronic kidney disease, stage 3 (moderate) Status: Acute (7) Acute renal failure: Code(s): N17.9 - Acute kidney failure, unspecified Status: Acute (8) Acute hyperkalemia: Code(s): E87.5 - Hyperkalemia Status: Acute (9) BPH w/o urinary obs/LUTS: Code(s): N40.0 - Benign prostatic hyperplasia without lower urinary tract symptoms Status: Acute Plan 78-year-old male CKD, BPH with chronic Payne, NSTEMI, hypothyroidism, hypertension, and atrial fibrillation presents the hospital with nausea vomiting and diarrhea. was found to have a potassium of 7.6.CT abdomen pelvis with chronic findings. EKG was sinus rhythm first-degree AV block. In the ED the patient was given a L bolus, IV insulin, dextrose, calcium gluconate, sodium bicarb, and Lokelma.Patient does take spironolactone and torsemide. # Christophe with pre-existing CKD+ hyperkalemia Hyperkalemia has resolved We will discontinue Lokelma Nephrology following Kidney function back to baseline IV fluids stopped Avoid any further nephrotoxins Nutrition consult to help with information with low-potassium diet Discontinued Losartan, lisinopril # History of BPH with urinary obstruction: Patient has chronic Payne 3-way 20Fr indwelling catheter placed 07/2023 removed without difficulty on 04/11/2024 Payne easily exchanged at bedside using sterile technique, 18Fr coude with Urojet on 04/11/2024 Urine culture from previous Payne was negative for infection Urine culture after Payne exchange is pending Patient on ceftriaxone until we have the urine culture report Continue with [employer] Home health needed to help change Payne at least every 3-4 weeks Follow-up with Dr. Lamb in clinic 3-4 weeks Home health has been arranged # History of coronary artery disease/CABG: Continue with aspirin, Plavix, statin Dose of Eliquis has been decreased based on renal function ? Patient is on triple therapy with aspirin Plavix and Eliquis Need for all 3 ?(does have off and on microscopic hematuria) Will defer to Cardiology as an outpatient Continue with Clement Kee # History of hypothyroidism: Continue with levothyroxine # PT/OT # Code status: Full # DVT prophylaxis: On Eliquis # Disposition: PT OT to see is stable DC home with home health Subjective Date/time seen: 04/13/24 11:41 Interval history: Chart reviewed. Wants to go home. Weakness persist. Labs reviewed. Review of Systems Review of Systems: All systems reviewed & are unremarkable except as noted in HPI and below Exam Narrative: General: In no acute distress, well nourished Cardiac: Normal S1 and S2. No murmur, gallops or friction rubs, peripheral pulses intact. Respiratory: Lungs clear to auscultation, no adventitious lung sounds, currently on room air Gastrointestinal: soft, obese, non-tender, normoactive bowel sounds. : Payne catheter draining clear yellow urine Neuro: Alert and oriented x4 Objective Data Vital Signs Vital Signs: Vital Signs - 24 hr 04/12/24 15:55 04/12/24 20:00 04/12/24 20:06 Temperature 98.0 F 97.6 F Pulse Rate 62 52 L Respiratory Rate 22 H 20 Blood Pressure 144/70 H 143/66 H Pulse Oximetry 98 93 Oxygen Delivery Room Air 04/12/24 21:11 04/12/24 23:10 04/13/24 00:00 Temperature 97.1 F L Pulse Rate 70 66 58 L Respiratory Rate 18 Blood Pressure 102/72 Pulse Oximetry 96 99 Oxygen Delivery CPAP 01/31/25 04:00 04/13/24 08:00 04/13/24 08:40 Temperature 97.3 F L Pulse Rate 68 67 67 Respiratory Rate 18 18 Blood Pressure 153/75 H Pulse Oximetry 96 96 Oxygen Delivery Room Air 04/13/24 08:42 Temperature 98.2 F Pulse Rate 64 Respiratory Rate 18 Blood Pressure 143/77 H Pulse Oximetry 99 Oxygen Delivery Intake/Output Intake/Output: Intake & Output 04/10/24 04/11/24 04/12/24 04/13/24 23:59 23:59 23:59 23:59 Intake Total 3963.8 4782.4 2920 490 Output Total 1600 1000 2200 550 Balance 2363.8 3782.4 720 -60 Meds/Results Medications: Active Medications Generic Name Dose Route Start Last Admin Trade Name Freq PRN Reason Stop Dose Admin Apixaban 2.5 mg 04/12/24 21:00 04/13/24 08:38 Apixaban 2.5 Mg Tablet BY MOUTH 2.5 mg Q12HR SIL Administration Aspirin 81 mg 04/10/24 09:00 04/13/24 08:38 Aspirin 81 Mg Chewable Tablet PO 81 mg DAILY SIL Administration Atorvastatin Calcium 40 mg 04/10/24 09:00 04/13/24 08:38 Atorvastatin 40 Mg Tablet PO 40 mg DAILY SIL Administration Carvedilol 12.5 mg 04/09/24 21:50 04/13/24 08:40 Carvedilol 12.5 Mg Tablet PO 12.5 mg Q12HR SIL Administration Clopidogrel Bisulfate 75 mg 04/10/24 09:00 04/13/24 08:39 Clopidogrel Bisulfate 75 Mg Tablet PO 75 mg DAILY SIL Administration Dextrose 12.5 gm 04/09/24 20:31 Dextrose 50% 25 Gm/50 Ml Syringe IV PUSH PRN PRN Hypoglycemia Protocol Empagliflozin 10 mg 04/10/24 09:00 04/13/24 08:39 Empagliflozin 10 Mg Tablet PO 10 mg DAILY SIL Administration Ferrous Sulfate 325 mg 04/12/24 09:00 04/13/24 08:39 Ferrous Sulfate [address] PO 325 mg DAILY SIL Administration Glucagon 1 mg 04/09/24 20:31 Glucagon For Inj 1 Mg Vial IM PRN PRN Hypoglycemia Protocol Glucose 15 gm 04/09/24 20:31 Glucose Oral Gel 15 Gm Of Glucse In 37.5 Gm Tube PO PRN PRN Hypoglycemia Protocol Dextrose 1,000 mls @ 100 mls/hr 04/09/24 20:31 Dextrose 5% 1,000 Ml IVPB PRN PRN Hypoglycemia Protocol Ceftriaxone Sodium 1 gm in 50 mls @ 100 mls/hr 04/13/24 09:00 04/13/24 08:39 Rocephin 1 Gm/Ns 50 Ml IVPB 100 mls/hr Q24H SIL Administration Levothyroxine Sodium 150 mcg 04/10/24 06:30 04/13/24 05:47 Levothyroxine Sodium 150 Mcg Tablet PO 150 mcg DAILY@0630 SIL Administration Pantoprazole Sodium 40 mg 04/10/24 09:00 04/13/24 08:38 Pantoprazole 40 Mg Tablet PO 40 mg QAM SIL Administration Sodium Bicarbonate 1,300 mg 04/11/24 09:00 04/13/24 08:39 Sodium Bicarbonate Tab 650 Mg Tablet PO 1,300 mg BID SIL Administration Tamsulosin HCl 0.4 mg 04/10/24 18:00 04/12/24 17:17 Tamsulosin Hcl 0.4 Mg Capsule PO 0.4 mg QPM SIL Administration Radiology Results: ITS Impressions Abdomen/Pelvis CT 04/09/24 13:38 IMPRESSION: 1. Moderate to large sliding-type hiatal hernia. 2. Stenosis scattered atherosclerotic disease with likely minimally significant stenosis at the origin of the celiac axis and superior mesenteric artery. 3. Stigmata of chronic pancreatitis. 4. Diverticulosis. 5. Diffuse bladder wall thickening which could be due to the partially decompressed state, chronic outlet obstruction from the prominently enlarged prostate or cystitis a Payne catheter in the bladder. Correlate with urinalysis. 6. Moderate-sized fat-containing umbilical hernia. Labs Labs: Laboratory Results - last 24 hr 04/13/24 05:46 WBC 7.8 RBC 3.59 L Hgb 10.7 L Hct 34.7 L MCV 96.7 MCH 29.8 MCHC 30.8 L RDW 13.0 Plt Count 195 MPV 11.6 H Immature Gran % (Auto) 0.8 H Neut % (Auto) 60.3 Lymph % (Auto) 23.7 [place] % (Auto) 9.4 H Eos % (Auto) 4.9 H Baso % (Auto) 0.9 Lymph # (Auto) 1.85 [place] # (Auto) 0.7 H Eos # (Auto) 0.4 H Baso # (Auto) 0.1 Abs Immat Gran (auto) 0.06 H Absolute Neuts (auto) 4.7 Absolute Nucleated RBC 0.000 Nucleated RBC % 0.0 Sodium 143 Potassium 3.9 Chloride 116 H Carbon Dioxide 18 L Anion Gap 9 BUN 35 H D Creatinine 2.08 H Estim Creat Clear Calc 29 Estimated GFR 31 L Glucose 100 Calcium 8.7 Total Bilirubin 0.6 AST 19 ALT 17 Alkaline Phosphatase 70 Total Protein 6.0 L Albumin 2.9 L
--- NOTE | 2024-04-13 13:32 | P.DS_ITS ---
DS: Admitting Diagnosis Discharge Date 04/13/2024 Admitting Diagnosis Nausea vomiting diarrhea DS: Discharge Diagnosis Discharge Diagnosis (1) Essential (primary) hypertension: Code(s): I10 - Essential (primary) hypertension Status: Acute (2) Acute diastolic CHF (congestive heart failure): Code(s): I50.31 - Acute diastolic (congestive) heart failure Status: Acute (3) Type 2 OK (myocardial infarction): Code(s): I21.A1 - Myocardial infarction type 2 Status: Acute (4) CAD in [place] artery: Code(s): I25.10 - Atherosclerotic heart disease of [place] coronary artery without angina pectoris Status: Acute (5) Atrial fibrillation: Qualifiers: Atrial fibrillation type: paroxysmal Qualified Code(s): I48.0 - Paroxysmal atrial fibrillation Code(s): I48.91 - Unspecified atrial fibrillation Status: Acute (6) CKD (chronic kidney disease) stage 3, GFR 30-59 ml/min: Qualifiers: Chronic kidney disease stage 3 subtype: stage 3a (GFR 45-59) Qualified Code(s): N18.31 - Chronic kidney disease, stage 3a Code(s): N18.3 - Chronic kidney disease, stage 3 (moderate) Status: Acute (7) Acute renal failure: Code(s): N17.9 - Acute kidney failure, unspecified Status: Acute (8) Acute hyperkalemia: Code(s): E87.5 - Hyperkalemia Status: Acute (9) BPH w/o urinary obs/LUTS: Code(s): N40.0 - Benign prostatic hyperplasia without lower urinary tract symptoms Status: Acute DS: Summary Hospital Course Hospital Course: 78-year-old male CKD, BPH with chronic Gutierrez, NSTEMI, hypothyroidism, hypertension, and atrial fibrillation presents the hospital with nausea vomiting and diarrhea. was found to have a potassium of 7.6.CT abdomen pelvis with chronic findings. EKG was sinus rhythm first-degree AV block. In the ED the patient was given a L bolus, IV insulin, dextrose, calcium gluconate, sodium bicarb, and Lokelma.Patient does take spironolactone and torsemide. # Gutierrez with pre-existing CKD+ hyperkalemia Hyperkalemia has resolved We will discontinue Lokelma Nephrology following Kidney function back to baseline IV fluids stopped Avoid any further nephrotoxins Nutrition consult to help with information with low-potassium diet Discontinued Losartan, lisinopril and spironolactone Restart as an outpatient basis monitoring labs # History of BPH with urinary obstruction: Patient has chronic Gutierrez 3-way 20Fr indwelling catheter placed 07/2023 removed without difficulty on 04/11/2024 Gutierrez easily exchanged at bedside using sterile technique, 18Fr coude with Urojet on 04/11/2024 Urine culture from previous Gutierrez was negative for infection Urine culture after Gutierrez exchange is pending Patient on ceftriaxone until we have the urine culture report. Will change to cefdinir at discharge. Continue with [employer] Home health needed to help change Gutierrez at least every 3-4 weeks Follow-up with Dr. Lamb in clinic 3-4 weeks Home health has been arranged # History of coronary artery disease/CABG: Continue with aspirin, Plavix, statin Dose of Eliquis has been decreased based on renal function ? Patient is on triple therapy with aspirin Plavix and Eliquis Need for all 3 ?(does have off and on microscopic hematuria) Will defer to Cardiology as an outpatient Continue with Clement Kee cardiac to outpatient record he is not on triple therapy. On the on aspirin Eliquis. Plan to lower the Eliquis already noted as outpatient basis. Will give 2.5 mg Eliquis script at discharge. Losartan/lisinopril on hold currently due to GUTIERREZ and hyperkalemia Restart as an outpatient basis for his congestive heart failure for cardiology # Congestive heart failure chronic systolic/diastolic EF 30% December 2023 Restart torsemide at a lower dose starting from next week # History of hypothyroidism: Continue with levothyroxine # PT/OT evaluated and did well # Code status: Full # DVT prophylaxis: On Eliquis # Disposition: DC home with home health Time Spent with Patient Time attestation: Total time spent providing and/or coordinating discharge services: 45 minutes Exam Narrative: General: In no acute distress, well nourished Cardiac: Normal S1 and S2. No murmur, gallops or friction rubs, peripheral pulses intact. Respiratory: Lungs clear to auscultation, no adventitious lung sounds, currently on room air Gastrointestinal: soft, obese, non-tender, normoactive bowel sounds. : Gutierrez catheter draining clear yellow urine Neuro: Alert and oriented x4 DS: Data Data Completed and Pending Labs on day of discharge: Labs from last 24 hours 04/13/24 05:46 WBC 7.8 RBC 3.59 L Hgb 10.7 L Hct 34.7 L MCV 96.7 MCH 29.8 MCHC 30.8 L RDW 13.0 Plt Count 195 MPV 11.6 H Immature Gran % (Auto) 0.8 H Neut % (Auto) 60.3 Lymph % (Auto) 23.7 [place] % (Auto) 9.4 H Eos % (Auto) 4.9 H Baso % (Auto) 0.9 Lymph # (Auto) 1.85 [place] # (Auto) 0.7 H Eos # (Auto) 0.4 H Baso # (Auto) 0.1 Abs Immat Gran (auto) 0.06 H Absolute Neuts (auto) 4.7 Absolute Nucleated RBC 0.000 Nucleated RBC % 0.0 Sodium 143 Potassium 3.9 Chloride 116 H Carbon Dioxide 18 L Anion Gap 9 BUN 35 H D Creatinine 2.08 H Estim Creat Clear Calc 29 Estimated GFR 31 L Glucose 100 Calcium 8.7 Total Bilirubin 0.6 AST 19 ALT 17 Alkaline Phosphatase 70 Total Protein 6.0 L Albumin 2.9 L Imaging Radiologist's impression: ITS Impressions Abdomen/Pelvis CT 04/09/24 13:38 IMPRESSION: 1. Moderate to large sliding-type hiatal hernia. 2. Stenosis scattered atherosclerotic disease with likely minimally significant stenosis at the origin of the celiac axis and superior mesenteric artery. 3. Stigmata of chronic pancreatitis. 4. Diverticulosis. 5. Diffuse bladder wall thickening which could be due to the partially decompressed state, chronic outlet obstruction from the prominently enlarged prostate or cystitis a Gutierrez catheter in the bladder. Correlate with urinalysis. 6. Moderate-sized fat-containing umbilical hernia. Discharge Plan Discharge Attending physician on discharge: Abdullahi Medrano Consulting providers: Rubio Welsh; Carolyn Stratton Discharging Clinician: Abdullahi Medrano Anticipated Discharge Date/Time: 04/13/24 11:45 Patient Disposition: Home Health Service Activity: as tolerated Diet: heart healthy, diabetic and renal Discharge Instructions: Per Care Coordination Patient has been accepted to have [facility] for RN visits for gutierrez cathater changes [phone]. [facility] staff will call you to arrange a time to see you in your home gutierrez exchange every 3-4 weeks Patient Instructions: Antibiotic Form, Apixaban (By mouth) Patient Language: Kyr[place]z Stand Alone Forms: General Discharge Information Follow-up/Referrals: Rubio Welsh MD [Physician] - 1 Week Quoc Lamb MD [Physician] - (3-4 weeks for Gutierrez exchange and to discuss PAE ) Yi Perea MD [Primary Care Provider] - 1 Week Discharge Medications: New atorvastatin 40 mg Tablet 40 mg PO HS Qty: 30 0RF levothyroxine [Synthroid] 150 mcg Tablet 150 mcg PO DAILY@0630 Qty: 30 0RF Eliquis 2.5 mg Tablet 2.5 mg BYMOUTH Q12HR Qty: 60 0RF cefdinir 300 mg capsule 300 mg PO DAILY Qty: 3 0RF Continued carvedilol 12.5 mg tablet 12.5 mg PO Q12H Qty: 180 1RF Rx Instructions: must administer with a meal/food Jardiance 10 mg tablet 10 mg PO DAILY pantoprazole 40 mg tablet,delayed release (DR/EC) 40 mg PO QAM aspirin 81 mg capsule 81 mg PO DAILY ferrous sulfate 325 mg (65 mg iron) tablet,delayed release (DR/EC) 325 mg PO DAILY Qty: 90 1RF tamsulosin 0.4 mg capsule 0.4 mg PO QPM Qty: 100 1RF cholecalciferol (vitamin D3) 50 mcg (2,000 unit) tablet 50 mcg PO DAILY Qty: 90 2RF tramadol 50 mg tablet 50 mg PO DAILY PRN (Reason: pain) Qty: 30 0RF Changed torsemide 20 mg tablet 20 mg PO DAILY Qty: 30 0RF Rx Instructions: start on tuesday04/16/2024 Discontinued spironolactone 25 mg tablet 25 mg PO DAILY Qty: 90 0RF losartan 25 mg tablet 25 mg PO BID lisinopril 40 mg tablet 40 mg PO DAILY Eliquis 5 mg tablet 5 mg PO Q12H Other Ambulatory Orders: Complete Blood Count with Diff (Routine) Timeframe: 1 Week Location: Determined by Patient Ordered By: Abdullahi Medrano Comprehensive Metabolic Panel (Routine) Timeframe: 1 Week Location: Determined by Patient Ordered By: Abdullahi Medrano Date of admission: 04/09/24 14:42 Primary Care Provider: Yi Perea Admitting Provider: Belén Sánchez Attending physician on admission: Luna Schultz Condition: Improved
--- NOTE | 2024-04-13 15:13 | PM.PNNEP ---
Subjective Date/time seen: 04/13/24 10:51 Objective Data Vital Signs Vital Signs: Vital Signs Temp Pulse Resp BP Pulse Ox O2 Del Method 04/13/24 10:23 97.0 F L 62 18 142/82 H 99 04/13/24 08:42 98.2 F 64 18 143/77 H 99 04/13/24 08:40 67 04/13/24 08:00 67 18 96 Room Air 04/13/24 04:00 97.3 F L 68 18 153/75 H 96 04/13/24 00:00 97.1 F L 58 L 18 102/72 99 04/12/24 23:10 66 96 CPAP 04/12/24 21:11 70 04/12/24 20:06 97.6 F 52 L 20 143/66 H 93 04/12/24 20:00 Room Air 04/12/24 15:55 98.0 F 62 22 H 144/70 H 98 Intake/Output Intake/Output: Intake & Output 04/10/24 04/11/24 04/12/24 04/13/24 23:59 23:59 23:59 23:59 Intake Total 3963.8 4782.4 2920 730 Output Total 1600 1000 2200 550 Balance 2363.8 3782.4 720 180 Meds/Results Medications: Active Medications Generic Name Dose Route Start Last Admin Trade Name Freq PRN Reason Stop Dose Admin Apixaban 2.5 mg 04/12/24 21:00 04/13/24 08:38 Apixaban 2.5 Mg Tablet BY MOUTH 2.5 mg Q12HR SIL Administration Aspirin 81 mg 04/10/24 09:00 04/13/24 08:38 Aspirin 81 Mg Chewable Tablet PO 81 mg DAILY SIL Administration Atorvastatin Calcium 40 mg 04/10/24 09:00 04/13/24 08:38 Atorvastatin 40 Mg Tablet PO 40 mg DAILY SIL Administration Carvedilol 12.5 mg 04/09/24 21:50 04/13/24 08:40 Carvedilol 12.5 Mg Tablet PO 12.5 mg Q12HR SIL Administration Clopidogrel Bisulfate 75 mg 04/10/24 09:00 04/13/24 08:39 Clopidogrel Bisulfate 75 Mg Tablet PO 75 mg DAILY SIL Administration Dextrose 12.5 gm 04/09/24 20:31 Dextrose 50% 25 Gm/50 Ml Syringe IV PUSH PRN PRN Hypoglycemia Protocol Empagliflozin 10 mg 04/10/24 09:00 04/13/24 08:39 Empagliflozin 10 Mg Tablet PO 10 mg DAILY SIL Administration Ferrous Sulfate 325 mg 04/12/24 09:00 04/13/24 08:39 Ferrous Sulfate [address] PO 325 mg DAILY SIL Administration Glucagon 1 mg 04/09/24 20:31 Glucagon For Inj 1 Mg Vial IM PRN PRN Hypoglycemia Protocol Glucose 15 gm 04/09/24 20:31 Glucose Oral Gel 15 Gm Of Glucse In 37.5 Gm Tube PO PRN PRN Hypoglycemia Protocol Dextrose 1,000 mls @ 100 mls/hr 04/09/24 20:31 Dextrose 5% 1,000 Ml IVPB PRN PRN Hypoglycemia Protocol Ceftriaxone Sodium 1 gm in 50 mls @ 100 mls/hr 04/13/24 09:00 04/13/24 08:39 Rocephin 1 Gm/Ns 50 Ml IVPB 100 mls/hr Q24H SIL Administration Levothyroxine Sodium 150 mcg 04/10/24 06:30 04/13/24 05:47 Levothyroxine Sodium 150 Mcg Tablet PO 150 mcg DAILY@0630 SIL Administration Pantoprazole Sodium 40 mg 04/10/24 09:00 04/13/24 08:38 Pantoprazole 40 Mg Tablet PO 40 mg QAM SIL Administration Sodium Bicarbonate 1,300 mg 04/11/24 09:00 04/13/24 08:39 Sodium Bicarbonate Tab 650 Mg Tablet PO 1,300 mg BID SIL Administration Tamsulosin HCl 0.4 mg 04/10/24 18:00 04/12/24 17:17 Tamsulosin Hcl 0.4 Mg Capsule PO 0.4 mg QPM SIL Administration Radiology Results: ITS Impressions Abdomen/Pelvis CT 04/09/24 13:38 IMPRESSION: 1. Moderate to large sliding-type hiatal hernia. 2. Stenosis scattered atherosclerotic disease with likely minimally significant stenosis at the origin of the celiac axis and superior mesenteric artery. 3. Stigmata of chronic pancreatitis. 4. Diverticulosis. 5. Diffuse bladder wall thickening which could be due to the partially decompressed state, chronic outlet obstruction from the prominently enlarged prostate or cystitis a Payne catheter in the bladder. Correlate with urinalysis. 6. Moderate-sized fat-containing umbilical hernia. Labs Labs: Laboratory Tests 04/13/24 05:46 04/13/24 05:46 Calcium 8.7 Total Bilirubin 0.6 AST 19 ALT 17 Alkaline Phosphatase 70 Total Protein 6.0 L Albumin 2.9 L
== END 2024-04-13 15:00 | disposition home health service (06) | DRG 683 ==
LOC: ANHED 14:42 → ANHIMU 17:35 → ANH3MED 04-12 20:07
PROVIDERS: Nurse Practitioner Acute Care; Nurse Practitioner Gerontology; Student in an Organized Health Care Education/Training Program; Admitting Provider Internal Medicine; Emergency Provider Emergency Medicine; PCP Family Medicine; Visit Provider Internal Medicine
DX: N17.9 Acute kidney failure, unspecified (principal); E87.20 Acidosis, unspecified; I50.42 Chronic combined systolic (congestive) and diastolic (congestive) heart failure; N13.8 Other obstructive and reflux uropathy; E87.5 Hyperkalemia; I87.2 Venous insufficiency (chronic) (peripheral); I48.0 Paroxysmal atrial fibrillation; I25.10 Atherosclerotic heart disease of native coronary artery without angina pectoris; I12.9 Hypertensive chronic kidney disease with stage 1 through stage 4 chronic kidney disease, or unspecified chronic kidney disease; N18.31 Chronic kidney disease, stage 3a; E03.9 Hypothyroidism, unspecified; E55.9 Vitamin D deficiency, unspecified; E78.5 Hyperlipidemia, unspecified; K21.9 Gastro-esophageal reflux disease without esophagitis; K44.9 Diaphragmatic hernia without obstruction or gangrene; N40.1 Benign prostatic hyperplasia with lower urinary tract symptoms; M19.90 Unspecified osteoarthritis, unspecified site; G47.33 Obstructive sleep apnea (adult) (pediatric); Z20.822 Contact with and (suspected) exposure to COVID-19; I25.2 Old myocardial infarction; Z86.73 Personal history of transient ischemic attack (TIA), and cerebral infarction without residual deficits; Z87.11 Personal history of peptic ulcer disease; Z95.5 Presence of coronary angioplasty implant and graft; Z79.01 Long term (current) use of anticoagulants
CPT/HCPCS: 36415; 74176; 80053; 81001; 82803; 82948; 83605; 83690; 83735; 84100; 84132; 85025; 87086; 87181; 87637; 93005; 94640; 96361; 96365; 96375; 97161; 97165; 99285; A9270; J0612; J0696; J1815; J2405; J7030

== ENCOUNTER 2024-04-30 08:40 | Outpatient (CLI) | payer MEDICARE, SELFPAY ==
[2024-04-30 13:50] LABS: Basophils Percent Auto 0.4 % (0.2-1.2); Eosinophils Absolute Auto 0.3 K/mm3 (0-0.3); Eosinophils Percent Auto 2.8 % (0-4.4); Hematocrit 40.5 % (42.0-52.0); Hemoglobin 12.4 g/dL (14.0-18.0); Immature Granulocyte Absolute 0.06 K/mm3 (0.00-0.031); Immature Granulocyte Percent A 0.6 % (0-0.5); Lymphocytes Absolute Auto 1.59 K/mm3 (0.9-3.2); Lymphocytes Percent Auto 15.4 % (18.3-44.2); Mean Corpuscular HGB Conc 30.6 g/dl (32-36); Mean Corpuscular Hemoglobin 29.8 pg (26-34); Mean Corpuscular Volume 97.4 fl (80-100); Mean Platelet Volume 11.8 fl (7.4-10.4); Monocytes Percent Auto 9.6 % (2.6-8.5); Neutrophils Absolute Auto 7.4 K/mm3 (1.3-6.7); Neutrophils Percent Auto 71.2 % (45.5-73.1); Platelet Count Result 122 k/mm3 (150-375); Red Blood Count 4.16 M/mm3 (4.6-6.20); Red Cell Distribution Width 13.3 % (11.5-14.5); White Blood Count 10.3 K/mm3 (4.5-10.0)
[2024-04-30 14:44] LABS: Alanine Aminotransferase 20 U/L (6-50); Albumin Level 3.8 g/dL (3.5-5.1); Alkaline Phosphatase 89 U/L (38-126); Anion Gap 8 mmol/L (4-12); Aspartate Amino Transferase 37 U/L (17-59); Bilirubin,Total 0.5 mg/dL (0.2-1.3); Blood Urea Nitrogen 46 mg/dL (9-20); Calcium 8.9 mg/dL (8.4-10.2); Carbon Dioxide 32 mmol/L (22-30); Chloride 101 mmol/L (98-107); Estimated Glomerular Filt Rate 26; Glucose 100 mg/dL (65-110); Potassium 4.1 mmol/L (3.4-5.0); Sodium 141 mmol/L (137-145)
== END 2024-04-30 08:41 | disposition home or self-care (01) ==
LOC: ANHGOSHLAB 08:41
PROVIDERS: PCP Family Medicine; Visit Provider Student in an Organized Health Care Education/Training Program
DX: I50.31 Acute diastolic (congestive) heart failure (principal); I10 Essential (primary) hypertension
CPT/HCPCS: 36415; 80053; 85025

== ENCOUNTER 2024-10-01 08:32 | Outpatient (CLI) | payer MEDICARE, SELFPAY ==
--- OUTSIDE RECORDS SUMMARY | 2024-10-01 08:35 | XMS_ITS | Data Portability ---
Author Organization [place] [facility] [employer], Main Office Address [address] [place] [address] Assessment No assessment recorded. Plan of Treatment [...] Abnormal Flag Note LastModifiedBy Organization Detail LastModifiedTime 07/10/19 22 06/14/2021 CPAP compl iance * No observ ation record ed. [id number] [facility] [address] [place] [address], [place], [address], 05/12/2022 03:05:03 Result Notes None recorded. Problems Name Problem SNOMED Code Status Onset Date Resolution Date Notes Provider Name and Address Organization Details Recorded Time Daytime hypersomni a 2494292674616 2 Active 2018 Not Available [facility] 3 02:52:47 Hypertensi ve disorder 49312957 Active 2018 Not Available [facility] 3 02:52:47 Hypoxia 297907759 Active 2018 Not Available [facility] 3 02:52:47 Body mass index 40+ - severely obese 629135416 Active 2018 Not Available [facility] 3 02:52:47 Obstructiv e sleep apnea syndrome 88297306 Active 2018 Not Available [facility] 3 02:52:47 Obesity 037840134 Active 2021 Not Available [facility] 3 02:52:47 Nasal congestion 52167010 Active 2021 Not Available [facility] 3 02:52:47 Problem Notes None recorded. Medical Equipment None Reported. [...] Available Not Available Vitals Date Recorded Body mass index (BMI) Body height Oxygen saturation Oxygen saturation in Arterial blood by Pulse oximetry Heart rate Body temperature Body weight Systolic And Diastolic Provider Name and Address Organization Details Last Updated DateTime 3 35.4 kg/m2 170.18 cm 96 % 96 % 78 /min 97.7 [degF] 095937. 88 g 130/80 mm[Hg] Not Available [facility] 3 02:51:08 Date Recorded Body mass index (BMI) Body height Oxygen saturation Oxygen saturation in Arterial blood by Pulse oximetry Heart rate Body temperature Body weight Systolic And Diastolic Provider Name and Address Organization Details Last Updated DateTime 2 36.2 kg/m2 170.18 cm 95 % 95 % 75 /min 97.4 [degF] 962126. 27 g 150/72 mm[Hg] Not Available [facility] 3 02:51:08 Date Recorded Body height Body mass index (BMI) Body weight Body temperature Heart rate Oxygen saturation Oxygen saturation in Arterial blood by Pulse oximetry Systolic And Diastolic Provider Name and Address Organization Details Last Updated DateTime 3 170.18 cm 35.2 kg/m2 134214. 28 g 97.2 [degF] 56 /min 97 % 97 % 134/80 mm[Hg] Erika Duarte MA [place] [facility] 3 10:34:35 Date Recorded Body mass index (BMI) Body height Oxygen saturation Oxygen saturation in Arterial blood by Pulse oximetry Heart rate Body temperature Body weight Systolic And Diastolic Provider Name and Address Organization Details Last Updated DateTime 1 35.8 kg/m2 170.18 cm 94 % 94 % 51 /min 97.2 [degF] 298281. 93 g 120/80 mm[Hg] Not Available [facility] 3 02:51:07 Date Recorded Body height Oxygen saturation Oxygen saturation in Arterial blood by Pulse oximetry Heart rate Body temperature Systolic And Diastolic Provider Name and Address Organization Details Last Updated DateTime 2 170.18 cm 97 % 97 % 76 /min 97.4 [degF] 142/90 mm[Hg] Not Available [facility] 3 02:51:08 Social History Question Answer Notes LastModified by Organizat ion Details LastModified Time Tobacco Smoking Status Former Smoker couple years in high school Not Available [facility] 05/12/2022 02:43:04 What Is Your Level Of Caffeine Consumption? Moderate Coffee Every Am [id number] Information not available 05/12/2022 How Much Tobacco Do You Chew? None [id number] Information not available 05/12/2022 In The 14 Days Before Symptom Onset, Have You Had Close Contact With A Laboratory-confir med COVID-19 While That Case Was Ill? No [id number] Information not available 05/12/2022 In The 14 Days Before Symptom Onset, Have You Had Close Contact With A Person Who Is Under Investigation For COVID-19 While That Person Was Ill? No [id number] Information not available 05/12/2022 Which Illicit Or Recreational Drugs Have You Used? None [id number] Information not available 05/12/2022 When Did You Quit Smoking? 16+yearssinc elastcigaret te 60 Years Or More [id number] Information not available 05/12/2022 What Was The Date Of Your Most Recent Tobacco Screening? 05/23/2020 [id number] Information not available 05/12/2022 Do You Have Any Pets? Yes [id number] Information not available 05/12/2022 At What Age Did You Start Smoking Tobacco? 13 [id number] Information not available 05/12/2022 Sex: Unknown Functional Status Question Answer Note LastModified by [employer] ion Details LastModified Time Do you use any illicit or recreational drugs? No [id number] Information not available 05/12/2022 What is your level of alcohol consumption? Occasional wine [id number] Information not available 05/12/2022 Do you or have you ever used e-cigarettes or vape? Never used electronic cigarettes [id number] Information not available 05/12/2022 Mental Status None recorded. Family History Nothing Reported. Medical History No medical history recorded. Immunizations Vaccine Type Date Status Note Provider Nam e and Address Organization Details Recorded Time COVID-19, mRNA, LNP-S, PF, 100 mcg/0.5mL dose or 50 mcg/0.25mL dose 05/12/2020 completed Not Available [facility] 3 03:04:08 COVID-19, mRNA, LNP-S, PF, 100 mcg/0.5mL dose or 50 mcg/0.25mL dose 04/14/2020 completed Not Available [facility] 3 03:04:08 Past Encounters Encounter ID Performer Location Encounter Start Date Encounter Closed Date Diagnosis/Indication Diagnosis SNOMED-CT Code Diagnosis ICD10 Code Diagnosis Note [id number] [facility] [place] [address] [facility] [address] [place] [address] 05/23/2020 00:00:00 05/23/2020 10:42:13 [id number] [facility] [place] [address] [place] [address] 12/15/2020 00:00:00 12/15/2020 10:39:52 [id number] [facility] [place] [address] [place] [address] 06/15/2021 00:00:00 06/15/2021 10:39:49 [id number] [facility]ERE RodriguesPKamal[facility] [place] [address] [place] [address] 12/15/2021 00:00:00 12/15/2021 12:30:57 [id number] [facility] [place] [address] [place] [phone] 03/17/2022 00:00:00 03/17/2022 10:16:28 [id number] [facility] [place] [address] [place] [id number] 09/20/2022 10:26:05 09/20/2022 11:16:22 Obstructive sleep apnea syndrome 96793424 G47.33 In lab study with AHI 50.4 [...] no more than 30 minutes.-M inimize environmen cristine noise, bright lights, and extremes in bedroom temperatur e.-Avoid alcohol, caffeinate d beverages, and nicotine products for at least 6 hours prior to bedtime.-A void strenuous exercise and large meals for at least 4 hours prior to bedtime.RT C in 6-8 weeks Daytime hypersomnia 3177 004020 3769 G47.19 Multifacto ralImprove d with PAP Health Concerns Section Related Observation LastModified by Organization Detai ls LastModified Time None Recorded Concern Status LastModified by Organization Details LastModified Time None Recorded Advance Directives Directive None Recorded Payers Insurance Date Sequence Insurance Name Policy Number Policy Jeffers Covered Member ID Jeffers Member ID Guarantor Name 11/25/2023 1 [facility] [id number] Alberto Rea [id number] Alberto Rea Notes Date Note Type Note [...] xerostomia and aerophagia.Nocturia is unchanged Milli Markham, [employer] [address] [facility], [facility] [address], [place], [address], [place] [facility] 09/20/2022 12:33:12
[2024-10-01 13:38] LABS: Albumin Level 3.9 g/dL (3.5-5.1); Anion Gap 10 mmol/L (4-12); Blood Urea Nitrogen 46 mg/dL (9-20); Calcium 8.9 mg/dL (8.4-10.2); Carbon Dioxide 28 mmol/L (22-30); Chloride 104 mmol/L (98-107); Estimated Glomerular Filt Rate 27; Glucose 125 mg/dL (65-110); Potassium 3.6 mmol/L (3.4-5.0); Sodium 142 mmol/L (137-145)
[2024-10-01 13:51] LABS: Parathyroid Intact 226.4 pg/mL (14.5-75.2)
== END 2024-10-01 08:33 | disposition home or self-care (01) ==
LOC: ANHGOSHLAB 08:33
PROVIDERS: PCP Family Medicine; Visit Provider Internal Medicine Nephrology
DX: I12.9 Hypertensive chronic kidney disease with stage 1 through stage 4 chronic kidney disease, or unspecified chronic kidney disease (principal); N18.4 Chronic kidney disease, stage 4 (severe); N40.1 Benign prostatic hyperplasia with lower urinary tract symptoms; N13.8 Other obstructive and reflux uropathy
CPT/HCPCS: 36415; 80069; 82306; 83970

== ENCOUNTER 2024-10-31 11:06 | Outpatient (CLI) | payer MEDICARE, SELFPAY ==
[2024-10-31 14:28] LABS: Uric Acid 10.7 mg/dL (3.5-8.5)
[2024-11-01 13:09] LABS: Anti-CCP Ab, IgG/IgA 9 units (0-19)
== END 2024-10-31 11:07 | disposition home or self-care (01) ==
LOC: ANHGOSHLAB 11:06
PROVIDERS: PCP Nurse Practitioner Family; Visit Provider Nurse Practitioner Family
DX: M25.40 Effusion, unspecified joint (principal)
CPT/HCPCS: 36415; 84550; 85652; 86200; 86430

== ENCOUNTER 2024-11-18 09:58 | Emergency (ER) | payer MEDICARE, SELFPAY ==
--- NOTE | ~2024-11-18 | XR_ITS ---
EXAMINATION: XR chest 2V, 11/18/2024 12:30 CDT HISTORY: shortness of breath, intermittent chest pain COMPARISON: No comparisons available. Technique: 2 views obtained. Findings: Mild pulmonary venous congestion. COPD changes. No pneumothorax. Mild cardiomegaly. Small hiatal hernia. Post sternotomy. Impression: CHF Reviewed, dictated and finalized at location A. Impression: CHF
[2024-11-18 10:34] VITALS: BP 165/106; PULSE 83; RESP 20; TEMP 36.6; O2SAT 96
--- NOTE | 2024-11-18 10:55 | ECG_ITS ---
Test Date: 2024-11-18 11:12:05 Measurements Intervals [place] Rate: 70 P: 102 AL: 238 QRS: 207 QRSD: 100 T: 143 QT: 422 QTc: 458 Interpretive Statements SINUS RHYTHM WITH FIRST DEGREE AV BLOCK WITH OCCASIONAL VENTRICULAR PREMATURE COMPLEXES ARM LEADS REVERSED [INVERTED P AND QRS IN I] Compared to ECG 04/09/2024 14:09:11 Ventricular premature complex(es) now present Poor R-wave progression no longer present ST (T wave) deviation no longer present Electronically Signed On 11-18-2024 16:07:28 CDT by Hitesh Anton M.D.
--- NOTE | 2024-11-18 10:58 | ED.SOB ---
HPI - SOB/Dyspnea General Chief Complaint: Urogenital-Male Stated Complaint: bladder pain, cath not draining Time Seen by Provider: 11/18/24 10:06 History of Present Illness HPI Narrative: Patient is an 78-year-old male who presents to the ER with urinary retention. He reports he has a Payne catheter due to history of BPH. Patient reports this morning he woke up in changed his like back, then around 9:00 a.m. had worsening abdominal pain. He reports his granddaughter brought him into the ER for evaluation, as his pain was not getting better. Patient also endorses a history of congestive heart failure, abnormal thyroid levels and diabetes. He reports over the past 1-2 weeks his lower extremities have become significantly swollen, he has been experiencing more shortness of breath, and he has intermittent indigestion. Patient does not believe he has a history of COPD. He denies any recent fevers, back pain, headaches or altered mental status. Related Data Home Medications ?Medication ?Instructions ?Recorded ?Confirmed ?Last Taken ?Type empagliflozin 10 mg tablet 10 mg PO DAILY 08/26/23 10/31/24 04/09/24 History (Jardiance) aspirin 81 mg capsule 81 mg PO DAILY 04/10/24 10/31/24 04/09/24 08:00 History 81 mg Allergies Allergy/AdvReac Type Severity Reaction Status Date / Time No Known Allergies Allergy Verified 11/18/24 10:41 Review of Systems Review of Systems: All systems reviewed & are unremarkable except as noted in HPI and below PMFSH Past Medical History Medical History Nonsustained ventricular tachycardia H/O: upper GI bleed Type 2 CA (myocardial infarction) PAF (paroxysmal atrial fibrillation) CAD in [place] artery Non-ST elevation CA (NSTEMI) (~04/2023) Hypothyroidism (acquired) Vitamin D deficiency Chronic venous insufficiency of lower extremity History of stroke (1991) Stroke was in [address], [facility], unclear if hemorrhagic or not but pt does not recall any intravascular intervention. GERD without esophagitis Peptic ulcer disease 09/2019-cauterization and placed on PPI Anemia of chronic disease CKD (chronic kidney disease) stage 3, GFR 30-59 ml/min Unspecified osteoarthritis, unspecified site BPH w/o urinary obs/LUTS CAD in [place] artery History of RCA stents, and Left anterior descending (at [facility] The most recent intervention was in August [address] Bartlett, when he had atherectomy balloon angioplasty and stenting of the proximal and mid Left anterior descending (at [facility], [place]). Dyslipidemia Essential (primary) hypertension JILLIAN (obstructive sleep apnea) uses a CPAP machine Surgical History Surgical History H/O esophagogastroduodenoscopy this past week with cauterization of peptic ulcer disease H/O bilateral cataract extraction (~2018) History of coronary artery stent placement (~05/05/18) x3. Drug-eluting stent to the RCA in 2 stents the LAD. Family History Family History Father Family history of cardiovascular disease, Onset Age: 55 Hypertension, Onset Age: 55 Mother Patient's mother is , Onset Age: 65 Bladder cancer Social History Social History Social History: the patient is and lives with his . She is the durable power fagot heater helper for healthcare. The patient is a full code. He has 1 adopted son. 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 He used to smoke until E adopted his son. He occasionally has a glass of wine maybe twice a week. Depending on what they eat that week. He stated he has lost about 40 lb by trying this past year. Smoking status: Never smoker Second hand tobacco smoke exposure: No Additional smoking assessment comments: SMOKED FOR ONE YEAR DURING COLLEGE Alcohol intake: current Drinks per week: 3 Alcohol use details: consumes 2 glasses of wine weekly Substance use: never Substance use type: does not use Do You Feel Safe in your Home?: Yes Lack of Transportation: No Lack of Food: Never True Current Housing: I Have Housing Concerned About Future Housing: No Difficulty Paying Gas/Electric Bills: No Difficulty Paying for Meds: No Currently Unemployed: No Education: Decline to Answer Difficulty w/ Childcare or Family Care: No Gender identity (if verbalized by the patient): Male Sexual Orientation (if Verbalized by the Patient): Straight or Heterosexual Spiritual care concerns: No Exam Narrative: GENERAL: Well appearing, obese, non-toxic, in no acute distress. HEAD: Normocephalic, atraumatic. NECK: Supple. No adenopathy, no masses. RESPIRATORY: Airway patent, respirations mildly labored. Clear to auscultation bilaterally, no rales, rhonchi, wheezing. CARDIOVASCULAR: Regular rate and rhythm with murmurs, rubs, or gallops. Bilateral lower extremity edema. ABDOMINAL: Soft, nontender, nondistended, no hepatosplenomegaly. Normoactive BS. MUSCULOSKELETAL: Moves all extremities. Strength/ROM intact without gross deformities. SKIN: Warm, dry, normal color. No rashes. NEURO: A&O X3. Speech clear. Cranial nerves II-XII intact. No ataxic movements. PSYCHIATRIC: Appropriate mood and affect. Normal interaction. Course Vital Signs Vital signs: Vital Signs Temperature 36.6 C 11/18/24 10:34 Pulse Rate 83 11/18/24 10:34 Respiratory Rate 20 11/18/24 10:34 Blood Pressure 165/106 H 11/18/24 10:34 Pulse Oximetry 96 11/18/24 10:34 Oxygen Delivery Room Air 11/18/24 10:34 Temperature 36.6 C 11/18/24 10:34 Pulse Rate 80 11/18/24 13:32 Respiratory Rate 20 11/18/24 13:32 Blood Pressure 151/71 H 11/18/24 13:32 Pulse Oximetry 95 11/18/24 13:32 Oxygen Delivery Room Air 11/18/24 10:34 MDM - SOB/Dyspnea MDM Narrative Medical decision making narrative: Patient is an 78-year-old male who presents to the ER with urinary retention. He reports he has a Payne catheter due to history of BPH. Patient reports this morning he woke up in changed his like back, then around 9:00 a.m. had worsening abdominal pain. He reports his granddaughter brought him into the ER for evaluation, as his pain was not getting better. Patient also endorses a history of congestive heart failure, abnormal thyroid levels and diabetes. He reports over the past 1-2 weeks his lower extremities have become significantly swollen, he has been experiencing more shortness of breath, and he has intermittent indigestion. Patient does not believe he has a history of COPD. He denies any recent fevers, back pain, headaches or altered mental status. Labs Ordered: CBC, CMP, PTT, INR, proBNP, troponin, UA, TSH (d/t pt's hx abnormal thyroid) Imaging Ordered: chest x-ray Medications Ordered: Lasix 40 mg IV, Ampicillin PO Results: Patient's CBC indicates a RBC of 4.14, hemoglobin 11.7, hematocrit of 37.5%. His coags indicated PT of 16.4. Patient's chemistry indicates a BUN of 56, creatinine of 2.68, estimated GFR 23, glucose of 138, magnesium of 2.5. His troponin was within normal limits. [place]BNP [place] [address]. Diagnosis: Urinary tract infection, mild shortness of breath, Payne catheter blockage Consults: urology (outpatient-already established) Patient Education/Shared MDM: Results of lab work and imaging shared with patient. He endorses improvement of symptoms following medication administration (Lasix) and Payne catheter exchange. Patient strongly advised to maintain hydration status upon discharge and follow-up with his PCP as soon as possible regarding his elevated thyroid levels and history of congestive heart failure. He was also advised to follow-up with urology as soon as possible. Patient will be discharged home with a prescription for ampicillin p.o. (after conversing with pharmacy about appropriate antibiotic). He reports he is scheduled to start physical therapy tomorrow as he has had decreased strength lately and they are hoping to ?build me back up. Strict return precautions provided. Patient verbalized understanding and is in agreement with plan. Vital signs stable at time of discharge. All questions answered. Differential Diagnosis Differential diagnosis: Likely acute exacerbation of chronic obstructive airways disease, congestive heart failure, community acquired pneumonia and other (Elevated thyroid levels, urinary tract infection, blocked Payne catheter) Lab Data Attestation: I reviewed the patient's lab results. 11/18/24 11:08 11/18/24 11:08 Labs: Lab Results 11/18/24 11/18/24 Range/Units 11:08 11:09 WBC 8.5 (4.5-10.0) K/mm3 RBC 4.14 L (4.6-6.20) M/mm3 Hgb 11.7 L (14.0-18.0) g/dL Hct 37.5 L (42.0-52.0) % MCV 90.6 (80-100) fl MCH 28.3 (26-34) pg MCHC 31.2 L (32-36) g/dl RDW 15.6 H (11.5-14.5) % Plt Count 211 D (150-375) k/mm3 MPV 10.4 (7.4-10.4) fl Immature Gran % (Auto) 0.5 (0-0.5) % Neut % (Auto) 67.7 (45.5-73.1) % Lymph % (Auto) 16.5 L (18.3-44.2) % [place] % (Auto) 9.4 H (2.6-8.5) % Eos % (Auto) 4.8 H (0-4.4) % Baso % (Auto) 1.1 (0.2-1.2) % Lymph # (Auto) 1.40 (0.9-3.2) K/mm3 [place] # (Auto) 0.8 H (0.1-0.6) K/mm3 Eos # (Auto) 0.4 H (0-0.3) K/mm3 Baso # (Auto) 0.1 (0.0-0.1) K/mm3 Abs Immat Gran (auto) 0.04 H (0.00-0.031) K/mm3 Absolute Neuts (auto) 5.8 (1.3-6.7) K/mm3 Absolute Nucleated RBC 0.000 (0.0-0.012) K/mm3 Nucleated RBC % 0.0 (0.0-0.2) % PT 16.4 H (11.1-14.7) Seconds INR 1.3 APTT 30.9 (22.3-36.8) Seconds Sodium 142 (137-145) mmol/L Potassium 3.7 (3.4-5.0) mmol/L Chloride 106 (98-107) mmol/L Carbon Dioxide 27 (22-30) mmol/L Anion Gap 9 (4-12) mmol/L BUN 56 H D (9-20) mg/dL Creatinine 2.68 H (0.7-1.3) mg/dL Estim Creat Clear Calc 23 ml/min Estimated GFR 23 L (59 - ) Glucose 138 H (65-110) mg/dL Calcium 9.0 (8.4-10.2) mg/dL Magnesium 2.5 H (1.6-2.3) mg/dL Total Bilirubin 0.8 (0.2-1.3) mg/dL AST 24 (17-59) U/L ALT 19 (6-50) U/L Alkaline Phosphatase 126 (38-126) U/L Troponin I 0.034 (0.000-0.034) ng/mL NT-Pro-B Natriuret Pep 56698 H (19.9-100) pg/mL Total Protein 7.5 (6.3-8.2) g/dL Albumin 3.7 (3.5-5.1) g/dL TSH (Reflex) 9.750 H (0.465-4.68) uIU/mL Free T4 1.53 (0.78-2.19) ng/dL Total T3 0.66 L (0.82-1.58) NG/ML Urine Color Yellow (Yellow) Urine Appearance Cloudy H (Clear) Urine pH 6.5 (5.0-9.0) Ur Specific [place] 1.020 (1.001-1.035) Urine Protein 2+ H (Negative) mg/dL Urine Glucose (UA) 1+ H (Negative) mg/dL Urine Ketones Negative (Negative) mg/dL Ur Blood (Man) 3+ H (Negative) Urine Nitrate Negative (Negative) Urine Bilirubin Negative (Negative) Urine Urobilinogen 0.2 (<2.0) mg/dL Add Ur Microanalysis Reviewed Leukocyte Esterase Rfl 1+ H (Negative) ELIOT/UL Urine RBC >100 H (0-2) /hpf Urine WBC >100 H (0-3) /hpf Ur Squamous Epith Cells None seen (Few) /hpf Urine Bacteria Rare /hpf Urine Casts 11-20 Imaging Data Attestation: I personally reviewed and interpreted this imaging study as follows: Radiologist's impression: Impressions Chest X-Ray 11/18/24 12:59 Impression: CHF Discharge Plan Discharge Clinical Impression: Payne catheter problem, Encounter for Payne catheter replacement, Obstructed Payne catheter, History of CHF (congestive heart failure), Urinary tract infection, Mild shortness of breath, Physical deconditioning Patient Disposition: Home Condition: Stable Instructions: Antibiotic Form, Urinary Tract Infection in Men (ED), Payne Catheter Placement and Care (ED) Additional Instructions: Please return to the ER with any worsening symptoms. Follow-up with primary care provider and Urology as soon as possible. Take all medications as prescribed, including regularly scheduled medications. Complete your full dose of antibiotics. Patient Language: Indian Prescriptions: New ampicillin 500 mg capsule 500 mg PO Q6H 7 Days Qty: 28 0RF No Action carvedilol 12.5 mg tablet 12.5 mg PO Q12H Qty: 180 1RF Rx Instructions: must administer with a meal/food buspirone 10 mg tablet 10 mg PO BID PRN (Reason: anxiety) Qty: 180 1RF hydrocodone-acetaminophen 5-325 mg tablet 1 tablet PO Q8H PRN (Reason: pain) Qty: 30 0RF Eliquis 2.5 mg tablet 2.5 mg BYMOUTH Q12HR Qty: 60 0RF Jardiance 10 mg tablet 10 mg PO DAILY aspirin 81 mg capsule 81 mg PO DAILY torsemide 20 mg tablet 20 mg PO DAILY Qty: 30 0RF Rx Instructions: start on tuesday04/16/2024 ferrous sulfate 325 mg (65 mg iron) tablet,delayed release (DR/EC) 325 mg PO DAILY Qty: 90 1RF cholecalciferol (vitamin D3) 50 mcg (2,000 unit) tablet 50 mcg PO DAILY Qty: 90 2RF atorvastatin 40 mg tablet 40 mg PO HS Qty: 90 2RF levothyroxine [Synthroid] 150 mcg tablet 150 mcg PO DAILY@0630 Qty: 90 0RF pantoprazole 40 mg tablet,delayed release (DR/EC) 40 mg PO QAM Qty: 100 1RF tamsulosin 0.4 mg capsule 0.4 mg PO QPM Qty: 100 1RF febuxostat [Uloric] 40 mg tablet 40 mg PO DAILY Qty: 45 0RF Rx Instructions: Take 1 tab daily for 10 days, then take 1/2 tab daily. Follow-up/Referrals: Quoc Lamb MD [Physician, Urology] Referral Note: primary care provider PHYSICIAN,ORAL COMMUNICATION INSTRUCTOR [Primary Care Provider, Internal Medicine] Time of Disposition: 13:36
[2024-11-18 11:07] VITALS: BP 137/99; PULSE 78; RESP 19; O2SAT 93
[2024-11-18 11:21] LABS: Hematocrit 37.5 % (42.0-52.0); Hemoglobin 11.7 g/dL (14.0-18.0); Immature Granulocyte Percent A 0.5 % (0-0.5); Lymphocytes Absolute Auto 1.40 K/mm3 (0.9-3.2); Mean Corpuscular HGB Conc 31.2 g/dl (32-36); Mean Corpuscular Hemoglobin 28.3 pg (26-34); Mean Corpuscular Volume 90.6 fl (80-100); Nucleated Red Blood Cells Absolute Auto 0.000 K/mm3 (0.0-0.012); Nucleated Red Blood Cells Perc 0.0 % (0.0-0.2); Platelet Count Result 211 k/mm3 (150-375); Red Blood Count 4.14 M/mm3 (4.6-6.20); White Blood Count 8.5 K/mm3 (4.5-10.0)
[2024-11-18 11:30] LABS: Alanine Aminotransferase 19 U/L (6-50); Albumin Level 3.7 g/dL (3.5-5.1); Alkaline Phosphatase 126 U/L (38-126); Anion Gap 9 mmol/L (4-12); Aspartate Amino Transferase 24 U/L (17-59); Bilirubin,Total 0.8 mg/dL (0.2-1.3); Blood Urea Nitrogen 56 mg/dL (9-20); Calcium 9.0 mg/dL (8.4-10.2); Carbon Dioxide 27 mmol/L (22-30); Chloride 106 mmol/L (98-107); Estimated CRCL calculation 23 ml/min; Estimated Glomerular Filt Rate 23; Glucose 138 mg/dL (65-110); Magnesium 2.5 mg/dL (1.6-2.3); Potassium 3.7 mmol/L (3.4-5.0); Sodium 142 mmol/L (137-145); Total Protein 7.5 g/dL (6.3-8.2)
[2024-11-18 11:31] LABS: INR 1.3; Prothrombin Time 16.4 Seconds (11.1-14.7)
[2024-11-18 11:32] LABS: Partial Thromboplastin Time 30.9 Seconds (22.3-36.8)
[2024-11-18 11:42] LABS: NT Pro B Type Natriuretic Pept 16800 pg/mL (19.9-100); Troponin I 0.034 ng/mL (0.000-0.034)
[2024-11-18 11:42] LABS: Add Urine Microscopic? YES; Glucose Urine UA 1+ mg/dL (Negative); Specific Grav Ur 1.020 (1.001-1.035)
[2024-11-18 11:43] LABS: Appearance Urine Cloudy (Clear); Leukocyte Esterase Ur 1+ LEU/UL (Negative); Nitrate Urine Negative (Negative)
[2024-11-18 11:44] LABS: Need Manual Microscopic Reviewed
[2024-11-18] MEDS: FUROSEMIDE INJ 40 MG/4 ML VIAL IV PUSH (11:53)
[2024-11-18 12:06] LABS: Thyroid Stimulating Hormone Reflex 9.750 uIU/mL (0.465-4.68)
[2024-11-18 13:00] LABS: Free T4 Free Thyroxine Reflex 1.53 ng/dL (0.78-2.19)
[2024-11-18] MEDS: AMPICILLIN TRIHYDRATE 500 MG CAPSULE PO (13:28)
[2024-11-18 13:29] VITALS: BP 164/100; PULSE 84; RESP 16; O2SAT 95
[2024-11-18 13:32] VITALS: BP 151/71; PULSE 80; RESP 20; O2SAT 95
[2024-11-18 13:39] LABS: Total Triiodothyronine (T3) 0.66 NG/ML (0.82-1.58)
== END 2024-11-18 14:01 | disposition home or self-care (01) ==
PROVIDERS: Emergency Provider Registered Nurse
DX: T83.098A Other mechanical complication of other urinary catheter, initial encounter (principal); Y73.1 Therapeutic (nonsurgical) and rehabilitative gastroenterology and urology devices associated with adverse incidents; N39.0 Urinary tract infection, site not specified; R06.02 Shortness of breath; I50.9 Heart failure, unspecified; I25.2 Old myocardial infarction; I25.10 Atherosclerotic heart disease of native coronary artery without angina pectoris; E03.9 Hypothyroidism, unspecified; Z86.73 Personal history of transient ischemic attack (TIA), and cerebral infarction without residual deficits; K21.9 Gastro-esophageal reflux disease without esophagitis; I13.0 Hypertensive heart and chronic kidney disease with heart failure and stage 1 through stage 4 chronic kidney disease, or unspecified chronic kidney disease; N18.30 Chronic kidney disease, stage 3 unspecified; M19.90 Unspecified osteoarthritis, unspecified site; D64.9 Anemia, unspecified; G47.30 Sleep apnea, unspecified
CPT/HCPCS: 36415; 51702; 71046; 80053; 81001; 83735; 83880; 84439; 84443; 84480; 84484; 85025; 85610; 85730; 87086; 87186; 93005; 96374; 99284; A9270; J1938

== ENCOUNTER 2024-11-27 16:14 | Emergency (ER) | payer MEDICARE, SELFPAY ==
[2024-11-27 16:17] VITALS: BP 188/99; PULSE 94; RESP 18; TEMP 36.5; O2SAT 98
[2024-11-27 17:47] LABS: Hematocrit 41.0 % (42.0-52.0); Hemoglobin 12.8 g/dL (14.0-18.0); Immature Granulocyte Percent A 0.7 % (0-0.5); Lymphocytes Absolute Auto 2.20 K/mm3 (0.9-3.2); Mean Corpuscular HGB Conc 31.2 g/dl (32-36); Mean Corpuscular Hemoglobin 27.9 pg (26-34); Mean Corpuscular Volume 89.3 fl (80-100); Nucleated Red Blood Cells Absolute Auto 0.000 K/mm3 (0.0-0.012); Nucleated Red Blood Cells Perc 0.0 % (0.0-0.2); Platelet Count Result 273 k/mm3 (150-375); Red Blood Count 4.59 M/mm3 (4.6-6.20); White Blood Count 9.5 K/mm3 (4.5-10.0)
[2024-11-27 18:02] LABS: Alanine Aminotransferase 23 U/L (6-50); Albumin Level 4.0 g/dL (3.5-5.1); Alkaline Phosphatase 129 U/L (38-126); Anion Gap 11 mmol/L (4-12); Aspartate Amino Transferase 34 U/L (17-59); Bilirubin,Total 0.7 mg/dL (0.2-1.3); Blood Urea Nitrogen 49 mg/dL (9-20); Calcium 9.0 mg/dL (8.4-10.2); Carbon Dioxide 24 mmol/L (22-30); Chloride 105 mmol/L (98-107); Estimated CRCL calculation 24 ml/min; Estimated Glomerular Filt Rate 26; Glucose 107 mg/dL (65-110); Potassium 4.2 mmol/L (3.4-5.0); Sodium 140 mmol/L (137-145); Total Protein 8.3 g/dL (6.3-8.2)
[2024-11-27 18:30] LABS: Add Urine Microscopic? YES; Appearance Urine Clear (Clear); Glucose Urine UA 2+ mg/dL (Negative); Leukocyte Esterase Ur 2+ LEU/UL (Negative); Nitrate Urine Negative (Negative); Specific Grav Ur 1.011 (1.001-1.035)
--- NOTE | 2024-11-27 19:10 | ED.MALEGU ---
HPI - Male Genitourinary General Chief complaint: Urogenital-Male Stated complaint: UTI Time Seen by Provider: 11/27/24 17:33 Source: patient Mode of arrival: ambulatory Limitations: no limitations History of Present Illness HPI Narrative: 78-year-old with a history of hypertension, hyperlipidemia, chronic Gutierrez catheter here with a complains of blood in the Gutierrez catheter. Patient states that he was feeling fine all morning went to pick his granddaughter from [facility] on his way back felt a pressure in his lower abdomen and he noticed his gutierrez cath bag was full and had some blood in it . He also states he noticed a kink in the cath .pt states he had Cath changed 9 days ago and he is on ABX for uti . he presently denies any fever or abd pin Related Data Home Medications ?Medication ?Instructions ?Recorded ?Confirmed ?Last Taken ?Type empagliflozin 10 mg tablet 10 mg PO DAILY 08/26/23 11/22/24 04/09/24 History (Jardiance) aspirin 81 mg capsule 81 mg PO DAILY 04/10/24 11/22/24 04/09/24 08:00 History 81 mg febuxostat 40 mg tablet (Uloric) 20 mg PO DAILY 11/22/24 11/22/24 Unknown History hydrocodone 5 mg-acetaminophen 325 1 tablet PO BID PRN pain 11/22/24 11/22/24 Unknown History mg tablet lisinopril 5 mg tablet 5 mg PO DAILY 11/22/24 11/22/24 Unknown History Allergies Allergy/AdvReac Type Severity Reaction Status Date / Time No Known Allergies Allergy Verified 11/27/24 17:46 Review of Systems Review of Systems: All systems reviewed & are unremarkable except as noted in HPI and below Constitutional: Constitutional: Reports no additional constitutional complaints Eyes: Eyes: Reports no additional eye complaints ENT: Reports system reviewed and no additional complaints, except as documented Cardiovascular: Cardiovascular: Reports no additional cardiovascular complaints Respiratory: Respiratory: Reports no additional respiratory complaints Gastrointestinal: Gastrointestinal: Reports as per HPI Genitourinary: Genitourinary: Reports as per HPI [facility], [facility] Past Medical History Medical History Nonsustained ventricular tachycardia H/O: upper GI bleed Type 2 NE (myocardial infarction) PAF (paroxysmal atrial fibrillation) CAD in [place] artery Non-ST elevation NE (NSTEMI) (~04/2023) Hypothyroidism (acquired) Vitamin D deficiency Chronic venous insufficiency of lower extremity History of stroke (1991) Stroke was in 1991, [facility], unclear if hemorrhagic or not but pt does not recall any intravascular intervention. GERD without esophagitis Peptic ulcer disease 09/2019-cauterization and placed on PPI Anemia of chronic disease CKD (chronic kidney disease) stage 3, GFR 30-59 ml/min Unspecified osteoarthritis, unspecified site BPH w/o urinary obs/LUTS CAD in [place] artery History of RCA stents, and Left anterior descending ([facility] The most recent intervention was in August [address] Bartlett, when he had atherectomy balloon angioplasty and stenting of the proximal and mid Left anterior descending (at [facility]). Dyslipidemia Essential (primary) hypertension JILLIAN (obstructive sleep apnea) uses a CPAP machine Surgical History Surgical History H/O esophagogastroduodenoscopy this past week with cauterization of peptic ulcer disease H/O bilateral cataract extraction (~2017) History of coronary artery stent placement (~05/05/18) x3. Drug-eluting stent to the RCA in 2 stents the LAD. Family History Family History Father Family history of cardiovascular disease, Onset Age: 55 Hypertension, Onset Age: 55 Mother Patient's mother is , Onset Age: 65 Bladder cancer Social History Social History Social History: the patient is and lives with his . She is the durable power bankruptcy attorney for healthcare. The patient is a full code. He has 1 adopted son. 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 He used to smoke until E adopted his son. He occasionally has a glass of wine maybe twice a week. Depending on what they eat that week. He stated he has lost about 40 lb by trying this past year. Smoking status: Never smoker Second hand tobacco smoke exposure: No Additional smoking assessment comments: SMOKED FOR ONE YEAR DURING COLLEGE Alcohol intake: current Drinks per week: 3 Alcohol use details: consumes 2 glasses of wine weekly Substance use: never Substance use type: does not use Do You Feel Safe in your Home?: Yes Lack of Transportation: No Lack of Food: Never True Current Housing: I Have Housing Concerned About Future Housing: No Difficulty Paying Gas/Electric Bills: No Difficulty Paying for Meds: No Currently Unemployed: No Education: Decline to Answer Difficulty w/ Childcare or Family Care: No Gender identity (if verbalized by the patient): Male Sexual Orientation (if Verbalized by the Patient): Straight or Heterosexual Spiritual care concerns: No Exam Narrative: GENERAL: Well-appearing, well-nourished, and in no acute distress. HEAD: Normocephalic, atraumatic. EYES: PERRLA and EOMI. ENT: Nares clear, no rhinorrhea or epistaxis. Mucous membranes moist. NECK: Supple. CHEST: Clear to auscultation. No respiratory distress. HEART: Regular rate and rhythm. No murmur heard. Normal peripheral pulses. ABDOMEN: Soft, nontender, nondistended, normal active bowel sounds. EXTREMITIES: Normal range of motion. No edema. SKIN: Warm, dry, no rash. NEURO: No focal deficits. Alert and oriented x3. PSYCH: Normal mood and affect. Course Course Emergency Course: Gutierrez cath was changed .initial urine was dark in color and later it cleared up no blood noted . advised him to continue home meds , follow with Dr. Lamb as scheduled. Vital Signs Vital signs: Vital Signs Temperature 36.5 C 11/27/24 16:17 Pulse Rate 94 11/27/24 16:17 Respiratory Rate 18 11/27/24 16:17 Blood Pressure 188/99 H 11/27/24 16:17 Pulse Oximetry 98 11/27/24 16:17 Temperature 36.5 C 11/27/24 16:17 Pulse Rate 94 11/27/24 16:17 Respiratory Rate 18 11/27/24 16:17 Blood Pressure 188/99 H 11/27/24 16:17 Pulse Oximetry 98 11/27/24 16:17 MDM - Male Genitourinary Differential Diagnosis Differential diagnosis: Likely urinary tract infection, acute retention of urine and other (gutierrez cath problem) Medical Records Attestation: I reviewed the patient's medical records. Lab Data Attestation: I reviewed the patient's lab results. 11/27/24 17:38 11/27/24 17:38 Labs: Lab Results 11/27/24 11/27/24 Range/Units 17:38 18:07 WBC 9.5 (4.5-10.0) K/mm3 RBC 4.59 L (4.6-6.20) M/mm3 Hgb 12.8 L (14.0-18.0) g/dL Hct 41.0 L (42.0-52.0) % MCV 89.3 (80-100) fl MCH 27.9 (26-34) pg MCHC 31.2 L (32-36) g/dl RDW 16.0 H (11.5-14.5) % Plt Count 273 (150-375) k/mm3 MPV 10.7 H (7.4-10.4) fl Immature Gran % (Auto) 0.7 H (0-0.5) % Neut % (Auto) 59.0 (45.5-73.1) % Lymph % (Auto) 23.1 (18.3-44.2) % [place] % (Auto) 10.3 H (2.6-8.5) % Eos % (Auto) 5.4 H (0-4.4) % Baso % (Auto) 1.5 H (0.2-1.2) % Lymph # (Auto) 2.20 (0.9-3.2) K/mm3 [place] # (Auto) 1.0 H (0.1-0.6) K/mm3 Eos # (Auto) 0.5 H (0-0.3) K/mm3 Baso # (Auto) 0.1 (0.0-0.1) K/mm3 Abs Immat Gran (auto) 0.07 H (0.00-0.031) K/mm3 Absolute Neuts (auto) 5.6 (1.3-6.7) K/mm3 Absolute Nucleated RBC 0.000 (0.0-0.012) K/mm3 Nucleated RBC % 0.0 (0.0-0.2) % Sodium 140 (137-145) mmol/L Potassium 4.2 (3.4-5.0) mmol/L Chloride 105 (98-107) mmol/L Carbon Dioxide 24 (22-30) mmol/L Anion Gap 11 (4-12) mmol/L BUN 49 H (9-20) mg/dL Creatinine 2.42 H (0.7-1.3) mg/dL Estim Creat Clear Calc 24 ml/min Estimated GFR 26 L (59 - ) Glucose 107 (65-110) mg/dL Calcium 9.0 (8.4-10.2) mg/dL Total Bilirubin 0.7 (0.2-1.3) mg/dL AST 34 (17-59) U/L ALT 23 (6-50) U/L Alkaline Phosphatase 129 H (38-126) U/L Total Protein 8.3 H (6.3-8.2) g/dL Albumin 4.0 (3.5-5.1) g/dL Urine Color Light red H (Yellow) Urine Appearance Clear (Clear) Urine pH 6.0 (5.0-9.0) Ur Specific [place] 1.011 (1.001-1.035) Urine Protein 1+ H (Negative) mg/dL Urine Glucose (UA) 2+ H (Negative) mg/dL Urine Ketones Negative (Negative) mg/dL Ur Blood (Man) 3+ H (Negative) Urine Nitrate Negative (Negative) Urine Bilirubin Negative (Negative) Urine Urobilinogen 0.2 (<2.0) mg/dL Leukocyte Esterase Rfl 2+ H (Negative) ELIOT/UL Urine RBC >100 H (0-2) /hpf Urine WBC 21-50 H (0-3) /hpf Ur Squamous Epith Cells None seen (Few) /hpf Urine Bacteria None seen /hpf Urine Casts 3-5 Discharge Plan Discharge Clinical Impression: Gutierrez catheter problem Qualifiers: Encounter type: initial encounter Qualified Code(s): T83.9XXA - Unspecified complication of genitourinary prosthetic device, implant and graft, initial encounter Patient Disposition: Home Condition: Stable Instructions: Gutierrez Catheter Placement and Care (ED) Additional Instructions: continue home medications, follow with your doctor. Patient Language: Yoruba Prescriptions: No Action carvedilol 12.5 mg tablet 12.5 mg PO Q12H Qty: 180 1RF Rx Instructions: must administer with a meal/food buspirone 10 mg tablet 10 mg PO BID PRN (Reason: anxiety) Qty: 180 1RF lisinopril 5 mg tablet 5 mg PO DAILY febuxostat [Uloric] 40 mg tablet 20 mg PO DAILY Rx Instructions: Take 1 tab daily for 10 days, then take 1/2 tab daily. levothyroxine [Synthroid] 175 mcg tablet 175 mcg PO DAILY Qty: 90 1RF hydrocodone-acetaminophen 5-325 mg tablet 1 tablet PO BID PRN (Reason: pain) Jardiance 10 mg tablet 10 mg PO DAILY aspirin 81 mg capsule 81 mg PO DAILY torsemide 20 mg tablet 20 mg PO DAILY Qty: 30 0RF Rx Instructions: start on tuesday04/16/2024 ferrous sulfate 325 mg (65 mg iron) tablet,delayed release (DR/EC) 325 mg PO DAILY Qty: 90 1RF cholecalciferol (vitamin D3) 50 mcg (2,000 unit) tablet 50 mcg PO DAILY Qty: 90 2RF atorvastatin 40 mg tablet 40 mg PO HS Qty: 90 2RF pantoprazole 40 mg tablet,delayed release (DR/EC) 40 mg PO QAM Qty: 100 1RF tamsulosin 0.4 mg capsule 0.4 mg PO QPM Qty: 100 1RF cefdinir 300 mg capsule 300 mg PO Q12H Qty: 14 0RF Follow-up/Referrals: Yi Perea MD [Primary Care Provider, Family Practice] Time of Disposition: 19:13
[2024-11-27 19:25] VITALS: BP 159/98; PULSE 89; RESP 18; TEMP 36.6; O2SAT 98
== END 2024-11-27 19:30 | disposition home or self-care (01) ==
PROVIDERS: Emergency Provider Family Medicine; PCP Family Medicine
DX: T83.091A Other mechanical complication of indwelling urethral catheter, initial encounter (principal); N39.0 Urinary tract infection, site not specified; I25.2 Old myocardial infarction; I25.10 Atherosclerotic heart disease of native coronary artery without angina pectoris; I48.0 Paroxysmal atrial fibrillation; I87.2 Venous insufficiency (chronic) (peripheral); N18.30 Chronic kidney disease, stage 3 unspecified; I12.9 Hypertensive chronic kidney disease with stage 1 through stage 4 chronic kidney disease, or unspecified chronic kidney disease; E03.9 Hypothyroidism, unspecified; E78.5 Hyperlipidemia, unspecified; E55.9 Vitamin D deficiency, unspecified; D63.8 Anemia in other chronic diseases classified elsewhere; N40.0 Benign prostatic hyperplasia without lower urinary tract symptoms; K21.9 Gastro-esophageal reflux disease without esophagitis; M19.90 Unspecified osteoarthritis, unspecified site; Z95.5 Presence of coronary angioplasty implant and graft; Z87.11 Personal history of peptic ulcer disease; Z86.73 Personal history of transient ischemic attack (TIA), and cerebral infarction without residual deficits; Z87.891 Personal history of nicotine dependence; Z98.42 Cataract extraction status, left eye; Z98.41 Cataract extraction status, right eye; Y84.6 Urinary catheterization as the cause of abnormal reaction of the patient, or of later complication, without mention of misadventure at the time of the procedure
CPT/HCPCS: 36415; 51702; 80053; 81001; 85025; 87086; 99283

== ENCOUNTER 2025-01-11 10:42 | Outpatient (CLI) | payer MEDICARE, SELFPAY ==
[2025-01-11 14:18] LABS: Hematocrit 40.3 % (42.0-52.0); Hemoglobin 12.2 g/dL (14.0-18.0); Immature Granulocyte Percent A 0.4 % (0-0.5); Lymphocytes Absolute Auto 1.56 K/mm3 (0.9-3.2); Mean Corpuscular HGB Conc 30.3 g/dl (32-36); Mean Corpuscular Hemoglobin 27.9 pg (26-34); Mean Corpuscular Volume 92.2 fl (80-100); Nucleated Red Blood Cells Absolute Auto 0.000 K/mm3 (0.0-0.012); Nucleated Red Blood Cells Perc 0.0 % (0.0-0.2); Platelet Count Result 168 k/mm3 (150-375); Red Blood Count 4.37 M/mm3 (4.6-6.20); White Blood Count 7.9 K/mm3 (4.5-10.0)
[2025-01-11 14:31] LABS: Alanine Aminotransferase 19 U/L (6-50); Albumin Level 3.9 g/dL (3.5-5.1); Alkaline Phosphatase 118 U/L (38-126); Anion Gap 9 mmol/L (4-12); Aspartate Amino Transferase 41 U/L (17-59); Bilirubin,Total 0.9 mg/dL (0.2-1.3); Blood Urea Nitrogen 63 mg/dL (9-20); Calcium 9.0 mg/dL (8.4-10.2); Carbon Dioxide 28 mmol/L (22-30); Chloride 105 mmol/L (98-107); Estimated Glomerular Filt Rate 25; Glucose 82 mg/dL (65-110); Potassium 4.1 mmol/L (3.4-5.0); Sodium 142 mmol/L (137-145); Total Protein 7.7 g/dL (6.3-8.2)
[2025-01-11 14:34] LABS: Iron 36 ug/dL (49-181)
[2025-01-11 14:47] LABS: Magnesium 2.7 mg/dL (1.6-2.3)
[2025-01-11 14:50] LABS: Percent Iron Saturation 11 % (20-50)
[2025-01-11 14:54] LABS: NT Pro B Type Natriuretic Pept 15700 pg/mL (19.9-100)
[2025-01-11 15:12] LABS: Thyroid Stimulating Hormone Reflex 0.430 uIU/mL (0.465-4.68)
[2025-01-11 15:16] LABS: Ferritin 43.00 ng/mL (11.1-264)
[2025-01-11 15:46] LABS: Hemoglobin A1C 6.1 % (<5.7)
[2025-01-11 20:09] LABS: Free T4 Free Thyroxine Reflex 2.71 ng/dL (0.78-2.19)
== END 2025-01-11 10:43 | disposition home or self-care (01) ==
LOC: ANHGOSHLAB 10:43
PROVIDERS: PCP Family Medicine; Visit Provider Nurse Practitioner Family
DX: R73.9 Hyperglycemia, unspecified (principal); I10 Essential (primary) hypertension; D64.9 Anemia, unspecified; E03.9 Hypothyroidism, unspecified; I50.9 Heart failure, unspecified; R06.02 Shortness of breath; R60.9 Edema, unspecified
CPT/HCPCS: 36415; 80053; 82728; 83036; 83540; 83550; 83735; 83880; 84439; 84443; 85025

== ENCOUNTER 2025-01-21 14:23 | Outpatient (CLI) | payer MEDICARE, SELFPAY ==
[2025-01-21 19:06] LABS: Alanine Aminotransferase 18 U/L (6-50); Albumin Level 3.8 g/dL (3.5-5.1); Alkaline Phosphatase 125 U/L (38-126); Anion Gap 10 mmol/L (4-12); Aspartate Amino Transferase 34 U/L (17-59); Bilirubin,Total 1.0 mg/dL (0.2-1.3); Blood Urea Nitrogen 53 mg/dL (9-20); Calcium 8.9 mg/dL (8.4-10.2); Carbon Dioxide 25 mmol/L (22-30); Chloride 107 mmol/L (98-107); Estimated Glomerular Filt Rate 26; Glucose 89 mg/dL (65-110); Magnesium 2.8 mg/dL (1.6-2.3); Potassium 4.5 mmol/L (3.4-5.0); Sodium 142 mmol/L (137-145); Total Protein 7.6 g/dL (6.3-8.2)
[2025-01-21 19:10] LABS: NT Pro B Type Natriuretic Pept 15400 pg/mL (19.9-100)
== END 2025-01-21 14:24 | disposition home or self-care (01) ==
LOC: ANHGOSHLAB 14:24
PROVIDERS: PCP Family Medicine; Visit Provider Nurse Practitioner Family
DX: I11.0 Hypertensive heart disease with heart failure (principal); I50.9 Heart failure, unspecified
CPT/HCPCS: 36415; 80053; 83735; 83880

== ENCOUNTER 2025-01-21 14:33 | Outpatient (CLI) | payer MEDICARE, SELFPAY ==
--- NOTE | ~2025-01-21 | XR_ITS ---
EXAMINATION: XR chest 2V, 01/21/2025 14:40 ORDER ENTRY REPRESENTATIVE HISTORY: - Shortness of breath x 2 weeks COMPARISON: No comparisons available. Technique: 2 views obtained. Findings: Moderate pulmonary venous congestion. Small basilar infiltrates. No pneumothorax. Moderate cardiomegaly. Large hiatal hernia. Poststernotomy. Impression: CHF. Superimposed probable pneumonia Reviewed, dictated and finalized at location P. R ENTRY REPRESENTATIVE Impression: CHF. Superimposed probable pneumonia
== END 2025-01-21 14:34 | disposition home or self-care (01) ==
LOC: GOSHIMG 14:34
PROVIDERS: PCP Nurse Practitioner Family; Visit Provider Nurse Practitioner Family
DX: I50.9 Heart failure, unspecified (principal)
CPT/HCPCS: 71046

== ENCOUNTER 2025-01-28 04:10 | Inpatient (IN) | payer MEDICARE, SELFPAY ==
[2025-01-28] VITALS (25 sets, daily range): BP systolic 124–153; BP diastolic 58–88; PULSE 51–71; RESP 14–29; TEMP 36.2–36.7; O2SAT 88–100; BMI 38.7
--- NOTE | ~2025-01-28 | XR_ITS ---
Examination: XR chest 1V portable Clinical History: Dyspnea Comparison: 01/21/2025 Technique: Portable AP Findings: Unchanged cardiomegaly. Diffusely increased interstitial markings. Small effusions not excluded. No acute bony abnormality. Large hiatal hernia. IMPRESSION: 1. Interstitial pulmonary edema and/or pneumonitis. Reviewed, dictated and finalized at location R. [employer]SULTANT
--- NOTE | 2025-01-28 04:25 | ECG_ITS ---
Test Date: 2025-01-28 04:44:33 Measurements Intervals [place] Rate: 57 P: 82 SC: 233 QRS: -40 QRSD: 100 T: -31 QT: 480 QTc: 469 Interpretive Statements SINUS BRADYCARDIA WITH FIRST DEGREE AV BLOCK WITH FREQUENT VENTRICULAR PREMATURE COMPLEXES LEFT AXIS DEVIATION POSSIBLE ANTERIOR MYOCARDIAL INFARCTION , OF INDETERMINATE AGE Electronically Signed On 01-28-2025 11:23:59 VETERINARY LABORATORY TECHNICIAN by Ronald Miller D.O
--- NOTE | 2025-01-28 04:26 | ED_ITS ---
HPI - General Adult General Chief complaint: Shortness of Breath/Dyspnea Stated complaint: DIFFICULTY IN BREATHING Time Seen by Provider: 01/28/25 04:24 History of Present Illness HPI narrative: 79-year-old male with history of heart failure with reduced ejection fraction presenting for difficulty breathing. Patient says over last week his legs are getting more more swollen not responding diabetics. Today developed shortness of breath requiring him to call EMS. When EMS arrived patient was in respiratory extremis. She is placed on CPAP with improvement in condition. Patient denies fevers chills chest pain or abdominal pain. Related Data Home Medications ?Medication ?Instructions ?Recorded ?Confirmed ?Last Taken ?Type empagliflozin 10 mg tablet 10 mg PO DAILY 08/26/2301/0504/09/24 History (Jardiance) aspirin 81 mg capsule 81 mg PO DAILY 04/10/2401/1204/09/24 08:00 History 81 mg lisinopril 5 mg tablet 5 mg PO DAILY 11/22/2401/21 Unknown History levothyroxine 175 mcg capsule 175 mcg PO DAILY 5 01/21/25 Unknown History Allergies Allergy/AdvReac Type Severity Reaction Status Date / Time No Known Allergies Allergy Verified 01/21/25 13:32 [facility] Past Medical History Medical History Nonsustained ventricular tachycardia H/O: upper GI bleed Type 2 ND (myocardial infarction) PAF (paroxysmal atrial fibrillation) CAD in [place] artery Non-ST elevation ND (NSTEMI) (~04/2023) Hypothyroidism (acquired) Vitamin D deficiency Chronic venous insufficiency of lower extremity History of stroke (1991) Stroke was in 1991, [facility], unclear if hemorrhagic or not but pt does not recall any intravascular intervention. GERD without esophagitis Peptic ulcer disease 09/2019-cauterization and placed on PPI Anemia of chronic disease CKD (chronic kidney disease) stage 3, GFR 30-59 ml/min Unspecified osteoarthritis, unspecified site BPH w/o urinary obs/LUTS CAD in [place] artery History of RCA stents, and Left anterior descending ([place] [facility] The most recent intervention was in August [address] Bartlett, when he had atherectomy balloon angioplasty and stenting of the proximal and mid Left anterior descending (at [facility]). Dyslipidemia Essential (primary) hypertension JILLIAN (obstructive sleep apnea) uses a CPAP machine Surgical History Surgical History H/O esophagogastroduodenoscopy this past week with cauterization of peptic ulcer disease H/O bilateral cataract extraction (~2018) History of coronary artery stent placement (~05/05/18) x3. Drug-eluting stent to the RCA in 2 stents the LAD. Family History Family History (Reviewed 01/21/25 @ 13:33 by Lidia Ayala [facility]) Father Family history of cardiovascular disease, Onset Age: 55 Hypertension, Onset Age: 55 Mother Patient's mother is , Onset Age: 65 Bladder cancer Social History Social History (Reviewed 01/21/25 @ 13:33 by Lidia Ayala [facility]) Social History: the patient is and lives with his . She is the durable power carry out clerk for healthcare. The patient is a full code. He has 1 adopted son. 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 He used to smoke until E adopted his son. He occasionally has a glass of wine maybe twice a week. Depending on what they eat that week. He stated he has lost about 40 lb by trying this past year. Smoking status: Never smoker Second hand tobacco smoke exposure: No Additional smoking assessment comments: SMOKED FOR ONE YEAR DURING COLLEGE Alcohol intake: current Drinks per week: 3 Alcohol use details: consumes 2 glasses of wine weekly Substance use: never Substance use type: does not use Do You Feel Safe in your Home?: Yes Lack of Transportation: No Lack of Food: Never True Current Housing: I Have Housing Concerned About Future Housing: No Difficulty Paying Gas/Electric Bills: No Difficulty Paying for Meds: No Currently Unemployed: No Education: Decline to Answer Difficulty w/ Childcare or Family Care: No Gender identity (if verbalized by the patient): Male Sexual Orientation (if Verbalized by the Patient): Straight or Heterosexual Spiritual care concerns: No Exam 2 Narrative: APPEARANCE: Respiratory distress Head: atraumatic. EYES: EOMI, NOSE: Atraumatic NECK: Trachea midline RESPIRATORY: Tachypneic, 2 word dyspnea, bibasilar rales CARDIOVASCULAR: RRR, +4 pitting edema of the lower extremities ABDOMINAL: Non-distended soft nontender MUSCULOSKELETAl: No obvious deformities NEURO: Alert. Moving 4/4 extremities SKIN:: Warm, dry. Normal color PSYCHIATRIC: Normal affect Course Vital Signs Vital signs: Vital Signs Temperature 97.7 F 01/28/25 04:13 Pulse Rate 68 01/28/25 04:13 Respiratory Rate 23 H 01/28/25 04:13 Blood Pressure 152/88 H 01/28/25 04:13 Pulse Oximetry 95 01/28/25 04:13 Oxygen Delivery EMS-CPAP 01/28/25 04:13 Temperature 97.7 F 01/28/25 04:13 Pulse Rate 63 01/28/25 04:35 Respiratory Rate 23 H 01/28/25 04:35 Blood Pressure 153/85 H 01/28/25 04:35 Pulse Oximetry 98 01/28/25 04:29 Oxygen Delivery BiPAP 01/28/25 04:29 Medical Decision Making MDM Narrative Medical decision making narrative: -Course: 79-year-old male history of heart failure with reduced ejection fraction presenting in acute respiratory distress. Presentation consistent with CHF exacerbation. Patient placed on BiPAP. Given 40 mg of Lasix. Chest x-ray shows cardiomegaly with pulmonary vascular congestion. BNP 58434. Troponin slightly elevated. Likely demand ischemia from his congestive heart failure. No chest pain. No ischemic changes on EKG. Patient will be placed in the IMU further management. -DDX includes but is not limited to: CHF exacerbation, pneumonia, COPD independent interpretation studies: Labs imaging reviewed Vital Signs Vital Signs: Vital Signs Temperature 97.7 F 01/28/25 04:13 Pulse Rate 68 01/28/25 04:13 Respiratory Rate 23 H 01/28/25 04:13 Blood Pressure 152/88 H 01/28/25 04:13 Pulse Oximetry 95 01/28/25 04:13 Oxygen Delivery EMS-CPAP 01/28/25 04:13 Temperature 97.7 F 01/28/25 04:13 Pulse Rate 63 01/28/25 04:35 Respiratory Rate 23 H 01/28/25 04:35 Blood Pressure 153/85 H 01/28/25 04:35 Pulse Oximetry 98 01/28/25 04:29 Oxygen Delivery BiPAP 01/28/25 04:29 Lab Data 01/28/25 04:37 01/28/25 04:37 Labs: Lab Results 01/28/25 01/28/25 Range/Units 04:37 04:38 WBC 9.3 (4.5-10.0) K/mm3 RBC 4.31 L (4.6-6.20) M/mm3 Hgb 12.1 L (14.0-18.0) g/dL Hct 39.6 L (42.0-52.0) % MCV 91.9 (80-100) fl MCH 28.1 (26-34) pg MCHC 30.6 L (32-36) g/dl RDW 17.3 H (11.5-14.5) % Plt Count 204 (150-375) k/mm3 MPV 10.7 H (7.4-10.4) fl Immature Gran % (Auto) 0.5 (0-0.5) % Neut % (Auto) 68.6 (45.5-73.1) % Lymph % (Auto) 15.1 L (18.3-44.2) % Swain % (Auto) 11.5 H (2.6-8.5) % Eos % (Auto) 3.3 (0-4.4) % Baso % (Auto) 1.0 (0.2-1.2) % Lymph # (Auto) 1.40 (0.9-3.2) K/mm3 Swain # (Auto) 1.1 H (0.1-0.6) K/mm3 Eos # (Auto) 0.3 (0-0.3) K/mm3 Baso # (Auto) 0.1 (0.0-0.1) K/mm3 Abs Immat Gran (auto) 0.05 H (0.00-0.031) K/mm3 Absolute Neuts (auto) 6.4 (1.3-6.7) K/mm3 Absolute Nucleated RBC 0.000 (0.0-0.012) K/mm3 Nucleated RBC % 0.0 (0.0-0.2) % PT 16.8 H (11.1-14.7) Seconds INR 1.4 APTT 35.7 (22.3-36.8) Seconds Expiratory Pressure 5 cmH2O Inspiratory Pressure 15 cmH2O Sodium 142 (137-145) mmol/L Potassium 4.1 (3.4-5.0) mmol/L Chloride 105 (98-107) mmol/L Carbon Dioxide 27 (22-30) mmol/L Anion Gap 10 (4-12) mmol/L BUN 44 H (9-20) mg/dL Creatinine 2.24 H (0.7-1.3) mg/dL Estim Creat Clear Calc 30 ml/min Estimated GFR 28 L (59 - ) Glucose 115 H (65-110) mg/dL Lactic Acid 1.5 (0.7-2.0) mmol/L Calcium 8.6 (8.4-10.2) mg/dL Magnesium 2.6 H (1.6-2.3) mg/dL Total Bilirubin 0.8 (0.2-1.3) mg/dL AST 37 (17-59) U/L ALT 27 (6-50) U/L Alkaline Phosphatase 134 H (38-126) U/L Troponin I 0.038 H* (0.000-0.034) ng/mL NT-Pro-B Natriuret Pep 65065 H (19.9-100) pg/mL Total Protein 7.5 (6.3-8.2) g/dL Albumin 3.7 (3.5-5.1) g/dL ABG Data ABG results: 01/28/25 04:38 VBG pH 7.463 H* VBG pCO2 38.0 L VBG pO2 123.3 H VBG HCO3 26.6 O2 Delivery Device Bipap O2 Liters/Min Not Reportable FiO2 50 Discharge Plan Discharge Clinical Impression: CHF exacerbation Patient Disposition: Still a Patient Condition: Stable Patient Language: Bulgarian Prescriptions: No Action carvedilol 12.5 mg tablet 12.5 mg PO Q12H Qty: 180 1RF Rx Instructions: must administer with a meal/food lisinopril 5 mg tablet 5 mg PO DAILY Jardiance 10 mg tablet 10 mg PO DAILY levothyroxine 175 mcg capsule 175 mcg PO DAILY ergocalciferol (vitamin D2) 1,250 mcg (50,000 unit) capsule 1,250 mcg PO WEEKLY Qty: 13 1RF torsemide 20 mg tablet 20 mg PO DAILY Qty: 30 0RF Rx Instructions: start on tuesday04/16/2024 amoxicillin-pot clavulanate 500-125 mg tablet 1 tablet PO Q12H Qty: 14 0RF albuterol sulfate [Ventolin HFA] 90 mcg/actuation HFA aerosol inhaler 1 - 2 puff inhalation Q4H PRN (Reason: shortness of breath or wheezing) Qty: 8.5 0RF aspirin 81 mg capsule 81 mg PO DAILY atorvastatin 40 mg tablet 40 mg PO HS Qty: 90 2RF febuxostat [Uloric] 40 mg tablet 40 mg PO DAILY Qty: 90 1RF pantoprazole 40 mg tablet,delayed release (DR/EC) 40 mg PO QAM Qty: 100 1RF hydrocodone-acetaminophen 5-325 mg tablet 1 tablet PO BID PRN (Reason: pain) Qty: 30 0RF tamsulosin 0.4 mg capsule 0.4 mg PO QPM Qty: 100 1RF buspirone 10 mg tablet 10 mg PO BID PRN (Reason: anxiety) Qty: 180 1RF ferrous sulfate 325 mg (65 mg iron) tablet,delayed release (DR/EC) 325 mg PO BID Qty: 180 1RF Follow-up/Referrals: Elidia Goldberg APRN [Primary Care Provider, Family Practice]
[2025-01-28] MEDS: FUROSEMIDE INJ 40 MG/4 ML VIAL IV PUSH ×2 (04:37→16:20)
[2025-01-28 04:44] LABS: Fractional Inspired Oxygen 50 %; HCO3 VBG 26.6 mEq/l (24.0-30.0); PCO2 VBG 38.0 mmHg (42.0-48.0); PO2 VBG 123.3 mmHg (35.0-45.0)
[2025-01-28 04:47] LABS: pH VBG 7.463 (7.300-7.400)
[2025-01-28 04:50] LABS: Hematocrit 39.6 % (42.0-52.0); Hemoglobin 12.1 g/dL (14.0-18.0); Immature Granulocyte Percent A 0.5 % (0-0.5); Lymphocytes Absolute Auto 1.40 K/mm3 (0.9-3.2); Mean Corpuscular HGB Conc 30.6 g/dl (32-36); Mean Corpuscular Hemoglobin 28.1 pg (26-34); Mean Corpuscular Volume 91.9 fl (80-100); Nucleated Red Blood Cells Absolute Auto 0.000 K/mm3 (0.0-0.012); Nucleated Red Blood Cells Perc 0.0 % (0.0-0.2); Platelet Count Result 204 k/mm3 (150-375); Red Blood Count 4.31 M/mm3 (4.6-6.20); White Blood Count 9.3 K/mm3 (4.5-10.0)
[2025-01-28 05:05] LABS: INR 1.4; Prothrombin Time 16.8 Seconds (11.1-14.7)
[2025-01-28 05:06] LABS: Partial Thromboplastin Time 35.7 Seconds (22.3-36.8)
[2025-01-28 05:09] LABS: Alanine Aminotransferase 27 U/L (6-50); Albumin Level 3.7 g/dL (3.5-5.1); Alkaline Phosphatase 134 U/L (38-126); Anion Gap 10 mmol/L (4-12); Aspartate Amino Transferase 37 U/L (17-59); Bilirubin,Total 0.8 mg/dL (0.2-1.3); Blood Urea Nitrogen 44 mg/dL (9-20); Calcium 8.6 mg/dL (8.4-10.2); Carbon Dioxide 27 mmol/L (22-30); Chloride 105 mmol/L (98-107); Estimated CRCL calculation 30 ml/min; Estimated Glomerular Filt Rate 28; Glucose 115 mg/dL (65-110); Magnesium 2.6 mg/dL (1.6-2.3); Potassium 4.1 mmol/L (3.4-5.0); Sodium 142 mmol/L (137-145); Total Protein 7.5 g/dL (6.3-8.2)
[2025-01-28 05:23] LABS: NT Pro B Type Natriuretic Pept 25000 pg/mL (19.9-100); Troponin I 0.038 ng/mL (0.000-0.034)
--- NOTE | 2025-01-28 07:38 | WPCEDHO ---
ED Hand Off Checklist All vitals saved: yes IV Site documented: yes All med administrations documented: yes Triage Note Triage Note pt to ED via EMS from home with c 01/28/25 04:13 /o fluid overload and found at 80 % on room air. pts wear a CPAP at home but it is broken. EMS put pt on CPAP and sats jumped up to 95%. pt is on Lasix and has bilateral lower extremity swelling with 4+ edema. pt has hx of AFIB. Allergies No Known Allergies Allergy (Verified 01/21/25 13:32) Family History (Last Reviewed 01/21/25 @ 13:33 by Lidia Ayala [facility]) Father Family history of cardiovascular disease Hypertension Mother Patient's mother is Bladder cancer Administered/Completed Medications Discontinued Medications Furosemide (Furosemide Inj 40 Mg/4 Ml Vial) 40 mg IV PUSH ONCE STA Stop: 01/28/25 04:25 Last Admin: 01/28/25 04:37 Dose: 40 mg Documented By: LINDA Interventions/Assessments Cardiac Monitoring Start: 01/28/25 04:13 Freq: Status: Active Protocol: Document 01/28/25 04:21 ACS (Rec: 01/28/25 04:21 ACS [id number]) Instructional Technology Specialist Assessment Instructional Technology Specialist Yes Applied Pulse Rate (60-100) 71 EKG Rythm Atrial Fibrillation PA: Respiratory Assessment Start: 01/28/25 04:13 Freq: Status: Active Protocol: Document 01/28/25 04:25 ACS (Rec: 01/28/25 04:26 ACS [id number]) Respiratory Assessment Symptoms Shortness of Breath at Rest,Shortness of Breath With Exertion Effort Short of Breath Pattern Tachypnea Depth Deep Chest Expansion Symmetrical Adult Capillary Normal/Less than 2 Seconds Refill Cough Description None Last Vital Signs Temperature 97.7 F 01/28/25 04:13 Pulse Rate 55 L 01/28/25 07:30 Respiratory Rate 14 01/28/25 07:30 Pulse Oximetry 96 01/28/25 07:30 Blood Pressure 139/76 01/28/25 07:30 Blood Pressure Mean 97 01/28/25 07:30 Blood Pressure Position Supine 01/28/25 07:30 Oxygen Delivery BiPAP 01/28/25 05:59 Fraction of Inspired Oxygen 40 01/28/25 05:59 Weight 117.3 kg 01/28/25 04:13 Last Result - Abnormals Only RBC 4.31 M/mm3 (4.6-6.20) L 01/28/25 04:37 Hgb 12.1 g/dL (14.0-18.0) L 01/28/25 04:37 Hct 39.6 % (42.0-52.0) L 01/28/25 04:37 MCHC 30.6 g/dl (32-36) L 01/28/25 04:37 RDW 17.3 % (11.5-14.5) H 01/28/25 04:37 MPV 10.7 fl (7.4-10.4) H 01/28/25 04:37 Lymph % (Auto) 15.1 % (18.3-44.2) L 01/28/25 04:37 Sharkey % (Auto) 11.5 % (2.6-8.5) H 01/28/25 04:37 Sharkey # (Auto) 1.1 K/mm3 (0.1-0.6) H 01/28/25 04:37 Abs Immat Gran (auto) 0.05 K/mm3 (0.00-0.031) H 01/28/25 04:37 PT 16.8 Seconds (11.1-14.7) H 01/28/25 04:37 VBG pH 7.463 (7.300-7.400) H* 01/28/25 04:38 VBG pCO2 38.0 mmHg (42.0-48.0) L 01/28/25 04:38 VBG pO2 123.3 mmHg (35.0-45.0) H 01/28/25 04:38 BUN 44 mg/dL (9-20) H 01/28/25 04:37 Creatinine 2.24 mg/dL (0.7-1.3) H 01/28/25 04:37 Estimated GFR 28 (59-) L 01/28/25 04:37 Glucose 115 mg/dL (65-110) H 01/28/25 04:37 Magnesium 2.6 mg/dL (1.6-2.3) H 01/28/25 04:37 Alkaline Phosphatase 134 U/L (38-126) H 01/28/25 04:37 Troponin I 0.038 ng/mL (0.000-0.034) H* 01/28/25 04:37 NT-Pro-B Natriuret Pep 34802 pg/mL (19.9-100) H 01/28/25 04:37 Most Recent Suicide Severity Rating Suicide Severity Rating NO RISK INDICATED 01/28/25 04:13
--- NOTE | 2025-01-28 08:52 | ADMGEN ---
This patient, Alberto Rea, was admitted to IMU Room 204-01. Patient/family oriented to hospital policies and general routines including ID bracelet, bed and alarms, visiting hours, pain management, procedures, bathroom and other care routines, personal items, smoking policy, room service/diet, and visiting hours. Information on how to activate the Rapid Response Team has been discussed. Patient/Family are encouraged to report perceived risks to care and to ask questions if they do not understand what they are told or what they should do.
--- NOTE | 2025-01-28 15:22 | PM.IMHP ---
H&P: HPI History of Present Illness Date/Time: 01/28/25 15:22 Chief Complaint: Dyspnea Narrative: Patient is 79-year-old male past no history of hypertension, hyperlipidemia, CHF, CAD status post CABG 04/2023, chronic venous insufficiency, BPH, CKD stage 4, urinary retention, sleep apnea who presents the ED with complaints of dyspnea. He has been following with his primary care provider YANY Goldberg for the fluid overload. He recently started seeing providers for the less swelling in his legs 01/11/2025. At that time he had gained 15 lb 4 weeks, he has been off his torsemide, he last saw attending physician October 2023. Who has prescribed torsemide 20 mg p.o. daily. He follow-up with PCP on 01/21 and at that time he was diagnosed with superimposed pneumonia with CHF. He was given Augmentin and azithromycin. He now presents on 01/28 with worsening edema and swelling and shortness of breath. It appears to torsemide 20 mg was not sufficient. In the ED: His labs are stable, creatinine 2.24, however BNP significantly elevated 25,000. He had elevated troponin 0.038. He is given a dose of IV Lasix 40 mg. He had a Payne catheter exchanged which was traumatic leading to bloody urine. His admitted to IMU for further management of heart failure exacerbation. Review of Systems Review of Systems: 10 point ROS complete, negative other than what is specified in HPI. [facility] Past Medical History Medical History Nonsustained ventricular tachycardia H/O: upper GI bleed Type 2 NE (myocardial infarction) PAF (paroxysmal atrial fibrillation) CAD in [place] artery Non-ST elevation NE (NSTEMI) (~04/2023) Hypothyroidism (acquired) Vitamin D deficiency Chronic venous insufficiency of lower extremity History of stroke (1991) Stroke was in 1991, [facility], unclear if hemorrhagic or not but pt does not recall any intravascular intervention. GERD without esophagitis Peptic ulcer disease 09/2019-cauterization and placed on PPI Anemia of chronic disease CKD (chronic kidney disease) stage 3, GFR 30-59 ml/min Unspecified osteoarthritis, unspecified site BPH w/o urinary obs/LUTS CAD in [place] artery History of RCA stents, and Left anterior descending (at [facility] The most recent intervention was in August [address] Bartlett, when he had atherectomy balloon angioplasty and stenting of the proximal and mid Left anterior descending (at [facility]). Dyslipidemia Essential (primary) hypertension JILLIAN (obstructive sleep apnea) uses a CPAP machine Surgical History Surgical History H/O esophagogastroduodenoscopy this past week with cauterization of peptic ulcer disease H/O bilateral cataract extraction (~2018) History of coronary artery stent placement (~05/05/18) x3. Drug-eluting stent to the RCA in 2 stents the LAD. Family History Family History Father Family history of cardiovascular disease, Onset Age: 55 Hypertension, Onset Age: 55 Mother Bladder cancer Patient's mother is , Onset Age: 65 Sibling Diabetes mellitus Social History Social History Social History: the patient is and lives with his . She is the durable power prosecuting attorney for healthcare. The patient is a full code. He has 1 adopted son. 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 He used to smoke until E adopted his son. He occasionally has a glass of wine maybe twice a week. Depending on what they eat that week. He stated he has lost about 40 lb by trying this past year. Smoking status: Never smoker Second hand tobacco smoke exposure: Yes Additional smoking assessment comments: SMOKED FOR ONE YEAR DURING COLLEGE Alcohol intake: current Drinks per week: 3 Alcohol use details: consumes 2 glasses of wine weekly Substance use: current Substance use type: does not use Last use: glass of wine once or twice a week Do You Feel Safe in your Home?: Yes Lack of Transportation: YES Lack of Food: Never True Current Housing: I Have Housing Concerned About Future Housing: No Difficulty Paying Gas/Electric Bills: No Difficulty Paying for Meds: No Currently Unemployed: No Education: Associate Degree Difficulty w/ Childcare or Family Care: No Gender identity (if verbalized by the patient): Male Sexual Orientation (if Verbalized by the Patient): Straight or Heterosexual Spiritual care concerns: No Meds Home Medications and Allergies Home Medications ?Medication ?Instructions ?Recorded ?Confirmed ?Type empagliflozin 10 mg tablet 10 mg PO DAILY 08/26/23 01/28/25 History (Jardiance) carvedilol 12.5 mg tablet 12.5 mg PO Q12H #180 tabs 02/22/24 01/28/25 Rx aspirin 81 mg capsule 81 mg PO DAILY 04/10/24 01/28/25 History atorvastatin 40 mg tablet 40 mg PO HS #90 tabs 04/23/24 01/28/25 Rx lisinopril 5 mg tablet 5 mg PO DAILY 11/22/24 01/28/25 History febuxostat 40 mg tablet (Uloric) 40 mg PO DAILY #90 tabs 12/13/24 01/28/25 Rx pantoprazole 40 mg tablet,delayed 40 mg PO QAM #100 tabs 12/19/24 01/28/25 Rx release hydrocodone 5 mg-acetaminophen 325 1 tablet PO BID PRN pain #30 tabs 01/07/25 01/28/25 Rx mg tablet tamsulosin 0.4 mg capsule 0.4 mg PO QPM #100 caps 01/10/25 01/28/25 Rx ergocalciferol (vitamin D2) 1,250 1,250 mcg PO WEEKLY #13 caps 01/11/25 01/28/25 Rx mcg (50,000 unit) capsule levothyroxine 175 mcg capsule 175 mcg PO DAILY 01/11/25 01/28/25 History torsemide 20 mg tablet 20 mg PO DAILY #30 tabs 01/11/25 01/28/25 Rx albuterol sulfate 90 mcg/actuation 1 - 2 puff inhalation Q4H PRN 01/21/25 01/28/25 Rx aerosol inhaler (Ventolin HFA) shortness of breath or wheezing #8.5 grams buspirone 10 mg tablet 10 mg PO BID anxiety 01/28/25 01/28/25 History ferrous sulfate 325 mg (65 mg 325 mg PO DAILY 01/28/25 01/28/25 History iron) tablet,delayed release Allergies Allergy/AdvReac Type Severity Reaction Status Date / Time No Known Allergies Allergy Verified 01/28/25 08:55 Vital Signs Vital Signs - 24 hr 01/28/25 04:13 01/28/25 04:21 01/28/25 04:25 Temperature 36.5 C Pulse Rate 68 71 Respiratory Rate 23 H Blood Pressure 152/88 H Pulse Oximetry 95 88 L Oxygen Delivery EMS-CPAP Room Air Oxygen Flow Rate Fraction of Inspired Oxygen 01/28/25 04:27 01/28/25 04:29 01/28/25 04:35 Temperature Pulse Rate 61 63 Respiratory Rate 19 23 H Blood Pressure 153/85 H Pulse Oximetry 92 98 Oxygen Delivery BiPAP BiPAP Oxygen Flow Rate Fraction of Inspired Oxygen 01/28/25 05:57 01/28/25 05:59 01/28/25 07:30 Temperature Pulse Rate 51 L 51 L 55 L Respiratory Rate 17 17 14 Blood Pressure 139/76 Pulse Oximetry 98 98 96 Oxygen Delivery BiPAP BiPAP Oxygen Flow Rate Fraction of Inspired Oxygen 40 01/28/25 08:00 01/28/25 08:15 01/28/25 08:45 Temperature 36.2 C L Pulse Rate 67 69 Respiratory Rate 22 H 20 Blood Pressure 146/88 H Pulse Oximetry 100 98 100 Oxygen Delivery Nasal Cannula BiPAP Oxygen Flow Rate 5 Fraction of Inspired Oxygen 40 30 01/28/25 09:47 01/28/25 10:00 01/28/25 11:22 Temperature 36.4 C Pulse Rate 69 63 55 L Respiratory Rate 20 16 Blood Pressure 128/66 Pulse Oximetry 100 99 Oxygen Delivery BiPAP Oxygen Flow Rate Fraction of Inspired Oxygen 01/28/25 11:37 01/28/25 12:00 01/28/25 12:00 Temperature Pulse Rate 52 L 52 L 52 L Respiratory Rate 16 16 Blood Pressure Pulse Oximetry 98 98 Oxygen Delivery BiPAP BiPAP Oxygen Flow Rate Fraction of Inspired Oxygen 30 01/28/25 14:00 01/28/25 14:49 Temperature Pulse Rate 53 L Respiratory Rate Blood Pressure Pulse Oximetry 93 Oxygen Delivery Nasal Cannula Oxygen Flow Rate 2.5 Fraction of Inspired Oxygen Exam Narrative: - GENERAL: Pleasant elderly male in No acute distress - EYES: EOMI. Anicteric. - HENT: Moist oral mucosa - LUNGS: Coarse lung sounds, on BiPAP - CARDIOVASCULAR: Regular rate and rhythm. - ABDOMEN: Soft, non-tender and non-distended. - EXTREMITIES: 2+edema. Peripheral pulses 2+. - NEUROLOGIC: No focal neurological deficits. CN II-XII grossly intact. - PSYCHIATRIC: Awake, Alert and oriented x 3. Appropriate mood and affect. H&P: Results Labs Labs: Short CBC 01/28/25 Range/Units 04:37 WBC 9.3 (4.5-10.0) K/mm3 Hgb 12.1 L (14.0-18.0) g/dL Hct 39.6 L (42.0-52.0) % Plt Count 204 (150-375) k/mm3 BMP 01/28/25 04:37 Sodium 142 Potassium 4.1 Chloride 105 Carbon Dioxide 27 BUN 44 H Creatinine 2.24 H Glucose 115 H Calcium 8.6 Cardiac Enzymes 01/28/25 Range/Units 04:37 Troponin I 0.038 H* (0.000-0.034) ng/mL Liver Function 01/28/25 Range/Units 04:37 Total Bilirubin 0.8 (0.2-1.3) mg/dL AST 37 (17-59) U/L ALT 27 (6-50) U/L Alkaline Phosphatase 134 H (38-126) U/L Albumin 3.7 (3.5-5.1) g/dL Imaging Chest x-ray: Radiologist's impression: CXR 01/28/25 IMPRESSION: 1. Interstitial pulmonary edema and/or pneumonitis. Assessment and Plan Assessment and plan (1) CHF exacerbation: Qualifiers: Heart failure type: systolic Qualified Code(s): I50.23 - Acute on chronic systolic (congestive) heart failure Code(s): I50.9 - Heart failure, unspecified Status: Acute Plan Acute on chronic systolic heart failure Heart failure reduced ejection fraction -patient is volume overloaded, symptoms started a couple weeks ago when he saw his PCP on 01/11/2025 -outpatient was on torsemide 20 mg daily since 01/11 -patient with complaints of peripheral edema, dyspnea, signs and symptoms of heart failure exacerbation -IV diuresis: IV 40 mg Lasix b.i.d. -will monitor daily weight, strict I&O -will obtain limited echocardiogram to evaluate for EF (December 2023 patient had EF of 30%) -BiPAP used overnight -wean O2 as tolerated, goal O2 sat greater 90%, on 2.5 LO2 Hematuria -after placing Payne catheter likely traumatic placement -patient's anticoagulation was discontinued due to hematuria, appears not to be new issue -will monitor for resolution of hematuria -has had a history of UTIs with hematuria as well, however this episode appears to be secondary to trauma when placing new Payne catheter Chronic conditions -supplements: Vitamin-D 2, ferrous sulfate -essential hypertension: Lisinopril, Coreg -hyperlipidemia, CAD h/o CABG 04/2023, ischemic cardiomyopathy: Aspirin, statin, beta-ryan, Jardiance -anxiety/depression: BuSpar -gout: febuxostat -osteoarthritis: Oxycodone pain control -hypothyroidism: Levothyroxine dose was changed on 11/22 to 175mcg by PCP. Patient has low TSH and elevated T4 likely overdosed on levothyroxine, will decrease dose back to previous 150mcg dose -CKD stage 4 -BPH, urinary retention: Continue Payne catheter, was replaced in the ED today 01/28. follows Dr. Zurita -sleep apnea -paroxysmal atrial fibrillation: Rate control with carvedilol, no anticoagulation due to hematuria Diet: Heart healthy DVT prophylaxis: SCDs, with hematuria will hold off on Lovenox Code status: Full code Disposition: Home in 2-3 days Social: Family updated bedside Quality VTE Prophylaxis VTE prophylaxis: mechanical ordered Hospitalist MIPS Advance Care Plan I have confirmed that the patient's Advanced Care Plan is present, code status is documented, or surrogate decision maker is listed in patient medical record.: Yes Medication Reconciliation I have utilized all available resources to obtain, update and review the patients current medications (includes all prescriptions, OTC, herbals, cannabis, and nutritional supplements).: Yes
[2025-01-28] MEDS: TAMSULOSIN HCL 0.4 MG CAPSULE PO (16:21)
[2025-01-28] MEDS: ATORVASTATIN 40 MG TABLET PO (21:10)
[2025-01-29] VITALS (20 sets, daily range): BP systolic 129–143; BP diastolic 52–75; PULSE 51–66; RESP 16–24; TEMP 36.6–37; O2SAT 90–100
--- NOTE | 2025-01-29 | ECHO_ITS ---
Patient Info Name: Alberto Rea Age: 79 years : 1945 Gender: Male Ht: 67 in Wt: 248 lbs BSA: 2.36 m2 HR: 66 bpm BP: 143 / 52 mmHg Heart Rhythm: Atrial Fibrillation Technical Quality: Good Exam Date: 01/29/2025 9:42 AM Patient Status: I Admit Date: 01/28/2025 Exam Type: CA echo doppler color flow Complete two-dimensional, color flow and Doppler transthoracic echocardiogram is performed. Staff Referring Physician: [facility] Director: Rivas Camilo III Attending Provider: Maki Ricardo Summary 1. Complete two-dimensional, color flow and Doppler transthoracic echocardiogram is performed. 2. Left ventricular chamber dimension is normal. 3. Left ventricular systolic function is moderately reduced, estimated at 35. 4. There is mildly increased left ventricular wall thickness. 5. The left ventricular diastolic function is grade III diastolic dysfunction. 6. The inferoseptal wall, apical cap, basal inferolateral wall, and mid inferolateral wall are hypokinetic. 7. Left atrial chamber dimension is mildly enlarged. 8. Right atrial chamber dimension is mildly enlarged. 9. There is mild to moderate aortic valve regurgitation. 10. There is moderate aortic valve sclerosis. 11. There is severe mitral valve regurgitation. 12. The mitral valve annulus is moderately calcified. 13. There is mild tricuspid valve regurgitation. 14. Severe pulmonary hypertension, estimated pulmonary arterial systolic pressure is 71 mmHg. 15. The prox ascending aorta size is mildly dilated. Left Ventricle Left ventricular chamber dimension is normal. Left ventricular systolic function is moderately reduced, estimated at 35. There is mildly increased left ventricular wall thickness. The left ventricular diastolic function is grade III diastolic dysfunction. The inferoseptal wall, apical cap, basal inferolateral wall, and mid inferolateral wall are hypokinetic. All other whatley appear normal. Right Ventricle Right ventricular chamber dimension is normal. Right ventricular systolic function is normal. Left Atria Left atrial chamber dimension is mildly enlarged. Right Atria Right atrial chamber dimension is mildly enlarged. Atrial Septum Intact interatrial septum visualized by color flow imaging. Aortic Valve The aortic valve is trileaflet. There is moderate aortic valve sclerosis. There is no aortic valve stenosis. There is mild to moderate aortic valve regurgitation. Pulmonic Valve The pulmonic valve is normal. There is no pulmonic valve stenosis. There is trace pulmonic regurgitation. Mitral Valve There is no mitral valve stenosis. There is severe mitral valve regurgitation. The mitral valve annulus is moderately calcified. Tricuspid Valve The tricuspid valve leaflets are normal. There is no significant tricuspid valve stenosis. There is mild tricuspid valve regurgitation. Severe pulmonary hypertension, estimated pulmonary arterial systolic pressure is 71 mmHg. Pericardium/Pleural The pericardium appears normal. There is no pericardial effusion. Inferior Vena Cava Dilated inferior vena cava with <50% collapse upon inspiration consistent with elevated right atrial pressure, 15 mmHg. Aorta The aortic root size at the sinus of Valsalva is normal. The prox ascending aorta size is mildly dilated. Left Ventricular Outflow Tract Name Value Normal LVOT 2D LVOT Diameter 2.4 cm LVOT Doppler LVOT Peak Velocity 110 cm/s LVOT Peak Gradient 5 mmHg LVOT Mean Gradient 3 mmHg LVOT VTI 22 cm LVOT VTI/AV VTI Ratio 0.6 LVOT Stroke Volume 98 ml LVOT CO 5.5 l/min LVOT CI 2.3 l/min/m2 Pulmonic Valve Name Value Normal PV Doppler PV Peak Velocity 120 cm/s PV Peak Gradient 6 mmHg PV Mean Gradient 3 mmHg Mitral Valve Name Value Normal MV Doppler MV Peak Gradient 7 mmHg MV Mean Gradient 2 mmHg MV Area (Cont Eq VTI) 2.6 cm2 MV Regurgitation Doppler MR Peak Gradient 114 mmHg MR ERO (PISA) 0.31 cm2 MR Volume (PISA) 55 ml MV Diastolic Function MV E Peak Velocity 128 cm/s MV Decel Time (PW) 183 ms MV Annular TDI MV E/e' (Septal) 29.8 MV E/e' (Lateral) 19.6 MV E/e' (Average) 24.7 Tricuspid Valve Name Value Normal TV Regurgitation Doppler TR Peak Velocity 376 cm/s TR Peak Gradient 56 mmHg Estimated PAP/RSVP RA Pressure 15 mmHg <=5 PA Systolic Pressure 71 mmHg <36 RV Systolic Pressure 71 mmHg <36 TV Annular TDI TV Lateral Iman s' Velocity 9.4 cm/s >=9.5 Aortic Valve Name Value Normal AV Doppler AV Peak Velocity 183 cm/s AV Peak Gradient 13 mmHg AV Mean Gradient 6 mmHg AV VTI 35 cm AV Area (Cont Eq VTI) 2.8 cm2 >=3.0 AV Area (Cont Eq Rogerio) 2.6 cm2 AV DI (Rogerio) 0.60 AV Regurgitation 2D LVOT Area 4.4 cm2 Ventricles Name Value Normal LV Dimensions 2D/MM IVS Diastolic Thickness (2D) 1.1 cm 0.6-1.0 LVID Diastole (2D) 5.0 cm 4.2-5.8 LVIW Diastolic Thickness (2D) 1.0 cm 0.6-1.0 LVID Systole (2D) 4.2 cm 2.5-4.0 LVOT Diameter 2.4 cm LV Mass (2D Cubed) 197.57 g 88.00-224.00 LV Mass Index (2D Cubed) 84 g/m2 49-115 Relative Wall Thickness (2D) 0.40 <=0.42 LV Fractional Shortening/Ejection Fraction 2D/MM LV Fractional Shortening (2D) 17 % 25-43 LV EF (2D Teichholz) 35 % LV Diastolic Volume (4C MOD) 137 ml LV EF (4C MOD) 38 % LV Diastolic Volume (2C MOD) 176 ml LV EF (2C MOD) 32 % LV Diastolic Volume (BP MOD) 157 ml 62-150 LV Diastolic Volume Index (BP MOD) 66 ml/m2 34-74 LV Systolic Volume (BP MOD) 106 ml 21-61 LV Systolic Volume Index (BP MOD) 45 ml/m2 11-31 LV EF (BP MOD) 32 % 52-72 LV Diastolic Length (4C) 9.8 cm LV Systolic Length (4C) 8.4 cm LV Stroke Volume (4C MOD) 52 ml Atria Name Value Normal LA Dimensions LA Volume (4C A-L) 78 ml LA Volume (BP A-L) 80 ml RA Dimensions RA Systolic Major Bowie Length (4C) 6.7 cm 2.1-2.7 RA Area (4C) 24.6 cm2 <=18.0 Wall Motion Scoring Wall Motion Scoring Index: 1.35 Report Signatures
[2025-01-29 04:22] LABS: Hematocrit 37.6 % (42.0-52.0); Hemoglobin 11.2 g/dL (14.0-18.0); Immature Granulocyte Percent A 0.1 % (0-0.5); Lymphocytes Absolute Auto 1.61 K/mm3 (0.9-3.2); Mean Corpuscular HGB Conc 29.8 g/dl (32-36); Mean Corpuscular Hemoglobin 27.7 pg (26-34); Mean Corpuscular Volume 92.8 fl (80-100); Nucleated Red Blood Cells Absolute Auto 0.000 K/mm3 (0.0-0.012); Nucleated Red Blood Cells Perc 0.0 % (0.0-0.2); Platelet Count Result 191 k/mm3 (150-375); Red Blood Count 4.05 M/mm3 (4.6-6.20); White Blood Count 7.4 K/mm3 (4.5-10.0)
[2025-01-29 04:40] LABS: Anion Gap 6 mmol/L (4-12); Blood Urea Nitrogen 42 mg/dL (9-20); Calcium 8.3 mg/dL (8.4-10.2); Carbon Dioxide 30 mmol/L (22-30); Chloride 106 mmol/L (98-107); Estimated CRCL calculation 29 ml/min; Estimated Glomerular Filt Rate 29; Glucose 94 mg/dL (65-110); Magnesium 2.8 mg/dL (1.6-2.3); Potassium 3.7 mmol/L (3.4-5.0); Sodium 142 mmol/L (137-145)
[2025-01-29 04:53] LABS: Anisocytosis 1+; Burr Cells 1+; Hypochromasia 1+; Schistocytes None Seen
[2025-01-29] MEDS: LEVOTHYROXINE SODIUM 100 MCG, LEVOTHYROXINE SODIUM 75 MCG 175 MCG PO (06:21)
[2025-01-29] MEDS: FERROUS SULFATE 325 MG TABLET PO (08:33)
[2025-01-29] MEDS: EMPAGLIFLOZIN 10 MG TABLET PO (08:33)
[2025-01-29] MEDS: FUROSEMIDE INJ 40 MG/4 ML VIAL IV PUSH ×2 (08:33→17:18)
[2025-01-29] MEDS: FEBUXOSTAT 40 MG TABLET PO (08:33)
[2025-01-29] MEDS: PANTOPRAZOLE 40 MG TABLET PO (08:33)
[2025-01-29] MEDS: ASPIRIN 81 MG CHEWABLE TABLET PO (08:33)
--- NOTE | 2025-01-29 08:43 | P.PNIM_ITS ---
Progress Note: A&P Assessment and Plan (1) CHF exacerbation: Qualifiers: Heart failure type: systolic Qualified Code(s): I50.23 - Acute on chronic systolic (congestive) heart failure Code(s): I50.9 - Heart failure, unspecified Status: Acute Plan Acute on chronic systolic heart failure Heart failure reduced ejection fraction -patient is volume overloaded, symptoms started a couple weeks ago when he saw his PCP on 01/11/2025 -outpatient was on torsemide 20 mg daily since 01/11 -patient with complaints of peripheral edema, dyspnea, signs and symptoms of heart failure exacerbation -IV diuresis: IV 40 mg Lasix b.i.d. -will monitor daily weight, strict I&O -will obtain limited echocardiogram to evaluate for EF (December 2023 patient had EF of 30%) -BiPAP used overnight -wean O2 as tolerated, goal O2 sat greater 90%, on 2.5 LO2 Hematuria -after placing Payne catheter likely traumatic placement -patient's anticoagulation was discontinued due to hematuria, appears not to be new issue -will monitor for resolution of hematuria -has had a history of UTIs with hematuria as well, however this episode appears to be secondary to trauma when placing new Payne catheter Chronic conditions -supplements: Vitamin-D 2, ferrous sulfate -essential hypertension: Lisinopril, Coreg -hyperlipidemia, CAD h/o CABG 04/2023, ischemic cardiomyopathy: Aspirin, statin, beta-ryan, Jardiance -anxiety/depression: BuSpar -gout: febuxostat -osteoarthritis: Oxycodone pain control -hypothyroidism: Levothyroxine dose was changed on 11/22 to 175mcg by PCP. Patient has low TSH and elevated T4 likely overdosed on levothyroxine, will decrease dose back to previous 150mcg dose -CKD stage 4 -BPH, urinary retention: Continue Payne catheter, was replaced in the ED today 01/28. follows Dr. Zurita -sleep apnea -paroxysmal atrial fibrillation: Rate control with carvedilol, no anticoagulation due to hematuria Diet: Heart healthy DVT prophylaxis: SCDs, with hematuria will hold off on Lovenox Code status: Full code Disposition: Home in 2-3 days Social: Family updated bedside Subjective Date/time seen: 01/29/25 08:43 Interval history: Patient has a remote history of stroke. Patient underwent CABG 2 years ago and stent placement 4 years ago. Echocardiogram performed 2023 shows ejection fraction 30% and new echocardiogram was performed Review of Systems Review of Systems: 10 point ROS complete, negative other th an what is specified in HPI. Exam Narrative: - GENERAL: Pleasant elderly male in No acute distress - EYES: EOMI. Anicteric. - HENT: Moist oral mucosa - LUNGS: Coarse lung sounds, on BiPAP - CARDIOVASCULAR: Regular rate and rhyth m. - ABDOMEN: Soft, non-tender and non-dist ended. - EXTREMITIES: 2+edema. Peripheral pulse s 2+. - NEUROLOGIC: No focal neurological defi cits. CN II-XII grossly intact. - PSYCHIATRIC: Awake, Alert and oriented x 3. Appropriate mood and affect. Objective Data Vital Signs Vital Signs: Vital Signs - 24 hr 01/28/25 08:45 01/28/25 09:47 01/28/25 10:00 Temperature Pulse Rate 69 69 63 Respiratory Rate 20 20 Blood Pressure Pulse Oximetry 100 100 Oxygen Delivery BiPAP BiPAP Oxygen Flow Rate Fraction of Inspired Oxygen 30 01/28/25 11:22 01/28/25 11:37 01/28/25 12:00 Temperature 97.6 F Pulse Rate 55 L 52 L 52 L Respiratory Rate 16 16 16 Blood Pressure 128/66 Pulse Oximetry 99 98 98 Oxygen Delivery BiPAP BiPAP Oxygen Flow Rate Fraction of Inspired Oxygen 30 01/28/25 12:00 01/28/25 14:00 01/28/25 14:49 Temperature Pulse Rate 52 L 53 L Respiratory Rate Blood Pressure Pulse Oximetry 93 Oxygen Delivery Nasal Cannula Oxygen Flow Rate 2.5 Fraction of Inspired Oxygen 01/28/25 16:00 01/28/25 16:00 01/28/25 16:00 Temperature 98.1 F Pulse Rate 59 L 58 L 58 L Respiratory Rate 16 16 Blood Pressure 124/71 Pulse Oximetry 100 100 Oxygen Delivery Nasal Cannula Oxygen Flow Rate 3 Fraction of Inspired Oxygen 01/28/25 17:45 01/28/25 20:00 01/28/25 20:00 Temperature 98 F Pulse Rate 58 L 66 Respiratory Rate 16 Blood Pressure 134/58 L Pulse Oximetry 99 99 Oxygen Delivery Nasal Cannula Oxygen Flow Rate 3 Fraction of Inspired Oxygen 01/28/25 20:00 01/28/25 21:10 01/28/25 22:00 Temperature Pulse Rate 59 L 61 59 L Respiratory Rate Blood Pressure Pulse Oximetry Oxygen Delivery Oxygen Flow Rate Fraction of Inspired Oxygen 01/28/25 22:45 01/29/25 00:00 01/29/25 00:00 Temperature 98 F Pulse Rate 59 L 54 L Respiratory Rate 29 H 16 Blood Pressure 139/75 Pulse Oximetry 98 100 99 Oxygen Delivery BiPAP BiPAP Oxygen Flow Rate Fraction of Inspired Oxygen 30 01/29/25 00:00 01/29/25 02:04 01/29/25 02:11 Temperature Pulse Rate 55 L 51 L 52 L Respiratory Rate 16 Blood Pressure Pulse Oximetry 99 Oxygen Delivery BiPAP Oxygen Flow Rate Fraction of Inspired Oxygen 01/29/25 03:43 01/29/25 03:59 01/29/25 04:00 Temperature 97.9 F Pulse Rate 52 L 53 L Respiratory Rate 18 Blood Pressure 143/52 H Pulse Oximetry 96 100 Oxygen Delivery BiPAP Oxygen Flow Rate Fraction of Inspired Oxygen 30 01/29/25 06:00 01/29/25 07:41 01/29/25 08:33 Temperature 98.2 F Pulse Rate 66 64 63 Respiratory Rate 22 H Blood Pressure 137/62 Pulse Oximetry 94 Oxygen Delivery Oxygen Flow Rate Fraction of Inspired Oxygen Intake/Output Intake/Output: Intake & Output 01/26/25 01/27/25 01/28/25 01/29/25 23:59 23:59 23:59 23:59 Intake Total 1150 850 Output Total 1075 850 Balance 75 0 Meds/Results Medications: Active Medications Generic Name Dose Route Start Last Admin Trade Name Freq PRN Reason Stop Dose Admin Hydrocodone Bitart/Acetaminophen 1 tab 01/28/25 15:21 Hydrocodone/Acetaminophen (*Crx) 5-325 Mg Tablet PO BID PRN Pain Aspirin 81 mg 01/29/25 08:00 01/29/25 08:33 Aspirin 81 Mg Chewable Tablet PO 81 mg DAILY@0800 SIL Administration Atorvastatin Calcium 40 mg 01/28/25 21:00 01/28/25 21:10 Atorvastatin 40 Mg Tablet PO 40 mg HS SIL Administration Buspirone HCl 10 mg 01/28/25 21:00 01/29/25 08:33 Buspirone Hcl 10 Mg Tablet PO 10 mg Q12HR SIL Administration Carvedilol 12.5 mg 01/28/25 21:00 01/29/25 08:33 Carvedilol 12.5 Mg Tablet PO 12.5 mg Q12HR SIL Administration Empagliflozin 10 mg 01/29/25 09:00 01/29/25 08:33 Empagliflozin 10 Mg Tablet PO 10 mg DAILY SIL Administration Febuxostat 40 mg 01/29/25 09:00 01/29/25 08:33 Febuxostat 40 Mg Tablet PO 40 mg DAILY SIL Administration Ferrous Sulfate 325 mg 01/29/25 09:00 01/29/25 08:33 Ferrous Sulfate 325 Mg Tablet PO 325 mg DAILY SIL Administration Furosemide 40 mg 01/28/25 17:00 01/29/25 08:33 Furosemide Inj 40 Mg/4 Ml Vial IV PUSH 40 mg BID SIL Administration Levothyroxine Sodium 100 mcg/ 175 mcg 01/29/25 06:30 01/29/25 06:21 Levothyroxine Sodium 75 mcg PO 175 mcg DAILY@0630 SIL Administration Pantoprazole Sodium 40 mg 01/29/25 09:00 01/29/25 08:33 Pantoprazole 40 Mg Tablet PO 40 mg QAM SIL Administration Perflutren Lipid Microsphere 0 ml 01/28/25 15:30 Perflutren Lipid Microspheres 1.5 Ml Vial Diluted To 10 Ml Total Volume IV PUSH 01/31/25 15:30 ONCE PRN adequate visualization Protocol Tamsulosin HCl 0.4 mg 01/28/25 18:00 01/28/25 16:21 Tamsulosin Hcl 0.4 Mg Capsule PO 0.4 mg QPM ISL Administration Radiology Results: ITS Impressions Chest X-Ray 01/28/25 05:40 IMPRESSION: 1. Interstitial pulmonary edema and/or pneumonitis. Labs Labs: Laboratory Results - last 24 hr 01/29/25 01/29/25 03:52 07:28 WBC 7.4 RBC 4.05 L Hgb 11.2 L Hct 37.6 L MCV 92.8 MCH 27.7 MCHC 29.8 L RDW 17.3 H Plt Count 191 MPV 10.7 H Immature Gran % (Auto) 0.1 Neut % (Auto) 59.9 Lymph % (Auto) 21.9 [place] % (Auto) 12.1 H Eos % (Auto) 4.8 H Baso % (Auto) 1.2 Lymph # (Auto) 1.61 [place] # (Auto) 0.9 H Eos # (Auto) 0.4 H Baso # (Auto) 0.1 Abs Immat Gran (auto) 0.01 Absolute Neuts (auto) 4.4 Absolute Nucleated RBC 0.000 Band Neutrophils % Not Reportable Nucleated RBC % 0.0 Platelet Estimate Adequate Hypochromasia 1+ Anisocytosis 1+ Benld Cells 1+ Schistocytes None seen Sodium 142 Potassium 3.7 Chloride 106 Carbon Dioxide 30 Anion Gap 6 BUN 42 H Creatinine 2.17 H Estim Creat Clear Calc 29 Estimated GFR 29 L Glucose 94 POC Capillary Glucose 105 Calcium 8.3 L Magnesium 2.8 H Quality VTE Prophylaxis VTE prophylaxis: mechanical ordered Hospitalist [facility] Advance Care Plan I have confirmed that the patient's Advanced Care Plan is present, code status is documented, or surrogate decision maker is listed in patient medical record.: Yes Medication Reconciliation I have utilized all available resources to obtain, update and review the patients current medications (includes all prescriptions, OTC, herbals, cannabis, and nutritional supplements).: Yes
[2025-01-29] MEDS: TAMSULOSIN HCL 0.4 MG CAPSULE PO (17:18)
[2025-01-29] MEDS: ATORVASTATIN 40 MG TABLET PO (20:25)
[2025-01-30] VITALS (16 sets, daily range): BP systolic 102–136; BP diastolic 67–86; PULSE 58–71; RESP 17–27; TEMP 36.3–36.8; O2SAT 92–100
--- NOTE | 2025-01-30 01:41 | NBIDPHOTO ---
PHOTO ONLY - See Nursing Notes and/ or assessments for documentation.SBAR was tubed and verbal report was given to RN accepting patient. Patient transferred via bed to room 316 with all belongings. No change in assessment. belongings within reach, call light in hand. Denied needs. States he will call his contact in the morning to let them know he moved.
[2025-01-30] MEDS: LEVOTHYROXINE SODIUM 100 MCG, LEVOTHYROXINE SODIUM 75 MCG 175 MCG PO (06:07)
[2025-01-30 06:38] LABS: Hematocrit 38.1 % (42.0-52.0); Hemoglobin 11.4 g/dL (14.0-18.0); Mean Corpuscular HGB Conc 29.9 g/dl (32-36); Mean Corpuscular Hemoglobin 28.1 pg (26-34); Mean Corpuscular Volume 93.8 fl (80-100); Platelet Count Result 188 k/mm3 (150-375); Red Blood Count 4.06 M/mm3 (4.6-6.20); White Blood Count 7.8 K/mm3 (4.5-10.0)
[2025-01-30 06:58] LABS: Alanine Aminotransferase 26 U/L (6-50); Albumin Level 3.4 g/dL (3.5-5.1); Alkaline Phosphatase 126 U/L (38-126); Anion Gap 6 mmol/L (4-12); Aspartate Amino Transferase 31 U/L (17-59); Bilirubin,Total 1.1 mg/dL (0.2-1.3); Blood Urea Nitrogen 45 mg/dL (9-20); Calcium 8.3 mg/dL (8.4-10.2); Carbon Dioxide 31 mmol/L (22-30); Chloride 104 mmol/L (98-107); Estimated CRCL calculation 30 ml/min; Estimated Glomerular Filt Rate 31; Glucose 111 mg/dL (65-110); Potassium 4.1 mmol/L (3.4-5.0); Sodium 141 mmol/L (137-145); Total Protein 7.0 g/dL (6.3-8.2)
--- NOTE | 2025-01-30 09:02 | P.PNIM_ITS ---
Progress Note: A&P Assessment and Plan (1) CHF exacerbation: Qualifiers: Heart failure type: systolic Qualified Code(s): I50.23 - Acute on chronic systolic (congestive) heart failure Code(s): I50.9 - Heart failure, unspecified Status: Acute Plan Acute on chronic systolic heart failure Heart failure reduced ejection fraction -patient is volume overloaded, symptoms started a couple weeks ago when he saw his PCP on 01/11/2025 -outpatient was on torsemide 20 mg daily since 01/11 -patient with complaints of peripheral edema, dyspnea, signs and symptoms of heart failure exacerbation -IV diuresis: IV 40 mg Lasix b.i.d. -will monitor daily weight, strict I&O -will obtain limited echocardiogram to evaluate for EF (December 2023 patient had EF of 30%) -BiPAP used overnight -wean O2 as tolerated, goal O2 sat greater 90%, on 2.5 LO2 Hematuria -after placing Payne catheter likely traumatic placement -patient's anticoagulation was discontinued due to hematuria, appears not to be new issue -will monitor for resolution of hematuria -has had a history of UTIs with hematuria as well, however this episode appears to be secondary to trauma when placing new Payne catheter Chronic conditions -supplements: Vitamin-D 2, ferrous sulfate -essential hypertension: Lisinopril, Coreg -hyperlipidemia, CAD h/o CABG 04/2023, ischemic cardiomyopathy: Aspirin, statin, beta-ryan, Jardiance -anxiety/depression: BuSpar -gout: febuxostat -osteoarthritis: Oxycodone pain control -hypothyroidism: Levothyroxine dose was changed on 11/22 to 175mcg by PCP. Patient has low TSH and elevated T4 likely overdosed on levothyroxine, will decrease dose back to previous 150mcg dose -CKD stage 4 -BPH, urinary retention: Continue Payne catheter, was replaced in the ED today 01/28. follows Dr. Zurita -sleep apnea -paroxysmal atrial fibrillation: Rate control with carvedilol, no anticoagulation due to hematuria Diet: Heart healthy DVT prophylaxis: SCDs, with hematuria will hold off on Lovenox Code status: Full code Disposition: Home in 2-3 days Social: Family updated bedside Subjective Date/time seen: 01/30/25 09:02 Interval history: No acute events overnight. Patient diuresing well. Patient has a remote history of stroke. Patient underwent CABG 2 years ago and stent placement 4 years ago. Echocardiogram performed 2023 shows ejection fraction 30% and new echocardiogram was performed Review of Systems Review of Systems: 10 point ROS complete, negative other th an what is specified in HPI. Exam Narrative: - GENERAL: Pleasant elderly male in No acute distress - EYES: EOMI. Anicteric. - HENT: Moist oral mucosa - LUNGS: Coarse lung sounds, on BiPAP - CARDIOVASCULAR: Regular rate and rhyth m. - ABDOMEN: Soft, non-tender and non-dist ended. - EXTREMITIES: 2+edema. Peripheral pulse s 2+. - NEUROLOGIC: No focal neurological defi cits. CN II-XII grossly intact. - PSYCHIATRIC: Awake, Alert and oriented x 3. Appropriate mood and affect. Objective Data Vital Signs Vital Signs: Vital Signs - 24 hr 01/29/25 10:00 01/29/25 11:53 01/29/25 12:00 Temperature 98.6 F Pulse Rate 58 L 57 L 61 Respiratory Rate 20 Blood Pressure 135/66 Pulse Oximetry 98 Oxygen Delivery Oxygen Flow Rate Fraction of Inspired Oxygen 01/29/25 14:00 01/29/25 15:42 01/29/25 16:00 Temperature 98.1 F Pulse Rate 63 65 62 Respiratory Rate 22 H Blood Pressure 129/55 L Pulse Oximetry 90 Oxygen Delivery Oxygen Flow Rate Fraction of Inspired Oxygen 01/29/25 19:38 01/29/25 20:00 01/29/25 20:00 Temperature Pulse Rate 65 64 Respiratory Rate 20 Blood Pressure Pulse Oximetry 92 Oxygen Delivery Room Air Room Air Oxygen Flow Rate Fraction of Inspired Oxygen 21 01/29/25 20:24 01/29/25 21:16 01/30/25 00:00 Temperature Pulse Rate 64 62 59 L Respiratory Rate 24 H Blood Pressure Pulse Oximetry 99 Oxygen Delivery BiPAP Oxygen Flow Rate Fraction of Inspired Oxygen 01/30/25 00:00 01/30/25 01:10 01/30/25 01:46 Temperature 97.3 F L Pulse Rate 61 65 61 Respiratory Rate 17 27 H Blood Pressure 136/71 136/72 Pulse Oximetry 98 96 99 Oxygen Delivery BiPAP Oxygen Flow Rate Fraction of Inspired Oxygen 01/30/25 01:47 01/30/25 04:00 01/30/25 04:17 Temperature Pulse Rate 61 58 L 67 Respiratory Rate 17 Blood Pressure Pulse Oximetry 98 92 Oxygen Delivery BiPAP Nasal Cannula Oxygen Flow Rate Fraction of Inspired Oxygen 21 01/30/25 04:17 01/30/25 04:25 Temperature 97.9 F Pulse Rate 67 60 Respiratory Rate 20 22 H Blood Pressure 129/86 Pulse Oximetry 92 100 Oxygen Delivery Nasal Cannula Oxygen Flow Rate 2 Fraction of Inspired Oxygen 28 Intake/Output Intake/Output: Intake & Output 01/27/25 01/28/25 01/29/25 01/30/25 23:59 23:59 23:59 23:59 Intake Total 1150 1730 200 Output Total 1075 1750 1000 Balance 75 -20 -800 Meds/Results Medications: Active Medications Generic Name Dose Route Start Last Admin Trade Name Freq PRN Reason Stop Dose Admin Hydrocodone Bitart/Acetaminophen 1 tab 01/28/25 15:21 Hydrocodone/Acetaminophen (*Crx) 5-325 Mg Tablet PO BID PRN Pain Aspirin 81 mg 01/29/25 08:00 01/29/25 08:33 Aspirin 81 Mg Chewable Tablet PO 81 mg DAILY@0800 SIL Administration Atorvastatin Calcium 40 mg 01/28/25 21:00 01/29/25 20:25 Atorvastatin 40 Mg Tablet PO 40 mg HS SIL Administration Buspirone HCl 10 mg 01/28/25 21:00 01/29/25 20:25 Buspirone Hcl 10 Mg Tablet PO 10 mg Q12HR SIL Administration Carvedilol 12.5 mg 01/28/25 21:00 01/29/25 20:24 Carvedilol 12.5 Mg Tablet PO 12.5 mg Q12HR SIL Administration Empagliflozin 10 mg 01/29/25 09:00 01/29/25 08:33 Empagliflozin 10 Mg Tablet PO 10 mg DAILY SIL Administration Febuxostat 40 mg 01/29/25 09:00 01/29/25 08:33 Febuxostat 40 Mg Tablet PO 40 mg DAILY SIL Administration Ferrous Sulfate 325 mg 01/29/25 09:00 01/29/25 08:33 Ferrous Sulfate 325 Mg Tablet PO 325 mg DAILY SIL Administration Furosemide 40 mg 01/28/25 17:00 01/29/25 17:18 Furosemide Inj 40 Mg/4 Ml Vial IV PUSH 40 mg BID SIL Administration Levothyroxine Sodium 100 mcg/ 175 mcg 01/29/25 06:30 01/30/25 06:07 Levothyroxine Sodium 75 mcg PO 175 mcg DAILY@0630 SIL Administration Pantoprazole Sodium 40 mg 01/29/25 09:00 01/29/25 08:33 Pantoprazole 40 Mg Tablet PO 40 mg QAM SIL Administration Perflutren Lipid Microsphere 0 ml 01/28/25 15:30 Perflutren Lipid Microspheres 1.5 Ml Vial Diluted To 10 Ml Total Volume IV PUSH 01/31/25 15:30 ONCE PRN adequate visualization Protocol Tamsulosin HCl 0.4 mg 01/28/25 18:00 01/29/25 17:18 Tamsulosin Hcl 0.4 Mg Capsule PO 0.4 mg QPM SIL Administration Radiology Results: ITS Impressions Chest X-Ray 01/28/25 05:40 IMPRESSION: 1. Interstitial pulmonary edema and/or pneumonitis. Labs Labs: Laboratory Results - last 24 hr 01/29/25 01/29/25 01/30/25 11:40 15:19 06:10 WBC 7.8 RBC 4.06 L Hgb 11.4 L Hct 38.1 L MCV 93.8 MCH 28.1 MCHC 29.9 L RDW 17.3 H Plt Count 188 MPV 10.6 H Sodium 141 Potassium 4.1 Chloride 104 Carbon Dioxide 31 H Anion Gap 6 BUN 45 H Creatinine 2.07 H Estim Creat Clear Calc 30 Estimated GFR 31 L Glucose 111 H POC Capillary Glucose 118 H 190 H Calcium 8.3 L Total Bilirubin 1.1 AST 31 ALT 26 Alkaline Phosphatase 126 Total Protein 7.0 Albumin 3.4 L Quality VTE Prophylaxis VTE prophylaxis: mechanical ordered Hospitalist [facility] Advance Care Plan I have confirmed that the patient's Advanced Care Plan is present, code status is documented, or surrogate decision maker is listed in patient medical record.: Yes
[2025-01-30 09:33] LABS: NT Pro B Type Natriuretic Pept 17000 pg/mL (19.9-100)
[2025-01-30] MEDS: FEBUXOSTAT 40 MG TABLET PO (10:11)
[2025-01-30] MEDS: PANTOPRAZOLE 40 MG TABLET PO (10:11)
[2025-01-30] MEDS: EMPAGLIFLOZIN 10 MG TABLET PO (10:11)
[2025-01-30] MEDS: FERROUS SULFATE 325 MG TABLET PO (10:11)
[2025-01-30] MEDS: ASPIRIN 81 MG CHEWABLE TABLET PO (10:11)
[2025-01-30] MEDS: FUROSEMIDE INJ 40 MG/4 ML VIAL IV PUSH ×2 (10:12→16:43)
[2025-01-30] MEDS: TAMSULOSIN HCL 0.4 MG CAPSULE PO (16:43)
[2025-01-30] MEDS: ATORVASTATIN 40 MG TABLET PO (20:34)
[2025-01-31] VITALS (12 sets, daily range): BP systolic 135–162; BP diastolic 77–81; PULSE 49–83; RESP 18–29; TEMP 36.6–36.8; O2SAT 95–99
[2025-01-31] MEDS: LEVOTHYROXINE SODIUM 100 MCG, LEVOTHYROXINE SODIUM 75 MCG 175 MCG PO (06:41)
[2025-01-31 07:19] LABS: Hematocrit 39.5 % (42.0-52.0); Hemoglobin 12.1 g/dL (14.0-18.0); Mean Corpuscular HGB Conc 30.6 g/dl (32-36); Mean Corpuscular Hemoglobin 28.1 pg (26-34); Mean Corpuscular Volume 91.6 fl (80-100); Platelet Count Result 205 k/mm3 (150-375); Red Blood Count 4.31 M/mm3 (4.6-6.20); White Blood Count 7.2 K/mm3 (4.5-10.0)
[2025-01-31 07:28] LABS: Alanine Aminotransferase 26 U/L (6-50); Albumin Level 3.7 g/dL (3.5-5.1); Alkaline Phosphatase 142 U/L (38-126); Anion Gap 8 mmol/L (4-12); Aspartate Amino Transferase 28 U/L (17-59); Bilirubin,Total 1.4 mg/dL (0.2-1.3); Blood Urea Nitrogen 41 mg/dL (9-20); Calcium 8.6 mg/dL (8.4-10.2); Carbon Dioxide 29 mmol/L (22-30); Chloride 104 mmol/L (98-107); Estimated CRCL calculation 30 ml/min; Estimated Glomerular Filt Rate 31; Glucose 116 mg/dL (65-110); Potassium 4.1 mmol/L (3.4-5.0); Sodium 141 mmol/L (137-145); Total Protein 7.6 g/dL (6.3-8.2)
[2025-01-31 07:37] LABS: NT Pro B Type Natriuretic Pept 18300 pg/mL (19.9-100)
[2025-01-31] MEDS: FUROSEMIDE 40 MG TABLET PO ×2 (09:23→17:44)
[2025-01-31] MEDS: ASPIRIN 81 MG CHEWABLE TABLET PO (09:23)
[2025-01-31] MEDS: EMPAGLIFLOZIN 10 MG TABLET PO (09:23)
[2025-01-31] MEDS: PANTOPRAZOLE 40 MG TABLET PO (09:23)
[2025-01-31] MEDS: FERROUS SULFATE 325 MG TABLET PO (09:23)
[2025-01-31] MEDS: FEBUXOSTAT 40 MG TABLET PO (09:24)
--- NOTE | 2025-01-31 15:23 | PM.IMPN ---
Progress Note: A&P Assessment and Plan (1) CHF exacerbation: Qualifiers: Heart failure type: systolic Qualified Code(s): I50.23 - Acute on chronic systolic (congestive) heart failure Code(s): I50.9 - Heart failure, unspecified Status: Acute Plan Acute on chronic systolic heart failure Heart failure reduced ejection fraction -patient is volume overloaded, symptoms started a couple weeks ago when he saw his PCP on 01/11/2025 -outpatient was on torsemide 20 mg daily since 01/11 -patient with complaints of peripheral edema, dyspnea, signs and symptoms of heart failure exacerbation -IV diuresis: IV 40 mg Lasix b.i.d. -will monitor daily weight, strict I&O -will obtain limited echocardiogram to evaluate for EF (December 2023 patient had EF of 30%) -BiPAP used overnight -wean O2 as tolerated, goal O2 sat greater 90%, on 2.5 LO2 Hematuria -after placing Payne catheter likely traumatic placement -patient's anticoagulation was discontinued due to hematuria, appears not to be new issue -will monitor for resolution of hematuria -has had a history of UTIs with hematuria as well, however this episode appears to be secondary to trauma when placing new Payne catheter Chronic conditions -supplements: Vitamin-D 2, ferrous sulfate -essential hypertension: Lisinopril, Coreg -hyperlipidemia, CAD h/o CABG 04/2023, ischemic cardiomyopathy: Aspirin, statin, beta-ryan, Jardiance -anxiety/depression: BuSpar -gout: febuxostat -osteoarthritis: Oxycodone pain control -hypothyroidism: Levothyroxine dose was changed on 11/22 to 175mcg by PCP. Patient has low TSH and elevated T4 likely overdosed on levothyroxine, will decrease dose back to previous 150mcg dose -CKD stage 4 -BPH, urinary retention: Continue Payne catheter, was replaced in the ED today 01/28. follows Dr. Zurita -sleep apnea -paroxysmal atrial fibrillation: Rate control with carvedilol, no anticoagulation due to hematuria Diet: Heart healthy DVT prophylaxis: SCDs, with hematuria will hold off on Lovenox Code status: Full code Disposition: Home in 2-3 days Social: Family updated bedside Subjective Date/time seen: 01/31/25 15:23 Interval history: Denies any complaint. As mentioned previously patient has a remote history of stroke. Patient underwent CABG 2 years ago and stent placement 4 years ago. Echocardiogram performed 2023 shows ejection fraction 30% and new echocardiogram was performed and shows ejection fraction 35% Review of Systems Review of Systems: 10 point ROS complete, negative other than what is specified in HPI. Exam Narrative: - GENERAL: Pleasant elderly male in No acute distress - EYES: EOMI. Anicteric. - HENT: Moist oral mucosa - LUNGS: Coarse lung sounds, on BiPAP - CARDIOVASCULAR: Regular rate and rhythm. - ABDOMEN: Soft, non-tender and non-distended. - EXTREMITIES: 2+edema. Peripheral pulses 2+. - NEUROLOGIC: No focal neurological deficits. CN II-XII grossly intact. - PSYCHIATRIC: Awake, Alert and oriented x 3. Appropriate mood and affect. Objective Data Vital Signs Vital Signs: Vital Signs - 24 hr 01/30/25 16:00 01/30/25 16:00 01/30/25 19:30 Temperature 98.2 F 97.9 F Pulse Rate 63 63 67 Respiratory Rate 20 18 Blood Pressure 114/67 102/78 Pulse Oximetry 100 94 Oxygen Delivery 01/30/25 20:00 01/30/25 20:00 01/30/25 20:34 Temperature Pulse Rate 71 68 Respiratory Rate Blood Pressure Pulse Oximetry Oxygen Delivery Room Air 01/30/25 23:05 01/30/25 23:55 01/31/25 00:00 Temperature Pulse Rate 57 L Respiratory Rate 22 H 21 H Blood Pressure Pulse Oximetry Oxygen Delivery BiPAP CPAP 01/31/25 00:50 01/31/25 04:00 01/31/25 05:44 Temperature 97.8 F Pulse Rate 49 L 60 Respiratory Rate 21 H 22 H Blood Pressure 162/81 H Pulse Oximetry 95 Oxygen Delivery CPAP 01/31/25 08:00 01/31/25 08:00 01/31/25 08:59 Temperature Pulse Rate 60 Respiratory Rate Blood Pressure Pulse Oximetry Oxygen Delivery Room Air Room Air 01/31/25 10:55 Temperature Pulse Rate Respiratory Rate Blood Pressure Pulse Oximetry Oxygen Delivery Room Air Intake/Output Intake/Output: Intake & Output 01/28/25 01/29/25 01/30/25 01/31/25 23:59 23:59 23:59 23:59 Intake Total 1150 1730 920 810 Output Total 1075 1750 3100 1100 Balance 75 -20 -2180 -290 Meds/Results Medications: Active Medications Generic Name Dose Route Start Last Admin Trade Name Juanq PRN Reason Stop Dose Admin Hydrocodone Bitart/Acetaminophen 1 tab 01/28/25 15:21 Hydrocodone/Acetaminophen (*Crx) 5-325 Mg Tablet PO BID PRN Pain Aspirin 81 mg 01/29/25 08:00 01/31/25 09:23 Aspirin 81 Mg Chewable Tablet PO 81 mg DAILY@0800 SIL Administration Atorvastatin Calcium 40 mg 01/28/25 21:00 01/30/25 20:34 Atorvastatin 40 Mg Tablet PO 40 mg HS SIL Administration Buspirone HCl 10 mg 01/28/25 21:00 01/31/25 09:24 Buspirone Hcl 10 Mg Tablet PO 10 mg Q12HR SIL Administration Carvedilol 12.5 mg 01/28/25 21:00 01/31/25 09:24 Carvedilol 12.5 Mg Tablet PO 12.5 mg Q12HR SIL Administration Empagliflozin 10 mg 01/29/25 09:00 01/31/25 09:23 Empagliflozin 10 Mg Tablet PO 10 mg DAILY SIL Administration Febuxostat 40 mg 01/29/25 09:00 01/31/25 09:24 Febuxostat 40 Mg Tablet PO 40 mg DAILY SIL Administration Ferrous Sulfate 325 mg 01/29/25 09:00 01/31/25 09:23 Ferrous Sulfate 325 Mg Tablet PO 325 mg DAILY SIL Administration Furosemide 40 mg 01/31/25 09:00 01/31/25 09:23 Furosemide 40 Mg Tablet PO 40 mg BID SIL Administration Levothyroxine Sodium 100 mcg/ 175 mcg 01/29/25 06:30 01/31/25 06:41 Levothyroxine Sodium 75 mcg PO 175 mcg DAILY@0630 SIL Administration Pantoprazole Sodium 40 mg 01/29/25 09:00 01/31/25 09:23 Pantoprazole 40 Mg Tablet PO 40 mg QAM SIL Administration Perflutren Lipid Microsphere 0 ml 01/28/25 15:30 Perflutren Lipid Microspheres 1.5 Ml Vial Diluted To 10 Ml Total Volume IV PUSH 01/31/25 15:30 ONCE PRN adequate visualization Protocol Tamsulosin HCl 0.4 mg 01/28/25 18:00 01/30/25 16:43 Tamsulosin Hcl 0.4 Mg Capsule PO 0.4 mg QPM SIL Administration Radiology Results: ITS Impressions Chest X-Ray 01/28/25 05:40 IMPRESSION: 1. Interstitial pulmonary edema and/or pneumonitis. Labs Labs: Laboratory Results - last 24 hr 01/31/25 07:06 WBC 7.2 RBC 4.31 L Hgb 12.1 L Hct 39.5 L MCV 91.6 MCH 28.1 MCHC 30.6 L RDW 17.2 H Plt Count 205 MPV 10.2 Sodium 141 Potassium 4.1 Chloride 104 Carbon Dioxide 29 Anion Gap 8 BUN 41 H Creatinine 2.07 H Estim Creat Clear Calc 30 Estimated GFR 31 L Glucose 116 H Calcium 8.6 Total Bilirubin 1.4 H AST 28 ALT 26 Alkaline Phosphatase 142 H NT-Pro-B Natriuret Pep 71856 H Total Protein 7.6 Albumin 3.7 Quality VTE Prophylaxis VTE prophylaxis: mechanical ordered Hospitalist [facility] Advance Care Plan I have confirmed that the patient's Advanced Care Plan is present, code status is documented, or surrogate decision maker is listed in patient medical record.: Yes Medication Reconciliation I have utilized all available resources to obtain, update and review the patients current medications (includes all prescriptions, OTC, herbals, cannabis, and nutritional supplements).: Yes
[2025-01-31] MEDS: TAMSULOSIN HCL 0.4 MG CAPSULE PO (17:44)
[2025-01-31] MEDS: ATORVASTATIN 40 MG TABLET PO (21:26)
[2025-02-01] VITALS: PULSE 52
[2025-02-01 02:50] VITALS: PULSE 79; RESP 20; O2SAT 96
[2025-02-01 04:00] VITALS: PULSE 47
[2025-02-01 05:25] VITALS: BP 110/61; PULSE 52; RESP 16; TEMP 36.6; O2SAT 100
[2025-02-01] MEDS: LEVOTHYROXINE SODIUM 100 MCG, LEVOTHYROXINE SODIUM 75 MCG 175 MCG PO (05:50)
[2025-02-01 06:44] LABS: Hematocrit 38.5 % (42.0-52.0); Hemoglobin 11.8 g/dL (14.0-18.0); Mean Corpuscular HGB Conc 30.6 g/dl (32-36); Mean Corpuscular Hemoglobin 28.6 pg (26-34); Mean Corpuscular Volume 93.4 fl (80-100); Platelet Count Result 197 k/mm3 (150-375); Red Blood Count 4.12 M/mm3 (4.6-6.20); White Blood Count 6.2 K/mm3 (4.5-10.0)
[2025-02-01 08:00] VITALS: PULSE 60
--- NOTE | 2025-02-01 08:45 | P.DS_ITS ---
DS: Admitting Diagnosis Discharge Date 02/01/2025 Admitting Diagnosis CHF exacerbation DS: Discharge Diagnosis Discharge Diagnosis (1) CHF exacerbation: Qualifiers: Heart failure type: systolic Qualified Code(s): I50.23 - Acute on chronic systolic (congestive) heart failure Code(s): I50.9 - Heart failure, unspecified Status: Acute Plan Please refer to hospital course for brief summary Acute on chronic systolic heart failure Heart failure reduced ejection fraction -patient is volume overloaded, symptoms started a couple weeks ago when he saw his PCP on 01/11/2025 -outpatient was on torsemide 20 mg daily since 01/11 -patient with complaints of peripheral edema, dyspnea, signs and symptoms of heart failure exacerbation -IV diuresis: IV 40 mg Lasix b.i.d. -will monitor daily weight, strict I&O -will obtain limited echocardiogram to evaluate for EF (December 2023 patient had EF of 30%) -BiPAP used overnight -wean O2 as tolerated, goal O2 sat greater 90%, on 2.5 LO2 Hematuria -after placing Payne catheter likely traumatic placement -patient's anticoagulation was discontinued due to hematuria, appears not to be new issue -will monitor for resolution of hematuria -has had a history of UTIs with hematuria as well, however this episode appears to be secondary to trauma when placing new Payne catheter Chronic conditions -supplements: Vitamin-D 2, ferrous sulfate -essential hypertension: Lisinopril, Coreg -hyperlipidemia, CAD h/o CABG 04/2023, ischemic cardiomyopathy: Aspirin, statin, beta-ryan, Jardiance -anxiety/depression: BuSpar -gout: febuxostat -osteoarthritis: Oxycodone pain control -hypothyroidism: Levothyroxine dose was changed on 11/22 to 175mcg by PCP. Patient has low TSH and elevated T4 likely overdosed on levothyroxine, will decrease dose back to previous 150mcg dose -CKD stage 4 -BPH, urinary retention: Continue Payne catheter, was replaced in the ED today 01/28. follows Dr. Zurita -sleep apnea -paroxysmal atrial fibrillation: Rate control with carvedilol, no anticoagulation due to hematuria Diet: Heart healthy DVT prophylaxis: SCDs, with hematuria will hold off on Lovenox Code status: Full code Disposition: Home in 2-3 days Social: Family updated bedside DS: Summary Hospital Course Hospital Course: Patient is 79-year-old male past no history of hypertension, hyperlipidemia, CHF, CAD status post CABG 04/2023, chronic venous insufficiency, BPH, CKD stage 4, urinary retention, sleep apnea who presents the ED with complaints of dyspnea. He has been following with his primary care provider YANY Goldberg for the fluid overload. He recently started seeing providers for the less swelling in his legs 01/11/2025. At that time he had gained 15 lb 4 weeks, he has been off his torsemide, he last saw swing manager October 2023. Who has prescribed torsemide 20 mg p.o. daily. He follow-up with PCP on 01/21 and at that time he was diagnosed with superimposed pneumonia with CHF. He was given Augmentin and azithromycin. He now presents on 01/28 with worsening edema and swelling and shortness of breath. It appears to torsemide 20 mg was not sufficient. In the ED: His labs are stable, creatinine 2.24, however BNP significantly elevated 25,000. He had elevated troponin 0.038. He is given a dose of IV Lasix 40 mg. He had a Payne catheter exchanged which was traumatic leading to bloody urine. His admitted to IMU for further management of heart failure exacerbation. Patient has a remote history of stroke. Patient underwent CABG 2 years ago and stent placement 4 years ago. Echocardiogram performed 2023 shows ejection fraction 30% and new echocardiogram was performed which shows ejection fraction of 35%. Patient has been diuresing well. Patient will be discharged with Lasix 40 mg p.o. b.i.d. and advised to follow-up with his cardiology at [facility]. On the day of discharge, the patient was seen and examined. Vital signs were stable. Physical exam were stable and labs were reviewed at length. Discharge instructions, medications, and follow-up appointments were discussed with the patient at length and all day questions were answered. ER warnings were given. Status at Discharge Cognitive/behavioral status at discharge: Stable Time Spent with Patient Time attestation: Total time spent providing and/or coordinating discharge services: 45 minutes Exam Narrative: - GENERAL: Pleasant elderly male in No acute distress - EYES: EOMI. Anicteric. - HENT: Moist oral mucosa - LUNGS: Coarse lung sounds, on BiPAP - CARDIOVASCULAR: Regular rate and rhyth m. - ABDOMEN: Soft, non-tender and non-dist ended. - EXTREMITIES: 2+edema. Peripheral pulse s 2+. - NEUROLOGIC: No focal neurological defi cits. CN II-XII grossly intact. - PSYCHIATRIC: Awake, Alert and oriented x 3. Appropriate mood and affect. DS: Data Data Completed and Pending Labs on day of discharge: Labs from last 24 hours 02/01/25 06:00 WBC 6.2 RBC 4.12 L Hgb 11.8 L Hct 38.5 L MCV 93.4 MCH 28.6 MCHC 30.6 L RDW 17.2 H Plt Count 197 MPV 10.4 Sodium Pending Potassium Pending Chloride Pending Carbon Dioxide Pending Anion Gap Pending BUN Pending Creatinine Pending Estim Creat Clear Calc Pending Estimated GFR Pending Glucose Pending Calcium Pending Total Bilirubin Pending AST Pending ALT Pending Alkaline Phosphatase Pending NT-Pro-B Natriuret Pep Pending Total Protein Pending Albumin Pending Imaging Radiologist's impression: ITS Impressions Chest X-Ray 01/28/25 05:40 IMPRESSION: 1. Interstitial pulmonary edema and/or pneumonitis. Discharge Plan Discharge Attending physician on discharge: Dante Adame Discharging Clinician: Dante Adame Anticipated Discharge Date/Time: 02/01/25 08:47 Patient Disposition: Home Activity: as tolerated Diet: heart healthy and low sodium Discharge Instructions: Daily weights, if you gain more than 3lb within 1 day or 5 lbsin 1 week please call cardiology Check blood pressure 1 to 2 times a day. Record and bring into your doctor for review. Call your doctor if your blood pressure is greater than 180/110 or less than 90/45. Walk with cane or other assist device. Take precautions to avoid falls. Rise slowly from a lying or sitting position. Pause before standing or walking. Contact your doctor or call 911 and come to the Emergency Room if you have any type of trauma, lightheadedness with standing or other worrisome symptoms. Avoid NSAIDs (ibuprofen, naproxen, Aleve). Tylenol is safe to take. Follow-up with your primary care provider in 1-2 weeks. Please call for appointment. Follow-up with Cardiology in 2-4 weeks. Please call for an appointment. Thank you for using [facility] for your health care needs. Patient Instructions: Antibiotic Form Patient Language: Filipino Stand Alone Forms: General Discharge Information Follow-up/Referrals: Elidia Goldberg APRN [Primary Care Provider, Family Practice] Discharge Medications: New furosemide 40 mg Tablet 40 mg PO BID Qty: 60 0RF Continued carvedilol 12.5 mg tablet 12.5 mg PO Q12H Qty: 180 1RF Rx Instructions: must administer with a meal/food lisinopril 5 mg tablet 5 mg PO DAILY Jardiance 10 mg tablet 10 mg PO DAILY levothyroxine 175 mcg capsule 175 mcg PO DAILY ergocalciferol (vitamin D2) 1,250 mcg (50,000 unit) capsule 1,250 mcg PO WEEKLY Qty: 13 1RF Patient Comments: patient takes on Mondays albuterol sulfate [Ventolin HFA] 90 mcg/actuation HFA aerosol inhaler 1 - 2 puff inhalation Q4H PRN (Reason: shortness of breath or wheezing) Qty: 8.5 0RF aspirin 81 mg capsule 81 mg PO DAILY buspirone 10 mg tablet 10 mg PO BID ferrous sulfate 325 mg (65 mg iron) tablet,delayed release (DR/EC) 325 mg PO DAILY atorvastatin 40 mg tablet 40 mg PO HS Qty: 90 2RF febuxostat [Uloric] 40 mg tablet 40 mg PO DAILY Qty: 90 1RF pantoprazole 40 mg tablet,delayed release (DR/EC) 40 mg PO QAM Qty: 100 1RF hydrocodone-acetaminophen 5-325 mg tablet 1 tablet PO BID PRN (Reason: pain) Qty: 30 0RF tamsulosin 0.4 mg capsule 0.4 mg PO QPM Qty: 100 1RF Discontinued torsemide 20 mg tablet 20 mg PO DAILY Qty: 30 0RF Rx Instructions: start on tuesday04/16/2024 Date of admission: 01/28/25 05:46 Primary Care Provider: Elidia Goldberg Admitting Provider: Maki Ricardo Attending physician on admission: Maki Ricardo Condition: Stable
[2025-02-01] MEDS: FEBUXOSTAT 40 MG TABLET PO (09:32)
[2025-02-01] MEDS: FUROSEMIDE 40 MG TABLET PO (09:32)
[2025-02-01] MEDS: FERROUS SULFATE 325 MG TABLET PO (09:32)
[2025-02-01] MEDS: ASPIRIN 81 MG CHEWABLE TABLET PO (09:32)
[2025-02-01] MEDS: PANTOPRAZOLE 40 MG TABLET PO (09:32)
[2025-02-01] MEDS: EMPAGLIFLOZIN 10 MG TABLET PO (09:32)
[2025-02-01 09:38] VITALS: O2SAT 95
[2025-02-01 10:18] LABS: Alanine Aminotransferase 26 U/L (6-50); Albumin Level 3.5 g/dL (3.5-5.1); Alkaline Phosphatase 130 U/L (38-126); Anion Gap 8 mmol/L (4-12); Aspartate Amino Transferase 29 U/L (17-59); Bilirubin,Total 1.0 mg/dL (0.2-1.3); Blood Urea Nitrogen 44 mg/dL (9-20); Calcium 8.8 mg/dL (8.4-10.2); Carbon Dioxide 28 mmol/L (22-30); Chloride 106 mmol/L (98-107); Estimated CRCL calculation 27 ml/min; Estimated Glomerular Filt Rate 28; Glucose 103 mg/dL (65-110); Potassium 4.4 mmol/L (3.4-5.0); Sodium 142 mmol/L (137-145); Total Protein 7.2 g/dL (6.3-8.2)
[2025-02-01 10:26] LABS: NT Pro B Type Natriuretic Pept 16300 pg/mL (19.9-100)
== END 2025-02-01 12:20 | disposition home or self-care (01) | DRG 291 ==
LOC: ANHED 05:37 → ANHIMU 07:00 → ANH3MEDSUR 01-30 10:10 → ANHIMU 02-05 09:38
PROVIDERS: Student in an Organized Health Care Education/Training Program; Admitting Provider General Practice; Emergency Provider Emergency Medicine; PCP Nurse Practitioner Family; Visit Provider General Practice
DX: I13.0 Hypertensive heart and chronic kidney disease with heart failure and stage 1 through stage 4 chronic kidney disease, or unspecified chronic kidney disease (principal); I50.23 Acute on chronic systolic (congestive) heart failure; N18.4 Chronic kidney disease, stage 4 (severe); T83.83XA Hemorrhage due to genitourinary prosthetic devices, implants and grafts, initial encounter; R31.9 Hematuria, unspecified; I25.10 Atherosclerotic heart disease of native coronary artery without angina pectoris; I48.0 Paroxysmal atrial fibrillation; I87.2 Venous insufficiency (chronic) (peripheral); D63.8 Anemia in other chronic diseases classified elsewhere; E03.9 Hypothyroidism, unspecified; E55.9 Vitamin D deficiency, unspecified; E78.5 Hyperlipidemia, unspecified; K21.9 Gastro-esophageal reflux disease without esophagitis; K27.7 Chronic peptic ulcer, site unspecified, without hemorrhage or perforation; N40.1 Benign prostatic hyperplasia with lower urinary tract symptoms; R33.8 Other retention of urine; M19.90 Unspecified osteoarthritis, unspecified site; G47.33 Obstructive sleep apnea (adult) (pediatric); Z79.82 Long term (current) use of aspirin; Z86.73 Personal history of transient ischemic attack (TIA), and cerebral infarction without residual deficits; Z95.5 Presence of coronary angioplasty implant and graft; Z95.1 Presence of aortocoronary bypass graft
CPT/HCPCS: 36415; 71045; 80048; 80053; 82803; 82948; 83605; 83735; 83880; 84484; 85025; 85027; 85610; 85730; 93005; 93306; 94002; 94003; 94660; 96374; 97161; 97166; 97530; 97535; 99285; A9270; J1938

== ENCOUNTER 2025-02-15 13:26 | Outpatient (CLI) | payer MEDICARE, SELFPAY ==
[2025-02-15 18:32] LABS: Hematocrit 39.8 % (42.0-52.0); Hemoglobin 12.2 g/dL (14.0-18.0); Immature Granulocyte Percent A 0.3 % (0-0.5); Lymphocytes Absolute Auto 1.44 K/mm3 (0.9-3.2); Mean Corpuscular HGB Conc 30.7 g/dl (32-36); Mean Corpuscular Hemoglobin 28.6 pg (26-34); Mean Corpuscular Volume 93.4 fl (80-100); Nucleated Red Blood Cells Absolute Auto 0.000 K/mm3 (0.0-0.012); Nucleated Red Blood Cells Perc 0.0 % (0.0-0.2); Platelet Count Result 114 k/mm3 (150-375); Red Blood Count 4.26 M/mm3 (4.6-6.20); White Blood Count 6.6 K/mm3 (4.5-10.0)
[2025-02-15 19:14] LABS: Alanine Aminotransferase 25 U/L (6-50); Albumin Level 3.8 g/dL (3.5-5.1); Alkaline Phosphatase 128 U/L (38-126); Anion Gap 5 mmol/L (4-12); Aspartate Amino Transferase 33 U/L (17-59); Bilirubin,Total 0.8 mg/dL (0.2-1.3); Blood Urea Nitrogen 53 mg/dL (9-20); Calcium 8.6 mg/dL (8.4-10.2); Carbon Dioxide 28 mmol/L (22-30); Chloride 106 mmol/L (98-107); Estimated Glomerular Filt Rate 26; Glucose 118 mg/dL (65-110); Potassium 4.4 mmol/L (3.4-5.0); Sodium 139 mmol/L (137-145); Total Protein 7.7 g/dL (6.3-8.2)
[2025-02-15 19:25] LABS: NT Pro B Type Natriuretic Pept 11700 pg/mL (19.9-100)
== END 2025-02-15 13:27 | disposition home or self-care (01) ==
PROVIDERS: PCP Nurse Practitioner Family; Visit Provider Nurse Practitioner Family
DX: I12.9 Hypertensive chronic kidney disease with stage 1 through stage 4 chronic kidney disease, or unspecified chronic kidney disease (principal); I50.23 Acute on chronic systolic (congestive) heart failure; N18.32 Chronic kidney disease, stage 3b
CPT/HCPCS: 36415; 80053; 83880; 85025

== ENCOUNTER 2025-02-22 00:57 | Emergency (ER) | payer MEDICARE, SELFPAY ==
--- NOTE | ~2025-02-22 | XR_ITS ---
EXAMINATION: XR chest 2V DATE: 02/22/2025 03:02 INDICATION: Syncope TECHNIQUE: Frontal and lateral views of the chest were obtained. COMPARISON: January 28, 2025 FINDINGS: Prominent parenchymal markings in the perihilar regions not grossly changed given variation in technique positioning and lung volumes. Heart shadow mildly enlarged. Sternal retention wires appear unchanged bones and upper abdomen unremarkable. IMPRESSION: 1. Proximal changes in the perihilar regions may represent vascular congestion with mild pulmonary edema and/or pneumonitis. Reviewed, dictated and finalized at location A. ATION NURSE
[2025-02-22 00:58] VITALS: BP 156/102; PULSE 110; RESP 22; TEMP 36.4; O2SAT 96
[2025-02-22 01:01] VITALS: BP 161/105; PULSE 95
--- NOTE | 2025-02-22 01:01 | ECG_ITS ---
Test Date: 2025-02-22 01:09:44 Measurements Intervals [place] Rate: 110 P: 0 OK: 0 QRS: -22 QRSD: 100 T: 45 QT: 333 QTc: 451 Interpretive Statements SUPRAVENTRICULAR TACHYCARDIA BORDERLINE R WAVE PROGRESSION, ANTERIOR LEADS NONSPECIFIC ST & T-WAVE ABNORMALITY- HIGH LATERAL LEADS BASELINE WANDER- I, II, AVR, AVL, AVF ABNORMAL ECG Compared to ECG 01/28/2025 04:44:33 SINUS BRADYCARDIA NO LONGER PRESENT Electronically Signed On 02-22-2025 06:27:52 [employer]CRIPTION CREW LEADER by John Estrada D.O.
[2025-02-22 01:36] LABS: Hematocrit 40.7 % (42.0-52.0); Hemoglobin 12.9 g/dL (14.0-18.0); Immature Granulocyte Percent A 0.3 % (0-0.5); Lymphocytes Absolute Auto 1.32 K/mm3 (0.9-3.2); Mean Corpuscular HGB Conc 31.7 g/dl (32-36); Mean Corpuscular Hemoglobin 29.1 pg (26-34); Mean Corpuscular Volume 91.9 fl (80-100); Nucleated Red Blood Cells Absolute Auto 0.000 K/mm3 (0.0-0.012); Nucleated Red Blood Cells Perc 0.0 % (0.0-0.2); Platelet Count Result 192 k/mm3 (150-375); Red Blood Count 4.43 M/mm3 (4.6-6.20); White Blood Count 7.0 K/mm3 (4.5-10.0)
[2025-02-22 01:44] LABS: Alanine Aminotransferase 24 U/L (6-50); Albumin Level 4.0 g/dL (3.5-5.1); Alkaline Phosphatase 151 U/L (38-126); Anion Gap 7 mmol/L (4-12); Aspartate Amino Transferase 31 U/L (17-59); Bilirubin,Total 0.8 mg/dL (0.2-1.3); Blood Urea Nitrogen 60 mg/dL (9-20); Calcium 8.9 mg/dL (8.4-10.2); Carbon Dioxide 25 mmol/L (22-30); Chloride 107 mmol/L (98-107); Estimated Glomerular Filt Rate 23; Glucose 158 mg/dL (65-110); Potassium 4.5 mmol/L (3.4-5.0); Sodium 139 mmol/L (137-145); Total Protein 8.0 g/dL (6.3-8.2)
[2025-02-22 01:54] LABS: Add Urine Microscopic? YES; Appearance Urine Cloudy (Clear)
[2025-02-22 02:10] LABS: Specific Grav Ur 1.020 (1.001-1.035)
[2025-02-22 02:11] LABS: Glucose Urine UA 2+ mg/dL (Negative); Leukocyte Esterase Ur 1+ LEU/UL (Negative); Nitrate Urine Negative (Negative)
[2025-02-22 02:16] VITALS: BP 152/114; PULSE 88; RESP 24; O2SAT 94
--- NOTE | 2025-02-22 02:24 | ED.SYNCOPE ---
HPI - Syncope General Chief Complaint: Syncope Stated Complaint: Catheter issues-Syncope Time Seen by Provider: 02/22/25 02:14 Source: patient and EMS Mode of arrival: EMS Limitations: no limitations History of Present Illness HPI narrative: This is an 79-year-old male with history of CHF, CKD, BPH with obstruction and Payne dependency who presents to the ED for penis pain and syncope. Patient states that he was sleeping when he had sudden-onset penile pain. He states that shortly after this started he had an episode of syncope after this. He noticed blood in his Payne bag prompting him to call EMS. He Related Data Home Medications ?Medication ?Instructions ?Recorded ?Confirmed ?Last Taken ?Type empagliflozin 10 mg tablet 10 mg PO DAILY 08/26/23 02/15/25 01/27/25 History (Jardiance) aspirin 81 mg capsule 81 mg PO DAILY 04/10/24 02/15/25 01/27/25 History levothyroxine 175 mcg capsule 175 mcg PO DAILY 01/11/25 02/15/25 01/27/25 History buspirone 10 mg tablet 10 mg PO BID anxiety 01/28/25 02/15/25 Unknown History ferrous sulfate 325 mg (65 mg 325 mg PO DAILY 01/28/25 02/15/25 01/27/25 History iron) tablet,delayed release Allergies Allergy/AdvReac Type Severity Reaction Status Date / Time No Known Allergies Allergy Verified 02/15/25 11:09 Review of Systems Review of Systems: Gen.: Denies fevers or chills Eyes: Denies eye pain or visual change ENT: Denies congestion Respiratory: Denies shortness of breath or cough CV: Denies chest pain or palpitations GI: Denies abdominal pain nausea, emesis or diarrhea as per HPI Musculoskeletal: Denies back pain or muscle pain Neuro: Denies numbness, tingling, weakness or focal weakness Skin: Denies rash Except as documented, all other systems reviewed and negative [facility] Past Medical History Medical History Nonsustained ventricular tachycardia H/O: upper GI bleed Type 2 HI (myocardial infarction) PAF (paroxysmal atrial fibrillation) CAD in [place] Non-ST elevation HI (NSTEMI) (~04/2023) Hypothyroidism (acquired) Vitamin D deficiency Chronic venous insufficiency of lower extremity History of stroke (1991) Stroke was in 1991, [facility], unclear if hemorrhagic or not but pt does not recall any intravascular intervention. GERD without esophagitis Peptic ulcer disease 09/2019-cauterization and placed on PPI Anemia of chronic disease CKD (chronic kidney disease) stage 3, GFR 30-59 ml/min Unspecified osteoarthritis, unspecified site BPH w/o urinary obs/LUTS CAD in [place] History of RCA stents, and Left anterior descending ([place] [facility] The most recent intervention was in August [address] Bartlett, when he had atherectomy balloon angioplasty and stenting of the proximal and mid Left anterior descending (at [facility]). Dyslipidemia Essential (primary) hypertension JILLIAN (obstructive sleep apnea) uses a CPAP machine Surgical History Surgical History H/O esophagogastroduodenoscopy this past week with cauterization of peptic ulcer disease H/O bilateral cataract extraction (~2017) History of coronary artery stent placement (~05/05/18) x3. Drug-eluting stent to the RCA in 2 stents the LAD. Family History Family History Father Family history of cardiovascular disease, Onset Age: 55 Hypertension, Onset Age: 55 Mother Bladder cancer Patient's mother is , Onset Age: 65 Sibling Diabetes mellitus Social History Social History Social History: the patient is and lives with his . She is the durable power attorney at law for healthcare. The patient is a full code. He has 1 adopted son. 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. He used to smoke until E adopted his son. He occasionally has a glass of wine maybe twice a week. Depending on what they eat that week. He stated he has lost about 40 lb by trying this past year. Smoking status: Never smoker Second hand tobacco smoke exposure: Yes Additional smoking assessment comments: SMOKED FOR ONE YEAR DURING COLLEGE Alcohol intake: current Drinks per week: 3 Alcohol use details: consumes 2 glasses of wine weekly Substance use: current Substance use type: does not use Last use: glass of wine once or twice a week Lack of Transportation: YES Lack of Food: Never True Current Housing: I Have Housing Concerned About Future Housing: No Difficulty Paying Gas/Electric Bills: No Difficulty Paying for Meds: No Currently Unemployed: No Education: Associate Degree Difficulty w/ Childcare or Family Care: No Gender identity (if verbalized by the patient): Male Sexual Orientation (if Verbalized by the Patient): Straight or Heterosexual Spiritual care concerns: No Exam Narrative: APPEARANCE: No acute distress, nontoxic, resting in bed EYES: EOMI HEENT: Normocephalic, atraumatic, OMM RESPIRATORY: No respiratory distress Clear to auscultation bilaterally with no rhonchi wheezing or rales. CARDIOVASCULAR: Regular rate and rhythm without murmurs rubs or gallops. ABDOMINAL: Soft, nontender, nondistended, no rebound or guarding : Payne catheter in place with gross hematuria, no suprapubic abdominal tenderness MUSCULOSKELETAl: Moves all extremities. No clubbing, cyanosis or edema. NEURO: Awake and alert. Following commands, speech normal, no focal deficits SKIN:: Warm, dry. No rashes lesions or abrasions PSYCHIATRIC: Normal affect/mood, Course Vital Signs Vital signs: Vital Signs Temperature 97.6 F 02/22/25 00:58 Pulse Rate 110 H 02/22/25 00:58 Respiratory Rate 22 H 02/22/25 00:58 Blood Pressure 156/102 H 02/22/25 00:58 Pulse Oximetry 96 02/22/25 00:58 Oxygen Delivery Room Air 02/22/25 00:58 Temperature 97.6 F 02/22/25 00:58 Pulse Rate 102 H 02/22/25 02:42 Respiratory Rate 18 02/22/25 02:36 Blood Pressure 157/93 H 02/22/25 02:42 Pulse Oximetry 94 02/22/25 02:36 Oxygen Delivery Room Air 02/22/25 00:58 Discharge Plan Discharge Clinical Impression: Vasovagal near syncope Payne catheter problem Qualifiers: Encounter type: initial encounter Qualified Code(s): T83.9XXA - Unspecified complication of genitourinary prosthetic device, implant and graft, initial encounter Hematuria Qualifiers: Hematuria type: gross Qualified Code(s): R31.0 - Gross hematuria Patient Disposition: Home Condition: Stable Instructions: Antibiotic Form, Near Syncope (ED) Additional Instructions: Follow-up with your urologist in the next week for re-evaluation. Return to the ED for any new or worsening symptoms. Patient Language: Hebrew Prescriptions: No Action carvedilol 12.5 mg tablet 12.5 mg PO Q12H Qty: 180 1RF Rx Instructions: must administer with a meal/food Jardiance 10 mg tablet 10 mg PO DAILY levothyroxine 175 mcg capsule 175 mcg PO DAILY ergocalciferol (vitamin D2) 1,250 mcg (50,000 unit) capsule 1,250 mcg PO WEEKLY Qty: 13 1RF Patient Comments: patient takes on Mondays aspirin 81 mg capsule 81 mg PO DAILY buspirone 10 mg tablet 10 mg PO BID ferrous sulfate 325 mg (65 mg iron) tablet,delayed release (DR/EC) 325 mg PO DAILY furosemide 40 mg Tablet 40 mg PO BID Qty: 60 0RF pantoprazole 40 mg tablet,delayed release (DR/EC) 40 mg PO QAM Qty: 100 1RF tamsulosin 0.4 mg capsule 0.4 mg PO QPM Qty: 100 1RF lisinopril 5 mg tablet 5 mg PO DAILY Qty: 90 1RF albuterol sulfate [Ventolin HFA] 90 mcg/actuation HFA aerosol inhaler 1 - 2 puff inhalation Q4H PRN (Reason: shortness of breath or wheezing) Qty: 8.5 2RF hydrocodone-acetaminophen 5-325 mg tablet 1 tablet PO BID PRN (Reason: pain) Qty: 30 0RF atorvastatin 40 mg tablet 40 mg PO HS Qty: 90 3RF Follow-up/Referrals: Elidia Goldberg APRN [Primary Care Provider, [facility]] MDM MDM Narrative Medical decision making narrative: 79-year-old male Presenting for Payne catheter problem she and syncope. On initial evaluation patient was in no acute distress afebrile, hemodynamic stable. Differentials include but are not limited to: Payne catheter problem, UTI, cancer, vasovagal syncope Notable exam findings: Blood in the Payne catheter, no abdominal tenderness to palpation. I personally reviewed the patient's lab result. Notable lab findings: CBC without significant abnormalities. CMP showed a stable elevated creatinine. UA consistent with gross hematuria. I personally reviewed the patient's images and interpret as follows: Chest x-ray: Normal cardiac silhouette, no consolidations, no pleural effusions, mild pulmonary vascular congestion I personally reviewed the patient's EKGs: Sinus tachycardia rate of 110, normal axis intervals, no acute ST or T-wave changes Patient's Payne catheter was changed and he did have resolution of his penile pain. Suspect that his syncopal episode was due to vasovagal syncope related to the pain. Patient was deemed appropriate for discharge at this time. He was advised follow-up with his urologist in the next week for re-evaluation. Patient was agreeable to this plan. Given strict return precautions. Differential Diagnosis Differential Diagnosis: Payne catheter problem, UTI, cancer, vasovagal syncope Lab Data MDM Lab Attestation statement: I personally reviewed the patient's lab results. 02/22/25 01:15 02/22/25 01:15 Labs: Lab Results 02/22/25 02/22/25 Range/Units 01:15 01:35 WBC 7.0 (4.5-10.0) K/mm3 RBC 4.43 L (4.6-6.20) M/mm3 Hgb 12.9 L (14.0-18.0) g/dL Hct 40.7 L (42.0-52.0) % MCV 91.9 (80-100) fl MCH 29.1 (26-34) pg MCHC 31.7 L (32-36) g/dl RDW 16.6 H (11.5-14.5) % Plt Count 192 D (150-375) k/mm3 MPV 10.5 H (7.4-10.4) fl Immature Gran % (Auto) 0.3 (0-0.5) % Neut % (Auto) 62.6 (45.5-73.1) % Lymph % (Auto) 18.8 (18.3-44.2) % [place]aines % (Auto) 11.5 H (2.6-8.5) % Eos % (Auto) 5.5 H (0-4.4) % Baso % (Auto) 1.3 H (0.2-1.2) % Lymph # (Auto) 1.32 (0.9-3.2) K/mm3 [place]aines # (Auto) 0.8 H (0.1-0.6) K/mm3 Eos # (Auto) 0.4 H (0-0.3) K/mm3 Baso # (Auto) 0.1 (0.0-0.1) K/mm3 Abs Immat Gran (auto) 0.02 (0.00-0.031) K/mm3 Absolute Neuts (auto) 4.4 (1.3-6.7) K/mm3 Absolute Nucleated RBC 0.000 (0.0-0.012) K/mm3 Nucleated RBC % 0.0 (0.0-0.2) % Sodium 139 (137-145) mmol/L Potassium 4.5 (3.4-5.0) mmol/L Chloride 107 (98-107) mmol/L Carbon Dioxide 25 (22-30) mmol/L Anion Gap 7 (4-12) mmol/L BUN 60 H (9-20) mg/dL Creatinine 2.69 H (0.7-1.3) mg/dL Estim Creat Clear Calc Not Reportable Estimated GFR 23 L (59 - ) Glucose 158 H (65-110) mg/dL Calcium 8.9 (8.4-10.2) mg/dL Total Bilirubin 0.8 (0.2-1.3) mg/dL AST 31 (17-59) U/L ALT 24 (6-50) U/L Alkaline Phosphatase 151 H (38-126) U/L Total Protein 8.0 (6.3-8.2) g/dL Albumin 4.0 (3.5-5.1) g/dL Urine Color Red H (Yellow) Urine Appearance Cloudy H (Clear) Urine pH 6.0 (5.0-9.0) Ur Specific [place] 1.020 (1.001-1.035) Urine Protein 2+ H (Negative) mg/dL Urine Glucose (UA) 2+ H (Negative) mg/dL Urine Ketones Trace H (Negative) mg/dL Ur Blood (Man) 3+ H (Negative) Urine Nitrate Negative (Negative) Urine Bilirubin 1+ H (Negative) Urine Urobilinogen 1.0 (<2.0) mg/dL Leukocyte Esterase Rfl 1+ H (Negative) ELIOT/UL Urine RBC >100 H (0-2) /hpf Urine WBC 51-75 H (0-3) /hpf Imaging Data Radiologist's impression: ITS Impressions Chest X-Ray 02/22/25 07:53 IMPRESSION: 1. Proximal changes in the perihilar regions may represent vascular congestion with mild pulmonary edema and/or pneumonitis.
[2025-02-22 02:36] VITALS: BP 157/93; PULSE 111; RESP 18; O2SAT 94
[2025-02-22 02:40] VITALS: BP 146/87; PULSE 93
[2025-02-22 02:42] VITALS: BP 157/93; PULSE 102
--- OUTSIDE RECORDS SUMMARY | 2025-02-22 02:57 | XMS_ITS | Data Portability ---
Author Organization [place] [facility], Main Office Address [address] [place] [address] Assessment No assessment recorded. Plan of Treatment [...] iance * No observ ation record ed. [id number] Formerly [facility] [address] [place] [address], [place], [address], 05/12/2022 03:05:03 Result Notes None recorded. Problems Name Problem SNOMED Code Status Onset Date Resolution Date Notes Provider Name and Address Organization Details Recorded Time Daytime hypersomni a 8043027846499 2 Active 2018 Not Available [facility] 3 02:52:47 Hypertensi ve disorder 60102484 Active 2018 Not Available [facility] 3 02:52:47 Hypoxia 441566630 Active 2018 Not Available [facility] 3 02:52:47 Body mass index 40+ - severely obese 039639718 Active 2018 Not Available [facility] 3 02:52:47 Obstructiv e sleep apnea syndrome 68185764 Active 2018 Not Available [facility] 3 02:52:47 Obesity 842578783 Active 2021 Not Available [facility] 3 02:52:47 Nasal congestion 73121056 Active 2021 Not Available [facility]ly [facility] 3 02:52:47 Problem Notes None recorded. [...] mass index (BMI) Body height Oxygen saturation Heart rate Body temperature Body weight Systolic And Diastolic Provider Name and Address Organization Details Last Updated DateTime 3 35.4 kg/m2 170.18 cm 96 % 78 /min 97.7 [degF] 680763. 88 g 130/80 mm[Hg] Not Available [facility] 3 02:51:08 Date Recorded Body mass index (BMI) Body height Oxygen saturation Heart rate Body temperature Body weight Systolic And Diastolic Provider Name and Address Organization Details Last Updated DateTime 2 36.2 kg/m2 170.18 cm 95 % 75 /min 97.4 [degF] 575762. 27 g 150/72 mm[Hg] Not Available [facility] 3 02:51:08 Date Recorded Body height Body mass index (BMI) Body weight Body temperature Heart rate Oxygen saturation Systolic And Diastolic Provider Name and Address Organization Details Last Updated DateTime 3 170.18 cm 35.2 kg/m2 154741. 28 g 97.2 [degF] 56 /min 97 % 134/80 mm[Hg] Erika Duarte [place] [facility] 3 10:34:35 Date Recorded Body mass index (BMI) Body height Oxygen saturation Heart rate Body temperature Body weight Systolic And Diastolic Provider Name and Address Organization Details Last Updated DateTime 1 35.8 kg/m2 170.18 cm 94 % 51 /min 97.2 [degF] 575944. 93 g 120/80 mm[Hg] Not Available [facility] 3 02:51:07 Date Recorded Body height Oxygen saturation Heart rate Body temperature Systolic And Diastolic Provider Name and Address Organization Details Last Updated DateTime 2 170.18 cm 97 % 76 /min 97.4 [degF] 142/90 mm[Hg] Not Available [facility] 3 02:51:08 Social History Question Answer Notes LastModified by Organizat ion Details LastModified Time Tobacco Smoking Status Former Smoker couple years in high school Not Available [facility] 05/12/2022 02:43:04 What Is Your Level Of Caffeine Consumption? Moderate Coffee Every Am [id number] Information not available 05/12/2022 How Much Tobacco Do You Chew? None [id number] Information not available 05/12/2022 In The 14 Days Before Symptom Onset, Have You Had Close Contact With A Laboratory-confir med COVID-19 While That Case Was Ill? No [id number] Information not available 05/12/2022 In The 14 Days Before Symptom Onset, Have You Had Close Contact With A Person Who Is Under Investigation For COVID-19 While That Person Was Ill? No [id number] Information not available 05/12/2022 Which Illicit Or Recreational Drugs Have You Used? None [id number] Information not available 05/12/2022 When Did You Quit Smoking? 16+yearssinc elastcigaret te 60 Years Or More [id number] Information not available 05/12/2022 What Was The Date Of Your Most Recent Tobacco Screening? 05/23/2020 [id number] Information not available 05/12/2022 Do You Have Any Pets? Yes [id number] Information not available 05/12/2022 At What Age Did You Start Smoking Tobacco? 13 [id number] Information not available 05/12/2022 Sex: Unknown Functional Status Question Answer Note LastModified by Organizat ion Details LastModified Time Do you use any illicit or recreational drugs? No [id number] Information not available 05/12/2022 What is your level of alcohol consumption? Occasional wine [id number] Information not available 05/12/2022 Do you or have you ever used e-cigarettes or vape? Never used electronic cigarettes [id number] Information not available 05/12/2022 Mental Status None recorded. Family History Nothing Reported. Medical History No medical history recorded. Immunizations Vaccine Type Date Status Note Provider Nam e and Address Organization Details Recorded Time COVID-19, mRNA, LNP-S, PF, 100 mcg/0.5mL dose or 50 mcg/0.25mL dose 05/12/2020 completed Not Available [facility] 3 03:04:08 COVID-19, mRNA, LNP-S, PF, 100 mcg/0.5mL dose or 50 mcg/0.25mL dose 04/14/2020 completed Not Available [facility] 3 03:04:08 Past Encounters Encounter ID Performer Location Encounter Start Date Encounter Closed Date Diagnosis/Indication Diagnosis SNOMED-CT Code Diagnosis ICD10 Code Diagnosis IMO Codes Diagnosis Note [id number] Milli Markham, TOPOLOGY TEACHER-BC [facility] [address] [address] 05/23/2020 00:00:00 05/23/2020 10:42:13 [id number] [facility] [place] [address] [place] [address] 12/15/2020 00:00:00 12/15/2020 10:39:52 [id number] [facility] [place] [address] [place] [address] 06/15/2021 00:00:00 06/15/2021 10:39:49 [id number] [facility] [place] [address] [place] [address] 12/15/2021 00:00:00 12/15/2021 12:30:57 [id number] [facility] [place] [address] [place] [address] 03/17/2022 00:00:00 03/17/2022 10:16:28 [id number] [facility] [place] [address] [place] [address] 09/20/2022 10:26:05 09/20/2022 11:16:22 Obstructive sleep apnea syndrome 65816979 G47.33 In lab study with AHI 50.4 [...] C in 6-8 weeks Daytime hypersomnia 3177 813676 4960 G47.19 Multifacto ralImprove d with [facility] Concerns Section Related Observation LastModified by Organization Detai ls LastModified Time None Recorded Concern Status LastModified by Organization Details LastModified Time None Recorded Advance Directives Directive None Recorded Payers Insurance Date Sequence Insurance Name Policy Number Policy Jeffers Covered Member ID Jeffers Member ID Guarantor Name 11/25/2023 1 [facility] [id number] Alberto Rea [id number] Alberto Rea Notes Date Note Type Note Provider Name and Address Organization Details Recorded Time 09/20/2022 text/html Mr Rea presents to follow up on JILLIAN and new [...] xerostomia and aerophagia.Nocturia is unchanged Milli Markham, TOPOLOGY TEACHER-BC [address] [facility], [facility] [address], [place], [address], [facility] [employer] 09/20/2022 12:33:12
[2025-02-22] MEDS: SODIUM CHLORIDE 0.9% IV 1,000 ML 999 ML IV CONT (03:31)
== END 2025-02-22 04:35 | disposition home or self-care (01) ==
PROVIDERS: Emergency Provider Student in an Organized Health Care Education/Training Program; PCP Nurse Practitioner Family
DX: R55 Syncope and collapse (principal); R31.9 Hematuria, unspecified; T83.84XA Pain due to genitourinary prosthetic devices, implants and grafts, initial encounter; I25.2 Old myocardial infarction; I48.0 Paroxysmal atrial fibrillation; I25.10 Atherosclerotic heart disease of native coronary artery without angina pectoris; I87.2 Venous insufficiency (chronic) (peripheral); I13.0 Hypertensive heart and chronic kidney disease with heart failure and stage 1 through stage 4 chronic kidney disease, or unspecified chronic kidney disease; I50.9 Heart failure, unspecified; N18.30 Chronic kidney disease, stage 3 unspecified; E03.9 Hypothyroidism, unspecified; E55.9 Vitamin D deficiency, unspecified; E78.5 Hyperlipidemia, unspecified; N40.0 Benign prostatic hyperplasia without lower urinary tract symptoms; G47.33 Obstructive sleep apnea (adult) (pediatric); K21.9 Gastro-esophageal reflux disease without esophagitis; Z95.5 Presence of coronary angioplasty implant and graft; Z86.73 Personal history of transient ischemic attack (TIA), and cerebral infarction without residual deficits; Z87.11 Personal history of peptic ulcer disease; Z87.891 Personal history of nicotine dependence; Z98.42 Cataract extraction status, left eye; Z98.41 Cataract extraction status, right eye; Y84.6 Urinary catheterization as the cause of abnormal reaction of the patient, or of later complication, without mention of misadventure at the time of the procedure; I47.10 Supraventricular tachycardia, unspecified; R94.31 Abnormal electrocardiogram [ECG] [EKG]; Z79.84 Long term (current) use of oral hypoglycemic drugs; Z79.899 Other long term (current) drug therapy; Z79.82 Long term (current) use of aspirin
CPT/HCPCS: 36415; 51702; 71046; 80053; 81001; 85025; 87086; 87186; 93005; 99283; J7030